=== PATIENT | female | born 1960 | race Caucasian/White ===

== ENCOUNTER 2018-07-05 05:37 | Inpatient (IN) | payer MEDICARE, MEDICAID, SELFPAY ==
[2018-07-05] VITALS (27 sets, daily range): BP systolic 180–248; BP diastolic 84–137; PULSE 89–102; RESP 11–20; TEMP 36.5–37.2; O2SAT 95–100; BMI 32.2; BMI 32.1
--- NOTE | 2018-07-05 05:54 | CT_ITS ---
STUDY: CT BRAIN WITHOUT CONTRAST REASON FOR EXAM: Female, 58 years old. Nausea vomiting diarrhea, weakness, lightheadedness, unsteady gait. RADIATION DOSAGE (If Supplied By Facility): CTDIvol = ( 44.99 ) mGy, DLP = ( 779.24 ) mGycm TECHNIQUE: Transaxial CT imaging of the brain was performed without administration of intravenous contrast material. Individualized dose optimization techniques were used for this CT. COMPARISON: 11/09/2013 FINDINGS: Normal soft tissue structures. Normal calvarium. There is mild/moderate cerebral atrophy with widening of the extra-axial spaces and ventricular dilatation. Moderate size focal zone of decreased attenuation noted centrally in the left posterior frontal subcortical white matter, reflective of subacute/chronic ischemic injury. There are significant areas of decreased attenuation within the white matter tracts of the supratentorial brain, demonstrated, consistent with nonspecific white matter demyelination. No definite acute abnormality of the basal ganglia, thalami and brainstem noted. Normal cerebellum. There is no intracranial hemorrhage. There are no findings of an acute ischemic infarction. Normal visualized paranasal sinuses. CT/Brain/Head without Contrast IMPRESSION: Chronic involutional and nonspecific periventricular white matter changes of the brain demonstrated, most likely chronic. Correlation with MRI exam is recommended. Electronically Signed: Mushtaq Chicas MD at 7:13 EDT Tel , Service support ,
--- NOTE | 2018-07-05 05:56 | ED.VISSUMM ---
- ER Visit Summary Date of Service: 07/05/18 Chief Complaint: [] Nausea vomiting and diarrhea History of Present Illness: The patient is a 58 F [] patient states she has had nausea vomiting diarrhea since yesterday morning. Gradual onset intermittent. She is vomited at least 20 times with 10 episodes of loose watery diarrhea. She stated that she fell off balance earlier this morning when walking and felt vertigo and dizzy. She states she has not been able to hold anything down including her medications yesterday. She does have a history of multiple sclerosis in the past. She is seen neurology in the past. She is off her medications currently. She does have diabetes. She has never had a stroke. She denies any focal weakness slurred speech or other stroke symptoms. Physical Examination: [] Vital signs reviewed General: Well-nourished well-developed Head: Normocephalic atraumatic Eyes: Pupils equal round and reactive to light extraocular movements intact ENT: TMs clear no hemotympanum no trauma Neck: Nontender full range of motion Cardiovascular: Regular rate rhythm no murmurs normal S1-S2 Respiratory: No distress clear to auscultation bilaterally chest nontender Abdomen: Soft nontender nondistended normal bowel sounds no masses Back: Nontender no CVA tenderness Extremities: Nontender active range of motion ?4 extremities no trauma Skin: Normal color no trauma Neuro alert oriented cranial nerves II through XII intact normal strength sensation reflexes Test Results: [] Emergency Department Course and Treatment: [] She given IV fluids and Zofran. Lab work and CT brain obtained. Lab work shows a white count of 13.8. Chemistries normal except chloride 97 anion gap 20 glucose 419 creatinine 1.08. Liver function tests normal except total bili 1.1. Troponin negative less than 0.01. Patient given a dose of labetalol IV as she has not been able to take her metoprolol and her blood sugar is over 200 systolic. She was given insulin subcutaneous for her blood sugar that was 419. Normally her blood sugars at home are in the upper 100s. CT looked at by myself shows nothing acute. No active bleeding. Still waiting on radiology evaluation will be signed out to the oncoming physician. She given dose of hydralazine as her blood pressure remains above 200 systolic. Patient's she is significantly better after treatment. She will be admitted and discussed with the hospitalist Treatment Plan: [] Disposition: [] Impression: [] Nausea vomiting diarrhea Acute dehydration Diabetes with hyperglycemia Hypertension established out of control symptomatic Weakness and dizziness This note was generated with [employer] dictation software. It may contain incorrect words, spelling, and punctuation that were not noted in review of the chart prior to signing ED Disposition - Plan for ED Patient: Chief Complaint: Nausea/Vomiting/Diarrhea Referrals: Jaskaran Garcia MD [Primary Care Provider] -
[2018-07-05 06:05] LABS: Absolute Lymphocyte Count 2.59 X10^3/ul (0.83-4.51); Absolute Neutrophil Count 10.7 X10^3/uL (2.0-7.7); Basophil# 0.03 X10^3/uL; Basophil% 0.2 % (0-1); Hematocrit 42.4 % (37-47); Hemoglobin 14.7 g/dl (12.0-15.0); Lymphocyte # 2.59 X10^3/ul (4.0); Lymphocyte % 18.8 % (19-41); Mean Corp Hgb Conc 34.7 g/gl (32-36); Mean Corpuscular Hgb 28.8 pg (27.0-32.0); Mean Platelet Vol. 11.8 fl (6.2-12.0); Monocyte# 0.46 X10^3/uL; Monocyte% 3.3 % (0-10); Neutrophil % 77.6 % (47-70); Platelet Count 308 K/mm3 (150-450); RBC Distribution Width CV 12.3 % (11.6-14.6); RBC Distribution Width SD 37.3 fl (35.1-43.9); Red Blood Count 5.11 M/mm3 (4.2-5.4); White Blood Count 13.8 K/mm3 (4.4-11.0)
[2018-07-05 06:06] LABS: POSITIVE COUNT NO; POSITIVE DIFFERENTIAL NO; POSITIVE MORPHOLOGY NO
[2018-07-05] MEDS: 0.9% Normal Saline 1,000 ML 1000 ML IV ×2 (06:10→07:07)
[2018-07-05] MEDS: Ondansetron 4 MG/2 ML Vial IV ×2 (06:10→08:10)
--- NOTE | 2018-07-05 06:18 | ED.RN ---
CALLED PHARMACY FOR TRANDATE.
[2018-07-05 06:20] LABS: AST(SGOT) 15 U/L (15-37); Alanine Aminotransfer ALT/SGPT 32 U/L (13-56); Alkaline Phosphatase 92 U/L (45-117); Anion Gap 20 (5-15); BUN 14 mg/dL (7-18); Calcium,Total 8.8 mg/dL (8.5-10.1); Chloride 97 mmol/L (98-107); Creatinine, Serum 1.08 mg/dL (0.55-1.02); EST Glomerular Filtration Rate 55 mL/min (>60); Est Glom Filt Rate - Afr Amer 67 mL/min (>60); Estimated Creatinine Clearance 55.22 ml/min; Glucose 419 mg/dL (74-106); Potassium 3.5 mmol/L (3.5-5.1); Sodium Level 138 mmol/L (136-145)
[2018-07-05] MEDS: Insulin Lispro 100 UNIT/ML INSULN.PEN 15 UNIT SC (06:30)
[2018-07-05 07:05] LABS: Bedside Glucose 419 mg/dL (70-110)
--- NOTE | 2018-07-05 07:14 | NURSING ---
MED SURG ESTELLE SYMPTOMATIC HTN, V, D, DEHYDRATION, HYPERGLYCEMIA
--- NOTE | 2018-07-05 07:32 | PCM.HP.STD ---
Problem List (1) Hypertensive emergency Status: Acute (2) Gastroenteritis Status: Acute History of Present Illness Date of Admission: 07/05/18 Chief Complaint: N/V/D The patient is a 58 year old F presents with nausea, vomiting and diarrhea since the . Since that time, patient has been more unsteady than she is at baseline. Has consists continue to feel worse and family brought patient into the emergency room. Patient had some lab work that was unremarkable. Head CT that grossly did not show any emergent final report still pending. Patient was noted to be hypertensive with blood pressure of 239/137. Patient received 20 mg of IV hydralazine, 20 mg of IV labetalol and blood pressure is now 198 systolic. Patient states that she has had symptoms similar to this but less severe in the past but nothing recently. Patient being admitted for further hypertensive management, therapy evaluations and IV hydration. [] Past Medical History Past Medical History (Chronic Problems): Chronic Problems Depression (Chronic) Chronic renal failure, stage 2 (mild) (Chronic) HTN (hypertension) (Chronic) DM (diabetes mellitus), type 2, uncontrolled (Chronic) Dyslipidemia (Chronic) Allergies No Known Allergies Allergy (Verified 07/05/18 05:50) Home Medications: Ambulatory Orders Medication Instructions Recorded Aspirin [Aspirin, Baby] 81 mg PO DAILY@0800 11/09/13 Citalopram [Celexa] 40 mg PO DAILY 11/09/13 Metoprolol Tartrate [Lopressor 100 mg PO BID 11/09/13 (beta rony)] buPROPion tablets [Wellbutrin 300 mg PO DAILY 11/09/13 tablets] Blood Sugar Diagnostic [Test 1 each MC 4X/DAY #120 strip 03/17/16 Strips] Insulin Aspart [Novolog Flexpen] 9 units SC TIDAC 30 Days flexpen 03/17/16 Insulin Detemir [Levemir FlexPen] 20 units SC QHS 30 Days insuln.pen 03/17/16 Magnesium Oxide [Mag-Ox 400] 400 mg PO BID #10 tablet 03/17/16 Losartan Potassium [Cozaar] 50 mg PO DAILY 07/05/18 Metformin HCl [Glucophage] 1,000 mg PO BIDCM 07/05/18 Smoking Status: Never smoker Tobacco Use: Non-smoker Alcohol: None Drugs: None - *Family History Maternal History Items: - - No MS Review of Systems Constitutional: Reports: Weakness. Denies: Chills, Fever, Weight Change Eyes: Denies: Blurred vision, Double vision HEENT: Reports: - - chronic vision loss in left eye due to optic neuritis.. Denies: Head Aches, Sinus Congestion, Sinus Drainage Cardiovascular: Denies: Chest Pain, Chest Pressure Respiratory: Denies: Cough, Shortness of breath at rest, Sputum production Gastrointestinal: Reports: Diarrhea, Nausea, Vomiting. Denies: Abdominal Pain Genitourinary: Denies: Dysuria Musculoskeletal: Denies: Joint Pain, Joint Tenderness Skin: Denies: Rash, Wounds Neurological: Denies: Numbness, Tingling, Focal weakness Psychiatric: Denies: Anxiety, Depression Hematologic/ Lymphatic: Denies: Easy Bruising, Easy Bleeding Comment: All review of systems are negative except as mentioned in the history of present illness and the other review of systems. VTE Information - Inpt Only VTE Present on Admission: No VTE Pharm Prophylaxis ordered?: Yes Patient Problems: Active and Suspected Problems Hypertensive emergency (Acute) Gastroenteritis (Acute) - Physical Exam General: Alert, No apparent distress HEENT: Atraumatic, PERRLA, EOMI, Normocephalic, - - vertical and horizontal nystagmus Oral: Moist Mucosa, No Gingival or Mucosal Lesions/ Ulcerations Neck: No Nodes, Thyroid Normal Size and Texture Lungs: Clear to auscultation, Normal air movement, No rhonchi, No wheeze Cardiovascular: Regular rate, Regular Rhythm, Normal S1, Normal S2, No murmurs Abdomen: Bowel Sounds Present, Soft, Non Tender, Non-Distended, No Hepato-splenomegaly, Passing Flatus Extremities: No edema, No Calf Tenderness Skin: No rashes, No breakdown Neurological: Cranial nerves II-XII grossly intact, Motor Exam 5/5 strength throughout, - - no clonus Psych/Mental Status: Normal Affect, Appropriate Vital Signs Temp Pulse Resp BP Pulse Ox 36.5 C L 94 19 H 216/102 H 100 07/05/18 05:38 07/05/18 06:31 07/05/18 06:26 07/05/18 06:31 07/05/18 06:26 Oxygen Delivery Method Room Air Weight: 94.7 kg Body Mass Index (BMI) 32.2 Finger Stick Blood Glucose 419 Laboratory Tests Past 24 Hrs 07/05/18 07/05/18 05:45 05:45 WBC 13.8 H RBC 5.11 Hgb 14.7 Hct 42.4 MCV 83.0 MCH 28.8 MCHC 34.7 RDW 12.3 RDW Differential 37.3 Plt Count 308 MPV 11.8 Immature Gran % (Auto) 0.100 Neut % (Auto) 77.6 H Lymph % (Auto) 18.8 L Gilchrist % (Auto) 3.3 Eos % (Auto) 0.0 Baso % (Auto) 0.2 Absolute Neuts (auto) 10.7 H Absolute Lymphs (auto) 2.59 Total Counted Not Reportable Sodium 138 Potassium 3.5 Chloride 97 L Carbon Dioxide 21.0 Anion Gap 20 H BUN 14 Creatinine 1.08 H Estim Creat Clear Calc 55.22 Est GFR (MDRD) Af Amer 67 Est GFR (MDRD) Non-Af 55 L BUN/Creatinine Ratio 13.0 Glucose 419 H Calcium 8.8 Total Bilirubin 1.10 H AST 15 ALT 32 Alkaline Phosphatase 92 Troponin I < 0.015 Total Protein 8.0 Albumin 4.0 Globulin 4.0 Albumin/Globulin Ratio 1.0 POC Glucose 07/05/18 07:01 POC Glucose 419 H Clinical Impression(s) from Imaging Studies Brain CT 07/05/18 05:54 IMPRESSION: Chronic involutional and nonspecific periventricular white matter changes of the brain demonstrated, most likely chronic. Correlation with MRI exam is recommended. Electronically Signed: Mushtaq Chicas MD at 7:13 EDT Tel , Service support , Assessment/Plan All Active Problems Hypertensive emergency (Acute) Gastroenteritis (Acute) Metabolic alkalosis (Acute) Hypokalemia (Acute) Abscess of right buttock (Acute) Dehydration (Acute) Hypomagnesemia (Acute) 1. Hypertensive emergency likely symptomatic with some of his symptoms but is unclear the symptoms began before after Supportive management Continue with his home medications As needed hydralazine Improved at this time, does not require ICU level care at this time. 2. Suspected gastroenteritis May be viral IV Zofran IV fluids 3. Debility Patient has weakness at baseline Physical and occupational therapy evaluate and treat Discussed the possibility of group home facility or home health care upon discharge with patient and her daughters 4. Multiple sclerosis Not currently on any medications but from the description of the family this may have been due to some insurance changes Family is inquired about getting insurance coverage of the patient to follow-up with Dr. Melchor in the future to get back on medications. 5. DVT prophylaxis with Lovenox Code Visit Inpatient E&M: 07401 Init Hosp L3
--- NOTE | 2018-07-05 07:37 | HP.PCM_ITS ---
Problem List (1) Hypertensive emergency Status: Acute (2) Gastroenteritis Status: Acute History of Present Illness Date of Admission: 07/05/18 Chief Complaint: N/V/D The patient is a 58 year old F presents with nausea, vomiting and diarrhea since the . Since that time, patient has been more unsteady than she is at baseline. Has consists continue to feel worse and family brought patient into the emergency room. Patient had some lab work that was unremarkable. Head CT that grossly did not show any emergent final report still pending. Patient was noted to be hypertensive with blood pressure of 239/137. Patient received 20 mg of IV hydralazine, 20 mg of IV labetalol and blood pressure is now 198 systolic. Patient states that she has had symptoms similar to this but less severe in the past but nothing recently. Patient being admitted for further hypertensive management, therapy evaluations and IV hydration. [] Past Medical History Past Medical History (Chronic Problems): Chronic Problems Depression (Chronic) Chronic renal failure, stage 2 (mild) (Chronic) HTN (hypertension) (Chronic) DM (diabetes mellitus), type 2, uncontrolled (Chronic) Dyslipidemia (Chronic) Allergies No Known Allergies Allergy (Verified 07/05/18 05:50) Home Medications: Ambulatory Orders Medication Instructions Recorded Aspirin [Aspirin, Baby] 81 mg PO DAILY@0800 11/09/13 Citalopram [Celexa] 40 mg PO DAILY 11/09/13 Metoprolol Tartrate [Lopressor 100 mg PO BID 11/09/13 (beta rony)] buPROPion tablets [Wellbutrin 300 mg PO DAILY 11/09/13 tablets] Blood Sugar Diagnostic [Test 1 each MC 4X/DAY #120 strip 03/17/16 Strips] Insulin Aspart [Novolog Flexpen] 9 units SC TIDAC 30 Days flexpen 03/17/16 Insulin Detemir [Levemir FlexPen] 20 units SC QHS 30 Days insuln.pen 03/17/16 Magnesium Oxide [Mag-Ox 400] 400 mg PO BID #10 tablet 03/17/16 Losartan Potassium [Cozaar] 50 mg PO DAILY 07/05/18 Metformin HCl [Glucophage] 1,000 mg PO BIDCM 07/05/18 Smoking Status: Never smoker Tobacco Use: Non-smoker Alcohol: None Drugs: None - *Family History Maternal History Items: - - No MS Review of Systems Constitutional: Reports: Weakness. Denies: Chills, Fever, Weight Change Eyes: Denies: Blurred vision, Double vision HEENT: Reports: - - chronic vision loss in left eye due to optic neuritis.. Denies: Head Aches, Sinus Congestion, Sinus Drainage Cardiovascular: Denies: Chest Pain, Chest Pressure Respiratory: Denies: Cough, Shortness of breath at rest, Sputum production Gastrointestinal: Reports: Diarrhea, Nausea, Vomiting. Denies: Abdominal Pain Genitourinary: Denies: Dysuria Musculoskeletal: Denies: Joint Pain, Joint Tenderness Skin: Denies: Rash, Wounds Neurological: Denies: Numbness, Tingling, Focal weakness Psychiatric: Denies: Anxiety, Depression Hematologic/ Lymphatic: Denies: Easy Bruising, Easy Bleeding Comment: All review of systems are negative except as mentioned in the history of present illness and the other review of systems. VTE Information - Inpt Only VTE Present on Admission: No VTE Pharm Prophylaxis ordered?: Yes Patient Problems: Active and Suspected Problems Hypertensive emergency (Acute) Gastroenteritis (Acute) - Physical Exam General: Alert, No apparent distress HEENT: Atraumatic, PERRLA, EOMI, Normocephalic, - - vertical and horizontal nystagmus Oral: Moist Mucosa, No Gingival or Mucosal Lesions/ Ulcerations Neck: No Nodes, Thyroid Normal Size and Texture Lungs: Clear to auscultation, Normal air movement, No rhonchi, No wheeze Cardiovascular: Regular rate, Regular Rhythm, Normal S1, Normal S2, No murmurs Abdomen: Bowel Sounds Present, Soft, Non Tender, Non-Distended, No Hepato- splenomegaly, Passing Flatus Extremities: No edema, No Calf Tenderness Skin: No rashes, No breakdown Neurological: Cranial nerves II-XII grossly intact, Motor Exam 5/5 strength throughout, - - no clonus Psych/Mental Status: Normal Affect, Appropriate Vital Signs Temp Pulse Resp BP Pulse Ox 36.5 C L 94 19 H 216/102 H 100 07/05/18 05:38 07/05/18 06:31 07/05/18 06:26 07/05/18 06:31 07/05/18 06:26 Oxygen Delivery Method Room Air Weight: 94.7 kg Body Mass Index (BMI) 32.2 Finger Stick Blood Glucose 419 Laboratory Tests Past 24 Hrs 07/05/18 07/05/18 05:45 05:45 WBC 13.8 H RBC 5.11 Hgb 14.7 Hct 42.4 MCV 83.0 MCH 28.8 MCHC 34.7 RDW 12.3 RDW Differential 37.3 Plt Count 308 MPV 11.8 Immature Gran % (Auto) 0.100 Neut % (Auto) 77.6 H Lymph % (Auto) 18.8 L Pitkin % (Auto) 3.3 Eos % (Auto) 0.0 Baso % (Auto) 0.2 Absolute Neuts (auto) 10.7 H Absolute Lymphs (auto) 2.59 Total Counted Not Reportable Sodium 138 Potassium 3.5 Chloride 97 L Carbon Dioxide 21.0 Anion Gap 20 H BUN 14 Creatinine 1.08 H Estim Creat Clear Calc 55.22 Est GFR (MDRD) Af Amer 67 Est GFR (MDRD) Non-Af 55 L BUN/Creatinine Ratio 13.0 Glucose 419 H Calcium 8.8 Total Bilirubin 1.10 H AST 15 ALT 32 Alkaline Phosphatase 92 Troponin I < 0.015 Total Protein 8.0 Albumin 4.0 Globulin 4.0 Albumin/Globulin Ratio 1.0 POC Glucose 07/05/18 07:01 POC Glucose 419 H Clinical Impression(s) from Imaging Studies Brain CT 07/05/18 05:54 IMPRESSION: Chronic involutional and nonspecific periventricular white matter changes of the brain demonstrated, most likely chronic. Correlation with MRI exam is recommended. Electronically Signed: Mushtaq Chicas MD at 7:13 EDT Tel , Service support , Assessment/Plan All Active Problems Hypertensive emergency (Acute) Gastroenteritis (Acute) Metabolic alkalosis (Acute) Hypokalemia (Acute) Abscess of right buttock (Acute) Dehydration (Acute) Hypomagnesemia (Acute) 1. Hypertensive emergency * likely symptomatic with some of his symptoms but is unclear the symptoms began before after * Supportive management * Continue with his home medications * As needed hydralazine * Improved at this time, does not require ICU level care at this time. 2. Suspected gastroenteritis * May be viral * IV Zofran * IV fluids 3. Debility * Patient has weakness at baseline * Physical and occupational therapy evaluate and treat * Discussed the possibility of group home facility or home health care upon discharge with patient and her daughters 4. Multiple sclerosis * Not currently on any medications but from the description of the family this may have been due to some insurance changes * Family is inquired about getting insurance coverage of the patient to follow- up with Dr. Melchor in the future to get back on medications. 5. DVT prophylaxis with Lovenox Code Visit Inpatient E&M: 23598 Init Hosp L3
--- NOTE | 2018-07-05 07:56 | NURSING ---
TEXT SENT TO ED CHARGE NURSE, JOEL TO BRING PATIENT TO PCU 108.
--- NOTE | 2018-07-05 09:45 | CASEMGMT ---
LUCIANO CEE Face to Face with patient for initial transition planning/care coordination assessment. RN CM introduced self and role at [facility]. Patient lying in bed, alert and oriented. Patient willing to participate in assessment and is able to answer all questions appropriately. Care providers, pharmacy, and demographics verified. See link attached. Patient wishes to discharge home, denies need for home health at this time. Patient states she has no further needs or concerns at this time. CM to follow for discharge planning needs that may arise. Disposition Plan: Patient to discharge home with family support and follow-up plans in place. Pat PUENTE, RN, CM
[2018-07-05] MEDS: Insulin Lispro 100 UNIT/ML INSULN.PEN 9 UNIT SC (11:19)
[2018-07-05 11:56] LABS: Bedside Glucose 340 mg/dL (70-110)
[2018-07-05] MEDS: cloNIDine HCl 0.2 MG Tablet PO (12:10)
[2018-07-05] MEDS: 0.9% NaCl Peripheral Flush Adult/Peds IV ×2 (12:11→15:44)
[2018-07-05] MEDS: Enoxaparin 40 MG/0.4 ML Syringe SC (15:43)
[2018-07-05] MEDS: Insulin Lispro 100 UNIT/ML INSULN.PEN SQ (16:40)
--- NOTE | 2018-07-05 17:26 | NURSING ---
Report Given to Shital in ICU
[2018-07-05 18:00] LABS: Bedside Glucose 342 mg/dL (70-110)
--- NOTE | 2018-07-05 18:24 | NURSING ---
At 1735 patient transferred ICU03.
[2018-07-05] MEDS: Metoprolol Tartrate 100 MG Tablet PO (22:22)
[2018-07-05 22:26] LABS: Bedside Glucose 341 mg/dL (70-110)
--- NOTE | 2018-07-05 22:31 | NURSING ---
After obtaining order for Haldol, pt relaxed and became compliant. Resting with eyes closed, and following commands. Will continue to monitor.
[2018-07-06] VITALS (31 sets, daily range): BP systolic 151–196; BP diastolic 62–97; PULSE 65–96; RESP 10–18; TEMP 36.6–37.4; O2SAT 93–100
[2018-07-06] MEDS: 0.9% NaCl Peripheral Flush Adult/Peds IV (00:34)
[2018-07-06] MEDS: Ondansetron 4 MG/2 ML Vial IV (00:34)
[2018-07-06 04:47] LABS: Anion Gap 14 (5-15); BUN 18 mg/dL (7-18); BUN/Creat Ratio 20.5 RATIO (10-20); Calcium,Total 8.1 mg/dL (8.5-10.1); Chloride 104 mmol/L (98-107); Creatinine, Serum 0.88 mg/dL (0.55-1.02); EST Glomerular Filtration Rate 70 mL/min (>60); Est Glom Filt Rate - Afr Amer 85 mL/min (>60); Estimated Creatinine Clearance 67.76 ml/min; Glucose 319 mg/dL (74-106); Potassium 3.1 mmol/L (3.5-5.1); Sodium Level 142 mmol/L (136-145)
[2018-07-06] MEDS: CHLORHEXIDINE GLUC 2% CLOTH 1 EACH TOWELETTE TOPICAL (05:36)
[2018-07-06 07:10] LABS: Bedside Glucose 328 mg/dL (70-110)
--- NOTE | 2018-07-06 07:27 | PCM.CON.CC ---
Problem List (1) Hypertensive emergency Status: Acute (2) Gastroenteritis Status: Acute (3) Chronic renal failure, stage 2 (mild) Status: Chronic (4) Hypokalemia Status: Acute (5) HTN (hypertension) Status: Chronic Qualifiers: Hypertension type: essential hypertension Qualified Code(s): I10 - Essential (primary) hypertension (6) DM (diabetes mellitus), type 2, uncontrolled Status: Chronic (7) Dyslipidemia Status: Chronic (8) Sleep apnea Status: Suspected Reason for Consult Date of Consultation: 07/06/18 Reason for Consultation: Hypertensive emergency History of Present Illness: The patient is a 58 year old F, with past medical history listed below, who presented to [facility] on 07/05/2018 secondary to nausea, vomiting and diarrhea. Patient had reportedly started to have nausea vomiting and diarrhea on and reported a gradual onset. Patient states that she had at least 20 episodes of emesis and 10 episodes of loose diarrhea over the previous day and a half. Patient had had issues with vertigo and dizziness and was unable to hold any medications down including her antihypertensives. Patient does have a history of multiple sclerosis in the past and has been seen by neurology. In the emergency room, patient was given IV fluids and Zofran. CT scan was unremarkable. Patient was noted to have a leukocytosis and elevated glucose of 419. Patient was given labetalol IV and insulin. She was admitted to the floor and seen by the hospitalist. At that time, patient was noted to be 239/137. Patient did receive hydralazine and labetalol with slight improvement in blood pressure. Patient was then transferred to the intensive care unit to be started on a nicardipine drip. Overnight, patient reports subjective improvement in overall condition. Patient still has significant nausea, but has not had any emesis. Patient does not report any bowel movements since admission. Patient denies any current pain, fever or chills. Patient has not had any reported melena, hematochezia or hematemesis. Patient denies any recent change in diet. Patient does can her own peaches and states that she had some on . Patient denies any change in flavor or alteration of the peaches. Patient denies any paralysis. Patient has reportedly been lost to follow-up with Dr. Melchor for her multiple sclerosis. Patient has not been able to take any medications for MS secondary to insurance issues. Patient denies any recent onset of rash. Patient is unaware of any sick contacts. Review of systems otherwise negative ?10 systems. Past Medical History Past Medical History (Chronic Problems): Chronic Problems Depression (Chronic) Chronic renal failure, stage 2 (mild) (Chronic) HTN (hypertension) (Chronic) DM (diabetes mellitus), type 2, uncontrolled (Chronic) Dyslipidemia (Chronic) Allergies No Known Allergies Allergy (Verified 07/05/18 05:50) Home Medications: Ambulatory Orders Medication Instructions Recorded Aspirin [Aspirin, Baby] 81 mg PO DAILY@0800 11/09/13 Citalopram [Celexa] 40 mg PO DAILY 11/09/13 Metoprolol Tartrate [Lopressor 100 mg PO BID 11/09/13 (beta rony)] buPROPion tablets [Wellbutrin 300 mg PO DAILY 11/09/13 tablets] Blood Sugar Diagnostic [Test 1 each MC 4X/DAY #120 strip 03/17/16 Strips] Losartan Potassium [Cozaar] 50 mg PO DAILY 07/05/18 Metformin HCl [Glucophage] 1,000 mg PO BIDCM 07/05/18 Smoking Status: Never smoker Tobacco Use: Non-smoker Alcohol: None Drugs: None - *Family History Maternal History Items: - - No MS Review of Systems Comment: See HPI, otherwise negative ?10 systems. Patient Problems: Active and Suspected Problems Hypertensive emergency (Acute) Gastroenteritis (Acute) Objective: CT scan of the head was reviewed. This did show some periventricular changes. - Physical Exam General: Alert, Oriented x3, Cooperative, - - Mild distress secondary to nausea. Obese. Speaking in full sentences. HEENT: Atraumatic, PERRLA, EOMI, Normocephalic, - - No scleral icterus or injection noted. Glasses in place. Oral: No Gingival or Mucosal Lesions/ Ulcerations, Dry Mucosa Neck: Supple, No JVD, No Nodes, Trachea Midline Lungs: Clear to auscultation, Normal air movement, No rhonchi, No wheeze, No rales Cardiovascular: Regular rate, Regular Rhythm, Normal S1, Normal S2, No murmurs, No rub noted, No Gallop Abdomen: Soft, Non Tender, Non-Distended, Hyperactive Bowel Sounds, Obese Extremities: No clubbing, No cyanosis, No edema, Capillary Refill Less than 3 Seconds Skin: No rashes, No breakdown Musculoskeletal: No Tenderness to Palpation of Joints or Extremities Lymphatic: No Cervical, Supraclavicular, or Inguinal Adenopathy Neurological: Cranial nerves II-XII grossly intact, Neuro grossly intact, Motor Exam 5/5 strength throughout Psych/Mental Status: Alert and oriented to time, place, person, mood and affect Vital Signs Temp Pulse Resp BP Pulse Ox 37.1 C 86 14 170/74 H 95 07/06/18 04:00 07/06/18 07:00 07/06/18 07:00 07/06/18 07:00 07/06/18 07:00 Oxygen Delivery Method Room Air Weight: 94.4 kg Body Mass Index (BMI) 32.1 Intake and Output for Last 24 Hours 07/04/18 07/05/18 07/06/18 23:59 23:59 23:59 Intake Total 2494 / 2494 813 / 813 Output Total 1450 / 1450 700 / 700 Balance 1044 / 1044 113 / 113 Laboratory Tests Past 24 Hrs 07/06/18 04:25 Sodium 142 Potassium 3.1 L Chloride 104 Carbon Dioxide 24.0 Anion Gap 14 BUN 18 Creatinine 0.88 Estim Creat Clear Calc 67.76 Est GFR (MDRD) Af Amer 85 Est GFR (MDRD) Non-Af 70 BUN/Creatinine Ratio 20.5 H Glucose 319 H Calcium 8.1 L POC Glucose 07/06/18 07/05/18 07/05/18 07:05 22:17 16:36 POC Glucose 328 H 341 H 342 H 07/05/18 11:18 POC Glucose 340 H Assessment/Plan Active and Suspected Problems Hypertensive emergency (Acute) Gastroenteritis (Acute) RECOMMENDATIONS: 1. Treat nausea symptomatically with Zofran 2. Reinitiate baseline medications for hypertension 3. Potentially add a third medication for hypertension if persists this evening 4. Continue with supplemental insulin 5. Potassium repletion IMPRESSIONS: 1. Hypertensive emergency Patient may be having an element of rebound hypertension secondary to inability to tolerate oral beta-rony. Patient is currently getting Zofran therapy and still having nausea, but emesis is much improved. Will attempt to give p.o. medications and monitor. If patient continues to be hypertensive, a third line medication can be added. Patient may benefit from an MRI to be sure she has no white matter changes in the vestibular area that may be leading to the nausea and increased gastric motility. 2. Possible viral gastroenteritis Patient does not report any sick contacts, but is having nausea, vomiting and diarrhea. We will continue to monitor fluid status. Keep patient n.p.o. for now. Hypokalemia likely secondary to GI losses. 3. Hypokalemia Replace IV given patient's GI symptoms 4. Debility/multiple sclerosis Complicates care, management, recovery and prognosis. Therapies have been consulted. Patient may require high-dose steroids if new acute lesions noted on MRI. Code Visit Inpatient E&M: 09007 Init Hosp L3
[2018-07-06] MEDS: Insulin Lispro 100 UNIT/ML INSULN.PEN 9 UNIT SC ×3 (07:47→17:06)
[2018-07-06] MEDS: Metoprolol Tartrate 100 MG Tablet PO ×2 (07:48→21:01)
[2018-07-06] MEDS: Insulin Lispro 100 UNIT/ML INSULN.PEN SQ ×3 (07:48→17:06)
[2018-07-06] MEDS: Losartan Potassium 50 MG Tablet PO (07:49)
--- NOTE | 2018-07-06 09:16 | PCM.PN.HOSP ---
Patient Problems: Active and Suspected Problems Hypertensive emergency (Acute) Gastroenteritis (Acute) Subjective: The patient is still having nausea sensation. On Zofran. She is still having dizzy and vertigo. Patient states her blood pressure has been on higher side at home and in the doctor's office but unsure about the exact number. Patient also said she lost her vision in left eye about 3-4 days ago has not come back. 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 Vitals/I&O's: Vital Signs Temp Pulse Resp BP Pulse Ox 97.8 F 78 12 180/76 H 97 07/06/18 08:00 07/06/18 08:00 07/06/18 08:00 07/06/18 08:00 07/06/18 08:00 Oxygen Delivery Method Room Air Weight: 208 lb 1.862 oz Body Mass Index (BMI) 32.1 Intake and Output for Last 24 Hours 07/04/18 07/05/18 07/06/18 23:59 23:59 23:59 Intake Total 2494 / 2494 813 / 813 Output Total 1450 / 1450 700 / 700 Balance 1044 / 1044 113 / 113 General: Alert, Oriented x3, Cooperative HEENT: Atraumatic, EOMI, Normocephalic Neck: Supple, No JVD, Negative Carotid Bruits Lungs: Clear to auscultation, Normal air movement, No rhonchi, No wheeze, No rales Cardiovascular: Regular rate, Normal S1, Normal S2, No murmurs Abdomen: Bowel Sounds Present, Soft, Non Tender, Non-Distended Extremities: No edema, Capillary Refill Less than 3 Seconds Skin: No rashes, No breakdown Musculoskeletal: No Tenderness to Palpation of Joints or Extremities Neurological: Cranial nerves II-XII grossly intact Psych/Mental Status: Normal Affect, Appropriate Laboratory Results 07/05/18 11:18: POC Glucose 340 H 07/05/18 16:36: POC Glucose 342 H 07/05/18 22:17: POC Glucose 341 H 07/06/18 04:25: Sodium 142, Potassium 3.1 L, Chloride 104, Carbon Dioxide 24.0, Anion Gap 14, BUN 18, Creatinine 0.88, Estim Creat Clear Calc 67.76, Est GFR (MDRD) Af Amer 85, Est GFR (MDRD) Non-Af 70, BUN/Creatinine Ratio 20.5 H, Glucose 319 H, Calcium 8.1 L 07/06/18 07:05: POC Glucose 328 H Current Medications Aspirin (Aspirin, Baby) 81 mg PO DAILY@0800 [facility] Last Admin: 07/05/18 16:32 Dose: Not Given Bupropion HCl (Wellbutrin Xl) 300 mg PO DAILY [facility] Last Admin: 07/05/18 16:32 Dose: Not Given Chlorhexidine Gluconate () 1 each TOPICAL DAILY [facility] Last Admin: 07/06/18 05:36 Dose: 1 each Citalopram Hydrobromide (Celexa) 40 mg PO DAILY [facility] Last Admin: 07/05/18 16:32 Dose: Not Given Dextrose (D50w Syringe) 0 gm IV X1 PRN; Protocol PRN Reason: Hypoglycemia Enoxaparin Sodium (Lovenox) 40 mg SC DAILY@1000 [facility] Last Admin: 07/05/18 15:43 Dose: 40 mg Glucagon () 1 mg IM .X1 PRN PRN Reason: Hypoglycemia Nicardipine HCl 25 mg/ Sodium (Chloride) 250 mls @ 50 mls/hr IV .Q5H [facility] PRN Reason: 5 MG/HR Last Admin: 07/06/18 04:38 Dose: 50 mls/hr Potassium Chloride (Kcl 10meq/100ml) 10 meq in 100 mls @ 100 mls/hr IV BOLUS Q1H [facility] Stop: 07/06/18 11:59 Last Admin: 07/06/18 09:00 Dose: 100 mls/hr Insulin Glargine (Lantus (Bkc)) 20 units SC QHS [facility] Last Admin: 07/05/18 22:21 Dose: 20 units Insulin Human Lispro (Humalog Kwikpen (Bkc)) 9 unit SC TIDAC [facility] Last Admin: 07/06/18 07:47 Dose: 9 u Insulin Human Lispro (Humalog Kwikpen (Bkc)) 0 unit SQ TIDAC [facility] PRN Reason: Protocol Last Admin: 07/06/18 07:48 Dose: 5 units Labetalol HCl (Trandate) 10 mg IV Q4H PRN PRN PRN Reason: hypertention Last Admin: 07/05/18 15:44 Dose: 10 mg Losartan Potassium (Cozaar) 50 mg PO DAILY [facility] Last Admin: 07/06/18 07:49 Dose: 50 mg Magnesium Hydroxide (Milk Of Magnesia) 30 ml PO DAILY PRN PRN Reason: Constipation Metoprolol Tartrate (Lopressor (Beta Zenon)) 100 mg PO BID [facility] Last Admin: 07/06/18 07:48 Dose: 100 mg Ondansetron HCl (Zofran) 4 mg IV Q6H PRN PRN PRN Reason: NAUSEA/VOMITING Last Admin: 07/06/18 00:34 Dose: 4 mg Sodium Chloride () 5 - 30 ml IV UD PRN PRN Reason: SALINE FLUSH Last Admin: 07/06/18 00:34 Dose: 20 ml Medical Necessity - Tobacco Use Smoking Status: Never smoker Tobacco Use: Non-smoker Assessment/Plan All Active Problems Hypertensive emergency (Acute) Gastroenteritis (Acute) Metabolic alkalosis (Acute) Hypokalemia (Acute) Abscess of right buttock (Acute) Dehydration (Acute) Hypomagnesemia (Acute) This is a 58-year-old female with history of multiple sclerosis, hypertension and diabetes mellitus type 2, uncontrolled, CKD stage II was admitted with nausea, vomiting and diarrhea since 07 July. Patient also complaining of dizziness, vertigo and unsteady gait. She states he sink down because of dizziness. She was admitted with hypertensive emergency probably could not take medications because of vomiting. 1. Hypertensive emergency: Currently blood pressure runs in 170-180. Pulse ox normal. On nicardipine drip. Labetalol IV as needed. On Cozaar, metoprolol. In view of history of MS and left eye visual symptoms, unsteady gait, MRI brain is required. Continue symptomatic management. 2. Possible viral gastroenteritis: Patient still having nausea, dizziness and vertigo. On IV Zofran. 3. Hypokalemia: Monitor and correct accordingly. 4. Multiple sclerosis: Patient might have exacerbation of multiple sclerosis because of dizziness, vertigo, unsteady gait and loss of vision. When patient is more stable, will need MRI. Neurologist consult appreciated. 5. DVT prophylaxis with Lovenox Active Medications Aspirin (Aspirin, Baby) 81 mg PO DAILY@0800 [facility] Last Admin: 07/05/18 16:32 Dose: Not Given Bupropion HCl (Wellbutrin Xl) 300 mg PO DAILY [facility] Last Admin: 07/05/18 16:32 Dose: Not Given Chlorhexidine Gluconate () 1 each TOPICAL DAILY [facility] Last Admin: 07/06/18 05:36 Dose: 1 each Citalopram Hydrobromide (Celexa) 40 mg PO DAILY [facility] Last Admin: 07/05/18 16:32 Dose: Not Given Dextrose (D50w Syringe) 0 gm IV X1 PRN; Protocol PRN Reason: Hypoglycemia Enoxaparin Sodium (Lovenox) 40 mg SC DAILY@1000 [facility] Last Admin: 07/05/18 15:43 Dose: 40 mg Glucagon () 1 mg IM .X1 PRN PRN Reason: Hypoglycemia Nicardipine HCl 25 mg/ Sodium (Chloride) 250 mls @ 50 mls/hr IV .Q5H [facility] PRN Reason: 5 MG/HR Last Admin: 07/06/18 04:38 Dose: 50 mls/hr Potassium Chloride (Kcl 10meq/100ml) 10 meq in 100 mls @ 100 mls/hr IV BOLUS Q1H [facility] Stop: 07/06/18 11:59 Last Admin: 07/06/18 09:00 Dose: 100 mls/hr Insulin Glargine (Lantus (Bkc)) 20 units SC QHS [facility] Last Admin: 07/05/18 22:21 Dose: 20 units Insulin Human Lispro (Humalog Kwikpen (Bkc)) 9 unit SC TIDAC [facility] Last Admin: 07/06/18 07:47 Dose: 9 u Insulin Human Lispro (Humalog Kwikpen (Bkc)) 0 unit SQ TIDAC [facility] PRN Reason: Protocol Last Admin: 07/06/18 07:48 Dose: 5 units Labetalol HCl (Trandate) 10 mg IV Q4H PRN PRN PRN Reason: hypertention Last Admin: 07/05/18 15:44 Dose: 10 mg Losartan Potassium (Cozaar) 50 mg PO DAILY [facility] Last Admin: 07/06/18 07:49 Dose: 50 mg Magnesium Hydroxide (Milk Of Magnesia) 30 ml PO DAILY PRN PRN Reason: Constipation Metoprolol Tartrate (Lopressor (Beta Zenon)) 100 mg PO BID [facility] Last Admin: 07/06/18 07:48 Dose: 100 mg Ondansetron HCl (Zofran) 4 mg IV Q6H PRN PRN PRN Reason: NAUSEA/VOMITING Last Admin: 09/23/18 00:34 Dose: 4 mg Sodium Chloride () 5 - 30 ml IV UD PRN PRN Reason: SALINE FLUSH Last Admin: 07/06/18 00:34 Dose: 20 ml Laboratory Results 07/05/18 11:18: POC Glucose 340 H 07/05/18 16:36: POC Glucose 342 H 07/05/18 22:17: POC Glucose 341 H 07/06/18 04:25: Sodium 142, Potassium 3.1 L, Chloride 104, Carbon Dioxide 24.0, Anion Gap 14, BUN 18, Creatinine 0.88, Estim Creat Clear Calc 67.76, Est GFR (MDRD) Af Amer 85, Est GFR (MDRD) Non-Af 70, BUN/Creatinine Ratio 20.5 H, Glucose 319 H, Calcium 8.1 L 07/06/18 07:05: POC Glucose 328 H Clinical Impression(s) from Imaging Studies Brain CT 07/05/18 05:54 IMPRESSION: Chronic involutional and nonspecific periventricular white matter changes of the brain demonstrated, most likely chronic. Correlation with MRI exam is recommended. Code Visit Inpatient E&M: 38008 Subs Hosp L3
--- NOTE | 2018-07-06 09:26 | PN_ITS ---
Patient Problems: Active and Suspected Problems Hypertensive emergency (Acute) Gastroenteritis (Acute) Subjective: The patient is still having nausea sensation. On Zofran. She is still having dizzy and vertigo. Patient states her blood pressure has been on higher side at home and in the doctor's office but unsure about the exact number. Patient also said she lost her vision in left eye about 3-4 days ago has not come back. 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 Vitals/I&O's: Vital Signs Temp Pulse Resp BP Pulse Ox 97.8 F 78 12 180/76 H 97 07/06/18 08:00 07/06/18 08:00 07/06/18 08:00 07/06/18 08:00 07/06/18 08:00 Oxygen Delivery Method Room Air Weight: 208 lb 1.862 oz Body Mass Index (BMI) 32.1 Intake and Output for Last 24 Hours 07/04/18 07/05/18 07/06/18 23:59 23:59 23:59 Intake Total 2494 / 2494 813 / 813 Output Total 1450 / 1450 700 / 700 Balance 1044 / 1044 113 / 113 General: Alert, Oriented x3, Cooperative HEENT: Atraumatic, EOMI, Normocephalic Neck: Supple, No JVD, Negative Carotid Bruits Lungs: Clear to auscultation, Normal air movement, No rhonchi, No wheeze, No rales Cardiovascular: Regular rate, Normal S1, Normal S2, No murmurs Abdomen: Bowel Sounds Present, Soft, Non Tender, Non-Distended Extremities: No edema, Capillary Refill Less than 3 Seconds Skin: No rashes, No breakdown Musculoskeletal: No Tenderness to Palpation of Joints or Extremities Neurological: Cranial nerves II-XII grossly intact Psych/Mental Status: Normal Affect, Appropriate Laboratory Results 07/05/18 11:18: POC Glucose 340 H 07/05/18 16:36: POC Glucose 342 H 07/05/18 22:17: POC Glucose 341 H 07/06/18 04:25: Sodium 142, Potassium 3.1 L, Chloride 104, Carbon Dioxide 24.0, Anion Gap 14, BUN 18, Creatinine 0.88, Estim Creat Clear Calc 67.76, Est GFR ( MDRD) Af Amer 85, Est GFR (MDRD) Non-Af 70, BUN/Creatinine Ratio 20.5 H, Glucose 319 H, Calcium 8.1 L 07/06/18 07:05: POC Glucose 328 H Current Medications Aspirin (Aspirin, Baby) 81 mg PO DAILY@0800 [facility] Last Admin: 07/05/18 16:32 Dose: Not Given Bupropion HCl (Wellbutrin Xl) 300 mg PO DAILY [facility] Last Admin: 07/05/18 16:32 Dose: Not Given Chlorhexidine Gluconate () 1 each TOPICAL DAILY [facility] Last Admin: 07/06/18 05:36 Dose: 1 each Citalopram Hydrobromide (Celexa) 40 mg PO DAILY [facility] Last Admin: 07/05/18 16:32 Dose: Not Given Dextrose (D50w Syringe) 0 gm IV X1 PRN; Protocol PRN Reason: Hypoglycemia Enoxaparin Sodium (Lovenox) 40 mg SC DAILY@1000 [facility] Last Admin: 07/05/18 15:43 Dose: 40 mg Glucagon () 1 mg IM .X1 PRN PRN Reason: Hypoglycemia Nicardipine HCl 25 mg/ Sodium (Chloride) 250 mls @ 50 mls/hr IV .Q5H [facility] PRN Reason: 5 MG/HR Last Admin: 07/06/18 04:38 Dose: 50 mls/hr Potassium Chloride (Kcl 10meq/100ml) 10 meq in 100 mls @ 100 mls/hr IV BOLUS Q1H [facility] Stop: 07/06/18 11:59 Last Admin: 07/06/18 09:00 Dose: 100 mls/hr Insulin Glargine (Lantus (Bkc)) 20 units SC QHS [facility] Last Admin: 07/05/18 22:21 Dose: 20 units Insulin Human Lispro (Humalog Kwikpen (Bkc)) 9 unit SC TIDAC [facility] Last Admin: 07/06/18 07:47 Dose: 9 u Insulin Human Lispro (Humalog Kwikpen (Bkc)) 0 unit SQ TIDAC [facility] PRN Reason: Protocol Last Admin: 07/06/18 07:48 Dose: 5 units Labetalol HCl (Trandate) 10 mg IV Q4H PRN PRN PRN Reason: hypertention Last Admin: 07/05/18 15:44 Dose: 10 mg Losartan Potassium (Cozaar) 50 mg PO DAILY [facility] Last Admin: 07/06/18 07:49 Dose: 50 mg Magnesium Hydroxide (Milk Of Magnesia) 30 ml PO DAILY PRN PRN Reason: Constipation Metoprolol Tartrate (Lopressor (Beta Zenon)) 100 mg PO BID [facility] Last Admin: 07/06/18 07:48 Dose: 100 mg Ondansetron HCl (Zofran) 4 mg IV Q6H PRN PRN PRN Reason: NAUSEA/VOMITING Last Admin: 07/06/18 00:34 Dose: 4 mg Sodium Chloride () 5 - 30 ml IV UD PRN PRN Reason: SALINE FLUSH Last Admin: 07/06/18 00:34 Dose: 20 ml Medical Necessity - Tobacco Use Smoking Status: Never smoker Tobacco Use: Non-smoker Assessment/Plan All Active Problems Hypertensive emergency (Acute) Gastroenteritis (Acute) Metabolic alkalosis (Acute) Hypokalemia (Acute) Abscess of right buttock (Acute) Dehydration (Acute) Hypomagnesemia (Acute) This is a 58-year-old female with history of multiple sclerosis, hypertension and diabetes mellitus type 2, uncontrolled, CKD stage II was admitted with nausea, vomiting and diarrhea since 07 July. Patient also complaining of dizziness, vertigo and unsteady gait. She states he sink down because of dizziness. She was admitted with hypertensive emergency probably could not take medications because of vomiting. 1. Hypertensive emergency: Currently blood pressure runs in 170-180. Pulse ox normal. On nicardipine drip. Labetalol IV as needed. On Cozaar, metoprolol. In view of history of MS and left eye visual symptoms, unsteady gait, MRI brain is required. Continue symptomatic management. 2. Possible viral gastroenteritis: Patient still having nausea, dizziness and vertigo. On IV Zofran. 3. Hypokalemia: Monitor and correct accordingly. 4. Multiple sclerosis: Patient might have exacerbation of multiple sclerosis because of dizziness, vertigo, unsteady gait and loss of vision. When patient is more stable, will need MRI. Neurologist consult appreciated. 5. DVT prophylaxis with Lovenox Active Medications Aspirin (Aspirin, Baby) 81 mg PO DAILY@0800 [facility] Last Admin: 07/05/18 16:32 Dose: Not Given Bupropion HCl (Wellbutrin Xl) 300 mg PO DAILY [facility] Last Admin: 07/05/18 16:32 Dose: Not Given Chlorhexidine Gluconate () 1 each TOPICAL DAILY [facility] Last Admin: 07/06/18 05:36 Dose: 1 each Citalopram Hydrobromide (Celexa) 40 mg PO DAILY [facility] Last Admin: 07/05/18 16:32 Dose: Not Given Dextrose (D50w Syringe) 0 gm IV X1 PRN; Protocol PRN Reason: Hypoglycemia Enoxaparin Sodium (Lovenox) 40 mg SC DAILY@1000 [facility] Last Admin: 07/05/18 15:43 Dose: 40 mg Glucagon () 1 mg IM .X1 PRN PRN Reason: Hypoglycemia Nicardipine HCl 25 mg/ Sodium (Chloride) 250 mls @ 50 mls/hr IV .Q5H [facility] PRN Reason: 5 MG/HR Last Admin: 07/06/18 04:38 Dose: 50 mls/hr Potassium Chloride (Kcl 10meq/100ml) 10 meq in 100 mls @ 100 mls/hr IV BOLUS Q1H [facility] Stop: 07/06/18 11:59 Last Admin: 07/06/18 09:00 Dose: 100 mls/hr Insulin Glargine (Lantus (Bkc)) 20 units SC QHS [facility] Last Admin: 07/05/18 22:21 Dose: 20 units Insulin Human Lispro (Humalog Kwikpen (Bkc)) 9 unit SC TIDAC [facility] Last Admin: 07/06/18 07:47 Dose: 9 u Insulin Human Lispro (Humalog Kwikpen (Bkc)) 0 unit SQ TIDAC [facility] PRN Reason: Protocol Last Admin: 07/06/18 07:48 Dose: 5 units Labetalol HCl (Trandate) 10 mg IV Q4H PRN PRN PRN Reason: hypertention Last Admin: 07/05/18 15:44 Dose: 10 mg Losartan Potassium (Cozaar) 50 mg PO DAILY [facility] Last Admin: 07/06/18 07:49 Dose: 50 mg Magnesium Hydroxide (Milk Of Magnesia) 30 ml PO DAILY PRN PRN Reason: Constipation Metoprolol Tartrate (Lopressor (Beta Zenon)) 100 mg PO BID [facility] Last Admin: 07/06/18 07:48 Dose: 100 mg Ondansetron HCl (Zofran) 4 mg IV Q6H PRN PRN PRN Reason: NAUSEA/VOMITING Last Admin: 09/23/18 00:34 Dose: 4 mg Sodium Chloride () 5 - 30 ml IV UD PRN PRN Reason: SALINE FLUSH Last Admin: 07/06/18 00:34 Dose: 20 ml Laboratory Results 07/05/18 11:18: POC Glucose 340 H 07/05/18 16:36: POC Glucose 342 H 07/05/18 22:17: POC Glucose 341 H 07/06/18 04:25: Sodium 142, Potassium 3.1 L, Chloride 104, Carbon Dioxide 24.0, Anion Gap 14, BUN 18, Creatinine 0.88, Estim Creat Clear Calc 67.76, Est GFR ( MDRD) Af Amer 85, Est GFR (MDRD) Non-Af 70, BUN/Creatinine Ratio 20.5 H, Glucose 319 H, Calcium 8.1 L 07/06/18 07:05: POC Glucose 328 H Clinical Impression(s) from Imaging Studies Brain CT 07/05/18 05:54 IMPRESSION: Chronic involutional and nonspecific periventricular white matter changes of the brain demonstrated, most likely chronic. Correlation with MRI exam is recommended. Code Visit Inpatient E&M: 64090 Subs Hosp L3
[2018-07-06] MEDS: Enoxaparin 40 MG/0.4 ML Syringe SC (10:49)
[2018-07-06 11:26] LABS: Bedside Glucose 218 mg/dL (70-110)
--- NOTE | 2018-07-06 14:04 | PCM.CONS.GEN ---
Reason for Consult Date of Consultation: 07/06/18 Reason for Consultation: nausea and vision changes History of Present Illness: The patient is a 58 year old right handed female presented to the hospital yesterday with nausea, imbalance, vision changes and hypertension. denies any medication errors. medications apparently pre-packaged in blister packs. reports felt hot several days ago, then started to notice paresthesias around her lips, nausea, increased falling, and blurry vision out of left eye. 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 in ICU due to IV cardene for bp control. also has diagnosis of ms, seen by myself as an outpatient. stopped copaxone several months ago due to insurance issues. last ms exacerbation years ago. reports ongoing ms symptoms include short term memory loss, dizziness, and falls. no other ms meds in the past. Past Medical History Past Medical History (Chronic Problems): Chronic Problems Depression (Chronic) Chronic renal failure, stage 2 (mild) (Chronic) HTN (hypertension) (Chronic) DM (diabetes mellitus), type 2, uncontrolled (Chronic) Dyslipidemia (Chronic) Allergies No Known Allergies Allergy (Verified 07/05/18 05:50) Home Medications: Ambulatory Orders Medication Instructions Recorded Aspirin [Aspirin, Baby] 81 mg PO DAILY@0800 11/09/13 Citalopram [Celexa] 40 mg PO DAILY 11/09/13 Metoprolol Tartrate [Lopressor 100 mg PO BID 11/09/13 (beta zenon)] buPROPion tablets [Wellbutrin 300 mg PO DAILY 11/09/13 tablets] Blood Sugar Diagnostic [Test 1 each MC 4X/DAY #120 strip 03/17/16 Strips] Losartan Potassium [Cozaar] 50 mg PO DAILY 07/05/18 Metformin HCl [Glucophage] 1,000 mg PO BIDCM 07/05/18 Smoking Status: Never smoker Tobacco Use: Non-smoker Alcohol: None Drugs: None - *Family History Maternal History Items: - - No MS Review of Systems Constitutional: Denies: Chills, Fever, Weight Change Eyes: Reports: Blurred vision HEENT: Reports: Head Aches. Denies: Sinus Congestion, Sinus Drainage Cardiovascular: Denies: Chest Pain, Palpitations Respiratory: Denies: Cough, Shortness of breath at rest, Sputum production Gastrointestinal: Denies: Abdominal Pain, Nausea, Vomiting Genitourinary: Denies: Dysuria Musculoskeletal: Denies: Joint Pain, Joint Tenderness Skin: Denies: Rash, Wounds Neurological: Reports: Blurred vision, Tingling. Denies: Focal weakness, Numbness Psychiatric: Denies: Anxiety, Depression, Homicidal Ideations, Suicidal Ideations Hematologic/ Lymphatic: Denies: Easy Bruising, Easy Bleeding Patient Problems: Active and Suspected Problems Hypertensive emergency (Acute) Gastroenteritis (Acute) - Physical Exam General: Alert, Oriented x3, Cooperative HEENT: Atraumatic, PERRLA, EOMI, Normocephalic Neck: Supple, No JVD, Negative Carotid Bruits Lungs: Clear to auscultation, Normal air movement Cardiovascular: Regular rate, No murmurs Abdomen: Bowel Sounds Present, Soft, Non Tender Extremities: No edema, Capillary Refill Less than 3 Seconds Skin: No rashes, No breakdown Musculoskeletal: No Tenderness to Palpation of Joints or Extremities Neurological: Cranial nerves II-XII grossly intact, Deep Tendon Reflexes 2+/4 and Symmetrical, Neuro grossly intact, Motor Exam 5/5 strength throughout Psych/Mental Status: Normal Affect, Appropriate Vital Signs Temp Pulse Resp BP Pulse Ox 36.9 C 70 10 L 155/79 H 96 07/06/18 12:00 07/06/18 13:00 07/06/18 13:00 07/06/18 13:00 07/06/18 13:00 Oxygen Delivery Method Room Air Weight: 94.4 kg Body Mass Index (BMI) 32.1 Intake and Output for Last 24 Hours 07/04/18 07/05/18 07/06/18 23:59 23:59 23:59 Intake Total 2494 / 2494 1523 / 1523 Output Total 1450 / 1450 1100 / 1100 Balance 1044 / 1044 423 / 423 Laboratory Tests Past 24 Hrs 07/06/18 04:25 Sodium 142 Potassium 3.1 L Chloride 104 Carbon Dioxide 24.0 Anion Gap 14 BUN 18 Creatinine 0.88 Estim Creat Clear Calc 67.76 Est GFR (MDRD) Af Amer 85 Est GFR (MDRD) Non-Af 70 BUN/Creatinine Ratio 20.5 H Glucose 319 H Calcium 8.1 L POC Glucose 07/06/18 07/06/18 07/05/18 11:20 07:05 22:17 POC Glucose 218 H 328 H 341 H 07/05/18 16:36 POC Glucose 342 H Current Home Med List Medication Instructions Recorded Confirmed Type Aspirin [Aspirin, Baby] 81 mg PO DAILY@0800 11/09/13 07/05/18 History Citalopram [Celexa] 40 mg PO DAILY 11/09/13 07/05/18 History Metoprolol Tartrate [Lopressor 100 mg PO BID 11/09/13 07/05/18 History (beta zenon)] buPROPion tablets [Wellbutrin 300 mg PO DAILY 11/09/13 07/05/18 History tablets] Blood Sugar Diagnostic [Test 1 each 4X/DAY #120 strip 03/17/16 07/05/18 Rx Strips] Losartan Potassium [Cozaar] 50 mg PO DAILY 07/05/18 07/05/18 History Metformin HCl [Glucophage] 1,000 mg PO BIDCM 07/05/18 07/05/18 History Current Medications Generic Name Dose Route Start Last Admin Trade Name Freq PRN Reason Stop Dose Admin Aspirin 81 mg 07/05/18 11:00 07/05/18 16:32 Aspirin, Baby PO Not Given DAILY@0800 [facility] Bupropion HCl 300 mg 07/05/18 11:00 07/06/18 09:59 Wellbutrin Xl PO Not Given DAILY [facility] Chlorhexidine Gluconate 1 each 07/06/18 10:00 07/06/18 05:36 TOPICAL 1 each DAILY [facility] Administration Citalopram Hydrobromide 40 mg 07/05/18 11:00 07/06/18 09:59 Celexa PO Not Given DAILY [facility] Dextrose 0 gm 07/05/18 08:59 D50w Syringe IV X1 PRN Hypoglycemia Protocol Enoxaparin Sodium 40 mg 07/05/18 11:00 07/06/18 10:49 Lovenox SC 40 mg DAILY@1000 [facility] Administration Glucagon 1 mg 07/05/18 08:59 IM .X1 PRN Hypoglycemia Nicardipine HCl 25 mg/ Sodium 250 mls @ 50 mls/hr 07/05/18 17:52 07/06/18 10:48 Chloride IV 50 mls/hr .Q5H CAT Administration 5 MG/HR Insulin Glargine 20 units 07/05/18 22:00 07/05/18 22:21 Lantus (Bkc) SC 20 units QHS [facility] Administration Insulin Human Lispro 9 unit 07/05/18 11:00 07/06/18 12:34 Humalog Kwikpen (Bkc) SC 9 u TIDAC CAT Administration Insulin Human Lispro 0 unit 07/05/18 11:00 07/06/18 12:34 Humalog Kwikpen (Bkc) SQ 2 units TIDAC CAT Administration Protocol Labetalol HCl 10 mg 07/05/18 10:52 07/05/18 15:44 Trandate IV 10 mg Q4H PRN PRN Administration hypertention Losartan Potassium 50 mg 07/05/18 11:00 07/06/18 07:49 Cozaar PO 50 mg DAILY [facility] Administration Magnesium Hydroxide 30 ml 07/05/18 08:59 Milk Of Magnesia PO DAILY PRN Constipation Metoprolol Tartrate 100 mg 07/05/18 11:00 07/06/18 07:48 Lopressor (Beta Zenon) PO 100 mg BID [facility] Administration Ondansetron HCl 4 mg 07/05/18 08:59 07/06/18 00:34 Zofran IV 4 mg Q6H PRN PRN Administration NAUSEA/VOMITING Sodium Chloride 5 - 30 ml 07/05/18 11:41 07/06/18 00:34 IV 20 ml UD PRN Administration SALINE FLUSH ct reviewed: atrophy and subcort wm diz, ms vs old strokes mri: last mri '08 due to claustrophobia. 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
--- NOTE | 2018-07-06 14:11 | CON.PCM_ITS ---
Reason for Consult Date of Consultation: 07/06/18 Reason for Consultation: nausea and vision changes History of Present Illness: The patient is a 58 year old right handed female presented to the hospital yesterday with nausea, imbalance, vision changes and hypertension. denies any medication errors. medications apparently pre-packaged in blister packs. reports felt hot several days ago, then started to notice paresthesias around her lips, nausea, increased falling, and blurry vision out of left eye. 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 in ICU due to IV cardene for bp control. also has diagnosis of ms, seen by myself as an outpatient. stopped copaxone several months ago due to insurance issues. last ms exacerbation years ago. reports ongoing ms symptoms include short term memory loss, dizziness, and falls. no other ms meds in the past. Past Medical History Past Medical History (Chronic Problems): Chronic Problems Depression (Chronic) Chronic renal failure, stage 2 (mild) (Chronic) HTN (hypertension) (Chronic) DM (diabetes mellitus), type 2, uncontrolled (Chronic) Dyslipidemia (Chronic) Allergies No Known Allergies Allergy (Verified 07/05/18 05:50) Home Medications: Ambulatory Orders Medication Instructions Recorded Aspirin [Aspirin, Baby] 81 mg PO DAILY@0800 11/09/13 Citalopram [Celexa] 40 mg PO DAILY 11/09/13 Metoprolol Tartrate [Lopressor 100 mg PO BID 11/09/13 (beta zenon)] buPROPion tablets [Wellbutrin 300 mg PO DAILY 11/09/13 tablets] Blood Sugar Diagnostic [Test 1 each MC 4X/DAY #120 strip 03/17/16 Strips] Losartan Potassium [Cozaar] 50 mg PO DAILY 07/05/18 Metformin HCl [Glucophage] 1,000 mg PO BIDCM 07/05/18 Smoking Status: Never smoker Tobacco Use: Non-smoker Alcohol: None Drugs: None - *Family History Maternal History Items: - - No MS Review of Systems Constitutional: Denies: Chills, Fever, Weight Change Eyes: Reports: Blurred vision HEENT: Reports: Head Aches. Denies: Sinus Congestion, Sinus Drainage Cardiovascular: Denies: Chest Pain, Palpitations Respiratory: Denies: Cough, Shortness of breath at rest, Sputum production Gastrointestinal: Denies: Abdominal Pain, Nausea, Vomiting Genitourinary: Denies: Dysuria Musculoskeletal: Denies: Joint Pain, Joint Tenderness Skin: Denies: Rash, Wounds Neurological: Reports: Blurred vision, Tingling. Denies: Focal weakness, Numbness Psychiatric: Denies: Anxiety, Depression, Homicidal Ideations, Suicidal Ideations Hematologic/ Lymphatic: Denies: Easy Bruising, Easy Bleeding Patient Problems: Active and Suspected Problems Hypertensive emergency (Acute) Gastroenteritis (Acute) - Physical Exam General: Alert, Oriented x3, Cooperative HEENT: Atraumatic, PERRLA, EOMI, Normocephalic Neck: Supple, No JVD, Negative Carotid Bruits Lungs: Clear to auscultation, Normal air movement Cardiovascular: Regular rate, No murmurs Abdomen: Bowel Sounds Present, Soft, Non Tender Extremities: No edema, Capillary Refill Less than 3 Seconds Skin: No rashes, No breakdown Musculoskeletal: No Tenderness to Palpation of Joints or Extremities Neurological: Cranial nerves II-XII grossly intact, Deep Tendon Reflexes 2+/4 and Symmetrical, Neuro grossly intact, Motor Exam 5/5 strength throughout Psych/Mental Status: Normal Affect, Appropriate Vital Signs Temp Pulse Resp BP Pulse Ox 36.9 C 70 10 L 155/79 H 96 07/06/18 12:00 07/06/18 13:00 07/06/18 13:00 07/06/18 13:00 07/06/18 13:00 Oxygen Delivery Method Room Air Weight: 94.4 kg Body Mass Index (BMI) 32.1 Intake and Output for Last 24 Hours 07/04/18 07/05/18 07/06/18 23:59 23:59 23:59 Intake Total 2494 / 2494 1523 / 1523 Output Total 1450 / 1450 1100 / 1100 Balance 1044 / 1044 423 / 423 Laboratory Tests Past 24 Hrs 07/06/18 04:25 Sodium 142 Potassium 3.1 L Chloride 104 Carbon Dioxide 24.0 Anion Gap 14 BUN 18 Creatinine 0.88 Estim Creat Clear Calc 67.76 Est GFR (MDRD) Af Amer 85 Est GFR (MDRD) Non-Af 70 BUN/Creatinine Ratio 20.5 H Glucose 319 H Calcium 8.1 L POC Glucose 07/06/18 07/06/18 07/05/18 11:20 07:05 22:17 POC Glucose 218 H 328 H 341 H 07/05/18 16:36 POC Glucose 342 H Current Home Med List Medication Instructions Recorded Confirmed Type Aspirin [Aspirin, Baby] 81 mg PO DAILY@0800 11/09/13 07/05/18 History Citalopram [Celexa] 40 mg PO DAILY 11/09/13 07/05/18 History Metoprolol Tartrate [Lopressor 100 mg PO BID 11/09/13 07/05/18 History (beta zenon)] buPROPion tablets [Wellbutrin 300 mg PO DAILY 11/09/13 07/05/18 History tablets] Blood Sugar Diagnostic [Test 1 each 4X/DAY #120 strip 03/17/16 07/05/18 Rx Strips] Losartan Potassium [Cozaar] 50 mg PO DAILY 07/05/18 07/05/18 History Metformin HCl [Glucophage] 1,000 mg PO BIDCM 07/05/18 07/05/18 History Current Medications Generic Name Dose Route Start Last Admin Trade Name Freq PRN Reason Stop Dose Admin Aspirin 81 mg 07/05/18 11:00 07/05/18 16:32 Aspirin, Baby PO Not Given DAILY@0800 [facility] Bupropion HCl 300 mg 07/05/18 11:00 07/06/18 09:59 Wellbutrin Xl PO Not Given DAILY [facility] Chlorhexidine Gluconate 1 each 07/06/18 10:00 07/06/18 05:36 TOPICAL 1 each DAILY [facility] Administration Citalopram Hydrobromide 40 mg 07/05/18 11:00 07/06/18 09:59 Celexa PO Not Given DAILY [facility] Dextrose 0 gm 07/05/18 08:59 D50w Syringe IV X1 PRN Hypoglycemia Protocol Enoxaparin Sodium 40 mg 07/05/18 11:00 07/06/18 10:49 Lovenox SC 40 mg DAILY@1000 [facility] Administration Glucagon 1 mg 07/05/18 08:59 IM .X1 PRN Hypoglycemia Nicardipine HCl 25 mg/ Sodium 250 mls @ 50 mls/hr 07/05/18 17:52 07/06/18 10: 48 Chloride IV 50 mls/hr .Q5H [facility] Administration 5 MG/HR Insulin Glargine 20 units 07/05/18 22:00 07/05/18 22:21 Lantus (Bkc) SC 20 units QHS [facility] Administration Insulin Human Lispro 9 unit 07/05/18 11:00 07/06/18 12:34 Humalog Kwikpen (Bkc) SC 9 u TIDAC [facility] Administration Insulin Human Lispro 0 unit 07/05/18 11:00 07/06/18 12:34 Humalog Kwikpen (Bkc) SQ 2 units TIDAC [facility] Administration Protocol Labetalol HCl 10 mg 07/05/18 10:52 07/05/18 15:44 Trandate IV 10 mg Q4H PRN PRN Administration hypertention Losartan Potassium 50 mg 07/05/18 11:00 07/06/18 07:49 Cozaar PO 50 mg DAILY [facility] Administration Magnesium Hydroxide 30 ml 07/05/18 08:59 Milk Of Magnesia PO DAILY PRN Constipation Metoprolol Tartrate 100 mg 07/05/18 11:00 07/06/18 07:48 Lopressor (Beta Zenon) PO 100 mg BID [facility] Administration Ondansetron HCl 4 mg 07/05/18 08:59 07/06/18 00:34 Zofran IV 4 mg Q6H PRN PRN Administration NAUSEA/VOMITING Sodium Chloride 5 - 30 ml 07/05/18 11:41 07/06/18 00:34 IV 20 ml UD PRN Administration SALINE FLUSH ct reviewed: atrophy and subcort wm diz, ms vs old strokes mri: last mri '08 due to claustrophobia. 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
[2018-07-06 16:16] LABS: Bedside Glucose 175 mg/dL (70-110)
[2018-07-06 21:10] LABS: Bedside Glucose 168 mg/dL (70-110)
[2018-07-07] VITALS (45 sets, daily range): BP systolic 138–232; BP diastolic 67–111; PULSE 63–88; RESP 9–17; TEMP 36.6–37.2; O2SAT 94–100
[2018-07-07] MEDS: Acetaminophen 325 MG Tablet 650 MG PO (00:21)
[2018-07-07] MEDS: 0.9% NaCl Peripheral Flush Adult/Peds IV ×2 (03:17→08:59)
[2018-07-07 05:59] LABS: Anion Gap 10 (5-15); BUN 23 mg/dL (7-18); BUN/Creat Ratio 28.6 RATIO (10-20); Chloride 105 mmol/L (98-107); EST Glomerular Filtration Rate 78 mL/min (>60); Est Glom Filt Rate - Afr Amer 94 mL/min (>60); Estimated Creatinine Clearance 74.54 ml/min; Glucose 249 mg/dL (74-106); Sodium Level 141 mmol/L (136-145)
[2018-07-07 06:11] LABS: Absolute Lymphocyte Count 4.44 X10^3/ul (0.83-4.51); Absolute Neutrophil Count 8.7 X10^3/uL (2.0-7.7); Basophil# 0.03 X10^3/uL; Basophil% 0.2 % (0-1); Hematocrit 37.7 % (37-47); Hemoglobin 12.9 g/dl (12.0-15.0); Lymphocyte # 4.44 X10^3/ul (4.0); Lymphocyte % 31.1 % (19-41); Mean Corp Hgb Conc 34.2 g/gl (32-36); Mean Corpuscular Volume 84.7 fL (81-99); Mean Platelet Vol. 12.1 fl (6.2-12.0); Monocyte# 1.05 X10^3/uL; Monocyte% 7.4 % (0-10); Neutrophil # 8.71 X10^3/uL (2.7-7.7); Neutrophil % 61.1 % (47-70); Platelet Count 308 K/mm3 (150-450); RBC Distribution Width SD 39.7 fl (35.1-43.9); Red Blood Count 4.45 M/mm3 (4.2-5.4); White Blood Count 14.3 K/mm3 (4.4-11.0)
[2018-07-07 06:12] LABS: POSITIVE COUNT NO; POSITIVE DIFFERENTIAL NO; POSITIVE MORPHOLOGY NO
--- NOTE | 2018-07-07 06:53 | PN_ITS ---
Subjective: Patient did okay overnight. Patient was able to come off the Cardene at approximately 1:30 AM. Patient did receive 1 dose of labetalol overnight. Patient reports subjective improvement in nausea, but still has significant symptoms with movements. No emesis has been noted since yesterday at 8 AM. Patient tolerating room air without difficulty. General: Alert, Oriented x3, Cooperative, No apparent distress, Well developed, Well nourished, - - Obese. Speaking in full sentences. HEENT: Atraumatic, PERRLA, EOMI, Normocephalic, - - Esotropia noted. Oral: Moist Mucosa, No Gingival or Mucosal Lesions/ Ulcerations Neck: Supple, No JVD, No Nodes, Trachea Midline Lungs: Clear to auscultation, Normal air movement, No rhonchi, No wheeze, No rales Cardiovascular: Regular rate, Regular Rhythm, Normal S1, Normal S2, No murmurs, No rub noted, No Gallop Abdomen: Bowel Sounds Present, Soft, Non Tender, Non-Distended, Obese Extremities: No clubbing, No cyanosis, No edema, Capillary Refill Less than 3 Seconds Skin: No rashes, No breakdown Musculoskeletal: No Tenderness to Palpation of Joints or Extremities, No Muscle Wasting Lymphatic: No Cervical, Supraclavicular, or Inguinal Adenopathy Neurological: Cranial nerves II-XII grossly intact, Neuro grossly intact, Motor Exam 5/5 strength throughout Psych/Mental Status: Alert and oriented to time, place, person, mood and affect Vital Signs Temp Pulse Resp BP Pulse Ox 37.2 C 70 12 172/83 H 97 07/07/18 04:00 07/07/18 06:00 07/07/18 06:00 07/07/18 06:00 07/07/18 06:00 Oxygen Delivery Method Room Air Weight: 94.4 kg Body Mass Index (BMI) 32.1 Intake and Output for Last 24 Hours 07/05/18 07/06/18 07/07/18 23:59 23:59 23:59 Intake Total 2494 / 2494 1763 / 1763 602 / 602 Output Total 1450 / 1450 1500 / 1500 450 / 450 Balance 1044 / 1044 263 / 263 152 / 152 Labs (Last 48 Hours) 07/05/18 07/05/18 07/05/18 11:18 16:36 22:17 WBC RBC Hgb Hct MCV MCH MCHC RDW RDW Differential Plt Count MPV Immature Gran % (Auto) Neut % (Auto) Lymph % (Auto) [place] % (Auto) Eos % (Auto) Baso % (Auto) Absolute Neuts (auto) Absolute Lymphs (auto) Total Counted Sodium Potassium Chloride Carbon Dioxide Anion Gap BUN Creatinine Estim Creat Clear Calc Est GFR (MDRD) Af Amer Est GFR (MDRD) Non-Af BUN/Creatinine Ratio Glucose Calcium POC Glucose 340 H 342 H 341 H 07/06/18 07/06/18 07/06/18 04:25 07:05 11:20 WBC RBC Hgb Hct MCV MCH MCHC RDW RDW Differential Plt Count MPV Immature Gran % (Auto) Neut % (Auto) Lymph % (Auto) [place] % (Auto) Eos % (Auto) Baso % (Auto) Absolute Neuts (auto) Absolute Lymphs (auto) Total Counted Sodium 142 Potassium 3.1 L Chloride 104 Carbon Dioxide 24.0 Anion Gap 14 BUN 18 Creatinine 0.88 Estim Creat Clear Calc 67.76 Est GFR (MDRD) Af Amer 85 Est GFR (MDRD) Non-Af 70 BUN/Creatinine Ratio 20.5 H Glucose 319 H Calcium 8.1 L POC Glucose 328 H 218 H 07/06/18 07/06/18 07/07/18 16:12 20:57 05:00 WBC 14.3 H RBC 4.45 Hgb 12.9 Hct 37.7 MCV 84.7 MCH 29.0 MCHC 34.2 RDW 13.0 RDW Differential 39.7 Plt Count 308 MPV 12.1 H Immature Gran % (Auto) 0.200 Neut % (Auto) 61.1 Lymph % (Auto) 31.1 [place] % (Auto) 7.4 Eos % (Auto) 0.0 Baso % (Auto) 0.2 Absolute Neuts (auto) 8.7 H Absolute Lymphs (auto) 4.44 Total Counted Not Reportable Sodium Potassium Chloride Carbon Dioxide Anion Gap BUN Creatinine Estim Creat Clear Calc Est GFR (MDRD) Af Amer Est GFR (MDRD) Non-Af BUN/Creatinine Ratio Glucose Calcium POC Glucose 175 H 168 H 07/07/18 05:00 WBC RBC Hgb Hct MCV MCH MCHC RDW RDW Differential Plt Count MPV Immature Gran % (Auto) Neut % (Auto) Lymph % (Auto) [place] % (Auto) Eos % (Auto) Baso % (Auto) Absolute Neuts (auto) Absolute Lymphs (auto) Total Counted Sodium 141 Potassium 3.0 L Chloride 105 Carbon Dioxide 26.0 Anion Gap 10 BUN 23 H Creatinine 0.80 Estim Creat Clear Calc 74.54 Est GFR (MDRD) Af Amer 94 Est GFR (MDRD) Non-Af 78 BUN/Creatinine Ratio 28.6 H Glucose 249 H Calcium 8.0 L POC Glucose Medical Necessity - Tobacco Use Smoking Status: Never smoker Tobacco Use: Non-smoker Assessment/Plan All Active Problems Hypertensive emergency (Acute) Gastroenteritis (Acute) Metabolic alkalosis (Acute) Hypokalemia (Acute) Abscess of right buttock (Acute) Dehydration (Acute) Hypomagnesemia (Acute) RECOMMENDATIONS: 1. Treat nausea symptomatically with Zofran 2. Will increase patient's Cozaar 3. Potentially add a third medication for hypertension if increased Cozaar does not control blood pressure 4. Continue with supplemental insulin 5. Potassium repletion by p.o. and IV 6. May be able to transfer to the PCU later today if blood pressure remains controlled IMPRESSIONS: 1. Hypertensive emergency Patient has had some improvement with reinitiation of baseline medications. However, blood pressure is still elevated. Will increase Cozaar given patient's concerns for medication costs. Patient may require a third line drug if this is not successful in lowering blood pressure. May use hydrochlorothiazide as this is relatively cheap and may be synergistic with patient's beta-rony. Symptoms are mostly controlled at this time. 2. Possible viral gastroenteritis Patient does not report any sick contacts, but is having nausea, vomiting and diarrhea. We will continue to monitor fluid status. Will attempt initiation of p.o meals. Hypokalemia likely secondary to GI losses. 3. Hypokalemia Replace IV and p.o. 4. Debility/multiple sclerosis Complicates care, management, recovery and prognosis. Therapies have been consulted. Neurology is following. Patient to have an MRI for evaluation. Code Visit Inpatient E&M: 77572 Subs Hosp L3
[2018-07-07] MEDS: Insulin Lispro 100 UNIT/ML INSULN.PEN SQ ×3 (07:45→16:25)
[2018-07-07] MEDS: Insulin Lispro 100 UNIT/ML INSULN.PEN 9 UNIT SC ×3 (07:45→16:25)
[2018-07-07] MEDS: Losartan Potassium 100 MG Tablet PO (07:48)
--- NOTE | 2018-07-07 07:48 | MRI_ITS ---
STUDY: MRI BRAIN WITH AND WITHOUT CONTRAST REASON FOR EXAM: Female, 58 years old. Confusion. History of MS. TECHNIQUE: Standardized multiplanar fat and water weighted pulse sequences were obtained. 10 ml of Gadavist contrast material was administered intravenously for the contrast portion of the examination. COMPARISON: 03/02/2008. 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 Increased size and number of MS plaques in the white matter of both cerebral hemispheres. Normal bilateral basal ganglia. Normal thalami. There is no extra-axial fluid accumulation. Normal flow voids within the major intracranial circulation suggesting patency by spin echo criteria. Normal venous enhancement. There is no enhancing intra-axial or extra-axial abnormality. Normal sella turcica, pituitary gland, infundibular stalk, optic chiasm and hypothalamus. Normal tectal plate and pineal gland. Normal midbrain, juan and medulla. Normal cerebellum. Normal basal cisterns. Normal bilateral temporal bones. Normal bilateral internal auditory canals. No demonstrated orbital abnormality, within the constraints of a routine brain study. Normal visualized paranasal sinuses. Normal calvarium and skull base. Normal visualized soft tissue structures. Normal visualized upper cervical spine. MRI/Brain W/WO Contrast IMPRESSION: 1. No MRI evidence of acute or subacute ischemic infarct. 2. 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 3. Increased size and number of MS plaques in the white matter of both cerebral hemispheres when compared to 03/02/2008. 4. No MRI evidence of any active enhancing MS plaques. Electronically Signed: Luis Mike MD at 13:31 EDT , Service support ,
[2018-07-07 08:31] LABS: Bedside Glucose 298 mg/dL (70-110)
--- NOTE | 2018-07-07 08:31 | PCM.PN.HOSP ---
Patient Problems: Active and Suspected Problems Hypertensive emergency (Acute) Gastroenteritis (Acute) Subjective: Patient is off nicardipine drip. Patient still has left eye diminished vision. At rest, she denies nausea but gets symptomatic on movement. Vitals/I&O's: Vital Signs Temp Pulse Resp BP Pulse Ox 98.4 F 78 14 184/80 H 97 07/07/18 08:00 07/07/18 08:00 07/07/18 08:00 07/07/18 08:00 07/07/18 08:00 Oxygen Delivery Method Room Air Weight: 209 lb 10.554 oz Body Mass Index (BMI) 32.1 Intake and Output for Last 24 Hours 07/05/18 07/06/18 07/07/18 23:59 23:59 23:59 Intake Total 2494 / 2494 1763 / 1763 602 / 602 Output Total 1450 / 1450 1500 / 1500 450 / 450 Balance 1044 / 1044 263 / 263 152 / 152 General: Alert, Oriented x3, Cooperative HEENT: Atraumatic, PERRLA, EOMI, Normocephalic, - - Diminished left eye vision, restricted to finger counting head movement Neck: Supple, No JVD, Negative Carotid Bruits Lungs: Clear to auscultation, Normal air movement Cardiovascular: Regular rate, No murmurs Abdomen: Bowel Sounds Present, Soft, Non Tender Extremities: No edema, Capillary Refill Less than 3 Seconds Skin: No rashes, No breakdown Musculoskeletal: No Tenderness to Palpation of Joints or Extremities Neurological: Cranial nerves II-XII grossly intact Psych/Mental Status: Normal Affect, Appropriate Laboratory Results 07/06/18 11:20: POC Glucose 218 H 07/06/18 16:12: POC Glucose 175 H 07/06/18 20:57: POC Glucose 168 H 07/07/18 05:00: WBC 14.3 H, RBC 4.45, Hgb 12.9, Hct 37.7, MCV 84.7, MCH 29.0, MCHC 34.2, RDW 13.0, RDW Differential 39.7, Plt Count 308, MPV 12.1 H, Immature Gran % (Auto) 0.200, Neut % (Auto) 61.1, Lymph % (Auto) 31.1, [place] % (Auto) 7.4, Eos % (Auto) 0.0, Baso % (Auto) 0.2, Absolute Neuts (auto) 8.7 H, Absolute Lymphs (auto) 4.44, Total Counted Not Reportable 07/07/18 05:00: Sodium 141, Potassium 3.0 L, Chloride 105, Carbon Dioxide 26.0, Anion Gap 10, BUN 23 H, Creatinine 0.80, Estim Creat Clear Calc 74.54, Est GFR (MDRD) Af Amer 94, Est GFR (MDRD) Non-Af 78, BUN/Creatinine Ratio 28.6 H, Glucose 249 H, Calcium 8.0 L 07/07/18 07:40: POC Glucose Pending Current Medications Acetaminophen (Tylenol) 650 mg PO Q6H PRN PRN PRN Reason: PAIN Last Admin: 07/07/18 00:21 Dose: 650 mg Aspirin (Aspirin, Baby) 81 mg PO DAILY@0800 [facility] Last Admin: 07/05/18 16:32 Dose: Not Given Bupropion HCl (Wellbutrin Xl) 300 mg PO DAILY [facility] Last Admin: 07/06/18 09:59 Dose: Not Given Chlorhexidine Gluconate () 1 each TOPICAL DAILY [facility] Last Admin: 07/06/18 05:36 Dose: 1 each Citalopram Hydrobromide (Celexa) 40 mg PO DAILY [facility] Last Admin: 07/06/18 09:59 Dose: Not Given Dextrose (D50w Syringe) 0 gm IV X1 PRN; Protocol PRN Reason: Hypoglycemia Diphenhydramine HCl (Benadryl) 50 mg IV X1 ONE Stop: 07/07/18 14:46 Enoxaparin Sodium (Lovenox) 40 mg SC DAILY@1000 [facility] Last Admin: 07/06/18 10:49 Dose: 40 mg Glucagon () 1 mg IM .X1 PRN PRN Reason: Hypoglycemia Nicardipine HCl 25 mg/ Sodium (Chloride) 250 mls @ 50 mls/hr IV .Q5H [facility] PRN Reason: 5 MG/HR Last Admin: 07/07/18 06:12 Dose: Not Given Potassium Chloride (Kcl 10meq/100ml) 10 meq in 100 mls @ 100 mls/hr IV BOLUS Q1H [facility] Stop: 07/07/18 10:29 Last Admin: 07/07/18 07:47 Dose: 100 mls/hr Insulin Glargine (Lantus ([facility])) 20 units SC QHS [facility] Last Admin: 07/06/18 21:02 Dose: 20 units Insulin Human Lispro (Humalog Kwikpen (Bkc)) 9 unit SC TIDAC [facility] Last Admin: 07/07/18 07:45 Dose: 9 u Insulin Human Lispro (Humalog Kwikpen (Bkc)) 0 unit SQ TIDAC CAT PRN Reason: Protocol Last Admin: 07/07/18 07:45 Dose: 4 units Labetalol HCl (Trandate) 10 mg IV Q4H PRN PRN PRN Reason: hypertention Last Admin: 07/07/18 07:44 Dose: 10 mg Lorazepam (Ativan) 0.5 mg IV X1 ONE Stop: 07/07/18 14:46 Losartan Potassium (Cozaar) 100 mg PO DAILY [facility] Last Admin: 07/07/18 07:48 Dose: 100 mg Magnesium Hydroxide (Milk Of Magnesia) 30 ml PO DAILY PRN PRN Reason: Constipation Metoprolol Tartrate (Lopressor (Beta Zenon)) 100 mg PO BID [facility] Last Admin: 07/06/18 21:01 Dose: 100 mg Nystatin/Triamcinolone Acetonide (Mycolog) 1 applic TOPICAL BID [facility] PRN Reason: Protocol Ondansetron HCl (Zofran) 4 mg IV Q6H PRN PRN PRN Reason: NAUSEA/VOMITING Last Admin: 07/06/18 00:34 Dose: 4 mg Sodium Chloride () 5 - 30 ml IV UD PRN PRN Reason: SALINE FLUSH Last Admin: 07/07/18 03:17 Dose: 10 ml Medical Necessity - Tobacco Use Smoking Status: Never smoker Tobacco Use: Non-smoker Assessment/Plan All Active Problems Hypertensive emergency (Acute) Gastroenteritis (Acute) Metabolic alkalosis (Acute) Hypokalemia (Acute) Abscess of right buttock (Acute) Dehydration (Acute) Hypomagnesemia (Acute) This is a 58-year-old female with history of multiple sclerosis, hypertension and diabetes mellitus type 2, uncontrolled, CKD stage II was admitted with nausea, vomiting and diarrhea since 07 July. Patient also complaining of dizziness, vertigo and unsteady gait. She states he sink down because of dizziness. She was admitted with hypertensive emergency probably could not take medications because of vomiting. 1. Hypertensive emergency: Currently blood pressure runs in 170-180. Pulse ox normal. nicardipine drip discontinued. Labetalol IV as needed. On Cozaar, metoprolol. In view of history of MS and left eye visual symptoms, unsteady gait, MRI brain is required. Continue symptomatic management. 2. Possible viral gastroenteritis: Sometimes are better. On IV Zofran. 3. Hypokalemia: Monitor and correct accordingly. 4. Multiple sclerosis: Seen by neurologist Dr. Melchor. He thinks there is no exacerbation of multiple sclerosis. Probably PRES secondary to hypertensive emergency. When patient is more stable, will need MRI on mild sedation. Neurologist consult appreciated. 5. DVT prophylaxis with Lovenox Active Medications Acetaminophen (Tylenol) 650 mg PO Q6H PRN PRN PRN Reason: PAIN Last Admin: 07/07/18 00:21 Dose: 650 mg Aspirin (Aspirin, Baby) 81 mg PO DAILY@0800 [facility] Last Admin: 07/05/18 16:32 Dose: Not Given Bupropion HCl (Wellbutrin Xl) 300 mg PO DAILY [facility] Last Admin: 07/06/18 09:59 Dose: Not Given Chlorhexidine Gluconate () 1 each TOPICAL DAILY [facility] Last Admin: 07/06/18 05:36 Dose: 1 each Citalopram Hydrobromide (Celexa) 40 mg PO DAILY [facility] Last Admin: 07/06/18 09:59 Dose: Not Given Dextrose (D50w Syringe) 0 gm IV X1 PRN; Protocol PRN Reason: Hypoglycemia Diphenhydramine HCl (Benadryl) 50 mg IV X1 ONE Stop: 07/07/18 14:46 Enoxaparin Sodium (Lovenox) 40 mg SC DAILY@1000 [facility] Last Admin: 07/06/18 10:49 Dose: 40 mg Glucagon () 1 mg IM .X1 PRN PRN Reason: Hypoglycemia Nicardipine HCl 25 mg/ Sodium (Chloride) 250 mls @ 50 mls/hr IV .Q5H [facility] PRN Reason: 5 MG/HR Last Admin: 07/07/18 06:12 Dose: Not Given Potassium Chloride (Kcl 10meq/100ml) 10 meq in 100 mls @ 100 mls/hr IV BOLUS Q1H [facility] Stop: 07/07/18 10:29 Last Admin: 07/07/18 07:47 Dose: 100 mls/hr Insulin Glargine (Lantus (Bkc)) 20 units SC QHS [facility] Last Admin: 07/06/18 21:02 Dose: 20 units Insulin Human Lispro (Humalog Kwikpen (Bkc)) 9 unit SC TIDAC [facility] Last Admin: 07/07/18 07:45 Dose: 9 u Insulin Human Lispro (Humalog Kwikpen (Bkc)) 0 unit SQ TIDAC CAT PRN Reason: Protocol Last Admin: 07/07/18 07:45 Dose: 4 units Labetalol HCl (Trandate) 10 mg IV Q4H PRN PRN PRN Reason: hypertention Last Admin: 07/07/18 07:44 Dose: 10 mg Lorazepam (Ativan) 0.5 mg IV X1 ONE Stop: 07/07/18 14:46 Losartan Potassium (Cozaar) 100 mg PO DAILY [facility] Last Admin: 07/07/18 07:48 Dose: 100 mg Magnesium Hydroxide (Milk Of Magnesia) 30 ml PO DAILY PRN PRN Reason: Constipation Metoprolol Tartrate (Lopressor (Beta Zenon)) 100 mg PO BID [facility] Last Admin: 07/06/18 21:01 Dose: 100 mg Nystatin/Triamcinolone Acetonide (Mycolog) 1 applic TOPICAL BID [facility] PRN Reason: Protocol Ondansetron HCl (Zofran) 4 mg IV Q6H PRN PRN PRN Reason: NAUSEA/VOMITING Last Admin: 07/06/18 00:34 Dose: 4 mg Sodium Chloride () 5 - 30 ml IV UD PRN PRN Reason: SALINE FLUSH Last Admin: 07/07/18 03:17 Dose: 10 ml Laboratory Results 07/06/18 11:20: POC Glucose 218 H 07/06/18 16:12: POC Glucose 175 H 07/06/18 20:57: POC Glucose 168 H 07/07/18 05:00: WBC 14.3 H, RBC 4.45, Hgb 12.9, Hct 37.7, MCV 84.7, MCH 29.0, MCHC 34.2, RDW 13.0, RDW Differential 39.7, Plt Count 308, MPV 12.1 H, Immature Gran % (Auto) 0.200, Neut % (Auto) 61.1, Lymph % (Auto) 31.1, [place] % (Auto) 7.4, Eos % (Auto) 0.0, Baso % (Auto) 0.2, Absolute Neuts (auto) 8.7 H, Absolute Lymphs (auto) 4.44, Total Counted Not Reportable 07/07/18 05:00: Sodium 141, Potassium 3.0 L, Chloride 105, Carbon Dioxide 26.0, Anion Gap 10, BUN 23 H, Creatinine 0.80, Estim Creat Clear Calc 74.54, Est GFR (MDRD) Af Amer 94, Est GFR (MDRD) Non-Af 78, BUN/Creatinine Ratio 28.6 H, Glucose 249 H, Calcium 8.0 L 07/07/18 07:40: POC Glucose 298 H Clinical Impression(s) from Imaging Studies Brain CT 07/05/18 05:54 IMPRESSION: Chronic involutional and nonspecific periventricular white matter changes of the brain demonstrated, most likely chronic. Correlation with MRI exam is recommended. Code Visit Inpatient E&M: 61776 Subs Hosp L3
--- NOTE | 2018-07-07 08:36 | PN_ITS ---
Patient Problems: Active and Suspected Problems Hypertensive emergency (Acute) Gastroenteritis (Acute) Subjective: Patient is off nicardipine drip. Patient still has left eye diminished vision. At rest, she denies nausea but gets symptomatic on movement. Vitals/I&O's: Vital Signs Temp Pulse Resp BP Pulse Ox 98.4 F 78 14 184/80 H 97 07/07/18 08:00 07/07/18 08:00 07/07/18 08:00 07/07/18 08:00 07/07/18 08:00 Oxygen Delivery Method Room Air Weight: 209 lb 10.554 oz Body Mass Index (BMI) 32.1 Intake and Output for Last 24 Hours 07/05/18 07/06/18 07/07/18 23:59 23:59 23:59 Intake Total 2494 / 2494 1763 / 1763 602 / 602 Output Total 1450 / 1450 1500 / 1500 450 / 450 Balance 1044 / 1044 263 / 263 152 / 152 General: Alert, Oriented x3, Cooperative HEENT: Atraumatic, PERRLA, EOMI, Normocephalic, - - Diminished left eye vision, restricted to finger counting head movement Neck: Supple, No JVD, Negative Carotid Bruits Lungs: Clear to auscultation, Normal air movement Cardiovascular: Regular rate, No murmurs Abdomen: Bowel Sounds Present, Soft, Non Tender Extremities: No edema, Capillary Refill Less than 3 Seconds Skin: No rashes, No breakdown Musculoskeletal: No Tenderness to Palpation of Joints or Extremities Neurological: Cranial nerves II-XII grossly intact Psych/Mental Status: Normal Affect, Appropriate Laboratory Results 07/06/18 11:20: POC Glucose 218 H 07/06/18 16:12: POC Glucose 175 H 07/06/18 20:57: POC Glucose 168 H 07/07/18 05:00: WBC 14.3 H, RBC 4.45, Hgb 12.9, Hct 37.7, MCV 84.7, MCH 29.0, MCHC 34.2, RDW 13.0, RDW Differential 39.7, Plt Count 308, MPV 12.1 H, Immature Gran % (Auto) 0.200, Neut % (Auto) 61.1, Lymph % (Auto) 31.1, [place] % (Auto) 7.4 , Eos % (Auto) 0.0, Baso % (Auto) 0.2, Absolute Neuts (auto) 8.7 H, Absolute Lymphs (auto) 4.44, Total Counted Not Reportable 07/07/18 05:00: Sodium 141, Potassium 3.0 L, Chloride 105, Carbon Dioxide 26.0, Anion Gap 10, BUN 23 H, Creatinine 0.80, Estim Creat Clear Calc 74.54, Est GFR ( MDRD) Af Amer 94, Est GFR (MDRD) Non-Af 78, BUN/Creatinine Ratio 28.6 H, Glucose 249 H, Calcium 8.0 L 07/07/18 07:40: POC Glucose Pending Current Medications Acetaminophen (Tylenol) 650 mg PO Q6H PRN PRN PRN Reason: PAIN Last Admin: 07/07/18 00:21 Dose: 650 mg Aspirin (Aspirin, Baby) 81 mg PO DAILY@0800 [facility] Last Admin: 07/05/18 16:32 Dose: Not Given Bupropion HCl (Wellbutrin Xl) 300 mg PO DAILY [facility] Last Admin: 07/06/18 09:59 Dose: Not Given Chlorhexidine Gluconate () 1 each TOPICAL DAILY [facility] Last Admin: 07/06/18 05:36 Dose: 1 each Citalopram Hydrobromide (Celexa) 40 mg PO DAILY [facility] Last Admin: 07/06/18 09:59 Dose: Not Given Dextrose (D50w Syringe) 0 gm IV X1 PRN; Protocol PRN Reason: Hypoglycemia Diphenhydramine HCl (Benadryl) 50 mg IV X1 ONE Stop: 07/07/18 14:46 Enoxaparin Sodium (Lovenox) 40 mg SC DAILY@1000 [facility] Last Admin: 07/06/18 10:49 Dose: 40 mg Glucagon () 1 mg IM .X1 PRN PRN Reason: Hypoglycemia Nicardipine HCl 25 mg/ Sodium (Chloride) 250 mls @ 50 mls/hr IV .Q5H [facility] PRN Reason: 5 MG/HR Last Admin: 07/07/18 06:12 Dose: Not Given Potassium Chloride (Kcl 10meq/100ml) 10 meq in 100 mls @ 100 mls/hr IV BOLUS Q1H [facility] Stop: 07/07/18 10:29 Last Admin: 07/07/18 07:47 Dose: 100 mls/hr Insulin Glargine (Lantus ([facility])) 20 units SC QHS [facility] Last Admin: 07/06/18 21:02 Dose: 20 units Insulin Human Lispro (Humalog Kwikpen (Bkc)) 9 unit SC TIDAC [facility] Last Admin: 07/07/18 07:45 Dose: 9 u Insulin Human Lispro (Humalog Kwikpen (Bkc)) 0 unit SQ TIDAC CAT PRN Reason: Protocol Last Admin: 07/07/18 07:45 Dose: 4 units Labetalol HCl (Trandate) 10 mg IV Q4H PRN PRN PRN Reason: hypertention Last Admin: 07/07/18 07:44 Dose: 10 mg Lorazepam (Ativan) 0.5 mg IV X1 ONE Stop: 07/07/18 14:46 Losartan Potassium (Cozaar) 100 mg PO DAILY [facility] Last Admin: 07/07/18 07:48 Dose: 100 mg Magnesium Hydroxide (Milk Of Magnesia) 30 ml PO DAILY PRN PRN Reason: Constipation Metoprolol Tartrate (Lopressor (Beta Zenon)) 100 mg PO BID [facility] Last Admin: 07/06/18 21:01 Dose: 100 mg Nystatin/Triamcinolone Acetonide (Mycolog) 1 applic TOPICAL BID [facility] PRN Reason: Protocol Ondansetron HCl (Zofran) 4 mg IV Q6H PRN PRN PRN Reason: NAUSEA/VOMITING Last Admin: 07/06/18 00:34 Dose: 4 mg Sodium Chloride () 5 - 30 ml IV UD PRN PRN Reason: SALINE FLUSH Last Admin: 07/07/18 03:17 Dose: 10 ml Medical Necessity - Tobacco Use Smoking Status: Never smoker Tobacco Use: Non-smoker Assessment/Plan All Active Problems Hypertensive emergency (Acute) Gastroenteritis (Acute) Metabolic alkalosis (Acute) Hypokalemia (Acute) Abscess of right buttock (Acute) Dehydration (Acute) Hypomagnesemia (Acute) This is a 58-year-old female with history of multiple sclerosis, hypertension and diabetes mellitus type 2, uncontrolled, CKD stage II was admitted with nausea, vomiting and diarrhea since 07 July. Patient also complaining of dizziness, vertigo and unsteady gait. She states he sink down because of dizziness. She was admitted with hypertensive emergency probably could not take medications because of vomiting. 1. Hypertensive emergency: Currently blood pressure runs in 170-180. Pulse ox normal. nicardipine drip discontinued. Labetalol IV as needed. On Cozaar, metoprolol. In view of history of MS and left eye visual symptoms, unsteady gait, MRI brain is required. Continue symptomatic management. 2. Possible viral gastroenteritis: Sometimes are better. On IV Zofran. 3. Hypokalemia: Monitor and correct accordingly. 4. Multiple sclerosis: Seen by neurologist Dr. Melchor. He thinks there is no exacerbation of multiple sclerosis. Probably PRES secondary to hypertensive emergency. When patient is more stable, will need MRI on mild sedation. Neurologist consult appreciated. 5. DVT prophylaxis with Lovenox Active Medications Acetaminophen (Tylenol) 650 mg PO Q6H PRN PRN PRN Reason: PAIN Last Admin: 07/07/18 00:21 Dose: 650 mg Aspirin (Aspirin, Baby) 81 mg PO DAILY@0800 [facility] Last Admin: 07/05/18 16:32 Dose: Not Given Bupropion HCl (Wellbutrin Xl) 300 mg PO DAILY [facility] Last Admin: 07/06/18 09:59 Dose: Not Given Chlorhexidine Gluconate () 1 each TOPICAL DAILY [facility] Last Admin: 07/06/18 05:36 Dose: 1 each Citalopram Hydrobromide (Celexa) 40 mg PO DAILY [facility] Last Admin: 07/06/18 09:59 Dose: Not Given Dextrose (D50w Syringe) 0 gm IV X1 PRN; Protocol PRN Reason: Hypoglycemia Diphenhydramine HCl (Benadryl) 50 mg IV X1 ONE Stop: 07/07/18 14:46 Enoxaparin Sodium (Lovenox) 40 mg SC DAILY@1000 [facility] Last Admin: 07/06/18 10:49 Dose: 40 mg Glucagon () 1 mg IM .X1 PRN PRN Reason: Hypoglycemia Nicardipine HCl 25 mg/ Sodium (Chloride) 250 mls @ 50 mls/hr IV .Q5H [facility] PRN Reason: 5 MG/HR Last Admin: 07/07/18 06:12 Dose: Not Given Potassium Chloride (Kcl 10meq/100ml) 10 meq in 100 mls @ 100 mls/hr IV BOLUS Q1H [facility] Stop: 07/07/18 10:29 Last Admin: 07/07/18 07:47 Dose: 100 mls/hr Insulin Glargine (Lantus (Bkc)) 20 units SC QHS [facility] Last Admin: 07/06/18 21:02 Dose: 20 units Insulin Human Lispro (Humalog Kwikpen (Bkc)) 9 unit SC TIDAC [facility] Last Admin: 07/07/18 07:45 Dose: 9 u Insulin Human Lispro (Humalog Kwikpen (Bkc)) 0 unit SQ TIDAC CAT PRN Reason: Protocol Last Admin: 07/07/18 07:45 Dose: 4 units Labetalol HCl (Trandate) 10 mg IV Q4H PRN PRN PRN Reason: hypertention Last Admin: 07/07/18 07:44 Dose: 10 mg Lorazepam (Ativan) 0.5 mg IV X1 ONE Stop: 07/07/18 14:46 Losartan Potassium (Cozaar) 100 mg PO DAILY [facility] Last Admin: 07/07/18 07:48 Dose: 100 mg Magnesium Hydroxide (Milk Of Magnesia) 30 ml PO DAILY PRN PRN Reason: Constipation Metoprolol Tartrate (Lopressor (Beta Zenon)) 100 mg PO BID [facility] Last Admin: 07/06/18 21:01 Dose: 100 mg Nystatin/Triamcinolone Acetonide (Mycolog) 1 applic TOPICAL BID [facility] PRN Reason: Protocol Ondansetron HCl (Zofran) 4 mg IV Q6H PRN PRN PRN Reason: NAUSEA/VOMITING Last Admin: 07/06/18 00:34 Dose: 4 mg Sodium Chloride () 5 - 30 ml IV UD PRN PRN Reason: SALINE FLUSH Last Admin: 07/07/18 03:17 Dose: 10 ml Laboratory Results 07/06/18 11:20: POC Glucose 218 H 07/06/18 16:12: POC Glucose 175 H 07/06/18 20:57: POC Glucose 168 H 07/07/18 05:00: WBC 14.3 H, RBC 4.45, Hgb 12.9, Hct 37.7, MCV 84.7, MCH 29.0, MCHC 34.2, RDW 13.0, RDW Differential 39.7, Plt Count 308, MPV 12.1 H, Immature Gran % (Auto) 0.200, Neut % (Auto) 61.1, Lymph % (Auto) 31.1, [place] % (Auto) 7.4 , Eos % (Auto) 0.0, Baso % (Auto) 0.2, Absolute Neuts (auto) 8.7 H, Absolute Lymphs (auto) 4.44, Total Counted Not Reportable 07/07/18 05:00: Sodium 141, Potassium 3.0 L, Chloride 105, Carbon Dioxide 26.0, Anion Gap 10, BUN 23 H, Creatinine 0.80, Estim Creat Clear Calc 74.54, Est GFR ( MDRD) Af Amer 94, Est GFR (MDRD) Non-Af 78, BUN/Creatinine Ratio 28.6 H, Glucose 249 H, Calcium 8.0 L 07/07/18 07:40: POC Glucose 298 H Clinical Impression(s) from Imaging Studies Brain CT 07/05/18 05:54 IMPRESSION: Chronic involutional and nonspecific periventricular white matter changes of the brain demonstrated, most likely chronic. Correlation with MRI exam is recommended. Code Visit Inpatient E&M: 39825 Subs Hosp L3
[2018-07-07] MEDS: Metoprolol Tartrate 100 MG Tablet PO ×2 (09:00→21:19)
[2018-07-07] MEDS: DiphenhydrAMINE 50 MG/ML Syringe IV (09:00)
[2018-07-07] MEDS: LORazepam 2 MG/ML Syringe 0.5 MG IV (09:01)
--- NOTE | 2018-07-07 09:15 | NURSING ---
pt off floor for MRI at this time with Divya hardware designer
--- NOTE | 2018-07-07 10:31 | NURSING ---
pt returns from MRI
[2018-07-07] MEDS: Nystatin/Triamcin Cream Tube 1 APPLIC TOPICAL ×2 (10:47→21:18)
[2018-07-07] MEDS: Aspirin 81 MG TAB.CHEW PO (10:48)
[2018-07-07] MEDS: CHLORHEXIDINE GLUC 2% CLOTH 1 EACH TOWELETTE TOPICAL (10:48)
[2018-07-07] MEDS: buPROPion (XL) 300 MG TABLET.XL PO (10:49)
[2018-07-07] MEDS: Enoxaparin 40 MG/0.4 ML Syringe SC (10:49)
[2018-07-07] MEDS: Citalopram 40 MG TABLET PO (10:50)
[2018-07-07 11:40] LABS: Bedside Glucose 254 mg/dL (70-110)
[2018-07-07] MEDS: HYDROCHLOROTHIAZIDE 12.5 MG CAPSULE PO (15:31)
[2018-07-07 16:40] LABS: Bedside Glucose 245 mg/dL (70-110)
[2018-07-07 21:21] LABS: Bedside Glucose 265 mg/dL (70-110)
[2018-07-08] VITALS (35 sets, daily range): BP systolic 139–207; BP diastolic 69–98; PULSE 62–113; RESP 8–16; TEMP 36.4–36.6; O2SAT 94–99
[2018-07-08] MEDS: 0.9% NaCl Peripheral Flush Adult/Peds IV ×3 (00:25→22:47)
[2018-07-08 05:01] LABS: Anion Gap 10 (5-15); BUN 18 mg/dL (7-18); BUN/Creat Ratio 22.2 RATIO (10-20); Chloride 102 mmol/L (98-107); Creatinine, Serum 0.81 mg/dL (0.55-1.02); EST Glomerular Filtration Rate 77 mL/min (>60); Est Glom Filt Rate - Afr Amer 93 mL/min (>60); Estimated Creatinine Clearance 73.62 ml/min; Glucose 196 mg/dL (74-106); Potassium 3.1 mmol/L (3.5-5.1); Sodium Level 140 mmol/L (136-145)
[2018-07-08 05:08] LABS: Absolute Lymphocyte Count 4.83 X10^3/ul (0.83-4.51); Absolute Neutrophil Count 5.4 X10^3/uL (2.0-7.7); Basophil# 0.04 X10^3/uL; Basophil% 0.4 % (0-1); Eosinophil# 0.08 X10^3/uL; Eosinophils% 0.7 % (0-5); Hematocrit 39.4 % (37-47); Hemoglobin 13.4 g/dl (12.0-15.0); Lymphocyte # 4.83 X10^3/ul (4.0); Lymphocyte % 42.8 % (19-41); Mean Corpuscular Hgb 28.4 pg (27.0-32.0); Mean Corpuscular Volume 83.5 fL (81-99); Mean Platelet Vol. 11.6 fl (6.2-12.0); Monocyte# 0.95 X10^3/uL; Monocyte% 8.4 % (0-10); Neutrophil # 5.36 X10^3/uL (2.7-7.7); Neutrophil % 47.4 % (47-70); Platelet Count 297 K/mm3 (150-450); RBC Distribution Width CV 12.5 % (11.6-14.6); RBC Distribution Width SD 37.7 fl (35.1-43.9); Red Blood Count 4.72 M/mm3 (4.2-5.4); White Blood Count 11.3 K/mm3 (4.4-11.0)
[2018-07-08 05:10] LABS: POSITIVE COUNT NO; POSITIVE DIFFERENTIAL NO; POSITIVE MORPHOLOGY NO
--- NOTE | 2018-07-08 06:08 | PN_ITS ---
Subjective: Patient did okay overnight. Patient did have an elevated blood pressure over 200s, so Cardene was reinitiated for a brief amount of time. Patient denies any headache or nausea. Patient has remained stable on room air. No focal neurologic changes noted. Objective: MRI was completed showing no acute CVA. Patient does have an increase in MS plaques. None of these were active. General: Alert, Oriented x3, Cooperative, No apparent distress, Well developed, Well nourished, - - Obese. Speaking in full sentences. HEENT: Atraumatic, PERRLA, EOMI, Normocephalic, - - No scleral icterus or injection noted. Oral: Moist Mucosa, No Gingival or Mucosal Lesions/ Ulcerations Neck: Supple, No JVD, No Nodes, Trachea Midline Lungs: Clear to auscultation, Normal air movement, No rhonchi, No wheeze, No rales, - - Symmetric expansion. No dullness to percussion. Cardiovascular: Regular rate, Regular Rhythm, Normal S1, Normal S2, No murmurs, No rub noted, No Gallop Abdomen: Bowel Sounds Present, Soft, Non Tender, Non-Distended Extremities: No clubbing, No cyanosis, No edema, Capillary Refill Less than 3 Seconds Skin: No rashes, No breakdown Musculoskeletal: No Tenderness to Palpation of Joints or Extremities, No Muscle Wasting Lymphatic: No Cervical, Supraclavicular, or Inguinal Adenopathy Neurological: Cranial nerves II-XII grossly intact, Neuro grossly intact, Motor Exam 5/5 strength throughout Psych/Mental Status: Alert and oriented to time, place, person, mood and affect Vital Signs Temp Pulse Resp BP Pulse Ox 36.5 C L 66 11 L 178/79 H 96 07/08/18 00:00 07/08/18 01:58 07/08/18 01:58 07/08/18 01:58 07/08/18 01:58 Oxygen Delivery Method Room Air Weight: 95 kg Body Mass Index (BMI) 32.1 Finger Stick Blood Glucose 419 Intake and Output for Last 24 Hours 07/06/18 07/07/18 07/08/18 23:59 23:59 23:59 Intake Total 1763 / 1763 2205.6 / 2205.6 Output Total 1500 / 1500 1850 / 1850 Balance 263 / 263 355.6 / 355.6 Labs (Last 48 Hours) 07/06/18 07/06/18 07/06/18 07:05 11:20 16:12 WBC RBC Hgb Hct MCV MCH MCHC RDW RDW Differential Plt Count MPV Immature Gran % (Auto) Neut % (Auto) Lymph % (Auto) [place] % (Auto) Eos % (Auto) Baso % (Auto) Absolute Neuts (auto) Absolute Lymphs (auto) Total Counted Sodium Potassium Chloride Carbon Dioxide Anion Gap BUN Creatinine Estim Creat Clear Calc Est GFR (MDRD) Af Amer Est GFR (MDRD) Non-Af BUN/Creatinine Ratio Glucose Calcium POC Glucose 328 H 218 H 175 H 07/06/18 07/07/18 07/07/18 20:57 05:00 05:00 WBC 14.3 H RBC 4.45 Hgb 12.9 Hct 37.7 MCV 84.7 MCH 29.0 MCHC 34.2 RDW 13.0 RDW Differential 39.7 Plt Count 308 MPV 12.1 H Immature Gran % (Auto) 0.200 Neut % (Auto) 61.1 Lymph % (Auto) 31.1 [place] % (Auto) 7.4 Eos % (Auto) 0.0 Baso % (Auto) 0.2 Absolute Neuts (auto) 8.7 H Absolute Lymphs (auto) 4.44 Total Counted Not Reportable Sodium 141 Potassium 3.0 L Chloride 105 Carbon Dioxide 26.0 Anion Gap 10 BUN 23 H Creatinine 0.80 Estim Creat Clear Calc 74.54 Est GFR (MDRD) Af Amer 94 Est GFR (MDRD) Non-Af 78 BUN/Creatinine Ratio 28.6 H Glucose 249 H Calcium 8.0 L POC Glucose 168 H 07/07/18 07/07/18 07/07/18 07:40 11:30 16:24 WBC RBC Hgb Hct MCV MCH MCHC RDW RDW Differential Plt Count MPV Immature Gran % (Auto) Neut % (Auto) Lymph % (Auto) [place] % (Auto) Eos % (Auto) Baso % (Auto) Absolute Neuts (auto) Absolute Lymphs (auto) Total Counted Sodium Potassium Chloride Carbon Dioxide Anion Gap BUN Creatinine Estim Creat Clear Calc Est GFR (MDRD) Af Amer Est GFR (MDRD) Non-Af BUN/Creatinine Ratio Glucose Calcium POC Glucose 298 H 254 H 245 H 07/07/18 07/08/1807/08/18 21:14 04:44 04:44 WBC 11.3 H RBC 4.72 Hgb 13.4 Hct 39.4 MCV 83.5 MCH 28.4 MCHC 34.0 RDW 12.5 RDW Differential 37.7 Plt Count 297 MPV 11.6 Immature Gran % (Auto) 0.300 Neut % (Auto) 47.4 Lymph % (Auto) 42.8 H [place] % (Auto) 8.4 Eos % (Auto) 0.7 Baso % (Auto) 0.4 Absolute Neuts (auto) 5.4 Absolute Lymphs (auto) 4.83 H Total Counted Not Reportable Sodium 140 Potassium 3.1 L Chloride 102 Carbon Dioxide 28.0 Anion Gap 10 BUN 18 Creatinine 0.81 Estim Creat Clear Calc 73.62 Est GFR (MDRD) Af Amer 93 Est GFR (MDRD) Non-Af 77 BUN/Creatinine Ratio 22.2 H Glucose 196 H Calcium 8.0 L POC Glucose 265 H Clinical Impression(s) from Imaging Studies Brain MRI 07/07/18 07:48 IMPRESSION: 1. No MRI evidence of acute or subacute ischemic infarct. 2. 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 3. Increased size and number of MS plaques in the white matter of both cerebral hemispheres when compared to 03/02/2008. 4. No MRI evidence of any active enhancing MS plaques. Electronically Signed: Luis Mike MD at 13:31 EDT , Service support , Medical Necessity - Tobacco Use Smoking Status: Never smoker Tobacco Use: Non-smoker Assessment/Plan All Active Problems Hypertensive emergency (Acute) Gastroenteritis (Acute) Metabolic alkalosis (Acute) Hypokalemia (Acute) Abscess of right buttock (Acute) Dehydration (Acute) Hypomagnesemia (Acute) RECOMMENDATIONS: 1. Treat nausea symptomatically with Zofran 2. Maximize hydrochlorothiazide, add Norvasc 3. Defer to neurology on MRI findings 4. Continue with supplemental insulin 5. Potassium repletion by p.o. and IV 6. May be able to transfer to the PCU later today if blood pressure remains controlled IMPRESSIONS: 1. Hypertensive emergency Patient was spiking blood pressure overnight requiring reinitiation of Cardene drip. Patient is currently maximized on Cozaar and is on a substantial dose of Lopressor. Patient did have hydrochlorothiazide yesterday, we will maximize the dose. Also initiate Norvasc therapy. Cardene drip is currently off. Patient does have labetalol as needed ordered. Nausea is well controlled. Patient does have some plaques noted on MRI, but these do not appear to be active at this time. 2. Possible viral gastroenteritis Patient does not report any sick contacts, but is having nausea, vomiting and diarrhea. We will continue to monitor fluid status. Will attempt initiatio n of p.o meals. Hypokalemia likely secondary to GI losses. 3. Hypokalemia Replace IV and p.o. 4. Debility/multiple sclerosis Complicates care, management, recovery and prognosis. Therapies have been consulted. Neurology is following. Patient to have an MRI for evaluation. Code Visit Inpatient E&M: 36877 Subs Hosp L3
[2018-07-08] MEDS: Insulin Lispro 100 UNIT/ML INSULN.PEN SQ ×3 (07:56→17:17)
[2018-07-08] MEDS: Insulin Lispro 100 UNIT/ML INSULN.PEN 9 UNIT SC (07:56)
[2018-07-08] MEDS: amLODIPine 5 MG Tablet PO (07:57)
[2018-07-08] MEDS: Aspirin 81 MG TAB.CHEW PO (07:58)
[2018-07-08 08:10] LABS: Bedside Glucose 244 mg/dL (70-110)
--- NOTE | 2018-07-08 09:15 | PCM.PN.HOSP ---
Patient Problems: Active and Suspected Problems Hypertensive emergency (Acute) Gastroenteritis (Acute) Subjective: The patient is awake and alert. On left eye, she has finger counting at about 1 foot and confrontation test peripheral vision seems grossly normal. She feels her dizziness is much better. She required intermittent nicardipine drip yesterday night; currently off. Vitals/I&O's: Vital Signs Temp Pulse Resp BP Pulse Ox 97.6 F L 64 9 L 193/93 H 98 07/08/18 08:00 07/08/18 08:00 07/08/18 08:00 07/08/18 08:00 07/08/18 08:00 Oxygen Delivery Method Room Air Weight: 209 lb 7.026 oz Body Mass Index (BMI) 32.1 Finger Stick Blood Glucose 419 Intake and Output for Last 24 Hours 07/06/18 07/07/18 07/08/18 23:59 23:59 23:59 Intake Total 1763 / 1763 2205.6 / 2205.6 76.6 / 76.6 Output Total 1500 / 1500 1850 / 1850 800 / 800 Balance 263 / 263 355.6 / 355.6 -723.4 / -723.4 General: Alert, Oriented x3, Cooperative HEENT: Atraumatic, PERRLA, EOMI, Normocephalic, - - Diminished vision in left eye Neck: Supple, No JVD, Negative Carotid Bruits Lungs: Clear to auscultation, No rhonchi, No wheeze, No rales, Diminished Cardiovascular: Regular rate, Normal S1, Normal S2, No murmurs Abdomen: Bowel Sounds Present, Soft, Non Tender, Non-Distended Extremities: Capillary Refill Less than 3 Seconds, Edema Skin: No rashes, No breakdown Musculoskeletal: No Tenderness to Palpation of Joints or Extremities Neurological: Cranial nerves II-XII grossly intact Psych/Mental Status: Normal Affect, Appropriate Laboratory Results 07/07/18 11:30: POC Glucose 254 H 07/07/18 16:24: POC Glucose 245 H 07/07/18 21:14: POC Glucose 265 H 07/08/18 04:44: WBC 11.3 H, RBC 4.72, Hgb 13.4, Hct 39.4, MCV 83.5, MCH 28.4, MCHC 34.0, RDW 12.5, RDW Differential 37.7, Plt Count 297, MPV 11.6, Immature Gran % (Auto) 0.300, Neut % (Auto) 47.4, Lymph % (Auto) 42.8 H, [place] % (Auto) 8.4, Eos % (Auto) 0.7, Baso % (Auto) 0.4, Absolute Neuts (auto) 5.4, Absolute Lymphs (auto) 4.83 H, Total Counted Not Reportable 07/08/18 04:44: Sodium 140, Potassium 3.1 L, Chloride 102, Carbon Dioxide 28.0, Anion Gap 10, BUN 18, Creatinine 0.81, Estim Creat Clear Calc 73.62, Est GFR (MDRD) Af Amer 93, Est GFR (MDRD) Non-Af 77, BUN/Creatinine Ratio 22.2 H, Glucose 196 H, Calcium 8.0 L 07/08/18 07:55: POC Glucose 244 H Current Medications Acetaminophen (Tylenol) 650 mg PO Q6H PRN PRN PRN Reason: PAIN Last Admin: 07/07/18 00:21 Dose: 650 mg Amlodipine Besylate (Norvasc) 5 mg PO DAILY [facility] Last Admin: 07/08/18 07:57 Dose: 5 mg Aspirin (Aspirin, Baby) 81 mg PO DAILY@0800 [facility] Last Admin: 07/08/18 07:58 Dose: 81 mg Bupropion HCl (Wellbutrin Xl) 300 mg PO DAILY [facility] Last Admin: 07/07/18 10:49 Dose: 300 mg Chlorhexidine Gluconate () 1 each TOPICAL DAILY [facility] Last Admin: 07/07/18 10:48 Dose: 1 each Citalopram Hydrobromide (Celexa) 40 mg PO DAILY [facility] Last Admin: 07/07/18 10:50 Dose: 40 mg Dextrose (D50w Syringe) 0 gm IV X1 PRN; Protocol PRN Reason: Hypoglycemia Enoxaparin Sodium (Lovenox) 40 mg SC DAILY@1000 [facility] Last Admin: 07/07/18 10:49 Dose: 40 mg Glucagon () 1 mg IM .X1 PRN PRN Reason: Hypoglycemia Hydrochlorothiazide (Hctz) 25 mg PO DAILY [facility] Nicardipine HCl 25 mg/ Sodium (Chloride) 250 mls @ 50 mls/hr IV .Q5H [facility] Last Admin: 07/08/18 05:01 Dose: 50 mls/hr Potassium Chloride (Kcl 10meq/100ml) 10 meq in 100 mls @ 100 mls/hr IV BOLUS Q1H [facility] Stop: 07/08/18 10:14 Last Admin: 07/08/18 07:57 Dose: 100 mls/hr Insulin Glargine (Lantus (Bkc)) 20 units SC QHS [facility] Last Admin: 07/07/18 21:18 Dose: 20 units Insulin Human Lispro (Humalog Kwikpen (Bkc)) 9 unit SC TIDAC [facility] Last Admin: 07/08/18 07:56 Dose: 9 u Insulin Human Lispro (Humalog Kwikpen (Bkc)) 0 unit SQ TIDAC [facility]; Protocol Last Admin: 07/08/18 07:56 Dose: 3 units Labetalol HCl (Trandate) 10 mg IV Q4H PRN PRN PRN Reason: hypertention Last Admin: 07/08/18 07:57 Dose: 10 mg Losartan Potassium (Cozaar) 100 mg PO DAILY [facility] Last Admin: 07/07/18 07:48 Dose: 100 mg Magnesium Hydroxide (Milk Of Magnesia) 30 ml PO DAILY PRN PRN Reason: Constipation Metoprolol Tartrate (Lopressor (Beta Zenon)) 100 mg PO BID [facility] Last Admin: 07/07/18 21:19 Dose: 100 mg Nystatin/Triamcinolone Acetonide (Mycolog) 1 applic TOPICAL BID [facility]; Protocol Last Admin: 07/07/18 21:18 Dose: 1 applicatio Ondansetron HCl (Zofran) 4 mg IV Q6H PRN PRN PRN Reason: NAUSEA/VOMITING Last Admin: 07/06/18 00:34 Dose: 4 mg Potassium [facility] Stop: 07/08/18 17:01 Last Admin: 07/08/18 07:58 Dose: 20 meq Sodium Chloride () 5 - 30 ml IV UD PRN PRN Reason: SALINE FLUSH Last Admin: 07/08/18 07:56 Dose: 10 ml Medical Necessity - Tobacco Use Smoking Status: Never smoker Tobacco Use: Non-smoker Assessment/Plan All Active Problems Hypertensive emergency (Acute) Gastroenteritis (Acute) Metabolic alkalosis (Acute) Hypokalemia (Acute) Abscess of right buttock (Acute) Dehydration (Acute) Hypomagnesemia (Acute) This is a 58-year-old female with history of multiple sclerosis, hypertension and diabetes mellitus type 2, uncontrolled, CKD stage II was admitted with nausea, vomiting and diarrhea since 07 July. Patient also complaining of dizziness, vertigo and unsteady gait. She states he sink down because of dizziness. She was admitted with hypertensive emergency probably could not take medications because of vomiting. 1. Hypertensive emergency: Currently blood pressure runs in 170-180. Pulse ox normal. nicardipine drip discontinued. Labetalol IV as needed. On Cozaar, metoprolol. Continue symptomatic management. 2. Possible viral gastroenteritis: Sometimes are better. On IV Zofran. 3. Hypokalemia: Monitor and correct accordingly. 4. Multiple sclerosis: Seen by neurologist Dr. Melchor. He thinks there is no exacerbation of multiple sclerosis. Probably PRES secondary to hypertensive emergency. Neurologist consult appreciated. MRI brain was done and shows no active MS plaque but total size and number plaques has increased since 2007. No acute or subacute ischemic infarct 5. DVT prophylaxis with Lovenox Active Medications Acetaminophen (Tylenol) 650 mg PO Q6H PRN PRN PRN Reason: PAIN Last Admin: 07/07/18 00:21 Dose: 650 mg Aspirin (Aspirin, Baby) 81 mg PO DAILY@0800 [facility] Last Admin: 07/05/18 16:32 Dose: Not Given Bupropion HCl (Wellbutrin Xl) 300 mg PO DAILY [facility] Last Admin: 07/06/18 09:59 Dose: Not Given Chlorhexidine Gluconate () 1 each TOPICAL DAILY [facility] Last Admin: 07/06/18 05:36 Dose: 1 each Citalopram Hydrobromide (Celexa) 40 mg PO DAILY [facility] Last Admin: 07/06/18 09:59 Dose: Not Given Dextrose (D50w Syringe) 0 gm IV X1 PRN; Protocol PRN Reason: Hypoglycemia Diphenhydramine HCl (Benadryl) 50 mg IV X1 ONE Stop: 07/07/18 14:46 Enoxaparin Sodium (Lovenox) 40 mg SC DAILY@1000 [facility] Last Admin: 07/06/18 10:49 Dose: 40 mg Glucagon () 1 mg IM .X1 PRN PRN Reason: Hypoglycemia Nicardipine HCl 25 mg/ Sodium (Chloride) 250 mls @ 50 mls/hr IV .Q5H [facility] PRN Reason: 5 MG/HR Last Admin: 07/07/18 06:12 Dose: Not Given Potassium Chloride (Kcl 10meq/100ml) 10 meq in 100 mls @ 100 mls/hr IV BOLUS Q1H [facility] Stop: 07/07/18 10:29 Last Admin: 07/07/18 07:47 Dose: 100 mls/hr Insulin Glargine (Lantus (Bkc)) 20 units SC QHS [facility] Last Admin: 07/06/18 21:02 Dose: 20 units Insulin Human Lispro (Humalog Kwikpen (Bkc)) 9 unit SC TIDAC [facility] Last Admin: 07/07/18 07:45 Dose: 9 u Insulin Human Lispro (Humalog Kwikpen (Bkc)) 0 unit SQ TIDAC [facility] PRN Reason: Protocol Last Admin: 07/07/18 07:45 Dose: 4 units Labetalol HCl (Trandate) 10 mg IV Q4H PRN PRN PRN Reason: hypertention Last Admin: 07/07/18 07:44 Dose: 10 mg Lorazepam (Ativan) 0.5 mg IV X1 ONE Stop: 07/07/18 14:46 Losartan Potassium (Cozaar) 100 mg PO DAILY [facility] Last Admin: 07/07/18 07:48 Dose: 100 mg Magnesium Hydroxide (Milk Of Magnesia) 30 ml PO DAILY PRN PRN Reason: Constipation Metoprolol Tartrate (Lopressor (Beta Zenon)) 100 mg PO BID [facility] Last Admin: 07/06/18 21:01 Dose: 100 mg Nystatin/Triamcinolone Acetonide (Mycolog) 1 applic TOPICAL BID [facility] PRN Reason: Protocol Ondansetron HCl (Zofran) 4 mg IV Q6H PRN PRN PRN Reason: NAUSEA/VOMITING Last Admin: 07/06/18 00:34 Dose: 4 mg Sodium Chloride () 5 - 30 ml IV UD PRN PRN Reason: SALINE FLUSH Last Admin: 07/07/18 03:17 Dose: 10 ml Laboratory Results 07/06/18 11:20: POC Glucose 218 H 07/06/18 16:12: POC Glucose 175 H 07/06/18 20:57: POC Glucose 168 H 07/07/18 05:00: WBC 14.3 H, RBC 4.45, Hgb 12.9, Hct 37.7, MCV 84.7, MCH 29.0, MCHC 34.2, RDW 13.0, RDW Differential 39.7, Plt Count 308, MPV 12.1 H, Immature Gran % (Auto) 0.200, Neut % (Auto) 61.1, Lymph % (Auto) 31.1, [place] % (Auto) 7.4, Eos % (Auto) 0.0, Baso % (Auto) 0.2, Absolute Neuts (auto) 8.7 H, Absolute Lymphs (auto) 4.44, Total Counted Not Reportable 07/07/18 05:00: Sodium 141, Potassium 3.0 L, Chloride 105, Carbon Dioxide 26.0, Anion Gap 10, BUN 23 H, Creatinine 0.80, Estim Creat Clear Calc 74.54, Est GFR (MDRD) Af Amer 94, Est GFR (MDRD) Non-Af 78, BUN/Creatinine Ratio 28.6 H, Glucose 249 H, Calcium 8.0 L 07/07/18 07:40: POC Glucose 298 H Clinical Impression(s) from Imaging Studies Brain CT 07/05/18 05:54 IMPRESSION: Chronic involutional and nonspecific periventricular white matter changes of the brain demonstrated, most likely chronic. Correlation with MRI exam is recommended. Brain MRI 07/07/18 07:48 IMPRESSION: 1. No MRI evidence of acute or subacute ischemic infarct. 2. 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 3. Increased size and number of MS plaques in the white matter of both cerebral hemispheres when compared to 03/02/2008. 4. No MRI evidence of any active enhancing MS plaques. Code Visit Inpatient E&M: 65025 Subs Hosp L3
--- NOTE | 2018-07-08 09:20 | PN_ITS ---
Patient Problems: Active and Suspected Problems Hypertensive emergency (Acute) Gastroenteritis (Acute) Subjective: The patient is awake and alert. On left eye, she has finger counting at about 1 foot and confrontation test peripheral vision seems grossly normal. She feels her dizziness is much better. She required intermittent nicardipine drip yesterday night; currently off. Vitals/I&O's: Vital Signs Temp Pulse Resp BP Pulse Ox 97.6 F L 64 9 L 193/93 H 98 07/08/18 08:00 07/08/18 08:00 07/08/18 08:00 07/08/18 08:00 07/08/18 08:00 Oxygen Delivery Method Room Air Weight: 209 lb 7.026 oz Body Mass Index (BMI) 32.1 Finger Stick Blood Glucose 419 Intake and Output for Last 24 Hours 07/06/18 07/07/18 07/08/18 23:59 23:59 23:59 Intake Total 1763 / 1763 2205.6 / 2205.6 76.6 / 76.6 Output Total 1500 / 1500 1850 / 1850 800 / 800 Balance 263 / 263 355.6 / 355.6 -723.4 / -723.4 General: Alert, Oriented x3, Cooperative HEENT: Atraumatic, PERRLA, EOMI, Normocephalic, - - Diminished vision in left e ye Neck: Supple, No JVD, Negative Carotid Bruits Lungs: Clear to auscultation, No rhonchi, No wheeze, No rales, Diminished Cardiovascular: Regular rate, Normal S1, Normal S2, No murmurs Abdomen: Bowel Sounds Present, Soft, Non Tender, Non-Distended Extremities: Capillary Refill Less than 3 Seconds, Edema Skin: No rashes, No breakdown Musculoskeletal: No Tenderness to Palpation of Joints or Extremities Neurological: Cranial nerves II-XII grossly intact Psych/Mental Status: Normal Affect, Appropriate Laboratory Results 07/07/18 11:30: POC Glucose 254 H 07/07/18 16:24: POC Glucose 245 H 07/07/18 21:14: POC Glucose 265 H 07/08/18 04:44: WBC 11.3 H, RBC 4.72, Hgb 13.4, Hct 39.4, MCV 83.5, MCH 28.4, MCHC 34.0, RDW 12.5, RDW Differential 37.7, Plt Count 297, MPV 11.6, Immature Gran % (Auto) 0.300, Neut % (Auto) 47.4, Lymph % (Auto) 42.8 H, Chambers % (Auto) 8.4, Eos % (Auto) 0.7, Baso % (Auto) 0.4, Absolute Neuts (auto) 5.4, Absolute Lymphs (auto) 4.83 H, Total Counted Not Reportable 07/08/18 04:44: Sodium 140, Potassium 3.1 L, Chloride 102, Carbon Dioxide 28.0, Anion Gap 10, BUN 18, Creatinine 0.81, Estim Creat Clear Calc 73.62, Est GFR (MDRD) Af Amer 93, Est GFR (MDRD) Non-Af 77, BUN/Creatinine Ratio 22.2 H, Glucose 196 H, Calcium 8.0 L 07/08/18 07:55: POC Glucose 244 H Current Medications Acetaminophen (Tylenol) 650 mg PO Q6H PRN PRN PRN Reason: PAIN Last Admin: 07/07/18 00:21 Dose: 650 mg Amlodipine Besylate (Norvasc) 5 mg PO DAILY [facility] Last Admin: 07/08/18 07:57 Dose: 5 mg Aspirin (Aspirin, Baby) 81 mg PO DAILY@0800 [facility] Last Admin: 07/08/18 07:58 Dose: 81 mg Bupropion HCl (Wellbutrin Xl) 300 mg PO DAILY [facility] Last Admin: 07/07/18 10:49 Dose: 300 mg Chlorhexidine Gluconate () 1 each TOPICAL DAILY [facility] Last Admin: 07/07/18 10:48 Dose: 1 each Citalopram Hydrobromide (Celexa) 40 mg PO DAILY [facility] Last Admin: 07/07/18 10:50 Dose: 40 mg Dextrose (D50w Syringe) 0 gm IV X1 PRN; Protocol PRN Reason: Hypoglycemia Enoxaparin Sodium (Lovenox) 40 mg SC DAILY@1000 [facility] Last Admin: 07/07/18 10:49 Dose: 40 mg Glucagon () 1 mg IM .X1 PRN PRN Reason: Hypoglycemia Hydrochlorothiazide (Hctz) 25 mg PO DAILY [facility] Nicardipine HCl 25 mg/ Sodium (Chloride) 250 mls @ 50 mls/hr IV .Q5H [facility] Last Admin: 07/08/18 05:01 Dose: 50 mls/hr Potassium Chloride (Kcl 10meq/100ml) 10 meq in 100 mls @ 100 mls/hr IV BOLUS Q1H [facility] Stop: 07/08/18 10:14 Last Admin: 07/08/18 07:57 Dose: 100 mls/hr Insulin Glargine (Lantus (Bkc)) 20 units SC QHS [facility] Last Admin: 07/07/18 21:18 Dose: 20 units Insulin Human Lispro (Humalog Kwikpen (Bkc)) 9 unit SC TIDAC [facility] Last Admin: 07/08/18 07:56 Dose: 9 u Insulin Human Lispro (Humalog Kwikpen (Bkc)) 0 unit SQ TIDAC [facility]; Protocol Last Admin: 07/08/18 07:56 Dose: 3 units Labetalol HCl (Trandate) 10 mg IV Q4H PRN PRN PRN Reason: hypertention Last Admin: 07/08/18 07:57 Dose: 10 mg Losartan Potassium (Cozaar) 100 mg PO DAILY [facility] Last Admin: 07/07/18 07:48 Dose: 100 mg Magnesium Hydroxide (Milk Of Magnesia) 30 ml PO DAILY PRN PRN Reason: Constipation Metoprolol Tartrate (Lopressor (Beta Zenon)) 100 mg PO BID [facility] Last Admin: 07/07/18 21:19 Dose: 100 mg Nystatin/Triamcinolone Acetonide (Mycolog) 1 applic TOPICAL BID [facility]; Protocol Last Admin: 07/07/18 21:18 Dose: 1 applicatio Ondansetron HCl (Zofran) 4 mg IV Q6H PRN PRN PRN Reason: NAUSEA/VOMITING Last Admin: 07/06/18 00:34 Dose: 4 mg [facility] Stop: 07/08/18 17:01 Last Admin: 07/08/18 07:58 Dose: 20 meq Sodium Chloride () 5 - 30 ml IV UD PRN PRN Reason: SALINE FLUSH Last Admin: 07/08/18 07:56 Dose: 10 ml Medical Necessity - Tobacco Use Smoking Status: Never smoker Tobacco Use: Non-smoker Assessment/Plan All Active Problems Hypertensive emergency (Acute) Gastroenteritis (Acute) Metabolic alkalosis (Acute) Hypokalemia (Acute) Abscess of right buttock (Acute) Dehydration (Acute) Hypomagnesemia (Acute) This is a 58-year-old female with history of multiple sclerosis, hypertension and diabetes mellitus type 2, uncontrolled, CKD stage II was admitted with nausea, vomiting and diarrhea since 07 July. Patient also complaining of dizziness, vertigo and unsteady gait. She states he sink down because of dizziness. She was admitted with hypertensive emergency probably could not take medications because of vomiting. 1. Hypertensive emergency: Currently blood pressure runs in 170-180. Pulse ox normal. nicardipine drip discontinued. Labetalol IV as needed. On Cozaar, metoprolol. Continue symptomatic management. 2. Possible viral gastroenteritis: Sometimes are better. On IV Zofran. 3. Hypokalemia: Monitor and correct accordingly. 4. Multiple sclerosis: Seen by neurologist Dr. Melchor. He thinks there is no exacerbation of multiple sclerosis. Probably PRES secondary to hypertensive emergency. Neurologist consult appreciated. MRI brain was done and shows no active MS plaque but total size and number plaques has increased since 2007. No acute or subacute ischemic infarct 5. DVT prophylaxis with Lovenox Active Medications Acetaminophen (Tylenol) 650 mg PO Q6H PRN PRN PRN Reason: PAIN Last Admin: 07/07/18 00:21 Dose: 650 mg Aspirin (Aspirin, Baby) 81 mg PO DAILY@0800 [facility] Last Admin: 07/05/18 16:32 Dose: Not Given Bupropion HCl (Wellbutrin Xl) 300 mg PO DAILY [facility] Last Admin: 07/06/18 09:59 Dose: Not Given Chlorhexidine Gluconate () 1 each TOPICAL DAILY [facility] Last Admin: 07/06/18 05:36 Dose: 1 each Citalopram Hydrobromide (Celexa) 40 mg PO DAILY [facility] Last Admin: 07/06/18 09:59 Dose: Not Given Dextrose (D50w Syringe) 0 gm IV X1 PRN; Protocol PRN Reason: Hypoglycemia Diphenhydramine HCl (Benadryl) 50 mg IV X1 ONE Stop: 07/07/18 14:46 Enoxaparin Sodium (Lovenox) 40 mg SC DAILY@1000 [facility] Last Admin: 07/06/18 10:49 Dose: 40 mg Glucagon () 1 mg IM .X1 PRN PRN Reason: Hypoglycemia Nicardipine HCl 25 mg/ Sodium (Chloride) 250 mls @ 50 mls/hr IV .Q5H [facility] PRN Reason: 5 MG/HR Last Admin: 07/07/18 06:12 Dose: Not Given Potassium Chloride (Kcl 10meq/100ml) 10 meq in 100 mls @ 100 mls/hr IV BOLUS Q1H [facility] Stop: 07/07/18 10:29 Last Admin: 07/07/18 07:47 Dose: 100 mls/hr Insulin Glargine (Lantus (Bkc)) 20 units SC QHS [facility] Last Admin: 07/06/18 21:02 Dose: 20 units Insulin Human Lispro (Humalog Kwikpen (Bkc)) 9 unit SC TIDAC [facility] Last Admin: 07/07/18 07:45 Dose: 9 u Insulin Human Lispro (Humalog Kwikpen (Bkc)) 0 unit SQ TIDAC [facility] PRN Reason: Protocol Last Admin: 07/07/18 07:45 Dose: 4 units Labetalol HCl (Trandate) 10 mg IV Q4H PRN PRN PRN Reason: hypertention Last Admin: 07/07/18 07:44 Dose: 10 mg Lorazepam (Ativan) 0.5 mg IV X1 ONE Stop: 07/07/18 14:46 Losartan Potassium (Cozaar) 100 mg PO DAILY [facility] Last Admin: 07/07/18 07:48 Dose: 100 mg Magnesium Hydroxide (Milk Of Magnesia) 30 ml PO DAILY PRN PRN Reason: Constipation Metoprolol Tartrate (Lopressor (Beta Zenon)) 100 mg PO BID [facility] Last Admin: 07/06/18 21:01 Dose: 100 mg Nystatin/Triamcinolone Acetonide (Mycolog) 1 applic TOPICAL BID [facility] PRN Reason: Protocol Ondansetron HCl (Zofran) 4 mg IV Q6H PRN PRN PRN Reason: NAUSEA/VOMITING Last Admin: 07/06/18 00:34 Dose: 4 mg Sodium Chloride () 5 - 30 ml IV UD PRN PRN Reason: SALINE FLUSH Last Admin: 07/07/18 03:17 Dose: 10 ml Laboratory Results 07/06/18 11:20: POC Glucose 218 H 07/06/18 16:12: POC Glucose 175 H 07/06/18 20:57: POC Glucose 168 H 07/07/18 05:00: WBC 14.3 H, RBC 4.45, Hgb 12.9, Hct 37.7, MCV 84.7, MCH 29.0, MCHC 34.2, RDW 13.0, RDW Differential 39.7, Plt Count 308, MPV 12.1 H, Immature Gran % (Auto) 0.200, Neut % (Auto) 61.1, Lymph % (Auto) 31.1, Chambers % (Auto) 7.4, Eos % (Auto) 0.0, Baso % (Auto) 0.2, Absolute Neuts (auto) 8.7 H, Absolute Lymphs (auto) 4.44, Total Counted Not Reportable 07/07/18 05:00: Sodium 141, Potassium 3.0 L, Chloride 105, Carbon Dioxide 26.0, Anion Gap 10, BUN 23 H, Creatinine 0.80, Estim Creat Clear Calc 74.54, Est GFR (MDRD) Af Amer 94, Est GFR (MDRD) Non-Af 78, BUN/Creatinine Ratio 28.6 H, Glucose 249 H, Calcium 8.0 L 07/07/18 07:40: POC Glucose 298 H Clinical Impression(s) from Imaging Studies Brain CT 07/05/18 05:54 IMPRESSION: Chronic involutional and nonspecific periventricular white matter changes of the brain demonstrated, most likely chronic. Correlation with MRI exam is recommended. Brain MRI 07/07/18 07:48 IMPRESSION: 1. No MRI evidence of acute or subacute ischemic infarct. 2. 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 3. Increased size and number of MS plaques in the white matter of both cerebral hemispheres when compared to 03/02/2008. 4. No MRI evidence of any active enhancing MS plaques. Code Visit Inpatient E&M: 30124 Subs Hosp L3
[2018-07-08] MEDS: hydroCHLOROthiazide 25 MG Tablet PO (09:55)
[2018-07-08] MEDS: Metoprolol Tartrate 100 MG Tablet PO ×2 (09:56→22:00)
[2018-07-08] MEDS: Citalopram 40 MG TABLET PO (09:56)
[2018-07-08] MEDS: Losartan Potassium 100 MG Tablet PO (09:56)
[2018-07-08] MEDS: buPROPion (XL) 300 MG TABLET.XL PO (09:56)
[2018-07-08] MEDS: Enoxaparin 40 MG/0.4 ML Syringe SC (09:57)
[2018-07-08] MEDS: Nystatin/Triamcin Cream Tube 1 APPLIC TOPICAL ×2 (09:57→21:59)
--- NOTE | 2018-07-08 11:07 | CASEMGMT ---
LUCIANO CEE Note. Intro role of CM to patient and her daughter. Pt with hx of MS, has not been on her prescription for Copaxone as her prescription coverage has stopped paying. Pt does not know reason, but as she states she has [employer] part D coverage, likely pt is in gap. Prescription card is not available, daughter will bring in. [facility] They offer assistance with coverage for MCR pts in coverage gap. Pt states her daughter will assist her. -Discussed PT/OT notes re: unsteady gait and weakness. Discussed SNF on dc for short term rehab if pt unable to return home safely. Also discussed pt's activity with [facility]. Inpt Rehab may be option with pt's MS diagnosis. LUCIANO CEE spoke with pt, she is agreeable to [facility] Inpt Rehab on dc if indicated. Call to Brandon Gomez [facility] Inpt Rehab [facility] to update, referral made. -RUDY Thakur updated on above. Billie MULLERN RN ACM
[2018-07-08] MEDS: Insulin Lispro 100 UNIT/ML INSULN.PEN 12 UNIT SC ×2 (11:24→17:16)
[2018-07-08 11:25] LABS: Bedside Glucose 186 mg/dL (70-110)
[2018-07-08 14:38] LABS: Magnesium 1.8 mg/dL (1.6-2.6)
[2018-07-08 17:26] LABS: Bedside Glucose 236 mg/dL (70-110)
[2018-07-08 22:11] LABS: Bedside Glucose 183 mg/dL (70-110)
[2018-07-09] VITALS (32 sets, daily range): BP systolic 122–190; BP diastolic 60–105; PULSE 62–73; RESP 6–16; TEMP 35.6–37.1; O2SAT 94–99
[2018-07-09] MEDS: Clonidine HCl 0.1 MG, Clonidine HCl 0.2 MG 0.3 MG PO (02:45)
[2018-07-09] MEDS: 0.9% NaCl Peripheral Flush Adult/Peds IV (04:45)
[2018-07-09 05:01] LABS: Absolute Lymphocyte Count 4.69 X10^3/ul (0.83-4.51); Absolute Neutrophil Count 4.2 X10^3/uL (2.0-7.7); Basophil# 0.03 X10^3/uL; Basophil% 0.3 % (0-1); Eosinophil# 0.11 X10^3/uL; Eosinophils% 1.1 % (0-5); Hematocrit 38.6 % (37-47); Hemoglobin 13.1 g/dl (12.0-15.0); Lymphocyte # 4.69 X10^3/ul (4.0); Lymphocyte % 48.4 % (19-41); Mean Corp Hgb Conc 33.9 g/gl (32-36); Mean Corpuscular Hgb 28.7 pg (27.0-32.0); Mean Corpuscular Volume 84.5 fL (81-99); Mean Platelet Vol. 11.4 fl (6.2-12.0); Monocyte# 0.67 X10^3/uL; Monocyte% 6.9 % (0-10); Neutrophil # 4.19 X10^3/uL (2.7-7.7); Neutrophil % 43.2 % (47-70); Platelet Count 257 K/mm3 (150-450); RBC Distribution Width CV 12.5 % (11.6-14.6); RBC Distribution Width SD 38.3 fl (35.1-43.9); Red Blood Count 4.57 M/mm3 (4.2-5.4); White Blood Count 9.7 K/mm3 (4.4-11.0)
[2018-07-09 05:06] LABS: POSITIVE COUNT NO; POSITIVE DIFFERENTIAL NO; POSITIVE MORPHOLOGY NO
[2018-07-09 05:08] LABS: Anion Gap 8 (5-15); BUN 16 mg/dL (7-18); BUN/Creat Ratio 18.5 RATIO (10-20); Calcium,Total 8.2 mg/dL (8.5-10.1); Chloride 102 mmol/L (98-107); Creatinine, Serum 0.87 mg/dL (0.55-1.02); EST Glomerular Filtration Rate 71 mL/min (>60); Est Glom Filt Rate - Afr Amer 86 mL/min (>60); Estimated Creatinine Clearance 68.54 ml/min; Glucose 204 mg/dL (74-106); Potassium 3.7 mmol/L (3.5-5.1); Sodium Level 139 mmol/L (136-145)
[2018-07-09 06:40] LABS: Bedside Glucose 224 mg/dL (70-110)
--- NOTE | 2018-07-09 06:48 | PCM.PN.INT ---
Subjective: Patient did okay overnight. Patient is still reporting some nausea with change in body position. Patient did have significant elevation of blood pressure overnight over 200. Patient was given clonidine 0.3 mg p.o. ?1 and current blood pressures in the 140s. Patient denies any focal neurologic deficits. Patient denies any chest pain, shortness of breath or emesis. Diet has been improving. General: Alert, Oriented x3, Cooperative, No apparent distress, - - Speaking in full sentences. Obese. HEENT: Atraumatic, PERRLA, EOMI, Normocephalic, - - No scleral icterus or injection noted. Esotropia noted. Oral: Moist Mucosa, No Gingival or Mucosal Lesions/ Ulcerations Neck: Supple, No JVD, No Nodes, Trachea Midline Lungs: Clear to auscultation, Normal air movement, No rhonchi, No wheeze, No rales Cardiovascular: Regular rate, Regular Rhythm, Normal S1, Normal S2, No murmurs, No rub noted, No Gallop Abdomen: Bowel Sounds Present, Soft, Non Tender, Non-Distended, Obese Extremities: No clubbing, No cyanosis, Capillary Refill Less than 3 Seconds, Edema - Trace lower extremity Skin: No rashes, No breakdown Musculoskeletal: No Tenderness to Palpation of Joints or Extremities, No Muscle Wasting Lymphatic: No Cervical, Supraclavicular, or Inguinal Adenopathy Neurological: Cranial nerves II-XII grossly intact, Neuro grossly intact, Motor Exam 5/5 strength throughout Psych/Mental Status: Alert and oriented to time, place, person, mood and affect Vital Signs Temp Pulse Resp BP Pulse Ox 36.4 C L 65 9 L 148/73 H 94 07/09/18 00:00 07/09/18 06:00 07/09/18 06:00 07/09/18 06:00 07/09/18 06:00 Oxygen Delivery Method Room Air Weight: 96.2 kg Body Mass Index (BMI) 32.1 Finger Stick Blood Glucose 419 Intake and Output for Last 24 Hours 07/07/18 07/08/18 07/09/18 23:59 23:59 23:59 Intake Total 2205.6 / 2205.6 1031.6 / 1031.6 450 / 450 Output Total 1850 / 1850 1500 / 1500 550 / 550 Balance 355.6 / 355.6 -468.4 / -468.4 -100 / -100 Labs (Last 48 Hours) 07/07/18 07/07/18 07/07/18 07:40 11:30 16:24 WBC RBC Hgb Hct MCV MCH MCHC RDW RDW Differential Plt Count MPV Immature Gran % (Auto) Neut % (Auto) Lymph % (Auto) [place] % (Auto) Eos % (Auto) Baso % (Auto) Absolute Neuts (auto) Absolute Lymphs (auto) Total Counted Sodium Potassium Chloride Carbon Dioxide Anion Gap BUN Creatinine Estim Creat Clear Calc Est GFR (MDRD) Af Amer Est GFR (MDRD) Non-Af BUN/Creatinine Ratio Glucose Calcium Phosphorus Magnesium POC Glucose 298 H 254 H 245 H 07/07/18 07/08/18 07/08/18 21:14 04:44 04:44 WBC 11.3 H RBC 4.72 Hgb 13.4 Hct 39.4 MCV 83.5 MCH 28.4 MCHC 34.0 RDW 12.5 RDW Differential 37.7 Plt Count 297 MPV 11.6 Immature Gran % (Auto) 0.300 Neut % (Auto) 47.4 Lymph % (Auto) 42.8 H [place] % (Auto) 8.4 Eos % (Auto) 0.7 Baso % (Auto) 0.4 Absolute Neuts (auto) 5.4 Absolute Lymphs (auto) 4.83 H Total Counted Not Reportable Sodium 140 Potassium 3.1 L Chloride 102 Carbon Dioxide 28.0 Anion Gap 10 BUN 18 Creatinine 0.81 Estim Creat Clear Calc 73.62 Est GFR (MDRD) Af Amer 93 Est GFR (MDRD) Non-Af 77 BUN/Creatinine Ratio 22.2 H Glucose 196 H Calcium 8.0 L Phosphorus Magnesium POC Glucose 265 H 07/08/18 07/08/18 07/08/18 04:44 07:55 11:11 WBC RBC Hgb Hct MCV MCH MCHC RDW RDW Differential Plt Count MPV Immature Gran % (Auto) Neut % (Auto) Lymph % (Auto) [place] % (Auto) Eos % (Auto) Baso % (Auto) Absolute Neuts (auto) Absolute Lymphs (auto) Total Counted Sodium Potassium Chloride Carbon Dioxide Anion Gap BUN Creatinine Estim Creat Clear Calc Est GFR (MDRD) Af Amer Est GFR (MDRD) Non-Af BUN/Creatinine Ratio Glucose Calcium Phosphorus 3.0 Magnesium 1.8 POC Glucose 244 H 186 H 07/08/18 07/08/18 07/09/18 17:14 21:52 04:45 WBC 9.7 RBC 4.57 Hgb 13.1 Hct 38.6 MCV 84.5 MCH 28.7 MCHC 33.9 RDW 12.5 RDW Differential 38.3 Plt Count 257 MPV 11.4 Immature Gran % (Auto) 0.100 Neut % (Auto) 43.2 L Lymph % (Auto) 48.4 H [place] % (Auto) 6.9 Eos % (Auto) 1.1 Baso % (Auto) 0.3 Absolute Neuts (auto) 4.2 Absolute Lymphs (auto) 4.69 H Total Counted Not Reportable Sodium Potassium Chloride Carbon Dioxide Anion Gap BUN Creatinine Estim Creat Clear Calc Est GFR (MDRD) Af Amer Est GFR (MDRD) Non-Af BUN/Creatinine Ratio Glucose Calcium Phosphorus Magnesium POC Glucose 236 H 183 H 07/09/18 07/09/18 04:45 06:34 WBC RBC Hgb Hct MCV MCH MCHC RDW RDW Differential Plt Count MPV Immature Gran % (Auto) Neut % (Auto) Lymph % (Auto) [place] % (Auto) Eos % (Auto) Baso % (Auto) Absolute Neuts (auto) Absolute Lymphs (auto) Total Counted Sodium 139 Potassium 3.7 Chloride 102 Carbon Dioxide 29.0 Anion Gap 8 BUN 16 Creatinine 0.87 Estim Creat Clear Calc 68.54 Est GFR (MDRD) Af Amer 86 Est GFR (MDRD) Non-Af 71 BUN/Creatinine Ratio 18.5 Glucose 204 H Calcium 8.2 L Phosphorus Magnesium POC Glucose 224 H Medical Necessity - Tobacco Use Smoking Status: Never smoker Tobacco Use: Non-smoker Assessment/Plan All Active Problems Hypertensive emergency (Acute) Gastroenteritis (Acute) Metabolic alkalosis (Acute) Hypokalemia (Acute) Abscess of right buttock (Acute) Dehydration (Acute) Hypomagnesemia (Acute) RECOMMENDATIONS: 1. Treat nausea symptomatically with Zofran 2. Maximize Norvasc, add clonidine 0.1 daily 3. Defer to neurology on MRI findings 4. Continue with supplemental insulin 5. No potassium repletion today 6. May be able to transfer to the PCU later today if blood pressure remains controlled IMPRESSIONS: 1. Hypertensive emergency Patient currently is on losartan, metoprolol and hydrochlorothiazide at high doses. Patient will be increased on Norvasc to 10 mg and will add clonidine 0.1 mg. Stressed to the patient the importance of compliance to avoid rebound hypertension. Patient voiced understanding. 2. Possible viral gastroenteritis Nausea, vomiting and diarrhea have improved with improved blood pressure. Clinical suspicion for central etiology for GI symptoms. 3. Hypokalemia No significant potassium losses over the last 24 hours. Patient has not had any diarrhea or emesis. Continue to monitor and replete as necessary. 4. Debility/multiple sclerosis Complicates care, management, recovery and prognosis. Therapies have been consulted. Neurology is following. Patient to have an MRI for evaluation. Code Visit Inpatient E&M: 62220 Subs Hosp L3
--- NOTE | 2018-07-09 07:35 | PN_ITS ---
Patient Problems: Active and Suspected Problems Hypertensive emergency (Acute) Gastroenteritis (Acute) Subjective: Blood pressure was 184/87 about 4 AM today. Currently systolic is between 130- 150s. Patient was started on clonidine 0.1 mg. Amlodipine was increased to 10 mg daily. On left eye, she has finger counting at about 2 feet and confrontation test peripheral vision seems grossly normal. She feels her dizziness is much better. Vitals/I&O's: Vital Signs Temp Pulse Resp BP Pulse Ox 97.6 F L 64 14 133/81 H 99 07/09/18 00:00 07/09/18 07:00 07/09/18 07:00 07/09/18 07:00 07/09/18 07:00 Oxygen Delivery Method Room Air Weight: 212 lb 1.355 oz Body Mass Index (BMI) 32.1 Finger Stick Blood Glucose 419 Intake and Output for Last 24 Hours 07/07/18 07/08/18 07/09/18 23:59 23:59 23:59 Intake Total 2205.6 / 2205.6 1031.6 / 1031.6 450 / 450 Output Total 1850 / 1850 1500 / 1500 550 / 550 Balance 355.6 / 355.6 -468.4 / -468.4 -100 / -100 General: Alert, Oriented x3, Cooperative HEENT: Atraumatic, PERRLA, EOMI, Normocephalic Oral: Dry Mucosa Neck: Supple, No JVD, Negative Carotid Bruits Lungs: Clear to auscultation, No rhonchi, No wheeze, No rales, Diminished Cardiovascular: Regular rate, Regular Rhythm, Normal S1, Normal S2, No murmurs Abdomen: Bowel Sounds Present, Soft, Non Tender, Non-Distended Extremities: Capillary Refill Less than 3 Seconds, Edema Skin: No rashes, No breakdown Musculoskeletal: No Tenderness to Palpation of Joints or Extremities Neurological: Cranial nerves II-XII grossly intact Psych/Mental Status: Normal Affect, Appropriate Laboratory Results 07/08/18 04:44: Phosphorus 3.0, Magnesium 1.8 07/08/18 07:55: POC Glucose 244 H 07/08/18 11:11: POC Glucose 186 H 07/08/18 17:14: POC Glucose 236 H 07/08/18 21:52: POC Glucose 183 H 07/09/18 04:45: WBC 9.7, RBC 4.57, Hgb 13.1, Hct 38.6, MCV 84.5, MCH 28.7, MCHC 33.9, RDW 12.5, RDW Differential 38.3, Plt Count 257, MPV 11.4, Immature Gran % (Auto) 0.100, Neut % (Auto) 43.2 L, Lymph % (Auto) 48.4 H, [place] % (Auto) 6.9, Eos % (Auto) 1.1, Baso % (Auto) 0.3, Absolute Neuts (auto) 4.2, Absolute Lymphs (auto) 4.69 H, Total Counted Not Reportable 07/09/18 04:45: Sodium 139, Potassium 3.7, Chloride 102, Carbon Dioxide 29.0, Anion Gap 8, BUN 16, Creatinine 0.87, Estim Creat Clear Calc 68.54, Est GFR (MDRD) Af Amer 86, Est GFR (MDRD) Non-Af 71, BUN/Creatinine Ratio 18.5, Glucose 204 H, Calcium 8.2 L 07/09/18 06:34: POC Glucose 224 H Current Medications Acetaminophen (Tylenol) 650 mg PO Q6H PRN PRN PRN Reason: PAIN Last Admin: 07/07/18 00:21 Dose: 650 mg Amlodipine Besylate (Norvasc) 10 mg PO DAILY [facility] Aspirin (Aspirin, Baby) 81 mg PO DAILY@0800 [facility] Last Admin: 07/08/18 07:58 Dose: 81 mg Bupropion HCl (Wellbutrin Xl) 300 mg PO DAILY [facility] Last Admin: 07/08/18 09:56 Dose: 300 mg Chlorhexidine Gluconate () 1 each TOPICAL DAILY [facility] Last Admin: 07/08/18 12:22 Dose: Not Given Citalopram Hydrobromide (Celexa) 40 mg PO DAILY [facility] Last Admin: 07/08/18 09:56 Dose: 40 mg Clonidine (Catapres) 0.1 mg PO DAILY [facility] Dextrose (D50w Syringe) 0 gm IV X1 PRN; Protocol PRN Reason: Hypoglycemia Enoxaparin Sodium (Lovenox) 40 mg SC DAILY@1000 [facility] Last Admin: 07/08/18 09:57 Dose: 40 mg Glucagon () 1 mg IM .X1 PRN PRN Reason: Hypoglycemia Hydrochlorothiazide (Hctz) 25 mg PO DAILY [facility] Last Admin: 07/08/18 09:55 Dose: 25 mg Nicardipine HCl 25 mg/ Sodium (Chloride) 250 mls @ 50 mls/hr IV .Q5H [facility] Last Admin: 07/09/18 05:26 Dose: Not Given Insulin Glargine (Lantus (Bkc)) 25 units SC QHS [facility] Last Admin: 07/08/18 21:57 Dose: 25 units Insulin Human Lispro (Humalog Kwikpen (Bkc)) 12 unit SC TIDAC [facility] Last Admin: 07/08/18 17:16 Dose: 12 u Insulin Human Lispro (Humalog Kwikpen (Bkc)) 0 unit SQ TIDAC [facility]; Protocol Last Admin: 07/08/18 17:17 Dose: 4 u Labetalol HCl (Trandate) 10 mg IV Q4H PRN PRN PRN Reason: hypertention Last Admin: 07/08/18 22:47 Dose: 10 mg Losartan Potassium (Cozaar) 100 mg PO DAILY [facility] Last Admin: 07/08/18 09:56 Dose: 100 mg Magnesium Hydroxide (Milk Of Magnesia) 30 ml PO DAILY PRN PRN Reason: Constipation Metoprolol Tartrate (Lopressor (Beta Zenon)) 100 mg PO BID [facility] Last Admin: 07/08/18 22:00 Dose: 100 mg Nystatin/Triamcinolone Acetonide (Mycolog) 1 applic TOPICAL BID [facility]; Protocol Last Admin: 07/08/18 21:59 Dose: 1 applicatio Ondansetron HCl (Zofran) 4 mg IV Q6H PRN PRN PRN Reason: NAUSEA/VOMITING Last Admin: 07/06/18 00:34 Dose: 4 mg Sodium Chloride () 5 - 30 ml IV UD PRN PRN Reason: SALINE FLUSH Last Admin: 07/09/18 04:45 Dose: 10 ml Medical Necessity - Tobacco Use Smoking Status: Never smoker Tobacco Use: Non-smoker Assessment/Plan All Active Problems Hypertensive emergency (Acute) Gastroenteritis (Acute) Metabolic alkalosis (Acute) Hypokalemia (Acute) Abscess of right buttock (Acute) Dehydration (Acute) Hypomagnesemia (Acute) This is a 58-year-old female with history of multiple sclerosis, hypertension and diabetes mellitus type 2, uncontrolled, CKD stage II was admitted with nausea, vomiting and diarrhea since 07 July. Patient also complaining of dizziness, vertigo and unsteady gait. She states he sink down because of dizziness. She was admitted with hypertensive emergency probably could not take medications because of vomiting. 1. Hypertensive emergency: The blood pressure is better controlled after starting clonidine. Amlodipine dose also increase to 10 mg. Pulse ox normal. nicardipine drip discontinued. Labetalol IV as needed. Continue on maximum dose of losartan HCTZ, Cozaar. On metoprolol. Continue symptomatic management. 2. Possible viral gastroenteritis: Sometimes are better. On IV Zofran. 3. Hypokalemia: Monitor and correct accordingly. 4. Multiple sclerosis: Seen by neurologist Dr. Melchor. He thinks there is no exacerbation of multiple sclerosis. Probably PRES secondary to hypertensive emergency. Neurologist consult appreciated. MRI brain was done and shows no active MS plaque but total size and number plaques has increased since 2007. No acute or subacute ischemic infarct 5. DVT prophylaxis with Lovenox If patient's systolic blood pressure remains stable between 130-150s, can be transferred to PCU Laboratory Results 07/08/18 04:44: Phosphorus 3.0, Magnesium 1.8 07/08/18 07:55: POC Glucose 244 H 07/08/18 11:11: POC Glucose 186 H 07/08/18 17:14: POC Glucose 236 H 07/08/18 21:52: POC Glucose 183 H 07/09/18 04:45: WBC 9.7, RBC 4.57, Hgb 13.1, Hct 38.6, MCV 84.5, MCH 28.7, MCHC 33.9, RDW 12.5, RDW Differential 38.3, Plt Count 257, MPV 11.4, Immature Gran % (Auto) 0.100, Neut % (Auto) 43.2 L, Lymph % (Auto) 48.4 H, [place] % (Auto) 6.9, Eos % (Auto) 1.1, Baso % (Auto) 0.3, Absolute Neuts (auto) 4.2, Absolute Lymphs (auto) 4.69 H, Total Counted Not Reportable 07/09/18 04:45: Sodium 139, Potassium 3.7, Chloride 102, Carbon Dioxide 29.0, Anion Gap 8, BUN 16, Creatinine 0.87, Estim Creat Clear Calc 68.54, Est GFR (MDRD) Af Amer 86, Est GFR (MDRD) Non-Af 71, BUN/Creatinine Ratio 18.5, Glucose 204 H, Calcium 8.2 L 07/09/18 06:34: POC Glucose 224 H Clinical Impression(s) from Imaging Studies Brain CT 07/05/18 05:54 IMPRESSION: Chronic involutional and nonspecific periventricular white matter changes of the brain demonstrated, most likely chronic. Correlation with MRI exam is recommended. Brain MRI 07/07/18 07:48 IMPRESSION: 1. No MRI evidence of acute or subacute ischemic infarct. 2. 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 3. Increased size and number of MS plaques in the white matter of both cerebral hemispheres when compared to 03/02/2008. 4. No MRI evidence of any active enhancing MS plaques. Active Medications Acetaminophen (Tylenol) 650 mg PO Q6H PRN PRN PRN Reason: PAIN Last Admin: 07/07/18 00:21 Dose: 650 mg Amlodipine Besylate (Norvasc) 10 mg PO DAILY [facility] Aspirin (Aspirin, Baby) 81 mg PO DAILY@0800 [facility] Last Admin: 07/09/18 08:22 Dose: 81 mg Bupropion HCl (Wellbutrin Xl) 300 mg PO DAILY [facility] Last Admin: 07/08/18 09:56 Dose: 300 mg Chlorhexidine Gluconate () 1 each TOPICAL DAILY [facility] Last Admin: 07/08/18 12:22 Dose: Not Given Citalopram Hydrobromide (Celexa) 40 mg PO DAILY [facility] Last Admin: 07/08/18 09:56 Dose: 40 mg Clonidine (Catapres) 0.1 mg PO DAILY [facility] Clonidine (Catapres) 0.1 mg PO QHS ONE Stop: 07/09/18 22:01 Dextrose (D50w Syringe) 0 gm IV X1 PRN; Protocol PRN Reason: Hypoglycemia Enoxaparin Sodium (Lovenox) 40 mg SC DAILY@1000 [facility] Last Admin: 07/08/18 09:57 Dose: 40 mg Glucagon () 1 mg IM .X1 PRN PRN Reason: Hypoglycemia Hydrochlorothiazide (Hctz) 25 mg PO DAILY [facility] Last Admin: 07/08/18 09:55 Dose: 25 mg Insulin Glargine (Lantus (Bkc)) 25 units SC QHS [facility] Last Admin: 07/08/18 21:57 Dose: 25 units Insulin Human Lispro (Humalog Kwikpen (Bkc)) 12 unit SC TIDAC [facility] Last Admin: 07/09/18 08:22 Dose: 12 u Insulin Human Lispro (Humalog Kwikpen (Bkc)) 0 unit SQ TIDAC [facility]; Protocol Last Admin: 07/09/18 08:22 Dose: 4 u Labetalol HCl (Trandate) 10 mg IV Q4H PRN PRN PRN Reason: hypertention Last Admin: 07/08/18 22:47 Dose: 10 mg Losartan Potassium (Cozaar) 100 mg PO DAILY [facility] Last Admin: 07/08/18 09:56 Dose: 100 mg Magnesium Hydroxide (Milk Of Magnesia) 30 ml PO DAILY PRN PRN Reason: Constipation Metoprolol Tartrate (Lopressor (Beta Zenon)) 100 mg PO BID [facility] Last Admin: 07/08/18 22:00 Dose: 100 mg Nystatin/Triamcinolone Acetonide (Mycolog) 1 applic TOPICAL BID [facility]; Protocol Last Admin: 07/08/18 21:59 Dose: 1 applicatio Ondansetron HCl (Zofran) 4 mg IV Q6H PRN PRN PRN Reason: NAUSEA/VOMITING Last Admin: 07/06/18 00:34 Dose: 4 mg Sodium Chloride () 5 - 30 ml IV UD PRN PRN Reason: SALINE FLUSH Last Admin: 07/09/18 04:45 Dose: 10 ml Code Visit Inpatient E&M: [id number] [place] [id number]
[2018-07-09] MEDS: Insulin Lispro 100 UNIT/ML INSULN.PEN 12 UNIT SC ×3 (08:22→17:17)
[2018-07-09] MEDS: Aspirin 81 MG TAB.CHEW PO (08:22)
[2018-07-09] MEDS: Insulin Lispro 100 UNIT/ML INSULN.PEN SQ ×3 (08:22→17:17)
[2018-07-09] MEDS: Losartan Potassium 100 MG Tablet PO (10:32)
[2018-07-09] MEDS: CHLORHEXIDINE GLUC 2% CLOTH 1 EACH TOWELETTE TOPICAL (10:32)
[2018-07-09] MEDS: Citalopram 40 MG TABLET PO (10:32)
[2018-07-09] MEDS: hydroCHLOROthiazide 25 MG Tablet PO (10:33)
[2018-07-09] MEDS: Enoxaparin 40 MG/0.4 ML Syringe SC (10:34)
[2018-07-09] MEDS: Metoprolol Tartrate 100 MG Tablet PO ×2 (10:34→21:16)
[2018-07-09] MEDS: Nystatin/Triamcin Cream Tube 1 APPLIC TOPICAL ×2 (10:35→21:21)
[2018-07-09] MEDS: amLODIPine 10 MG Tablet PO (10:36)
[2018-07-09] MEDS: buPROPion (XL) 300 MG TABLET.XL PO (10:38)
--- NOTE | 2018-07-09 10:53 | CASEMGMT ---
SW participated in ICU rounds. SW spoke w/Rika in rehab after rounds, rehab accepted her and can take her as soon as tomorrow. SW spoke w/pt, let pt know that rehab accepted her and can take her when she is ready, as soon as tomorrow if ready. Pt states understanding and is agreeable to the discharge plan. SW will continue to follow. ANNA Huber, [employer]ING [employer]ING MACHINE OPERATOR
[2018-07-09 11:21] LABS: Bedside Glucose 219 mg/dL (70-110)
[2018-07-09 16:40] LABS: Bedside Glucose 168 mg/dL (70-110)
[2018-07-09 22:36] LABS: Bedside Glucose 317 mg/dL (70-110)
[2018-07-10] VITALS (7 sets, daily range): BP systolic 146–173; BP diastolic 76–80; PULSE 61–68; RESP 16; TEMP 36.6–37.4; O2SAT 96–98
[2018-07-10 07:16] LABS: Bedside Glucose 238 mg/dL (70-110)
--- NOTE | 2018-07-10 07:49 | PN_ITS ---
Subjective: Patient transferred out of the intensive care unit yesterday. Patient did well overnight. Patient feels that her positional nausea is improving. Patient feels that her ambulation is also improving. Patient did not require nicardipine overnight but did have increased blood pressures. General: Alert, Oriented x3, Cooperative, No apparent distress, Well developed, Well nourished, - - Speaking in full sentences HEENT: Atraumatic, PERRLA, EOMI, Normocephalic, - - No change in eye findings. No scleral icterus or injection noted. Oral: Moist Mucosa, No Gingival or Mucosal Lesions/ Ulcerations Neck: Supple, No JVD, No Nodes, Trachea Midline Lungs: Clear to auscultation, Normal air movement, No rhonchi, No wheeze, No rales Cardiovascular: Regular rate, Regular Rhythm, Normal S1, Normal S2, No murmurs, No rub noted, No Gallop Abdomen: Bowel Sounds Present, Soft, Non Tender, Non-Distended, Obese Extremities: No clubbing, No cyanosis, No edema, Capillary Refill Less than 3 Seconds Skin: No rashes, No breakdown Musculoskeletal: No Tenderness to Palpation of Joints or Extremities Lymphatic: No Cervical, Supraclavicular, or Inguinal Adenopathy Neurological: Neuro grossly intact, Motor Exam 5/5 strength throughout Psych/Mental Status: Alert and oriented to time, place, person, mood and affect Vital Signs Temp Pulse Resp BP Pulse Ox 37.4 C H 67 16 165/79 H 96 07/10/18 03:15 07/10/18 03:15 07/10/18 03:15 07/10/18 03:15 07/10/18 03:15 Oxygen Delivery Method Room Air Weight: 93.4 kg Body Mass Index (BMI) 32.1 Finger Stick Blood Glucose 419 Intake and Output for Last 24 Hours 07/08/18 07/09/18 07/10/18 23:59 23:59 23:59 Intake Total 1031.6 / 1031.6 1010 / 1010 Output Total 1500 / 1500 550 / 550 2 / 2 Balance -468.4 / -468.4 460 / 460 -2 / -2 Labs (Last 48 Hours) 07/08/18 07/08/18 07/08/18 04:44 07:55 11:11 WBC RBC Hgb Hct MCV MCH MCHC RDW RDW Differential Plt Count MPV Immature Gran % (Auto) Neut % (Auto) Lymph % (Auto) [place] % (Auto) Eos % (Auto) Baso % (Auto) Absolute Neuts (auto) Absolute Lymphs (auto) Total Counted Sodium Potassium Chloride Carbon Dioxide Anion Gap BUN Creatinine Estim Creat Clear Calc Est GFR (MDRD) Af Amer Est GFR (MDRD) Non-Af BUN/Creatinine Ratio Glucose Calcium Phosphorus 3.0 Magnesium 1.8 POC Glucose 244 H 186 H 07/08/18 07/08/18 07/09/18 17:14 21:52 04:45 WBC 9.7 RBC 4.57 Hgb 13.1 Hct 38.6 MCV 84.5 MCH 28.7 MCHC 33.9 RDW 12.5 RDW Differential 38.3 Plt Count 257 MPV 11.4 Immature Gran % (Auto) 0.100 Neut % (Auto) 43.2 L Lymph % (Auto) 48.4 H [place] % (Auto) 6.9 Eos % (Auto) 1.1 Baso % (Auto) 0.3 Absolute Neuts (auto) 4.2 Absolute Lymphs (auto) 4.69 H Total Counted Not Reportable Sodium Potassium Chloride Carbon Dioxide Anion Gap BUN Creatinine Estim Creat Clear Calc Est GFR (MDRD) Af Amer Est GFR (MDRD) Non-Af BUN/Creatinine Ratio Glucose Calcium Phosphorus Magnesium POC Glucose 236 H 183 H 07/09/18 07/09/18 07/09/18 04:45 06:34 11:13 WBC RBC Hgb Hct MCV MCH MCHC RDW RDW Differential Plt Count MPV Immature Gran % (Auto) Neut % (Auto) Lymph % (Auto) [place] % (Auto) Eos % (Auto) Baso % (Auto) Absolute Neuts (auto) Absolute Lymphs (auto) Total Counted Sodium 139 Potassium 3.7 Chloride 102 Carbon Dioxide 29.0 Anion Gap 8 BUN 16 Creatinine 0.87 Estim Creat Clear Calc 68.54 Est GFR (MDRD) Af Amer 86 Est GFR (MDRD) Non-Af 71 BUN/Creatinine Ratio 18.5 Glucose 204 H Calcium 8.2 L Phosphorus Magnesium POC Glucose 224 H 219 H 07/09/18 07/09/18 07/10/18 16:31 21:09 07:05 WBC RBC Hgb Hct MCV MCH MCHC RDW RDW Differential Plt Count MPV Immature Gran % (Auto) Neut % (Auto) Lymph % (Auto) [place] % (Auto) Eos % (Auto) Baso % (Auto) Absolute Neuts (auto) Absolute Lymphs (auto) Total Counted Sodium Potassium Chloride Carbon Dioxide Anion Gap BUN Creatinine Estim Creat Clear Calc Est GFR (MDRD) Af Amer Est GFR (MDRD) Non-Af BUN/Creatinine Ratio Glucose Calcium Phosphorus Magnesium POC Glucose 168 H 317 H 238 H Medical Necessity - Tobacco Use Smoking Status: Never smoker Tobacco Use: Non-smoker Assessment/Plan All Active Problems Hypertensive emergency (Acute) Gastroenteritis (Acute) Metabolic alkalosis (Acute) Hypokalemia (Acute) Abscess of right buttock (Acute) Dehydration (Acute) Hypomagnesemia (Acute) RECOMMENDATIONS: 1. Treat nausea symptomatically with Zofran 2. Continue current antihypertensives, await results of clonidine 0.1 daily 3. Defer to neurology on MRI findings 4. Continue with supplemental insulin 5. Emo dynamically stable on room air. Will sign off from a critical care perspective IMPRESSIONS: 1. Hypertensive emergency Patient currently is on losartan, metoprolol and hydrochlorothiazide at high doses. Patient will be increased on Norvasc to 10 mg and will add clonidine 0.1 mg. She did not receive clonidine yesterday given she received 0. 3 mg early in the morning. Await the results of the 0.1 mg of clonidine. Stressed to the patient the importance of compliance to avoid rebound hypertension. Patient voiced understanding. Patient otherwise hemodynamically stable on room air. Will sign off from a critical care perspective. 2. Possible viral gastroenteritis Nausea, vomiting and diarrhea have improved with improved blood pressure. Clinical suspicion for central etiology for GI symptoms. 3. Hypokalemia No significant potassium losses over the last 24 hours. Patient has not had any diarrhea or emesis. Continue to monitor and replete as necessary. 4. Debility/multiple sclerosis Complicates care, management, recovery and prognosis. Therapies have been consulted. Neurology is following. Patient to have an MRI for evaluation. Code Visit Inpatient E&M: [id number] Subs Hosp L2
[2018-07-10] MEDS: Insulin Lispro 100 UNIT/ML INSULN.PEN 12 UNIT SC (08:40)
[2018-07-10] MEDS: Metoprolol Tartrate 100 MG Tablet PO (08:41)
[2018-07-10] MEDS: Insulin Lispro 100 UNIT/ML INSULN.PEN SQ (08:41)
[2018-07-10] MEDS: hydroCHLOROthiazide 25 MG Tablet PO (08:42)
[2018-07-10] MEDS: cloNIDine HCl 0.1 MG Tablet PO (08:42)
[2018-07-10] MEDS: Citalopram 40 MG TABLET PO (08:43)
[2018-07-10] MEDS: Losartan Potassium 100 MG Tablet PO (08:43)
[2018-07-10] MEDS: amLODIPine 10 MG Tablet PO (08:43)
[2018-07-10] MEDS: Aspirin 81 MG TAB.CHEW PO (08:44)
[2018-07-10] MEDS: Nystatin/Triamcin Cream Tube 1 APPLIC TOPICAL (08:46)
[2018-07-10] MEDS: Enoxaparin 40 MG/0.4 ML Syringe SC (08:46)
[2018-07-10] MEDS: buPROPion (XL) 300 MG TABLET.XL PO (08:47)
--- NOTE | 2018-07-10 09:52 | DCINST_ITS ---
- Discharge Diagnoses Current Active Problems: Current Active and Chronic Problems Hypertensive emergency (Acute) Gastroenteritis (Acute) You will use the following diet at home:: Calorie/Carbohydrate Controlled (specify 1200, 1400, etc) - 1800 ADA DIET, Cardiac Discharge Activity: May Not Drive, May not drive while taking narcotic pain medications. Call your doctor if you observe: Fever of 101 or Higher, Shortness of breath, Swelling in the ankles, Calf discomfort Allergies/Adverse Reactions: Allergies No Known Allergies Allergy (Verified 07/05/18 05:50) Medications to take at Discharge Aspirin [Aspirin, Baby] 81 mg PO DAILY@0800 11/09/13 Citalopram [Celexa] 40 mg PO DAILY 11/09/13 buPROPion tablets [Wellbutrin tablets] 300 mg PO DAILY 11/09/13 Blood Sugar Diagnostic [Test Strips] 1 each MC 4X/DAY #120 strip 03/17/16 Metformin HCl [Glucophage] 1,000 mg PO BIDCM 07/05/18 Acetaminophen [Tylenol Tablet] 650 mg PO Q6H PRN PRN tablet 07/10/18 Amlodipine [Norvasc] 10 mg PO DAILY tablet 07/10/18 Clonidine HCl [Catapres] 0.1 mg PO DAILY tablet 07/10/18 Hydrochlorothiazide [Hctz] 25 mg PO DAILY #0 tablet 07/10/18 Insulin Glargine [Lantus SoloStar Pen] 30 units SC QHS pen 07/10/18 Insulin Lispro [Humalog KwikPen] 15 unit SC TIDAC insuln.pen 07/10/18 Insulin Lispro [Humalog KwikPen] See Protocol SQ TIDAC insuln.pen 07/10/18 Losartan Potassium [Cozaar] 100 mg PO DAILY tablet 07/10/18 Metoprolol Tartrate [Lopressor (beta rony)] 100 mg PO BID tablet 07/10/18 Nystatin/Triamcin Cream [Mycolog] 1 applic TOPICAL BID tube 07/10/18 Primary Care Physician: Jaskaran Garcia MD [Primary Care Provider] - Please follow up with your Primary Care Physician in: in 2 weeks Test Results: Test results from this visit will be discussed in further detail at your follow- up appointment, if applicable. Please Follow Up With: Krzysztof Mota MD When: in 2 weeks
--- NOTE | 2018-07-10 10:18 | NURSING ---
VERBAL REPORT GIVEN TO LUCIANO MAHARAJ AT REHAB
[2018-07-10] MEDS: hydrALAZINE 50 MG Tablet PO (10:25)
--- NOTE | 2018-07-10 10:29 | CASEMGMT ---
Social Work Pt ready for d/c today. Met with pt in room and pt is aware and agreeable to transfer today to inpt rehab. SW offered to call pt family and pt denies stating that she will notify them of d/c. Phone call to inpt rehab and informed of d/c today. No further d/c needs. Plan: Inpt rehab unit today DONNELL Moe
--- NOTE | 2018-07-10 10:37 | NURSING ---
PT MEDICATION PASS AND CARE COMPLETED BY Andrew OBREGON STUDENT REVIEWED BY THIS RN UNDER SUPERVISION OF THIS RN.
--- NOTE | 2018-07-10 16:08 | PCM.DC.SUM ---
Discharge Date and Diagnosis Date of Admission: 07/05/18 Date of Discharge: 07/10/18 - Primary Discharge Diagnosis Hypertensive emergency - Secondary Discharge Diagnosis Chronic Problems Depression (Chronic) Chronic renal failure, stage 2 (mild) (Chronic) HTN (hypertension) (Chronic) DM (diabetes mellitus), type 2, uncontrolled (Chronic) Dyslipidemia (Chronic) Hospital Course and Treatment Summary of Care Provided: [] This is a 58-year-old female with history of multiple sclerosis, hypertension and diabetes mellitus type 2, uncontrolled, CKD stage II was admitted with nausea, vomiting and diarrhea since 07 July. Patient also complaining of dizziness, vertigo and unsteady gait. She states he sink down because of dizziness. She was admitted with hypertensive emergency probably could not take medications because of vomiting. Patient was seen and examined today General: Alert, Oriented x3, Cooperative HEENT: Atraumatic, PERRLA, EOMI, Normocephalic, left IVs and has come back although diminished in right eye. Oral: Dry Mucosa Neck: Supple, No JVD, Negative Carotid Bruits Lungs: Clear to auscultation, No rhonchi, No wheeze, No rales, air entry bilaterally improved. Cardiovascular: Regular rate, Regular Rhythm, Normal S1, Normal S2, No murmurs Abdomen: Bowel Sounds Present, Soft, Non Tender, Non-Distended Extremities: Capillary Refill Less than 3 Seconds, Edema Skin: No rashes, No breakdown Musculoskeletal: No Tenderness to Palpation of Joints or Extremities Neurological: Cranial nerves II-XII grossly intact Psych/Mental Status: Normal Affect, Appropriate \ 1. Hypertensive emergency: The blood pressure is better controlled after starting clonidine. Pulse ox normal. nicardipine drip discontinued. Labetalol IV as needed. Continue on maximum dose of losartan HCTZ, Cozaar and amlodipine. On metoprolol. Hydralazine oral was started Continue symptomatic management. 2. Possible viral gastroenteritis: Sometimes are better. On IV Zofran. Sore 3. Hypokalemia: Monitor and correct accordingly. 4. Multiple sclerosis: Seen by neurologist Dr. Melchor. He thinks there is no exacerbation of multiple sclerosis. Probably PRES secondary to hypertensive emergency. Neurologist consult appreciated. MRI brain was done and shows no active MS plaque but total size and number plaques has increased since 2007. No acute or subacute ischemic infarct 5. DVT prophylaxis with Lovenox Discharge meds reconciliation done. Discharge note completed. Patient is being discharged to acute rehab. Total time spent, exact 35 minutes on discharge meds reconciliation, examination, review of imaging and blood test and discussion with the patient on follow-up instructions. Discharge Activity: May Not Drive, May not drive while taking narcotic pain medications. Call your doctor if you observe: Fever of 101 or Higher, Shortness of breath, Swelling in the ankles, Calf discomfort Home Medications: Medications to take at Discharge Aspirin [Aspirin, Baby] 81 mg PO DAILY@0800 11/09/13 Citalopram [Celexa] 40 mg PO DAILY 11/09/13 buPROPion tablets [Wellbutrin tablets] 300 mg PO DAILY 11/09/13 Metformin HCl [Glucophage] 1,000 mg PO BIDCM 07/05/18 Acetaminophen [Tylenol Tablet] 650 mg PO Q6H PRN PRN tablet 07/10/18 Amlodipine [Norvasc] 10 mg PO DAILY 07/10/18 Clonidine HCl [Catapres] 0.1 mg PO DAILY 07/10/18 Hydrochlorothiazide [Hctz] 25 mg PO DAILY 07/10/18 Insulin Glargine [Lantus SoloStar Pen] 25 units SC QHS 07/10/18 Insulin Lispro [Humalog KwikPen] 15 unit SC TIDAC 07/10/18 Insulin Lispro [Humalog KwikPen] See Protocol SQ TIDAC 07/10/18 Losartan Potassium [Cozaar] 100 mg PO DAILY 07/10/18 Metoprolol Tartrate [Lopressor (beta rony)] 100 mg PO BID 07/10/18 Nystatin/Triamcin Cream [Mycolog] 1 applic TOPICAL BID 07/10/18 hydrALAZINE [Apresoline] 50 mg PO TID 07/10/18 Primary Care Physician: Jaskaran Garcia MD [Primary Care Provider] - Please follow up with your Primary Care Physician in: in 2 weeks Please Follow Up With: Krzysztof Mota MD When: in 2 weeks Medical Necessity - Tobacco Use Smoking Status: Never smoker Tobacco Use: Non-smoker Meaningful Use Info Meaningful Use Diagnoses (Choose all that apply): None applicable Code Visit Inpatient E&M: 68825 Disch Hosp
== END 2018-07-10 10:50 | DRG 304 ==
LOC: ED 07:25 → PCU 07:42 → ICU 18:31 → PCU 07-09 12:09
PROVIDERS: Internal Medicine Critical Care Medicine; Emergency Provider Emergency Medicine; Family Provider Family Medicine; PCP Family Medicine; Visit Provider Internal Medicine
DX: I16.1 Hypertensive emergency (principal); I67.83 Posterior reversible encephalopathy syndrome; G35 Multiple sclerosis; F32.9 Major depressive disorder, single episode, unspecified; I12.9 Hypertensive chronic kidney disease with stage 1 through stage 4 chronic kidney disease, or unspecified chronic kidney disease; Z23 Encounter for immunization; E11.22 Type 2 diabetes mellitus with diabetic chronic kidney disease; N18.2 Chronic kidney disease, stage 2 (mild); E78.5 Hyperlipidemia, unspecified; A08.4 Viral intestinal infection, unspecified; E87.6 Hypokalemia; Z79.4 Long term (current) use of insulin
CPT/HCPCS: 70450; 70553; 80048; 80053; 82962; 83735; 84100; 84484; 85025; 97110; 97162; 97166; 97530; 97535; 97802; 99283; A9585; J7030; J7050; 90686; A4216; J2405

== ENCOUNTER 2018-07-10 11:00 | Inpatient (IN) | payer MEDICARE, MEDICAID, SELFPAY ==
[2018-07-10 11:20] VITALS: BP 122/69; PULSE 64; RESP 18; TEMP 36.7; O2SAT 96; BMI 32.8
--- NOTE | 2018-07-10 11:32 | PCM.HP.COS ---
History of Present Illness Date of Admission: 07/10/18 Chief Complaint: Multiple Sclerosis The patient is a 58 year old right handed female who was admitted to the rehab unit for rehabilitation after the presented to the hospital on 07/05 with nausea, imbalance, vision changes and hypertension. Has a PMH of HTN, DM type II, HLD, CKD stage II, depression, and MS was on Copaxone which was stopped several months ago due to insurance issues, last exacerbation episodes was years ago. Ongoing MS symptoms include short term memory loss, dizziness, and falls. She Denies any medication errors. Her medications are pre-packaged in blister packs. Per ED note see below, the patient reported several days prior to admission that she felt hot, then started to notice paresthesias around her lips, nausea, increased falling, and blurry vision out of left eye. On admission patients blood pressure was 239/137, she received 20 mg of IV hydralazine, 20 mg of IV labetalol her blood pressure was 198 systolic. She was admitted to the ICU and started on IV Cardene for bp control. The patient lives with her significant other in a mobile home that has 3 steps to get in the home. She was previously completely functionally independent and is admitted to the rehab unit in order to restore her previous level of functional independence. Per ED Note: The patient is a 58 year old F presents with nausea, vomiting and diarrhea since the . Since that time, patient has been more unsteady than she is at baseline. Has consists continue to feel worse and family brought patient into the emergency room. Patient had some lab work that was unremarkable. Head CT that grossly did not show any emergent final report still pending. Patient was noted to be hypertensive with blood pressure of 239/137. Patient received 20 mg of IV hydralazine, 20 mg of IV labetalol and blood pressure is now 198 systolic. Patient states that she has had symptoms similar to this but less severe in the past but nothing recently. Patient being admitted for further hypertensive management, therapy evaluations and IV hydration. [] Past Medical History Past Medical History (Chronic Problems): Chronic Problems Depression (Chronic) Chronic renal failure, stage 2 (mild) (Chronic) HTN (hypertension) (Chronic) DM (diabetes mellitus), type 2, uncontrolled (Chronic) Dyslipidemia (Chronic) Allergies No Known Allergies Allergy (Verified 07/10/18 11:28) Home Medications: Ambulatory Orders Medication Instructions Recorded Aspirin [Aspirin, Baby] 81 mg PO DAILY@0800 11/09/13 Citalopram [Celexa] 40 mg PO DAILY 11/09/13 buPROPion tablets [Wellbutrin 300 mg PO DAILY 11/09/13 tablets] Metformin HCl [Glucophage] 1,000 mg PO BIDCM 07/05/18 Acetaminophen [Tylenol Tablet] 650 mg PO Q6H PRN PRN tablet 07/10/18 Amlodipine [Norvasc] 10 mg PO DAILY 07/10/18 Clonidine HCl [Catapres] 0.1 mg PO DAILY 07/10/18 Hydrochlorothiazide [Hctz] 25 mg PO DAILY 07/10/18 Insulin Glargine [Lantus SoloStar 25 units SC QHS 07/10/18 Pen] Insulin Lispro [Humalog KwikPen] 15 unit SC TIDAC 07/10/18 Insulin Lispro [Humalog KwikPen] See Protocol SQ TIDAC 07/10/18 Losartan Potassium [Cozaar] 100 mg PO DAILY 07/10/18 Metoprolol Tartrate [Lopressor 100 mg PO BID 07/10/18 (beta zenon)] Nystatin/Triamcin Cream [Mycolog] 1 applic TOPICAL BID 07/10/18 hydrALAZINE [Apresoline] 50 mg PO TID 07/10/18 Surgical History: cholecystectomy, hysterectomy - Partial, tonsillectomy, - - Back surgery 2/2 MRSA infection from a tattoo Lives: Spouse/ Significant Other Smoking Status: Never smoker Tobacco Use: Non-smoker Alcohol: None Drugs: None - *Family History Maternal History Items: - - No MS Review of Systems Constitutional: Denies: Chills, Fever, Weight Change Eyes: Reports: Blurred vision HEENT: Reports: Head Aches. Denies: Sinus Congestion, Sinus Drainage Cardiovascular: Denies: Chest Pain, Palpitations Respiratory: Denies: Cough, Shortness of breath at rest, Sputum production Gastrointestinal: Denies: Abdominal Pain, Nausea, Vomiting Genitourinary: Denies: Dysuria Gynecological: Reports: Vaginal discharge, Vaginal itching Musculoskeletal: Reports: - - B/L leg weakness Skin: Denies: Rash, Wounds Neurological: Reports: Blurred vision, Tingling. Denies: Focal weakness, Numbness Psychiatric: Denies: Anxiety, Depression, Homicidal Ideations, Suicidal Ideations Hematologic/ Lymphatic: Denies: Easy Bruising, Easy Bleeding VTE Information - Inpt Only VTE Present on Admission: No VTE Mechan Device Prophylaxis: SCD's, Knee High JOSEPH Hose VTE Pharm Prophylaxis ordered?: Yes - Physical Exam General: Alert, Oriented x3, Cooperative HEENT: Atraumatic, PERRLA, EOMI, Normocephalic Oral: - - Numbness around mouth and lips Neck: Supple, No JVD, Negative Carotid Bruits Lungs: Clear to auscultation, Normal air movement, No rhonchi, No wheeze, No rales Cardiovascular: Regular rate, Normal S1, Normal S2, No murmurs, No rub noted, No Gallop Abdomen: Bowel Sounds Present, Soft, Non Tender, Non-Distended, Obese Extremities: No edema, Capillary Refill Less than 3 Seconds Skin: No rashes, No breakdown Musculoskeletal: No Tenderness to Palpation of Joints or Extremities, No Muscle Wasting Neurological: Cranial nerves II-XII grossly intact, Deep Tendon Reflexes 2+/4 and Symmetrical, Neuro grossly intact, Motor Exam 5/5 strength throughout Psych/Mental Status: Normal Affect, Appropriate, Alert and oriented to time, place, person, mood and affect Vital Signs Temp Pulse Resp BP Pulse Ox 98.1 F 64 18 122/69 H 96 07/10/18 11:20 07/10/18 11:20 07/10/18 11:20 07/10/18 11:20 07/10/18 11:20 Oxygen Delivery Method Room Air Finger Stick Blood Glucose 419 Active Medications Acetaminophen (Tylenol) 650 mg PO Q6H PRN PRN PRN Reason: PAIN Amlodipine Besylate (Norvasc) 10 mg PO DAILY [facility] Aspirin (Aspirin, Baby) 81 mg PO DAILY@0800 CAT Bisacodyl (Dulcolax) 10 mg RECTAL .PRN X 1 PRN PRN Reason: Constipation Bupropion HCl (Wellbutrin Tablets) 300 mg PO DAILY [facility] Citalopram Hydrobromide (Celexa) 40 mg PO DAILY [facility] Clonidine (Catapres) 0.1 mg PO DAILY [facility] Enoxaparin Sodium (Lovenox) 40 mg SC DAILY@0600 [facility] Hydralazine HCl (Apresoline) 50 mg PO TID [facility] Hydrochlorothiazide (Hctz) 25 mg PO DAILY [facility] Insulin Glargine (Lantus (Bkc)) 25 units SC QHS [facility] Insulin Human Lispro (Humalog Kwikpen (Bkc)) 0 unit SC TIDAC [facility]; Protocol Insulin Human Lispro (Humalog Kwikpen (Bkc)) 15 unit SC TIDAC [facility] Losartan Potassium (Cozaar) 100 mg PO DAILY [facility] Magnesium Hydroxide (Milk Of Magnesia) 30 ml PO .PRN X 1 PRN PRN Reason: Constipation [facility] Metoprolol Tartrate (Lopressor (Beta Zenon)) 100 mg PO BID [facility] Nystatin/Triamcinolone Acetonide (Mycolog) 1 applic TOPICAL 0600,2200 [facility]; Protocol Senna/Docusate Sodium (Senokot-S, Kathryn-Colace) 2 tablet PO BID [facility] Assessment/Plan All Active Problems Hypertensive emergency (Acute) Gastroenteritis (Acute) Metabolic alkalosis (Acute) Hypokalemia (Acute) Abscess of right buttock (Acute) Dehydration (Acute) Hypomagnesemia (Acute) Debility 2/2 Multiple Sclerosis. Complicated by Hypertension emergency, Hypokalemia, CKD stage II, and DM type II. Goal of rehab is yarsani of functional independence. Plan: - Physical therapy for gait and balance - Occupational Therapy for ADLs - Speech therapy - As needed analgesics - Bowel protocol - DVT prophylaxis: SCDJoseph patiño Lovenox - Hypertensive emergency: blood pressure controlled -> on clonidine, Amlodipine, HCTZ, Cozaar Metoprolol, and Hydralazine was added this morning. Continue to monitor closely - viral gastroenteritis -> improved - Hypokalemia -> improved from 3.1 to 3.7 will continue to monitor and treat accordingly - Hx of Multiple sclerosis: Seen by our office, MRI brain was obtained it shows no active MS plaque but does indicate the total size and number of plaques has increased since 2007. Did not show any acute or subacute ischemic infarct - Hx of Diabetes type 2 => check BS AC and HS, continue home medication of metformin, add Lantus 25units at HS, high to moderate sliding scale. Obtain hemoglobin A1C - Hx of depression continue home dose of Celexa and Wellbutrin - Hx of CKD Stage II -> continue to monitor BUN/Creatine - Yeast infection of groin and vagina area -> continue Nystatin cream to area
--- NOTE | 2018-07-10 11:36 | HP.PCM.COS_ITS ---
History of Present Illness Date of Admission: 07/10/18 Chief Complaint: Multiple Sclerosis The patient is a 58 year old right handed female who was admitted to the rehab unit for rehabilitation after the presented to the hospital on 07/05 with nausea, imbalance, vision changes and hypertension. Has a PMH of HTN, DM type II, HLD, CKD stage II, depression, and MS was on Copaxone which was stopped several months ago due to insurance issues, last exacerbation episodes was years ago. Ongoing MS symptoms include short term memory loss, dizziness, and falls. She Denies any medication errors. Her medications are pre-packaged in blister packs. Per ED note see below, the patient reported several days prior to admission that she felt hot, then started to notice paresthesias around her lips, nausea, increased falling, and blurry vision out of left eye. On admission patients blood pressure was 239/137, she received 20 mg of IV hydralazine, 20 mg of IV labetalol her blood pressure was 198 systolic. She was admitted to the ICU and started on IV Cardene for bp control. The patient lives with her significant ot her in a mobile home that has 3 steps to get in the home. She was previously completely functionally independent and is admitted to the rehab unit in order to restore her previous level of functional independence. Per ED Note: The patient is a 58 year old F presents with nausea, vomiting and diarrhea since the . Since that time, patient has been more unsteady than she is at baseline. Has consists continue to feel worse and family brought patient into the emergency room. Patient had some lab work that was unremarkable. Head CT that grossly did not show any emergent final report still pending. Patient was noted to be hypertensive with blood pressure of 239/137. Patient received 20 mg of IV hydralazine, 20 mg of IV labetalol and blood pressure is now 198 systolic. Patient states that she has had symptoms similar to this but less severe in the past but nothing recently. Patient being admitted for further hypertensive management, therapy evaluations and IV hydration. [] Past Medical History Past Medical History (Chronic Problems): Chronic Problems Depression (Chronic) Chronic renal failure, stage 2 (mild) (Chronic) HTN (hypertension) (Chronic) DM (diabetes mellitus), type 2, uncontrolled (Chronic) Dyslipidemia (Chronic) Allergies No Known Allergies Allergy (Verified 07/10/18 11:28) Home Medications: Ambulatory Orders Medication Instructions Recorded Aspirin [Aspirin, Baby] 81 mg PO DAILY@0800 11/09/13 Citalopram [Celexa] 40 mg PO DAILY 11/09/13 buPROPion tablets [Wellbutrin 300 mg PO DAILY 11/09/13 tablets] Metformin HCl [Glucophage] 1,000 mg PO BIDCM 07/05/18 Acetaminophen [Tylenol Tablet] 650 mg PO Q6H PRN PRN tablet 07/10/18 Amlodipine [Norvasc] 10 mg PO DAILY 07/10/18 Clonidine HCl [Catapres] 0.1 mg PO DAILY 07/10/18 Hydrochlorothiazide [Hctz] 25 mg PO DAILY 07/10/18 Insulin Glargine [Lantus SoloStar 25 units SC QHS 07/10/18 Pen] Insulin Lispro [Humalog KwikPen] 15 unit SC TIDAC 07/10/18 Insulin Lispro [Humalog KwikPen] See Protocol SQ TIDAC 07/10/18 Losartan Potassium [Cozaar] 100 mg PO DAILY 07/10/18 Metoprolol Tartrate [Lopressor 100 mg PO BID 07/10/18 (beta zenon)] Nystatin/Triamcin Cream [Mycolog] 1 applic TOPICAL BID 07/10/18 hydrALAZINE [Apresoline] 50 mg PO TID 07/10/18 Surgical History: cholecystectomy, hysterectomy - Partial, tonsillectomy, - - Back surgery 2/2 MRSA infection from a tattoo Lives: Spouse/ Significant Other Smoking Status: Never smoker Tobacco Use: Non-smoker Alcohol: None Drugs: None - *Family History Maternal History Items: - - No MS Review of Systems Constitutional: Denies: Chills, Fever, Weight Change Eyes: Reports: Blurred vision HEENT: Reports: Head Aches. Denies: Sinus Congestion, Sinus Drainage Cardiovascular: Denies: Chest Pain, Palpitations Respiratory: Denies: Cough, Shortness of breath at rest, Sputum production Gastrointestinal: Denies: Abdominal Pain, Nausea, Vomiting Genitourinary: Denies: Dysuria Gynecological: Reports: Vaginal discharge, Vaginal itching Musculoskeletal: Reports: - - B/L leg weakness Skin: Denies: Rash, Wounds Neurological: Reports: Blurred vision, Tingling. Denies: Focal weakness, Numbness Psychiatric: Denies: Anxiety, Depression, Homicidal Ideations, Suicidal Ideations Hematologic/ Lymphatic: Denies: Easy Bruising, Easy Bleeding VTE Information - Inpt Only VTE Present on Admission: No VTE Mechan Device Prophylaxis: SCD's, Knee High JOSEPH Hose VTE Pharm Prophylaxis ordered?: Yes - Physical Exam General: Alert, Oriented x3, Cooperative HEENT: Atraumatic, PERRLA, EOMI, Normocephalic Oral: - - Numbness around mouth and lips Neck: Supple, No JVD, Negative Carotid Bruits Lungs: Clear to auscultation, Normal air movement, No rhonchi, No wheeze, No rales Cardiovascular: Regular rate, Normal S1, Normal S2, No murmurs, No rub noted, No Gallop Abdomen: Bowel Sounds Present, Soft, Non Tender, Non-Distended, Obese Extremities: No edema, Capillary Refill Less than 3 Seconds Skin: No rashes, No breakdown Musculoskeletal: No Tenderness to Palpation of Joints or Extremities, No Muscle Wasting Neurological: Cranial nerves II-XII grossly intact, Deep Tendon Reflexes 2+/4 and Symmetrical, Neuro grossly intact, Motor Exam 5/5 strength throughout Psych/Mental Status: Normal Affect, Appropriate, Alert and oriented to time, place, person, mood and affect Vital Signs Temp Pulse Resp BP Pulse Ox 98.1 F 64 18 122/69 H 96 07/10/18 11:20 07/10/18 11:20 07/10/18 11:20 07/10/18 11:20 07/10/18 11:20 Oxygen Delivery Method Room Air Finger Stick Blood Glucose 419 Active Medications Acetaminophen (Tylenol) 650 mg PO Q6H PRN PRN PRN Reason: PAIN Amlodipine Besylate (Norvasc) 10 mg PO DAILY [facility] Aspirin (Aspirin, Baby) 81 mg PO DAILY@0800 [facility] Bisacodyl (Dulcolax) 10 mg RECTAL .PRN X 1 PRN PRN Reason: Constipation Bupropion HCl (Wellbutrin Tablets) 300 mg PO DAILY [facility] Citalopram Hydrobromide (Celexa) 40 mg PO DAILY [facility] Clonidine (Catapres) 0.1 mg PO DAILY [facility] Enoxaparin Sodium (Lovenox) 40 mg SC DAILY@0600 [facility] Hydralazine HCl (Apresoline) 50 mg PO TID [facility] Hydrochlorothiazide (Hctz) 25 mg PO DAILY [facility] Insulin Glargine (Lantus (Bkc)) 25 units SC QHS [facility] Insulin Human Lispro (Humalog Kwikpen (Bkc)) 0 unit SC TIDAC [facility]; Protocol Insulin Human Lispro (Humalog Kwikpen (Bkc)) 15 unit SC TIDAC [facility] Losartan Potassium (Cozaar) 100 mg PO DAILY [facility] Magnesium Hydroxide (Milk Of Magnesia) 30 ml PO .PRN X 1 PRN PRN Reason: Constipation [facility] Metoprolol Tartrate (Lopressor (Beta Zenon)) 100 mg PO BID [facility] Nystatin/Triamcinolone Acetonide (Mycolog) 1 applic TOPICAL 0600,2200 [facility]; Protocol Senna/Docusate Sodium (Senokot-S, Kathryn-Colace) 2 tablet PO BID [facility] Assessment/Plan All Active Problems Hypertensive emergency (Acute) Gastroenteritis (Acute) Metabolic alkalosis (Acute) Hypokalemia (Acute) Abscess of right buttock (Acute) Dehydration (Acute) Hypomagnesemia (Acute) Debility 2/2 Multiple Sclerosis. Complicated by Hypertension emergency, Hypokalemia, CKD stage II, and DM type II. Goal of rehab is yazidism of functional independence. Plan: - Physical therapy for gait and balance - Occupational Therapy for ADLs - Speech therapy - As needed analgesics - Bowel protocol - DVT prophylaxis: SCDs, Joseph juárez Lovenox - Hypertensive emergency: blood pressure controlled -> on clonidine, Amlodipine, HCTZ, Cozaar Metoprolol, and Hydralazine was added this morning. Continue to monitor closely - viral gastroenteritis -> improved - Hypokalemia -> improved from 3.1 to 3.7 will continue to monitor and treat accordingly - Hx of Multiple sclerosis: Seen by our office, MRI brain was obtained it shows no active MS plaque but does indicate the total size and number of plaques has increased since 2007. Did not show any acute or subacute ischemic infarct - Hx of Diabetes type 2 => check BS AC and HS, continue home medication of metformin, add Lantus 25units at HS, high to moderate sliding scale. Obtain hemoglobin A1C - Hx of depression continue home dose of Celexa and Wellbutrin - Hx of CKD Stage II -> continue to monitor BUN/Creatine - Yeast infection of groin and vagina area -> continue Nystatin cream to area
[2018-07-10 12:10] LABS: Bedside Glucose 161 mg/dL (70-110)
--- NOTE | 2018-07-10 12:50 | REHABEVAL_ITS ---
Admission Information Status Changes from Prescreening?: No changes Identified Actual Problem List:: Mobility Impaired, Self Care Deficit, Diabetes, Hyperglycemia, BP, Hypertension Potential Problem List:: DVT, Bleeding, Infection, UTI, Aspiration, Falls, Skin Integrity, Depression Risk of Complications DVT: LMWH, JOSEPH Hose, Sequential Compression Device Bleeding: Monitor Lab Values, Nursing to Teach Precautions for anti-coagulation therapy., Wound, if applicable, to be assessed every shift., Stroke patients assessed for lethargy or change in status. Infection: Clinical Staff to Monitor for S/S of infection:, S/S of infection include fever, redness, warmth, etc. Urinary Tract Infection: Monitor for frequency, burning, discomfort, or incontinence., Nursing will obtain urine sample for urinalysis and C&S when ordered. Aspiration: Clinical staff will monitor for coughing, drooling, congestion., Speech will evaluate swallowing and dsyphasia., Nursing will monitor patient swallowing during meals. Falls: Patient will be evaluated for Fall Precautions, Patient will be placed on Fall Precautions as indicated per protocol. Skin Breakdown: Nursing will assess skin daily using assessment tool., Nursing will place on Skin Breakdown Precautions as indicated. Pain: Clinical staff will assess patient's pain level per protocol., Medications will be given, if needed, and the pain level reassessed., Other methods: Massage, distraction, decrease stimulus, etc. used PRN. Plan of Care Patient requires physician specializing in physical medicine and rehab oversight to provide close medical supervision of rehab issues including: Pain Management, Sleep Problems, Bowel and Bladder, Medical and co-morbidity Management, DVT prophylaxis, Rehabilitation Leadership, Coordination of treatment team Patient needs Physical Therapy: For a minimum of 1 hour, At least 5 out of 7 days Patient needs Physical Therapy to improve:: Mobility, Mobility, Mobility, Strengthening, Transfers, Stretching, ROM, Endurance, Stairs, Gait, Balance Patient needs Occupational Therapy: For a minimum of 1 hour, At least 5 out of 7 days Patient needs Occupational Therapy to improve ADL's incl.: Eating, Grooming, Bathing, Dressing, Toileting, Toilet transfers, Community Reintegration, Higher functioning activities, Household tasks, Adaptive Equipment, Splinting, Other activities as determined Patient requires speech therapy: For a minimum of 1 hour, At least 5 out of 7 days Patient requires speech therapy for: Swallowing, Cognition, Language Skills, Compensatory Strategies Patient requires 24/7 Rehabilitation Nursing for: Pain Issues, Identifying and preventing risk factors, Monitoring and reporting current medical conditions, Assisting with ambulation, transfer, and all ADL's, Teaching patients about disease process and medications, Family teaching, Providing safe environment, Bowel and Bladder Issues, Skin integrity, Medication Management Patient needs Animation Artist/ Case Management for: Discharge Planning, Arranging Home Equipment or Services, Family Interventions Patient needs Dietary and Nutrition Services for: Adequate Nutrition, Nutritional Supplements, Nutritional Education Goals Patient will remain: free from falls, or injury at time of discharge. Patient will perform bed mobility at: MOD I level of assist. Patient will complete transfers from bed to chair at: MOD I level of assist. Patient will ambulate: 100 feet, with MOD I assist, with LRD Patient will complete upper body dressing at: MOD I level of assist. Patient will complete lower body dressing at: MOD I level of assist. Patient will complete toileting at: MOD I level of assist. Patient will perform bathing at: MOD I level of assist. Patient will complete grooming at: MOD I level of assist. Patient will complete home management skills at: MOD I level of assist. Patient will achieve: 12 stairs, at MOD I assist Patient will have pain level of: of 3 or less Patient's skin will: remain intact, free from infection. Patient will receive: adequate nutrition. Discharge Planning Pt Prognosis for Sig. Practical Improv. w/in Reasonable Time: Good Estimated Length of stay (days): 14 Anticipated D/C Destination: Home Was Preadmission Assessment Accurate?: Yes
[2018-07-10] MEDS: Insulin Lispro 100 UNIT/ML INSULN.PEN 15 UNIT SC ×2 (13:15→17:43)
[2018-07-10] MEDS: Insulin Lispro 100 UNIT/ML INSULN.PEN SC (13:16)
[2018-07-10 14:21] VITALS: BP 139/69; PULSE 62
--- NOTE | 2018-07-10 14:34 | NURSING ---
up to bathroom. c/o not feeling well and dizziness. returned back to bed, loss of balance while sitting onto bed. this nurse assisted to lying down. vitals obtained. freddy lee made aware. will monitor.
--- NOTE | 2018-07-10 14:37 | NURSING ---
Amita MILK BOTTLING MACHINE OPERATOR aware of dizziness new order to decrease apresoline to 25 mg bid and continue to hold if sbp <130.
[2018-07-10 16:51] LABS: Bedside Glucose 114 mg/dL (70-110)
[2018-07-10] MEDS: metFORMIN HCl 1,000 MG Tablet 1000 MG PO (17:43)
[2018-07-10 18:57] VITALS: BP 141/75; PULSE 64; RESP 18; TEMP 36.6; O2SAT 97
[2018-07-10 19:00] VITALS: O2SAT 99
[2018-07-10] MEDS: Nystatin/Triamcin Cream Tube 1 APPLIC TOPICAL (22:12)
[2018-07-10 22:13] VITALS: BP 164/73; PULSE 68
[2018-07-10] MEDS: Metoprolol Tartrate 100 MG Tablet PO (22:13)
[2018-07-10] MEDS: Atorvastatin Calcium 40 MG Tablet PO (22:25)
[2018-07-10 22:27] VITALS: BP 164/73; PULSE 68
[2018-07-10] MEDS: hydrALAZINE 25 MG Tablet PO (22:27)
[2018-07-10 22:40] LABS: Bedside Glucose 91 mg/dL (70-110)
[2018-07-11 03:51] LABS: Bedside Glucose 201 mg/dL (70-110)
--- NOTE | 2018-07-11 04:12 | NURSING ---
Pt blood sugar check at 03:45 = 201. Pt asymptomatic.
[2018-07-11] MEDS: Enoxaparin 40 MG/0.4 ML Syringe SC (05:07)
[2018-07-11] MEDS: Nystatin/Triamcin Cream Tube 1 APPLIC TOPICAL (05:10)
[2018-07-11 05:27] LABS: Absolute Lymphocyte Count 4.35 X10^3/ul (0.83-4.51); Absolute Neutrophil Count 6.1 X10^3/uL (2.0-7.7); Basophil# 0.03 X10^3/uL; Basophil% 0.3 % (0-1); Eosinophil# 0.14 X10^3/uL; Eosinophils% 1.2 % (0-5); Hematocrit 39.3 % (37-47); Hemoglobin 13.5 g/dl (12.0-15.0); Lymphocyte # 4.35 X10^3/ul (4.0); Lymphocyte % 37.6 % (19-41); Mean Corp Hgb Conc 34.4 g/gl (32-36); Mean Corpuscular Hgb 28.9 pg (27.0-32.0); Mean Corpuscular Volume 84.2 fL (81-99); Mean Platelet Vol. 11.2 fl (6.2-12.0); Monocyte# 0.91 X10^3/uL; Monocyte% 7.9 % (0-10); Neutrophil # 6.12 X10^3/uL (2.7-7.7); Neutrophil % 52.7 % (47-70); Platelet Count 262 K/mm3 (150-450); RBC Distribution Width CV 12.3 % (11.6-14.6); RBC Distribution Width SD 37.1 fl (35.1-43.9); Red Blood Count 4.67 M/mm3 (4.2-5.4); White Blood Count 11.6 K/mm3 (4.4-11.0)
[2018-07-11 05:29] LABS: POSITIVE COUNT NO; POSITIVE DIFFERENTIAL NO; POSITIVE MORPHOLOGY NO
[2018-07-11 05:41] LABS: ALB/GLOB Ratio 0.9 RATIO (0.9-2.4); AST(SGOT) 16 U/L (15-37); Alanine Aminotransfer ALT/SGPT 28 U/L (13-56); Albumin, Serum 2.9 g/dL (3.2-5.0); Alkaline Phosphatase 62 U/L (45-117); Anion Gap 8 (5-15); BUN 17 mg/dL (7-18); BUN/Creat Ratio 19.2 RATIO (10-20); Calcium,Total 8.4 mg/dL (8.5-10.1); Chloride 100 mmol/L (98-107); Creatinine, Serum 0.89 mg/dL (0.55-1.02); EST Glomerular Filtration Rate 70 mL/min (>60); Est Glom Filt Rate - Afr Amer 84 mL/min (>60); Globulin 3.2 g/dL (2.2-4.2); Glucose 209 mg/dL (74-106); Potassium 3.9 mmol/L (3.5-5.1); Protein, Total 6.1 g/dL (6.4-8.2); Sodium Level 140 mmol/L (136-145)
[2018-07-11 06:00] LABS: Hemoglobin A1c 11.7 % (4.2-6.3)
[2018-07-11 06:46] LABS: Bedside Glucose 216 mg/dL (70-110)
[2018-07-11 08:00] VITALS: BP 157/87; PULSE 63; RESP 16; TEMP 36.6; O2SAT 96
[2018-07-11 08:05] VITALS: BP 157/87; PULSE 63
[2018-07-11] MEDS: amLODIPine 10 MG Tablet PO (08:05)
[2018-07-11] MEDS: Losartan Potassium 100 MG Tablet PO (08:05)
[2018-07-11] MEDS: hydrALAZINE 25 MG Tablet PO ×2 (08:05→20:10)
[2018-07-11] MEDS: hydroCHLOROthiazide 25 MG Tablet PO (08:05)
[2018-07-11] MEDS: Aspirin 81 MG TAB.CHEW PO (08:05)
[2018-07-11] MEDS: Citalopram 20 MG Tablet 40 MG PO (08:05)
[2018-07-11] MEDS: metFORMIN HCl 1,000 MG Tablet 1000 MG PO ×2 (08:05→17:10)
[2018-07-11 08:07] VITALS: PULSE 63
[2018-07-11] MEDS: Metoprolol Tartrate 100 MG Tablet PO ×2 (08:07→20:10)
[2018-07-11] MEDS: Senna/Docusate Sodium 1 Tablet 2 TABLET PO (08:07)
[2018-07-11] MEDS: buPROPion (XL) 300 MG TABLET.XL PO (08:07)
[2018-07-11] MEDS: cloNIDine HCl 0.1 MG Tablet PO (08:07)
[2018-07-11] MEDS: Insulin Lispro 100 UNIT/ML INSULN.PEN 15 UNIT SC ×3 (08:11→17:10)
[2018-07-11] MEDS: Insulin Lispro 100 UNIT/ML INSULN.PEN SC ×3 (08:12→17:09)
[2018-07-11 10:40] VITALS: O2SAT 98
[2018-07-11 11:16] LABS: Bedside Glucose 229 mg/dL (70-110)
--- NOTE | 2018-07-11 14:09 | PN_ITS ---
Subjective: Patient has improvement in left eye vision. On confrontation test, peripheral vision is grossly normal. Dizziness resolved. Vitals/I&O's: Vital Signs Temp Pulse Resp BP Pulse Ox 97.9 F 63 16 157/87 H 98 07/11/18 08:00 07/11/18 08:07 07/11/18 08:00 07/11/18 08:05 07/11/18 10:40 Oxygen Delivery Method Room Air Weight: 209 lb 9.495 oz Body Mass Index (BMI) 32.8 Finger Stick Blood Glucose 419 Intake and Output for Last 24 Hours 07/09/18 07/10/18 07/11/18 23:59 23:59 23:59 Intake Total 240 / 240 720 / 720 Balance 240 / 240 720 / 720 General: Alert, Oriented x3, Cooperative HEENT: Atraumatic, PERRLA, EOMI, Normocephalic Neck: Supple, No JVD, Negative Carotid Bruits Lungs: Clear to auscultation, Normal air movement Cardiovascular: Regular rate, Regular Rhythm, Normal S1, Normal S2, No murmurs Abdomen: Bowel Sounds Present, Soft, Non Tender Extremities: No edema, Capillary Refill Less than 3 Seconds Skin: No rashes, No breakdown Musculoskeletal: No Tenderness to Palpation of Joints or Extremities, Arthritic Changes Neurological: Cranial nerves II-XII grossly intact, - - Small mild weakness in all 4 extremities Psych/Mental Status: Normal Affect, Appropriate Laboratory Results 07/10/18 16:47: POC Glucose 114 H 07/10/18 22:10: POC Glucose 91 07/11/18 03:44: POC Glucose 201 H 07/11/18 05:05: WBC 11.6 H, RBC 4.67, Hgb 13.5, Hct 39.3, MCV 84.2, MCH 28.9, MCHC 34.4, RDW 12.3, RDW Differential 37.1, Plt Count 262, MPV 11.2, Immature Gran % (Auto) 0.300, Neut % (Auto) 52.7, Lymph % (Auto) 37.6, [place] % (Auto) 7.9, Eos % (Auto) 1.2, Baso % (Auto) 0.3, Absolute Neuts (auto) 6.1, Absolute Lymphs (auto) 4.35, Total Counted Not Reportable 07/11/18 05:05: Sodium 140, Potassium 3.9, Chloride 100, Carbon Dioxide 32.0, Anion Gap 8, BUN 17, Creatinine 0.89, Estim Creat Clear Calc 67.00, Est GFR (MDRD) Af Amer 84, Est GFR (MDRD) Non-Af 70, BUN/Creatinine Ratio 19.2, Glucose 209 H, Calcium 8.4 L, Total Bilirubin 0.60, AST 16, ALT 28, Alkaline Phosphatase 62, Total Protein 6.1 L, Albumin 2.9 L, Globulin 3.2, Albumin/Globulin Ratio 0.9 07/11/18 05:05: Hemoglobin A1c 11.7 H 07/11/18 06:41: POC Glucose 216 H 07/11/18 11:13: POC Glucose 229 H Current Medications Acetaminophen (Tylenol) 650 mg PO Q6H PRN PRN PRN Reason: PAIN Amlodipine Besylate (Norvasc) 10 mg PO DAILY [facility] Last Admin: 07/11/18 08:05 Dose: 10 mg Aspirin (Aspirin, Baby) 81 mg PO DAILY@0800 [facility] Last Admin: 07/11/18 08:05 Dose: 81 mg Atorvastatin Calcium (Lipitor) 40 mg PO QHS [facility] Last Admin: 07/10/18 22:25 Dose: 40 mg Bisacodyl (Dulcolax) 10 mg RECTAL .PRN X 1 PRN PRN Reason: Constipation Bupropion HCl (Wellbutrin Xl) 300 mg PO DAILY [facility] Last Admin: 07/11/18 08:07 Dose: 300 mg Citalopram Hydrobromide (Celexa) 40 mg PO DAILY [facility] Last Admin: 07/11/18 08:05 Dose: 40 mg Clonidine (Catapres) 0.1 mg PO DAILY [facility] Last Admin: 07/11/18 08:07 Dose: 0.1 mg Enoxaparin Sodium (Lovenox) 40 mg SC DAILY@0600 [facility] Last Admin: 07/11/18 05:07 Dose: 40 mg Hydralazine HCl (Apresoline) 25 mg PO BID [facility] Last Admin: 07/11/18 08:05 Dose: 25 mg Hydrochlorothiazide (Hctz) 25 mg PO DAILY [facility] Last Admin: 07/11/18 08:05 Dose: 25 mg Insulin Glargine (Lantus (Bkc)) 25 units SC QHS [facility] Last Admin: 07/10/18 22:26 Dose: 25 u Insulin Human Lispro (Humalog Kwikpen (Bkc)) 0 unit SC TIDAC [facility]; Protocol Last Admin: 07/11/18 12:35 Dose: 4 units Insulin Human Lispro (Humalog Kwikpen (Bkc)) 15 unit SC TIDAC [facility] Last Admin: 07/11/18 12:35 Dose: 15 units Losartan Potassium (Cozaar) 100 mg PO DAILY [facility] Last Admin: 07/11/18 08:05 Dose: 100 mg Magnesium Hydroxide (Milk Of Magnesia) 30 ml PO .PRN X 1 PRN PRN Reason: Constipation [facility] Admin: 07/11/18 08:05 Dose: 1,000 mg Metoprolol Tartrate (Lopressor (Beta Zenon)) 100 mg PO BID [facility] Last Admin: 07/11/18 08:07 Dose: 100 mg Nystatin/Triamcinolone Acetonide (Mycolog) 1 applic TOPICAL 0600,2200 [facility]; Protocol Last Admin: 07/11/18 05:10 Dose: 1 applicatio Senna/Docusate Sodium (Senokot-S, Kathryn-Colace) 2 tablet PO BID [facility] Last Admin: 07/11/18 08:07 Dose: 1 tablet Medical Necessity - Tobacco Use Smoking Status: Never smoker Tobacco Use: Non-smoker Assessment/Plan All Active Problems Hypertensive emergency (Acute) Gastroenteritis (Acute) Metabolic alkalosis (Acute) Hypokalemia (Acute) Abscess of right buttock (Acute) Dehydration (Acute) Hypomagnesemia (Acute) This is a 58-year-old female with history of multiple sclerosis, hypertension and diabetes mellitus type 2, uncontrolled, CKD stage II was discharged from [facility] acute care hospital after she was managed for nausea, vomiting and diarrhea, dizziness, and hypertensive emergency. Hypertension emergency, most probably because she was not able to take antihypertensive medications. She has also multiple sclerosis and has diminished vision in the right eye and and subjective weakness in extremities. In acute rehab for PT/OT, speech and swallow evaluation and treatment 1. Multiple sclerosis: Seen by neurologist Dr. Melchor the hospital. He thinks there was no exacerbation of multiple sclerosis. Probably PRES secondary to hypertensive emergency. Neurologist consult appreciated. MRI brain was done and shows no active MS plaque but total size and number plaques has increased since 2008. No acute or subacute ischemic infarct. Patient need to follow-up Dr. Melchor as an outpatient to consider for starting MS medication 2. Hypertensive emergency: The blood pressure is better controlled after starting clonidin. Continue on maximum dose of losartan HCTZ, Cozaar and amlodipine. On metoprolol. Hydralazine oral was started 2. viral gastroenteritis: Resolved 3. Hypokalemia: Resolved 5. DVT prophylaxis with Lovenox Code Visit Inpatient E&M: 03319 Subs Hosp L3
[2018-07-11 17:25] LABS: Bedside Glucose 192 mg/dL (70-110)
[2018-07-11 20:10] VITALS: BP 156/71; PULSE 61
[2018-07-11] MEDS: Atorvastatin Calcium 40 MG Tablet PO (20:10)
[2018-07-11 20:16] LABS: Bedside Glucose 176 mg/dL (70-110)
[2018-07-11 20:30] VITALS: BP 156/71; PULSE 61; RESP 16; TEMP 36.6; O2SAT 98
[2018-07-12] VITALS (8 sets, daily range): BP systolic 103–156; BP diastolic 59–96; PULSE 58–64; RESP 18–20; TEMP 36.6–36.9; O2SAT 95–98
[2018-07-12] MEDS: Enoxaparin 40 MG/0.4 ML Syringe SC (06:13)
[2018-07-12] MEDS: Nystatin/Triamcin Cream Tube 1 APPLIC TOPICAL ×2 (06:13→20:39)
[2018-07-12 06:51] LABS: Bedside Glucose 93 mg/dL (70-110)
[2018-07-12] MEDS: hydrALAZINE 25 MG Tablet PO ×2 (08:09→20:41)
[2018-07-12] MEDS: Aspirin 81 MG TAB.CHEW PO (08:09)
[2018-07-12] MEDS: metFORMIN HCl 1,000 MG Tablet 1000 MG PO ×2 (08:10→17:23)
[2018-07-12] MEDS: hydroCHLOROthiazide 25 MG Tablet PO (08:10)
[2018-07-12] MEDS: Metoprolol Tartrate 100 MG Tablet PO ×2 (08:10→20:39)
[2018-07-12] MEDS: Citalopram 20 MG Tablet 40 MG PO (08:10)
[2018-07-12] MEDS: cloNIDine HCl 0.1 MG Tablet PO (08:10)
[2018-07-12] MEDS: Losartan Potassium 100 MG Tablet PO (08:10)
[2018-07-12] MEDS: amLODIPine 10 MG Tablet PO (08:10)
[2018-07-12] MEDS: buPROPion (XL) 300 MG TABLET.XL PO (08:11)
[2018-07-12] MEDS: Insulin Lispro 100 UNIT/ML INSULN.PEN 15 UNIT SC ×3 (08:12→17:23)
[2018-07-12 11:31] LABS: Bedside Glucose 90 mg/dL (70-110)
[2018-07-12 17:06] LABS: Bedside Glucose 99 mg/dL (70-110)
[2018-07-12] MEDS: Atorvastatin Calcium 40 MG Tablet PO (20:39)
[2018-07-12 21:56] LABS: Bedside Glucose 107 mg/dL (70-110)
[2018-07-13] MEDS: Enoxaparin 40 MG/0.4 ML Syringe SC (06:17)
[2018-07-13] MEDS: Nystatin/Triamcin Cream Tube 1 APPLIC TOPICAL ×2 (06:18→20:15)
[2018-07-13 06:56] LABS: Bedside Glucose 87 mg/dL (70-110)
[2018-07-13 08:10] VITALS: BP 143/73; PULSE 80; RESP 17; TEMP 36.6; O2SAT 97
[2018-07-13] MEDS: Citalopram 20 MG Tablet 40 MG PO (08:12)
[2018-07-13] MEDS: hydroCHLOROthiazide 25 MG Tablet PO (08:12)
[2018-07-13] MEDS: amLODIPine 10 MG Tablet PO (08:12)
[2018-07-13] MEDS: Losartan Potassium 100 MG Tablet PO (08:12)
[2018-07-13 08:13] VITALS: PULSE 80
[2018-07-13] MEDS: metFORMIN HCl 1,000 MG Tablet 1000 MG PO ×2 (08:13→17:57)
[2018-07-13] MEDS: cloNIDine HCl 0.1 MG Tablet PO (08:13)
[2018-07-13] MEDS: Aspirin 81 MG TAB.CHEW PO (08:13)
[2018-07-13] MEDS: hydrALAZINE 25 MG Tablet PO ×2 (08:13→20:13)
[2018-07-13 08:14] VITALS: PULSE 80
[2018-07-13] MEDS: Metoprolol Tartrate 100 MG Tablet PO ×2 (08:14→20:14)
[2018-07-13] MEDS: Insulin Lispro 100 UNIT/ML INSULN.PEN 15 UNIT SC ×3 (08:15→17:56)
[2018-07-13] MEDS: Senna/Docusate Sodium 1 Tablet 2 TABLET PO (08:17)
[2018-07-13] MEDS: buPROPion (XL) 300 MG TABLET.XL PO (08:24)
[2018-07-13 11:56] LABS: Bedside Glucose 172 mg/dL (70-110)
[2018-07-13] MEDS: Insulin Lispro 100 UNIT/ML INSULN.PEN SC (12:24)
--- NOTE | 2018-07-13 16:06 | PCM.PN.HOSP ---
Subjective: Patient seen and examined. She was sitting comfortably in her chair and had no complaints. She denied any fever or chills, any nausea vomiting, any chest pain, she denies shortness of breath, any diarrhea. 12 point review of systems was otherwise negative. Labs and vitals reviewed. Vitals/I&O's: Vital Signs Temp Pulse Resp BP Pulse Ox 97.9 F 80 17 143/73 H 97 07/13/18 08:10 07/13/18 08:14 07/13/18 08:10 07/13/18 08:10 07/13/18 08:10 Oxygen Delivery Method Room Air Weight: 209 lb 9.495 oz Body Mass Index (BMI) 32.8 Finger Stick Blood Glucose 419 Intake and Output for Last 24 Hours 07/11/18 07/12/18 07/13/18 23:59 23:59 23:59 Intake Total 1080 / 1080 720 / 720 240 / 240 Balance 1080 / 1080 720 / 720 240 / 240 General: Alert, Oriented x3, Cooperative, No apparent distress HEENT: Atraumatic, PERRLA, EOMI, Normocephalic Oral: Moist Mucosa Neck: Supple, No JVD, Negative Carotid Bruits Lungs: Clear to auscultation, Normal air movement, No rhonchi, No wheeze, No rales Cardiovascular: Regular rate, Regular Rhythm, Normal S1, Normal S2, No murmurs Abdomen: Bowel Sounds Present, Soft, Non Tender, Non-Distended, No Hepato-splenomegaly Extremities: No clubbing, No cyanosis, No edema, Capillary Refill Less than 3 Seconds Skin: No rashes, No breakdown Musculoskeletal: No Tenderness to Palpation of Joints or Extremities Lymphatic: No Cervical, Supraclavicular, or Inguinal Adenopathy Neurological: Cranial nerves II-XII grossly intact, Neuro grossly intact, Motor Exam 5/5 strength throughout Psych/Mental Status: Normal Affect, Appropriate, Alert and oriented to time, place, person, mood and affect Laboratory Results 07/12/18 17:03: POC Glucose 99 07/12/18 20:43: POC Glucose 107 07/13/18 06:49: POC Glucose 87 07/13/18 11:52: POC Glucose 172 H Current Medications Acetaminophen (Tylenol) 650 mg PO Q6H PRN PRN PRN Reason: PAIN Amlodipine Besylate (Norvasc) 10 mg PO DAILY [facility] Last Admin: 07/13/18 08:12 Dose: 10 mg Aspirin (Aspirin, Baby) 81 mg PO DAILY@0800 [facility] Last Admin: 07/13/18 08:13 Dose: 81 mg Atorvastatin Calcium (Lipitor) 40 mg PO QHS [facility] [place] Last Admin: 07/12/18 20:39 Dose: 40 mg Bisacodyl (Dulcolax) 10 mg RECTAL .PRN X 1 PRN PRN Reason: Constipation Bupropion HCl (Wellbutrin Xl) 300 mg PO DAILY [facility] [place] Last Admin: 07/13/18 08:24 Dose: 300 mg Citalopram Hydrobromide (Celexa) 40 mg PO DAILY [facility] [place] Last Admin: 07/13/18 08:12 Dose: 40 mg Clonidine (Catapres) 0.1 mg PO DAILY [facility] [place] Last Admin: 07/13/18 08:13 Dose: 0.1 mg Enoxaparin Sodium (Lovenox) 40 mg SC DAILY@0600 [facility] [place] Last Admin: 07/13/18 06:17 Dose: 40 mg Hydralazine HCl (Apresoline) 25 mg PO BID [facility] [place] Last Admin: 07/13/18 08:13 Dose: 25 mg Hydrochlorothiazide (Hctz) 25 mg PO DAILY [facility] [place] Last Admin: 07/13/18 08:12 Dose: 25 mg Insulin Glargine (Lantus (Bkc)) 25 units SC QHS [facility] [place] Last Admin: 07/12/18 20:42 Dose: 25 u Insulin Human Lispro (Humalog Kwikpen (Bkc)) 0 unit SC TIDAC [facility] [place]; Protocol Last Admin: 07/13/18 12:24 Dose: 2 units Insulin Human Lispro (Humalog Kwikpen (Bkc)) 15 unit SC TIDAC [facility] [place] Last Admin: 07/13/18 12:24 Dose: 15 units Losartan Potassium (Cozaar) 100 mg PO DAILY [facility] [place] Last Admin: 07/13/18 08:12 Dose: 100 mg Magnesium Hydroxide (Milk Of Magnesia) 30 ml PO .PRN X 1 PRN PRN Reason: Constipation [facility] Admin: 07/13/18 08:13 Dose: 1,000 mg Metoprolol Tartrate (Lopressor (Beta Zenon)) 100 mg PO BID [facility] [place] Last Admin: 07/13/18 08:14 Dose: 100 mg Nystatin/Triamcinolone Acetonide (Mycolog) 1 applic TOPICAL 0600,2200 [facility]; Protocol Last Admin: 07/13/18 06:18 Dose: 1 applicatio Senna/Docusate Sodium (Senokot-S, Kathryn-Colace) 2 tablet PO BID [facility] Last Admin: 07/13/18 09:05 Dose: Not Given Medical Necessity - Tobacco Use Smoking Status: Never smoker Tobacco Use: Non-smoker Assessment/Plan All Active Problems Hypertensive emergency (Acute) Gastroenteritis (Acute) Metabolic alkalosis (Acute) Hypokalemia (Acute) Abscess of right buttock (Acute) Dehydration (Acute) Hypomagnesemia (Acute) 1. Multiple sclerosis admitted with hypertensive emergency MRI showed no acute MS plaques but total number and size of plaques that increases to thousand and 8. Has not been taking the medication because according to her, she cannot afford it. Currently not on any medication for MS. Follow-up with neurology on outpatient basis to set up treatment. PT/OT on board 2. Hypertension Admitted with hypertensive emergency which is now resolved. BP fairly controlled and is rated in the 140s and 150s systolic. on amlodipine 10mg daily, clonidine 0.1mg daily, hydralazine 25mg bid, HCTZ 25mg daily, losartan 100mg daily and metoprolol 100mg bid I am concerned about polypharmacy and risk of noncompliance with this patient. before discharge, medications to be reviewed and adjusted so she is on fewer meds or combination tablets to encourage compliance. 3. Diabetes mellitus A1C elevated at 11.7 on metformin at home; lantus 25IU qhs added on due to poor control Insulin sliding scale. 4.Depression: on Celexa and Wellbutrin 5. CKD 3: stable. to follow up with nephrology on discharge DVT prophylaxis: lovenox Code Visit Inpatient E&M: 51470 Subs Hosp L2
--- NOTE | 2018-07-13 16:20 | PN_ITS ---
Subjective: Patient seen and examined. She was sitting comfortably in her chair and had no complaints. She denied any fever or chills, any nausea vomiting, any chest pain, she denies shortness of breath, any diarrhea. 12 point review of systems was otherwise negative. Labs and vitals reviewed. Vitals/I&O's: Vital Signs Temp Pulse Resp BP Pulse Ox 97.9 F 80 17 143/73 H 97 07/13/18 08:10 07/13/18 08:14 07/13/18 08:10 07/13/18 08:10 07/13/18 08:10 Oxygen Delivery Method Room Air Weight: 209 lb 9.495 oz Body Mass Index (BMI) 32.8 Finger Stick Blood Glucose 419 Intake and Output for Last 24 Hours 07/11/18 07/12/18 07/13/18 23:59 23:59 23:59 Intake Total 1080 / 1080 720 / 720 240 / 240 Balance 1080 / 1080 720 / 720 240 / 240 General: Alert, Oriented x3, Cooperative, No apparent distress HEENT: Atraumatic, PERRLA, EOMI, Normocephalic Oral: Moist Mucosa Neck: Supple, No JVD, Negative Carotid Bruits Lungs: Clear to auscultation, Normal air movement, No rhonchi, No wheeze, No rales Cardiovascular: Regular rate, Regular Rhythm, Normal S1, Normal S2, No murmurs Abdomen: Bowel Sounds Present, Soft, Non Tender, Non-Distended, No Hepato- splenomegaly Extremities: No clubbing, No cyanosis, No edema, Capillary Refill Less than 3 Seconds Skin: No rashes, No breakdown Musculoskeletal: No Tenderness to Palpation of Joints or Extremities Lymphatic: No Cervical, Supraclavicular, or Inguinal Adenopathy Neurological: Cranial nerves II-XII grossly intact, Neuro grossly intact, Motor Exam 5/5 strength throughout Psych/Mental Status: Normal Affect, Appropriate, Alert and oriented to time, place, person, mood and affect Laboratory Results 07/12/18 17:03: POC Glucose 99 07/12/18 20:43: POC Glucose 107 07/13/18 06:49: POC Glucose 87 07/13/18 11:52: POC Glucose 172 H Current Medications Acetaminophen (Tylenol) 650 mg PO Q6H PRN PRN PRN Reason: PAIN Amlodipine Besylate (Norvasc) 10 mg PO DAILY [facility] Last Admin: 07/13/18 08:12 Dose: 10 mg Aspirin (Aspirin, Baby) 81 mg PO DAILY@0800 [facility] Last Admin: 07/13/18 08:13 Dose: 81 mg Atorvastatin Calcium (Lipitor) 40 mg PO QHS [facility] Last Admin: 07/12/18 20:39 Dose: 40 mg Bisacodyl (Dulcolax) 10 mg RECTAL .PRN X 1 PRN PRN Reason: Constipation Bupropion HCl (Wellbutrin Xl) 300 mg PO DAILY [facility] Last Admin: 07/13/18 08:24 Dose: 300 mg Citalopram Hydrobromide (Celexa) 40 mg PO DAILY [facility] Last Admin: 07/13/18 08:12 Dose: 40 mg Clonidine (Catapres) 0.1 mg PO DAILY [facility] Last Admin: 07/13/18 08:13 Dose: 0.1 mg Enoxaparin Sodium (Lovenox) 40 mg SC DAILY@0600 [facility] Last Admin: 07/13/18 06:17 Dose: 40 mg Hydralazine HCl (Apresoline) 25 mg PO BID [facility] Last Admin: 07/13/18 08:13 Dose: 25 mg Hydrochlorothiazide (Hctz) 25 mg PO DAILY [facility] Last Admin: 07/13/18 08:12 Dose: 25 mg Insulin Glargine (Lantus (Bkc)) 25 units SC QHS [facility] Last Admin: 07/12/18 20:42 Dose: 25 u Insulin Human Lispro (Humalog Kwikpen (Bkc)) 0 unit SC TIDAC [facility]; Protocol Last Admin: 07/13/18 12:24 Dose: 2 units Insulin Human Lispro (Humalog Kwikpen (Bkc)) 15 unit SC TIDAC [facility] Last Admin: 07/13/18 12:24 Dose: 15 units Losartan Potassium (Cozaar) 100 mg PO DAILY [facility] Last Admin: 07/13/18 08:12 Dose: 100 mg Magnesium Hydroxide (Milk Of Magnesia) 30 ml PO .PRN X 1 PRN PRN Reason: Constipation [facility] Admin: 07/13/18 08:13 Dose: 1,000 mg Metoprolol Tartrate (Lopressor (Beta Zenon)) 100 mg PO BID [facility] Last Admin: 07/13/18 08:14 Dose: 100 mg Nystatin/Triamcinolone Acetonide (Mycolog) 1 applic TOPICAL 0600,2200 [facility]; Protocol Last Admin: 07/13/18 06:18 Dose: 1 applicatio Senna/Docusate Sodium (Senokot-S, Kathryn-Colace) 2 tablet PO BID [facility] Last Admin: 07/13/18 09:05 Dose: Not Given Medical Necessity - Tobacco Use Smoking Status: Never smoker Tobacco Use: Non-smoker Assessment/Plan All Active Problems Hypertensive emergency (Acute) Gastroenteritis (Acute) Metabolic alkalosis (Acute) Hypokalemia (Acute) Abscess of right buttock (Acute) Dehydration (Acute) Hypomagnesemia (Acute) 1. Multiple sclerosis * admitted with hypertensive emergency * MRI showed no acute MS plaques but total number and size of plaques that increases to thousand and 8. * Has not been taking the medication because according to her, she cannot afford it. Currently not on any medication for MS. * Follow-up with neurology on outpatient basis to set up treatment. * PT/OT on board * 2. Hypertension * Admitted with hypertensive emergency which is now resolved. BP fairly controlled and is rated in the 140s and 150s systolic. * on amlodipine 10mg daily, clonidine 0.1mg daily, hydralazine 25mg bid, HCTZ 25mg daily, losartan 100mg daily and metoprolol 100mg bid * I am concerned about polypharmacy and risk of noncompliance with this patient. * before discharge, medications to be reviewed and adjusted so she is on fewer meds or combination tablets to encourage compliance. * * 3. Diabetes mellitus * A1C elevated at 11.7 * on metformin at home; lantus 25IU qhs added on due to poor control * Insulin sliding scale. * 4.Depression: on Celexa and Wellbutrin 5. CKD 3: stable. to follow up with nephrology on discharge DVT prophylaxis: lovenox Code Visit Inpatient E&M: 93132 Subs Hosp L2
[2018-07-13 17:15] LABS: Bedside Glucose 76 mg/dL (70-110)
--- NOTE | 2018-07-13 17:30 | NURSING ---
up in chair all day today and ambulated in halls with assist x1 and walker.
[2018-07-13 19:16] VITALS: BP 140/79; PULSE 62; RESP 16; TEMP 36.6; O2SAT 98
[2018-07-13 20:13] VITALS: BP 140/79; PULSE 62
[2018-07-13] MEDS: Atorvastatin Calcium 40 MG Tablet PO (20:13)
[2018-07-13 20:14] VITALS: BP 140/79; PULSE 62
[2018-07-13 20:26] LABS: Bedside Glucose 90 mg/dL (70-110)
[2018-07-14] MEDS: Enoxaparin 40 MG/0.4 ML Syringe SC (05:47)
[2018-07-14 05:56] LABS: ALB/GLOB Ratio 0.9 RATIO (0.9-2.4); AST(SGOT) 22 U/L (15-37); Alanine Aminotransfer ALT/SGPT 32 U/L (13-56); Alkaline Phosphatase 74 U/L (45-117); Anion Gap 8 (5-15); BUN 18 mg/dL (7-18); BUN/Creat Ratio 22.6 RATIO (10-20); Calcium,Total 8.6 mg/dL (8.5-10.1); Chloride 102 mmol/L (98-107); EST Glomerular Filtration Rate 79 mL/min (>60); Est Glom Filt Rate - Afr Amer 95 mL/min (>60); Estimated Creatinine Clearance 74.54 ml/min; Globulin 3.2 g/dL (2.2-4.2); Glucose 131 mg/dL (74-106); Potassium 3.7 mmol/L (3.5-5.1); Protein, Total 6.2 g/dL (6.4-8.2); Sodium Level 140 mmol/L (136-145)
[2018-07-14] MEDS: Nystatin/Triamcin Cream Tube 1 APPLIC TOPICAL ×2 (06:29→21:31)
[2018-07-14 06:40] LABS: Bedside Glucose 129 mg/dL (70-110)
[2018-07-14 07:23] VITALS: BP 147/77; PULSE 66; RESP 17; TEMP 36.6; O2SAT 98
[2018-07-14] MEDS: Insulin Lispro 100 UNIT/ML INSULN.PEN 15 UNIT SC (07:42)
[2018-07-14 07:43] VITALS: PULSE 66
[2018-07-14] MEDS: cloNIDine HCl 0.1 MG Tablet PO (07:43)
[2018-07-14] MEDS: Citalopram 20 MG Tablet 40 MG PO (07:43)
[2018-07-14] MEDS: hydroCHLOROthiazide 25 MG Tablet PO (07:43)
[2018-07-14] MEDS: Metoprolol Tartrate 100 MG Tablet PO ×2 (07:43→21:26)
[2018-07-14] MEDS: amLODIPine 10 MG Tablet PO (07:43)
[2018-07-14] MEDS: Losartan Potassium 100 MG Tablet PO (07:43)
[2018-07-14] MEDS: buPROPion (XL) 300 MG TABLET.XL PO (07:43)
[2018-07-14 07:44] VITALS: PULSE 66
[2018-07-14] MEDS: hydrALAZINE 25 MG Tablet PO ×2 (07:44→21:30)
[2018-07-14] MEDS: metFORMIN HCl 1,000 MG Tablet 1000 MG PO ×2 (07:44→17:26)
[2018-07-14] MEDS: Aspirin 81 MG TAB.CHEW PO (07:44)
--- NOTE | 2018-07-14 09:20 | NURSING ---
Amita SOAP GRINDER reviewed glucose levels, new order to decrease humalog to 10 units tid.
--- NOTE | 2018-07-14 09:35 | NURSING ---
spoke with Sona from OT ok to remove personal alarm d/t patient is calling for all needs and transfers.
--- NOTE | 2018-07-14 09:57 | PCM.PN.NEU ---
Subjective: Patient seen and examined. Tolerating therapy. Continues to have blurry vision, at times, per patient had some blurry vision prior to her stroke, but it seems worse since the stroke. Will schedule ophthalmology appointment at discharge. Denies any headaches, or double vision. No issues with GI/. - Physical Exam General: Alert, Oriented x3, Cooperative HEENT: Atraumatic, PERRLA, EOMI, Normocephalic Neck: Supple, No JVD, Negative Carotid Bruits Lungs: Clear to auscultation, Normal air movement Cardiovascular: Regular rate, No murmurs Abdomen: Bowel Sounds Present, Soft, Non Tender Extremities: No edema, Capillary Refill Less than 3 Seconds Skin: No rashes, No breakdown Musculoskeletal: No Tenderness to Palpation of Joints or Extremities Neurological: Cranial nerves II-XII grossly intact Psych/Mental Status: Normal Affect, Appropriate, Alert and oriented to time, place, person, mood and affect Vital Signs Temp Pulse Resp BP Pulse Ox 98 F 66 17 147/77 H 98 07/14/18 07:23 07/14/18 07:44 07/14/18 07:23 07/14/18 07:23 07/14/18 07:23 Oxygen Delivery Method Room Air Weight: 95.07 kg Body Mass Index (BMI) 32.8 Finger Stick Blood Glucose 419 Intake and Output for Last 24 Hours 07/12/18 07/13/18 07/14/18 23:59 23:59 23:59 Intake Total 720 / 720 240 / 240 360 / 360 Balance 720 / 720 240 / 240 360 / 360 Laboratory Tests Past 24 Hrs 07/14/18 04:55 Sodium 140 Potassium 3.7 Chloride 102 Carbon Dioxide 30.0 Anion Gap 8 BUN 18 Creatinine 0.80 Estim Creat Clear Calc 74.54 Est GFR (MDRD) Af Amer 95 Est GFR (MDRD) Non-Af 79 BUN/Creatinine Ratio 22.6 H Glucose 131 H Calcium 8.6 Total Bilirubin 0.40 AST 22 ALT 32 Alkaline Phosphatase 74 Total Protein 6.2 L Albumin 3.0 L Globulin 3.2 Albumin/Globulin Ratio 0.9 POC Glucose 07/14/18 07/13/18 07/13/18 06:36 20:12 17:09 POC Glucose 129 H 90 76 07/13/18 11:52 POC Glucose 172 H Active Medications Acetaminophen (Tylenol) 650 mg PO Q6H PRN PRN PRN Reason: PAIN Amlodipine Besylate (Norvasc) 10 mg PO DAILY [facility] Last Admin: 07/14/18 07:43 Dose: 10 mg Aspirin (Aspirin, Baby) 81 mg PO DAILY@0800 [facility] Last Admin: 07/14/18 07:44 Dose: 81 mg Atorvastatin Calcium (Lipitor) 40 mg PO QHS [facility] Last Admin: 07/13/18 20:13 Dose: 40 mg Bisacodyl (Dulcolax) 10 mg RECTAL .PRN X 1 PRN PRN Reason: Constipation Bupropion HCl (Wellbutrin Xl) 300 mg PO DAILY [facility] Last Admin: 07/14/18 07:43 Dose: 300 mg Citalopram Hydrobromide (Celexa) 40 mg PO DAILY [facility] Last Admin: 07/14/18 07:43 Dose: 40 mg Clonidine (Catapres) 0.1 mg PO DAILY [facility] Last Admin: 07/14/18 07:43 Dose: 0.1 mg Enoxaparin Sodium (Lovenox) 40 mg SC DAILY@0600 [facility] Last Admin: 07/14/18 05:47 Dose: 40 mg Hydralazine HCl (Apresoline) 25 mg PO BID [facility] Last Admin: 07/14/18 07:44 Dose: 25 mg Hydrochlorothiazide (Hctz) 25 mg PO DAILY [facility] Last Admin: 07/14/18 07:43 Dose: 25 mg Insulin Glargine (Lantus (Bkc)) 25 units SC QHS [facility] Last Admin: 07/13/18 20:12 Dose: 25 u Insulin Human Lispro (Humalog Kwikpen (Bkc)) 0 unit SC TIDAC [facility]; Protocol Last Admin: 07/14/18 07:43 Dose: Not Given Insulin Human Lispro (Humalog Kwikpen (Bkc)) 10 unit SC TIDAC [facility] Losartan Potassium (Cozaar) 100 mg PO DAILY [facility] Last Admin: 07/14/18 07:43 Dose: 100 mg Magnesium Hydroxide (Milk Of Magnesia) 30 ml PO .PRN X 1 PRN PRN Reason: Constipation Metformin [facility] ([facility]) [facility] Admin: 07/14/18 07:44 Dose: 1,000 mg Metoprolol Tartrate (Lopressor (Beta Zenon)) 100 mg PO BID [facility] Last Admin: 07/14/18 07:43 Dose: 100 mg Nystatin/Triamcinolone Acetonide (Mycolog) 1 applic TOPICAL 0600,2200 [facility]; Protocol Last Admin: 07/14/18 06:29 Dose: 1 applicatio Senna/Docusate Sodium (Senokot-S, Kathryn-Colace) 2 tablet PO BID [facility] Last Admin: 07/14/18 07:44 Dose: Not Given Medical Necessity - Tobacco Use Smoking Status: Never smoker Tobacco Use: Non-smoker Assessment/Plan All Active Problems Hypertensive emergency (Acute) Gastroenteritis (Acute) Metabolic alkalosis (Acute) Hypokalemia (Acute) Abscess of right buttock (Acute) Dehydration (Acute) Hypomagnesemia (Acute) Debility 2/2 Multiple Sclerosis. Complicated by Hypertension emergency, Hypokalemia, CKD stage II, and DM type II. Goal of rehab is religious of functional independence. Plan: - Physical therapy for gait and balance - Occupational Therapy for ADLs - Speech therapy - As needed analgesics - Bowel protocol - DVT prophylaxis: SCDkaylyn, Manuel Rogers - Hypertensive emergency: blood pressure controlled -> on clonidine, Amlodipine, HCTZ, Cozaar Metoprolol, and Hydralazine was added this morning. Continue to monitor closely - viral gastroenteritis -> improved - Hypokalemia -> improved from 3.1 to 3.7 will continue to monitor and treat accordingly - Hx of Multiple sclerosis: Seen by our office, MRI brain was obtained it shows no active MS plaque but does indicate the total size and number of plaques has increased since 2007. Did not show any acute or subacute ischemic infarct - Hx of Diabetes type 2 => check BS AC and HS, continue home medication of metformin, add Lantus 25units at HS, high to moderate sliding scale. Obtain hemoglobin A1C - Hx of depression continue home dose of Celexa and Wellbutrin - Hx of CKD Stage II -> continue to monitor BUN/Creatine - Yeast infection of groin and vagina area -> continue Nystatin cream to area - Blurry vision was present prior to stroke, now is worse => schedule ophthalmology appointment at discharge
--- NOTE | 2018-07-14 10:02 | PN.NEURO_ITS ---
Subjective: Patient seen and examined. Tolerating therapy. Continues to have blurry vision, at times, per patient had some blurry vision prior to her stroke, but it seems worse since the stroke. Will schedule ophthalmology appointment at discharge. Denies any headaches, or double vision. No issues with GI/. - Physical Exam General: Alert, Oriented x3, Cooperative HEENT: Atraumatic, PERRLA, EOMI, Normocephalic Neck: Supple, No JVD, Negative Carotid Bruits Lungs: Clear to auscultation, Normal air movement Cardiovascular: Regular rate, No murmurs Abdomen: Bowel Sounds Present, Soft, Non Tender Extremities: No edema, Capillary Refill Less than 3 Seconds Skin: No rashes, No breakdown Musculoskeletal: No Tenderness to Palpation of Joints or Extremities Neurological: Cranial nerves II-XII grossly intact Psych/Mental Status: Normal Affect, Appropriate, Alert and oriented to time, place, person, mood and affect Vital Signs Temp Pulse Resp BP Pulse Ox 98 F 66 17 147/77 H 98 07/14/18 07:23 07/14/18 07:44 07/14/18 07:23 07/14/18 07:23 07/14/18 07:23 Oxygen Delivery Method Room Air Weight: 95.07 kg Body Mass Index (BMI) 32.8 Finger Stick Blood Glucose 419 Intake and Output for Last 24 Hours 07/12/18 07/13/18 07/14/18 23:59 23:59 23:59 Intake Total 720 / 720 240 / 240 360 / 360 Balance 720 / 720 240 / 240 360 / 360 Laboratory Tests Past 24 Hrs 07/14/18 04:55 Sodium 140 Potassium 3.7 Chloride 102 Carbon Dioxide 30.0 Anion Gap 8 BUN 18 Creatinine 0.80 Estim Creat Clear Calc 74.54 Est GFR (MDRD) Af Amer 95 Est GFR (MDRD) Non-Af 79 BUN/Creatinine Ratio 22.6 H Glucose 131 H Calcium 8.6 Total Bilirubin 0.40 AST 22 ALT 32 Alkaline Phosphatase 74 Total Protein 6.2 L Albumin 3.0 L Globulin 3.2 Albumin/Globulin Ratio 0.9 POC Glucose 07/14/18 07/13/18 07/13/18 06:36 20:12 17:09 POC Glucose 129 H 90 76 07/13/18 11:52 POC Glucose 172 H Active Medications Acetaminophen (Tylenol) 650 mg PO Q6H PRN PRN PRN Reason: PAIN Amlodipine Besylate (Norvasc) 10 mg PO DAILY [facility] Last Admin: 07/14/18 07:43 Dose: 10 mg Aspirin (Aspirin, Baby) 81 mg PO DAILY@0800 [facility] Last Admin: 07/14/18 07:44 Dose: 81 mg Atorvastatin Calcium (Lipitor) 40 mg PO QHS [facility] Last Admin: 07/13/18 20:13 Dose: 40 mg Bisacodyl (Dulcolax) 10 mg RECTAL .PRN X 1 PRN PRN Reason: Constipation Bupropion HCl (Wellbutrin Xl) 300 mg PO DAILY [facility] Last Admin: 07/14/18 07:43 Dose: 300 mg Citalopram Hydrobromide (Celexa) 40 mg PO DAILY [facility] Last Admin: 07/14/18 07:43 Dose: 40 mg Clonidine (Catapres) 0.1 mg PO DAILY [facility] Last Admin: 07/14/18 07:43 Dose: 0.1 mg Enoxaparin Sodium (Lovenox) 40 mg SC DAILY@0600 [facility] Last Admin: 07/14/18 05:47 Dose: 40 mg Hydralazine HCl (Apresoline) 25 mg PO BID [facility] Last Admin: 07/14/18 07:44 Dose: 25 mg Hydrochlorothiazide (Hctz) 25 mg PO DAILY [facility] Last Admin: 07/14/18 07:43 Dose: 25 mg Insulin Glargine (Lantus (Bkc)) 25 units SC QHS [facility] Last Admin: 07/13/18 20:12 Dose: 25 u Insulin Human Lispro (Humalog Kwikpen (Bkc)) 0 unit SC TIDAC [facility]; Protocol Last Admin: 07/14/18 07:43 Dose: Not Given Insulin Human Lispro (Humalog Kwikpen (Bkc)) 10 unit SC TIDAC [facility] Losartan Potassium (Cozaar) 100 mg PO DAILY [facility] Last Admin: 07/14/18 07:43 Dose: 100 mg Magnesium Hydroxide (Milk Of Magnesia) 30 ml PO .PRN X 1 PRN PRN Reason: Constipation Met[facility]) [facility] Last Admin: 07/14/18 07:44 Dose: 1,000 mg Metoprolol Tartrate (Lopressor (Beta Zenon)) 100 mg PO BID [facility] Last Admin: 07/14/18 07:43 Dose: 100 mg Nystatin/Triamcinolone Acetonide (Mycolog) 1 applic TOPICAL 0600,2200 [facility]; Protocol Last Admin: 07/14/18 06:29 Dose: 1 applicatio Senna/Docusate Sodium (Senokot-S, Kathryn-Colace) 2 tablet PO BID [facility] Last Admin: 07/14/18 07:44 Dose: Not Given Medical Necessity - Tobacco Use Smoking Status: Never smoker Tobacco Use: Non-smoker Assessment/Plan All Active Problems Hypertensive emergency (Acute) Gastroenteritis (Acute) Metabolic alkalosis (Acute) Hypokalemia (Acute) Abscess of right buttock (Acute) Dehydration (Acute) Hypomagnesemia (Acute) Debility 2/2 Multiple Sclerosis. Complicated by Hypertension emergency, Hypokalemia, CKD stage II, and DM type II. Goal of rehab is anglican of functional independence. Plan: - Physical therapy for gait and balance - Occupational Therapy for ADLs - Speech therapy - As needed analgesics - Bowel protocol - DVT prophylaxis: SCDkaylyn, Manuel Rogers - Hypertensive emergency: blood pressure controlled -> on clonidine, Amlodipine, HCTZ, Cozaar Metoprolol, and Hydralazine was added this morning. Continue to monitor closely - viral gastroenteritis -> improved - Hypokalemia -> improved from 3.1 to 3.7 will continue to monitor and treat accordingly - Hx of Multiple sclerosis: Seen by our office, MRI brain was obtained it shows no active MS plaque but does indicate the total size and number of plaques has increased since 2007. Did not show any acute or subacute ischemic infarct - Hx of Diabetes type 2 => check BS AC and HS, continue home medication of metformin, add Lantus 25units at HS, high to moderate sliding scale. Obtain hemoglobin A1C - Hx of depression continue home dose of Celexa and Wellbutrin - Hx of CKD Stage II -> continue to monitor BUN/Creatine - Yeast infection of groin and vagina area -> continue Nystatin cream to area - Blurry vision was present prior to stroke, now is worse => schedule ophthalmology appointment at discharge
[2018-07-14 11:51] LABS: Bedside Glucose 38 mg/dL (70-110)
--- NOTE | 2018-07-14 11:51 | NURSING ---
routine blood glucose level checked, level 38 before lunch. patient skin is damp and warm. orange juice provided per policy and lab backup. patient sitting up in chair eating lunch. denies any further symptoms or none noted. a/o x3.
--- NOTE | 2018-07-14 12:02 | NURSING ---
recheck glucose level was 44. orange juice provided. skin now warm and dry. patient denies any symptoms. patient remains sitting up in chair eating lunch. Amita VERDUZCO called and to return call.
--- NOTE | 2018-07-14 12:10 | NURSING ---
lab here to draw glucose level lab.
[2018-07-14 12:11] LABS: Bedside Glucose 44 mg/dL (70-110)
--- NOTE | 2018-07-14 12:23 | NURSING ---
Amita Sleeping Car Porter aware. patient is asymptomatic recheck glucose level was 52. Per Amita [employer] will continue to follow policy OJ given, no glucagon at this time. new order to decrease lantus to 13 units at bedtime. patient ate 100% of lunch meal.
[2018-07-14 12:25] LABS: Bedside Glucose 52 mg/dL (70-110)
[2018-07-14 12:37] LABS: Glucose 72 mg/dL (74-106)
[2018-07-14 12:41] LABS: Bedside Glucose 87 mg/dL (70-110)
--- NOTE | 2018-07-14 12:42 | NURSING ---
glucose level 87. per policy 8 oz mild and 6 cracker with 1 tablespoon of peanut butter provided. patient sitting up in chair working with OT at this time playing cards.
--- NOTE | 2018-07-14 12:44 | NURSING ---
Amita [employer] O[employer] aware of glucose levels and continuing to follow policy. will recheck glucose level in one hour or if patient becomes symptomatic. no acute distress noted.
[2018-07-14 13:55] LABS: Bedside Glucose 258 mg/dL (70-110)
--- NOTE | 2018-07-14 13:56 | NURSING ---
glucose level 258. patient in dining area working with therapy. denies any symptoms. a/o x3.
--- NOTE | 2018-07-14 15:49 | NURSING ---
blood sugar 326. pt asymptomatic. freddy lee made aware.
[2018-07-14 15:51] LABS: Bedside Glucose 326 mg/dL (70-110)
[2018-07-14 16:51] LABS: Bedside Glucose 311 mg/dL (70-110)
[2018-07-14] MEDS: Insulin Lispro 100 UNIT/ML INSULN.PEN 10 UNIT SC (17:26)
[2018-07-14] MEDS: Insulin Lispro 100 UNIT/ML INSULN.PEN SC (17:28)
[2018-07-14 20:01] VITALS: BP 136/86; PULSE 66; RESP 16; TEMP 36.6; O2SAT 99
[2018-07-14 21:26] VITALS: BP 137/73; PULSE 66
[2018-07-14] MEDS: Atorvastatin Calcium 40 MG Tablet PO (21:27)
[2018-07-14 21:30] VITALS: BP 137/73; PULSE 66
[2018-07-14 22:10] LABS: Bedside Glucose 221 mg/dL (70-110)
[2018-07-15 06:31] LABS: Bedside Glucose 136 mg/dL (70-110)
[2018-07-15] MEDS: Nystatin/Triamcin Cream Tube 1 APPLIC TOPICAL ×2 (06:44→21:34)
[2018-07-15] MEDS: Enoxaparin 40 MG/0.4 ML Syringe SC (06:44)
[2018-07-15 06:51] LABS: Bedside Glucose 161 mg/dL (70-110)
[2018-07-15 07:02] VITALS: BP 149/82; PULSE 64; RESP 17; TEMP 36.8; O2SAT 93
[2018-07-15] MEDS: Losartan Potassium 100 MG Tablet PO (07:42)
[2018-07-15] MEDS: Insulin Lispro 100 UNIT/ML INSULN.PEN 10 UNIT SC ×3 (07:42→17:16)
[2018-07-15] MEDS: Aspirin 81 MG TAB.CHEW PO (07:42)
[2018-07-15] MEDS: Citalopram 20 MG Tablet 40 MG PO (07:42)
[2018-07-15] MEDS: Insulin Lispro 100 UNIT/ML INSULN.PEN SC (07:42)
[2018-07-15 07:43] VITALS: PULSE 64
[2018-07-15] MEDS: cloNIDine HCl 0.1 MG Tablet PO (07:43)
[2018-07-15] MEDS: hydroCHLOROthiazide 25 MG Tablet PO (07:43)
[2018-07-15] MEDS: hydrALAZINE 25 MG Tablet PO (07:43)
[2018-07-15] MEDS: buPROPion (XL) 300 MG TABLET.XL PO (07:43)
[2018-07-15] MEDS: amLODIPine 10 MG Tablet PO (07:43)
[2018-07-15] MEDS: Metoprolol Tartrate 100 MG Tablet PO ×2 (07:43→21:34)
[2018-07-15] MEDS: metFORMIN HCl 1,000 MG Tablet 1000 MG PO ×2 (07:44→17:16)
[2018-07-15] MEDS: Senna/Docusate Sodium 1 Tablet 2 TABLET PO (07:44)
--- NOTE | 2018-07-15 11:16 | PN.NEURO_ITS ---
Subjective: Patient seen and examined. No acute events over night. Tolerating therapy. Denies any headaches, or double vision. continues to have blurry vision, which is improving slightly. No issues with GI/. - Physical Exam General: Alert, Oriented x3, Cooperative HEENT: Atraumatic, PERRLA, EOMI, Normocephalic Neck: Supple, No JVD, Negative Carotid Bruits Lungs: Clear to auscultation, Normal air movement Cardiovascular: Regular rate, No murmurs Abdomen: Bowel Sounds Present, Soft, Non Tender Extremities: No edema, Capillary Refill Less than 3 Seconds Skin: No rashes, No breakdown Musculoskeletal: No Tenderness to Palpation of Joints or Extremities Neurological: Cranial nerves II-XII grossly intact Psych/Mental Status: Normal Affect, Appropriate, Alert and oriented to time, place, person, mood and affect Vital Signs Temp Pulse Resp BP Pulse Ox 98.2 F 64 17 149/82 H 93 07/15/18 07:02 07/15/18 07:43 07/15/18 07:02 07/15/18 07:02 07/15/18 07:02 Oxygen Delivery Method Room Air Weight: 95.01 kg Body Mass Index (BMI) 32.8 Finger Stick Blood Glucose 419 Intake and Output for Last 24 Hours 07/13/18 07/14/18 07/15/18 23:59 23:59 23:59 Intake Total 240 / 240 360 / 360 240 / 240 Balance 240 / 240 360 / 360 240 / 240 Laboratory Tests Past 24 Hrs 07/14/18 12:05 Glucose 72 L POC Glucose 07/15/18 07/15/18 07/14/18 06:44 03:26 21:26 POC Glucose 161 H 136 H 221 H 07/14/18 07/14/18 07/14/18 16:48 15:44 13:52 POC Glucose 311 H 326 H 258 H 07/14/18 07/14/18 07/14/18 12:37 12:19 12:01 POC Glucose 87 52 L 44 L* 07/14/18 11:44 POC Glucose 38 L* Active Medications Acetaminophen (Tylenol) 650 mg PO Q6H PRN PRN PRN Reason: PAIN Amlodipine Besylate (Norvasc) 10 mg PO DAILY [facility] Last Admin: 07/15/18 07:43 Dose: 10 mg Aspirin (Aspirin, Baby) 81 mg PO DAILY@0800 [facility] Last Admin: 07/15/18 07:42 Dose: 81 mg Atorvastatin Calcium (Lipitor) 40 mg PO QHS [facility] Last Admin: 07/14/18 21:27 Dose: 40 mg Bisacodyl (Dulcolax) 10 mg RECTAL .PRN X 1 PRN PRN Reason: Constipation Bupropion HCl (Wellbutrin Xl) 300 mg PO DAILY [facility] Last Admin: 07/15/18 07:43 Dose: 300 mg Citalopram Hydrobromide (Celexa) 40 mg PO DAILY [facility] Last Admin: 07/15/18 07:42 Dose: 40 mg Clonidine (Catapres) 0.1 mg PO DAILY [facility] Last Admin: 07/15/18 07:43 Dose: 0.1 mg Enoxaparin Sodium (Lovenox) 40 mg SC DAILY@0600 [facility] Last Admin: 07/15/18 06:44 Dose: 40 mg Hydralazine HCl (Apresoline) 25 mg PO BID [facility] Last Admin: 07/15/18 07:43 Dose: 25 mg Hydrochlorothiazide (Hctz) 25 mg PO DAILY [facility] Last Admin: 07/15/18 07:43 Dose: 25 mg Insulin Glargine (Lantus (Bkc)) 13 units SC QHS [facility] Last Admin: 07/14/18 21:28 Dose: 13 u Insulin Human Lispro (Humalog Kwikpen (Bkc)) 0 unit SC TIDAC [facility]; Protocol Last Admin: 07/15/18 07:42 Dose: 2 units Insulin Human Lispro (Humalog Kwikpen (Bkc)) 10 unit SC TIDAC [facility] Last Admin: 07/15/18 07:42 Dose: 10 units Losartan Potassium (Cozaar) 100 mg PO DAILY [facility] Last Admin: 07/15/18 07:42 Dose: 100 mg Magnesium Hydroxide (Milk Of Magnesia) 30 ml PO .PRN X 1 PRN PRN Reason: Constipation [facility]) [facility] Last Admin: 07/15/18 07:44 Dose: 1,000 mg Metoprolol Tartrate (Lopressor (Beta Zenon)) 100 mg PO BID [facility] Last Admin: 07/15/18 07:43 Dose: 100 mg Nystatin/Triamcinolone Acetonide (Mycolog) 1 applic TOPICAL 0600,2200 [facility]; Protocol Last Admin: 07/15/18 06:44 Dose: 1 applicatio Senna/Docusate Sodium (Senokot-S, Kathryn-Colace) 2 tablet PO BID [facility] Last Admin: 07/15/18 07:44 Dose: 1 tablet Medical Necessity - Tobacco Use Smoking Status: Never smoker Tobacco Use: Non-smoker Assessment/Plan All Active Problems Hypertensive emergency (Acute) Gastroenteritis (Acute) Metabolic alkalosis (Acute) Hypokalemia (Acute) Abscess of right buttock (Acute) Dehydration (Acute) Hypomagnesemia (Acute) Debility 2/2 Multiple Sclerosis. Complicated by Hypertension emergency, Hypokalemia, CKD stage II, and DM type II. Goal of rehab is anabaptism of functional independence. Plan: - Physical therapy for gait and balance - Occupational Therapy for ADLs - Speech therapy - As needed analgesics - Bowel protocol - DVT prophylaxis: SCDkaylyn, Jose juárez, Lovenox - Hypertensive emergency: blood pressure controlled -> on clonidine, Amlodipine, HCTZ, Cozaar Metoprolol, and Hydralazine was added this morning. Continue to monitor closely - viral gastroenteritis -> improved - Hypokalemia -> improved from 3.1 to 3.7 will continue to monitor and treat accordingly - Hx of Multiple sclerosis: Seen by our office, MRI brain was obtained it shows no active MS plaque but does indicate the total size and number of plaques has increased since 2007. Did not show any acute or subacute ischemic infarct - Hx of Diabetes type 2 => check BS AC and HS, continue home medication of metformin, add Lantus 25units at HS, high to moderate sliding scale. Obtain hemoglobin A1C - Hx of depression continue home dose of Celexa and Wellbutrin - Hx of CKD Stage II -> continue to monitor BUN/Creatine - Yeast infection of groin and vagina area -> continue Nystatin cream to area - Blurry vision was present prior to stroke, now is worse => schedule ophthalmology appointment at discharge
[2018-07-15 11:35] LABS: Bedside Glucose 126 mg/dL (70-110)
--- NOTE | 2018-07-15 13:27 | PN_ITS ---
Subjective: Patient is a on physical therapy for gait imbalance/improve equilibrium. Patient still has left eye diminished vision. Vitals/I&O's: Vital Signs Temp Pulse Resp BP Pulse Ox 98.2 F 64 17 149/82 H 93 07/15/18 07:02 07/15/18 07:43 07/15/18 07:02 07/15/18 07:02 07/15/18 07:02 Oxygen Delivery Method Room Air Weight: 209 lb 7.379 oz Body Mass Index (BMI) 32.8 Finger Stick Blood Glucose 419 Intake and Output for Last 24 Hours 07/13/18 07/14/18 07/15/18 23:59 23:59 23:59 Intake Total 240 / 240 360 / 360 460 / 460 Balance 240 / 240 360 / 360 460 / 460 General: Alert, Oriented x3, Cooperative HEENT: Atraumatic, PERRLA, EOMI, Normocephalic Neck: Supple, No JVD, Negative Carotid Bruits Lungs: Clear to auscultation, Normal air movement Cardiovascular: Regular rate, Normal S1, Normal S2, No murmurs Abdomen: Bowel Sounds Present, Soft, Non Tender Extremities: No edema, Capillary Refill Less than 3 Seconds Skin: No rashes, No breakdown Musculoskeletal: No Tenderness to Palpation of Joints or Extremities, Arthritic Changes Neurological: Cranial nerves II-XII grossly intact, Unsteady Gait, - - Left eye diminished vision Psych/Mental Status: Normal Affect, Appropriate Laboratory Results 07/14/18 13:52: POC Glucose 258 H 07/14/18 15:44: POC Glucose 326 H 07/14/18 16:48: POC Glucose 311 H 07/14/18 21:26: POC Glucose 221 H 07/15/18 03:26: POC Glucose 136 H 07/15/18 06:44: POC Glucose 161 H 07/15/18 11:32: POC Glucose 126 H Current Medications Acetaminophen (Tylenol) 650 mg PO Q6H PRN PRN PRN Reason: PAIN Amlodipine Besylate (Norvasc) 10 mg PO DAILY [facility] Last Admin: 07/15/18 07:43 Dose: 10 mg Aspirin (Aspirin, Baby) 81 mg PO DAILY@0800 [facility] Last Admin: 07/15/18 07:42 Dose: 81 mg Atorvastatin Calcium (Lipitor) 40 mg PO QHS [facility] Last Admin: 07/14/18 21:27 Dose: 40 mg Bisacodyl (Dulcolax) 10 mg RECTAL .PRN X 1 PRN PRN Reason: Constipation Bupropion HCl (Wellbutrin Xl) 300 mg PO DAILY [facility] Last Admin: 07/15/18 07:43 Dose: 300 mg Citalopram Hydrobromide (Celexa) 40 mg PO DAILY [facility] Last Admin: 07/15/18 07:42 Dose: 40 mg Clonidine (Catapres) 0.1 mg PO DAILY [facility] Last Admin: 07/15/18 07:43 Dose: 0.1 mg Enoxaparin Sodium (Lovenox) 40 mg SC DAILY@0600 [facility] Last Admin: 07/15/18 06:44 Dose: 40 mg Hydralazine HCl (Apresoline) 25 mg PO BID [facility] Last Admin: 07/15/18 07:43 Dose: 25 mg Hydrochlorothiazide (Hctz) 25 mg PO DAILY [facility] Last Admin: 07/15/18 07:43 Dose: 25 mg Insulin Glargine (Lantus (Bkc)) 13 units SC QHS [facility] Last Admin: 07/14/18 21:28 Dose: 13 u Insulin Human Lispro (Humalog Kwikpen (Bkc)) 0 unit SC TIDAC [facility]; Protocol Last Admin: 07/15/18 11:59 Dose: Not Given Insulin Human Lispro (Humalog Kwikpen (Bkc)) 10 unit SC TIDAC [facility] Last Admin: 07/15/18 12:03 Dose: 10 units Losartan Potassium (Cozaar) 100 mg PO DAILY [facility] Last Admin: 07/15/18 07:42 Dose: 100 mg Magnesium Hydroxide (Milk Of Magnesia) 30 ml PO .PRN X 1 PRN PRN Reason: Constipation Metformin [facility] (Glucophage) [facility] Last Admin: 07/15/18 07:44 Dose: 1,000 mg Metoprolol Tartrate (Lopressor (Beta Zenon)) 100 mg PO BID [facility] Last Admin: 07/15/18 07:43 Dose: 100 mg Nystatin/Triamcinolone Acetonide (Mycolog) 1 applic TOPICAL 0600,2200 [facility]; Protocol Last Admin: 07/15/18 06:44 Dose: 1 applicatio Senna/Docusate Sodium (Senokot-S, Kathryn-Colace) 2 tablet PO BID [facility] Last Admin: 07/15/18 07:44 Dose: 1 tablet Medical Necessity - Tobacco Use Smoking Status: Never smoker Tobacco Use: Non-smoker Assessment/Plan All Active Problems Hypertensive emergency (Acute) Gastroenteritis (Acute) Metabolic alkalosis (Acute) Hypokalemia (Acute) Abscess of right buttock (Acute) Dehydration (Acute) Hypomagnesemia (Acute) This is a 58-year-old female with history of multiple sclerosis, hypertension and diabetes mellitus type 2, uncontrolled, CKD stage II was disc harged from [facility] acute care hospital after she was managed for nausea, vomiting and diarrhea, dizziness, and hypertensive emergency. Hypertension emergency, most probably because she was not able to take antihypertensive medications. She has also multiple sclerosis and has diminished vision in the left eye and and subjective weakness in extremities. In acute rehab for PT/OT, speech and swallow evaluation and treatment 1. Multiple sclerosis: Seen by neurologist Dr. Melchor the hospital. He thinks there was no exacerbation of multiple sclerosis. Probably PRES secondary to hypertensive emergency. Neurologist consult appreciated. MRI brain was done and shows no active MS plaque but total size and number plaques has increased since 2007. No acute or subacute ischemic infarct. 2. Hypertensive emergency: The blood pressure is better controlled after starting clonidin. Continue on maximum dose of losartan HCTZ, Cozaar and amlodipine. On metoprolol. On hydralazine 25 mg oral twice daily Laboratory Results 07/14/18 16:48: POC Glucose 311 H 07/14/18 21:26: POC Glucose 221 H 07/15/18 03:26: POC Glucose 136 H 07/15/18 06:44: POC Glucose 161 H 07/15/18 11:32: POC Glucose 126 H Blood pressure is controlled. 2. viral gastroenteritis: Resolved 3. Hypokalemia: Resolved 5. DVT prophylaxis with Lovenox Active Medications Acetaminophen (Tylenol) 650 mg PO Q6H PRN PRN PRN Reason: PAIN Amlodipine Besylate (Norvasc) 10 mg PO DAILY [facility] Last Admin: 07/15/18 07:43 Dose: 10 mg Aspirin (Aspirin, Baby) 81 mg PO DAILY@0800 [facility] Last Admin: 07/15/18 07:42 Dose: 81 mg Atorvastatin Calcium (Lipitor) 40 mg PO QHS [facility] Last Admin: 07/14/18 21:27 Dose: 40 mg Bisacodyl (Dulcolax) 10 mg RECTAL .PRN X 1 PRN PRN Reason: Constipation Bupropion HCl (Wellbutrin Xl) 300 mg PO DAILY [facility] Last Admin: 07/15/18 07:43 Dose: 300 mg Citalopram Hydrobromide (Celexa) 40 mg PO DAILY [facility] Last Admin: 07/15/18 07:42 Dose: 40 mg Clonidine (Catapres) 0.1 mg PO DAILY [facility] Last Admin: 07/15/18 07:43 Dose: 0.1 mg Enoxaparin Sodium (Lovenox) 40 mg SC DAILY@0600 [facility] Last Admin: 07/15/18 06:44 Dose: 40 mg Hydralazine HCl (Apresoline) 25 mg PO BID [facility] Last Admin: 07/15/18 07:43 Dose: 25 mg Hydrochlorothiazide (Hctz) 25 mg PO DAILY [facility] Last Admin: 07/15/18 07:43 Dose: 25 mg Insulin Glargine (Lantus (Bkc)) 13 units SC QHS [facility] Last Admin: 07/14/18 21:28 Dose: 13 u Insulin Human Lispro (Humalog Kwikpen (Bkc)) 0 unit SC TIDAC [facility]; Protocol Last Admin: 07/15/18 11:59 Dose: Not Given Insulin Human Lispro (Humalog Kwikpen (Bkc)) 10 unit SC TIDAC [facility] Last Admin: 07/15/18 12:03 Dose: 10 units Losartan Potassium (Cozaar) 100 mg PO DAILY [facility] Last Admin: 07/15/18 07:42 Dose: 100 mg Magnesium Hydroxide (Milk Of Magnesia) 30 ml PO .PRN X 1 PRN PRN Reason: Constipation Metformin HCl (Glucophage) [facility] Last Admin: 07/15/18 07:44 Dose: 1,000 mg Metoprolol Tartrate (Lopressor (Beta Zenon)) 100 mg PO BID [facility] Last Admin: 07/15/18 07:43 Dose: 100 mg Nystatin/Triamcinolone Acetonide (Mycolog) 1 applic TOPICAL 0600,2200 [facility]; Protocol Last Admin: 07/15/18 06:44 Dose: 1 applicatio Senna/Docusate Sodium (Senokot-S, Kathryn-Colace) 2 tablet PO BID [facility] Last Admin: 07/15/18 07:44 Dose: 1 tablet Code Visit Inpatient E&M: 17175 Subs Hosp L3
[2018-07-15 16:25] LABS: Bedside Glucose 138 mg/dL (70-110)
[2018-07-15 19:30] VITALS: BP 141/65; PULSE 67; RESP 18; TEMP 36.4; O2SAT 98
[2018-07-15 21:34] VITALS: BP 118/85; PULSE 67
[2018-07-15 21:35] VITALS: BP 118/85; PULSE 67
[2018-07-15] MEDS: Atorvastatin Calcium 40 MG Tablet PO (21:35)
[2018-07-15 21:51] LABS: Bedside Glucose 140 mg/dL (70-110)
[2018-07-16 03:36] LABS: Bedside Glucose 156 mg/dL (70-110)
[2018-07-16] MEDS: Nystatin/Triamcin Cream Tube 1 APPLIC TOPICAL ×2 (05:50→21:28)
[2018-07-16] MEDS: Enoxaparin 40 MG/0.4 ML Syringe SC (05:51)
[2018-07-16 06:48] VITALS: BP 142/80; PULSE 67; RESP 18; TEMP 36.4; O2SAT 98
[2018-07-16 06:50] LABS: Bedside Glucose 180 mg/dL (70-110)
[2018-07-16] MEDS: Insulin Lispro 100 UNIT/ML INSULN.PEN 10 UNIT SC ×3 (07:38→17:26)
[2018-07-16] MEDS: Insulin Lispro 100 UNIT/ML INSULN.PEN SC (07:38)
[2018-07-16 07:39] VITALS: BP 142/80; PULSE 67
[2018-07-16] MEDS: hydrALAZINE 25 MG Tablet PO ×2 (07:39→20:59)
[2018-07-16] MEDS: metFORMIN HCl 1,000 MG Tablet 1000 MG PO ×2 (07:39→18:00)
[2018-07-16] MEDS: Aspirin 81 MG TAB.CHEW PO (07:39)
[2018-07-16 07:40] VITALS: BP 142/80; PULSE 67
[2018-07-16] MEDS: Metoprolol Tartrate 100 MG Tablet PO ×2 (07:40→20:59)
[2018-07-16] MEDS: amLODIPine 10 MG Tablet PO (07:40)
[2018-07-16] MEDS: cloNIDine HCl 0.1 MG Tablet PO (07:40)
[2018-07-16] MEDS: hydroCHLOROthiazide 25 MG Tablet PO (07:40)
[2018-07-16] MEDS: Citalopram 20 MG Tablet 40 MG PO (07:41)
[2018-07-16] MEDS: Losartan Potassium 100 MG Tablet PO (07:41)
[2018-07-16] MEDS: buPROPion (XL) 300 MG TABLET.XL PO (07:42)
--- NOTE | 2018-07-16 09:38 | PCM.PN.NEU ---
Subjective: Patient seen, no new complaints. Tolerating therapy, feels her balance is improving and she is feeling stronger. No issues with GI/. - Physical Exam General: Alert, Oriented x3, Cooperative HEENT: Atraumatic, PERRLA, EOMI, Normocephalic Neck: Supple, No JVD, Negative Carotid Bruits Lungs: Clear to auscultation, Normal air movement Cardiovascular: Regular rate, No murmurs Abdomen: Bowel Sounds Present, Soft, Non Tender Extremities: No edema, Capillary Refill Less than 3 Seconds Skin: No rashes, No breakdown Musculoskeletal: No Tenderness to Palpation of Joints or Extremities Neurological: Cranial nerves II-XII grossly intact Psych/Mental Status: Normal Affect, Appropriate, Alert and oriented to time, place, person, mood and affect Vital Signs Temp Pulse Resp BP Pulse Ox 97.6 F L 67 18 142/80 H 98 07/16/18 06:48 07/16/18 07:40 07/16/18 06:48 07/16/18 07:40 07/16/18 06:48 Oxygen Delivery Method Room Air Weight: 97.1 kg Body Mass Index (BMI) 32.8 Finger Stick Blood Glucose 419 Intake and Output for Last 24 Hours 07/14/18 07/15/18 07/16/18 23:59 23:59 23:59 Intake Total 360 / 360 680 / 680 Balance 360 / 360 680 / 680 POC Glucose 07/16/18 07/16/18 07/15/18 06:46 03:26 21:32 POC Glucose 180 H 156 H 140 H 07/15/18 07/15/18 16:22 11:32 POC Glucose 138 H 126 H Active Medications Acetaminophen (Tylenol) 650 mg PO Q6H PRN PRN PRN Reason: PAIN Amlodipine Besylate (Norvasc) 10 mg PO DAILY [facility] Last Admin: 07/16/18 07:40 Dose: 10 mg Aspirin (Aspirin, Baby) 81 mg PO DAILY@0800 [facility] Last Admin: 07/16/18 07:39 Dose: 81 mg Atorvastatin Calcium (Lipitor) 40 mg PO QHS [facility] Last Admin: 07/15/18 21:35 Dose: 40 mg Bisacodyl (Dulcolax) 10 mg RECTAL .PRN X 1 PRN PRN Reason: Constipation Bupropion HCl (Wellbutrin Xl) 300 mg PO DAILY [facility] Last Admin: 07/16/18 07:42 Dose: 300 mg Citalopram Hydrobromide (Celexa) 40 mg PO DAILY [facility] Last Admin: 07/16/18 07:41 Dose: 40 mg Clonidine (Catapres) 0.1 mg PO DAILY [facility] Last Admin: 07/16/18 07:40 Dose: 0.1 mg Enoxaparin Sodium (Lovenox) 40 mg SC DAILY@0600 [facility] Last Admin: 07/16/18 05:51 Dose: 40 mg Hydralazine HCl (Apresoline) 25 mg PO BID [facility] Last Admin: 07/16/18 07:39 Dose: 25 mg Hydrochlorothiazide (Hctz) 25 mg PO DAILY [facility] Last Admin: 07/16/18 07:40 Dose: 25 mg Insulin Glargine (Lantus (Bkc)) 13 units SC QHS [facility] Last Admin: 07/15/18 21:35 Dose: 13 u Insulin Human Lispro (Humalog Kwikpen (Bkc)) 0 unit SC TIDAC [facility]; Protocol Last Admin: 07/16/18 07:38 Dose: 2 units Insulin Human Lispro (Humalog Kwikpen (Bkc)) 10 unit SC TIDAC [facility] Last Admin: 07/16/18 07:38 Dose: 10 units Losartan Potassium (Cozaar) 100 mg PO DAILY [facility] Last Admin: 07/16/18 07:41 Dose: 100 mg Magnesium Hydroxide (Milk Of Magnesia) 30 ml PO .PRN X 1 PRN PRN Reason: Constipation Metformin [facility] (Glucophage) [facility] Last Admin: 07/16/18 07:39 Dose: 1,000 mg Metoprolol Tartrate (Lopressor (Beta Zenon)) 100 mg PO BID [facility] Last Admin: 07/16/18 07:40 Dose: 100 mg Nystatin/Triamcinolone Acetonide (Mycolog) 1 applic TOPICAL 0600,2200 [facility]; Protocol Last Admin: 07/16/18 05:50 Dose: 1 applicatio Senna/Docusate Sodium (Senokot-S, Kathryn-Colace) 2 tablet PO BID [facility] Last Admin: 07/16/18 07:35 Dose: Not Given Medical Necessity - Tobacco Use Smoking Status: Never smoker Tobacco Use: Non-smoker Assessment/Plan All Active Problems Hypertensive emergency (Acute) Gastroenteritis (Acute) Metabolic alkalosis (Acute) Hypokalemia (Acute) Abscess of right buttock (Acute) Dehydration (Acute) Hypomagnesemia (Acute) Debility 2/2 Multiple Sclerosis. Complicated by Hypertension emergency, Hypokalemia, CKD stage II, and DM type II. Goal of rehab is nondenominational of functional independence. Plan: - Physical therapy for gait and balance - Occupational Therapy for ADLs - Speech therapy - As needed analgesics - Bowel protocol - DVT prophylaxis: SCDs, Jose juárez, Lovenox - Hypertensive emergency: blood pressure controlled -> on clonidine, Amlodipine, HCTZ, Cozaar Metoprolol, and Hydralazine was added this morning. Continue to monitor closely - viral gastroenteritis -> improved - Hypokalemia -> improved from 3.1 to 3.7 will continue to monitor and treat accordingly - Hx of Multiple sclerosis: Seen by our office, MRI brain was obtained it shows no active MS plaque but does indicate the total size and number of plaques has increased since 2007. Did not show any acute or subacute ischemic infarct - Hx of Diabetes type 2 => check BS AC and HS, continue home medication of metformin, add Lantus 25units at HS, high to moderate sliding scale. Obtain hemoglobin A1C - Hx of depression continue home dose of Celexa and Wellbutrin - Hx of CKD Stage II -> continue to monitor BUN/Creatine - Yeast infection of groin and vagina area -> continue Nystatin cream to area - Blurry vision was present prior to stroke, now is worse => schedule ophthalmology appointment at discharge - At discharge schedule outpatient MRI head w/wo contrast, and lab work, will follow up with outpatient Neurology to manage her MS.
--- NOTE | 2018-07-16 09:43 | PN.NEURO_ITS ---
Subjective: Patient seen, no new complaints. Tolerating therapy, feels her balance is improving and she is feeling stronger. No issues with GI/. - Physical Exam General: Alert, Oriented x3, Cooperative HEENT: Atraumatic, PERRLA, EOMI, Normocephalic Neck: Supple, No JVD, Negative Carotid Bruits Lungs: Clear to auscultation, Normal air movement Cardiovascular: Regular rate, No murmurs Abdomen: Bowel Sounds Present, Soft, Non Tender Extremities: No edema, Capillary Refill Less than 3 Seconds Skin: No rashes, No breakdown Musculoskeletal: No Tenderness to Palpation of Joints or Extremities Neurological: Cranial nerves II-XII grossly intact Psych/Mental Status: Normal Affect, Appropriate, Alert and oriented to time, place, person, mood and affect Vital Signs Temp Pulse Resp BP Pulse Ox 97.6 F L 67 18 142/80 H 98 07/16/18 06:48 07/16/18 07:40 07/16/18 06:48 07/16/18 07:40 07/16/18 06:48 Oxygen Delivery Method Room Air Weight: 97.1 kg Body Mass Index (BMI) 32.8 Finger Stick Blood Glucose 419 Intake and Output for Last 24 Hours 07/14/18 07/15/18 07/16/18 23:59 23:59 23:59 Intake Total 360 / 360 680 / 680 Balance 360 / 360 680 / 680 POC Glucose 07/16/18 07/16/18 07/15/18 06:46 03:26 21:32 POC Glucose 180 H 156 H 140 H 07/15/18 07/15/18 16:22 11:32 POC Glucose 138 H 126 H Active Medications Acetaminophen (Tylenol) 650 mg PO Q6H PRN PRN PRN Reason: PAIN Amlodipine Besylate (Norvasc) 10 mg PO DAILY [facility] Last Admin: 07/16/18 07:40 Dose: 10 mg Aspirin (Aspirin, Baby) 81 mg PO DAILY@0800 [facility] Last Admin: 07/16/18 07:39 Dose: 81 mg Atorvastatin Calcium (Lipitor) 40 mg PO QHS [facility] Last Admin: 07/15/18 21:35 Dose: 40 mg Bisacodyl (Dulcolax) 10 mg RECTAL .PRN X 1 PRN PRN Reason: Constipation Bupropion HCl (Wellbutrin Xl) 300 mg PO DAILY [facility] Last Admin: 07/16/18 07:42 Dose: 300 mg Citalopram Hydrobromide (Celexa) 40 mg PO DAILY [facility] Last Admin: 07/16/18 07:41 Dose: 40 mg Clonidine (Catapres) 0.1 mg PO DAILY [facility] Last Admin: 07/16/18 07:40 Dose: 0.1 mg Enoxaparin Sodium (Lovenox) 40 mg SC DAILY@0600 [facility] Last Admin: 07/16/18 05:51 Dose: 40 mg Hydralazine HCl (Apresoline) 25 mg PO BID [facility] Last Admin: 07/16/18 07:39 Dose: 25 mg Hydrochlorothiazide (Hctz) 25 mg PO DAILY [facility] Last Admin: 07/16/18 07:40 Dose: 25 mg Insulin Glargine (Lantus (Bkc)) 13 units SC QHS [facility] Last Admin: 07/15/18 21:35 Dose: 13 u Insulin Human Lispro (Humalog Kwikpen (Bkc)) 0 unit SC TIDAC [facility]; Protocol Last Admin: 07/16/18 07:38 Dose: 2 units Insulin Human Lispro (Humalog Kwikpen (Bkc)) 10 unit SC TIDAC [facility] Last Admin: 07/16/18 07:38 Dose: 10 units Losartan Potassium (Cozaar) 100 mg PO DAILY [facility] Last Admin: 07/16/18 07:41 Dose: 100 mg Magnesium Hydroxide (Milk Of Magnesia) 30 ml PO .PRN X 1 PRN PRN Reason: Constipation [facility] Last Admin: 07/16/18 07:39 Dose: 1,000 mg Metoprolol Tartrate (Lopressor (Beta Zenon)) 100 mg PO BID [facility] Last Admin: 07/16/18 07:40 Dose: 100 mg Nystatin/Triamcinolone Acetonide (Mycolog) 1 applic TOPICAL 0600,2200 [facility]; Protocol Last Admin: 07/16/18 05:50 Dose: 1 applicatio Senna/Docusate Sodium (Senokot-S, Kathryn-Colace) 2 tablet PO BID [facility] Last Admin: 07/16/18 07:35 Dose: Not Given Medical Necessity - Tobacco Use Smoking Status: Never smoker Tobacco Use: Non-smoker Assessment/Plan All Active Problems Hypertensive emergency (Acute) Gastroenteritis (Acute) Metabolic alkalosis (Acute) Hypokalemia (Acute) Abscess of right buttock (Acute) Dehydration (Acute) Hypomagnesemia (Acute) Debility 2/2 Multiple Sclerosis. Complicated by Hypertension emergency, Hypokalemia, CKD stage II, and DM type II. Goal of rehab is faith of functional independence. Plan: - Physical therapy for gait and balance - Occupational Therapy for ADLs - Speech therapy - As needed analgesics - Bowel protocol - DVT prophylaxis: SCDs, Jose juárez, Lovenox - Hypertensive emergency: blood pressure controlled -> on clonidine, Amlodipine, HCTZ, Cozaar Metoprolol, and Hydralazine was added this morning. Continue to monitor closely - viral gastroenteritis -> improved - Hypokalemia -> improved from 3.1 to 3.7 will continue to monitor and treat accordingly - Hx of Multiple sclerosis: Seen by our office, MRI brain was obtained it shows no active MS plaque but does indicate the total size and number of plaques has increased since 2007. Did not show any acute or subacute ischemic infarct - Hx of Diabetes type 2 => check BS AC and HS, continue home medication of metformin, add Lantus 25units at HS, high to moderate sliding scale. Obtain hemoglobin A1C - Hx of depression continue home dose of Celexa and Wellbutrin - Hx of CKD Stage II -> continue to monitor BUN/Creatine - Yeast infection of groin and vagina area -> continue Nystatin cream to area - Blurry vision was present prior to stroke, now is worse => schedule ophthalmology appointment at discharge - At discharge schedule outpatient MRI head w/wo contrast, and lab work, will follow up with outpatient Neurology to manage her MS.
[2018-07-16 11:15] LABS: Bedside Glucose 137 mg/dL (70-110)
[2018-07-16 17:10] LABS: Bedside Glucose 90 mg/dL (70-110)
[2018-07-16 18:01] VITALS: BP 129/69; PULSE 62; RESP 18; TEMP 36.5; O2SAT 97
[2018-07-16 20:59] VITALS: BP 139/82; PULSE 66
[2018-07-16] MEDS: Atorvastatin Calcium 40 MG Tablet PO (20:59)
[2018-07-16 21:06] LABS: Bedside Glucose 147 mg/dL (70-110)
[2018-07-17] VITALS (7 sets, daily range): BP systolic 138–147; BP diastolic 70–89; PULSE 66–75; RESP 18–20; TEMP 36.6–37.1; O2SAT 95–98
--- NOTE | 2018-07-17 03:05 | NURSING ---
pt BS check for 03:00 was 103.
[2018-07-17 03:06] LABS: Bedside Glucose 103 mg/dL (70-110)
[2018-07-17] MEDS: Enoxaparin 40 MG/0.4 ML Syringe SC (05:54)
[2018-07-17] MEDS: Nystatin/Triamcin Cream Tube 1 APPLIC TOPICAL ×2 (05:55→21:54)
[2018-07-17 06:35] LABS: Bedside Glucose 159 mg/dL (70-110)
[2018-07-17] MEDS: Insulin Lispro 100 UNIT/ML INSULN.PEN SC ×2 (07:50→12:03)
[2018-07-17] MEDS: hydrALAZINE 25 MG Tablet PO ×2 (07:51→21:58)
[2018-07-17] MEDS: metFORMIN HCl 1,000 MG Tablet 1000 MG PO ×2 (07:51→17:03)
[2018-07-17] MEDS: Aspirin 81 MG TAB.CHEW PO (07:51)
[2018-07-17] MEDS: Insulin Lispro 100 UNIT/ML INSULN.PEN 10 UNIT SC ×2 (07:51→12:04)
[2018-07-17] MEDS: Metoprolol Tartrate 100 MG Tablet PO ×2 (07:52→21:55)
[2018-07-17] MEDS: hydroCHLOROthiazide 25 MG Tablet PO (07:52)
[2018-07-17] MEDS: Losartan Potassium 100 MG Tablet PO (07:52)
[2018-07-17] MEDS: cloNIDine HCl 0.1 MG Tablet PO (07:52)
[2018-07-17] MEDS: amLODIPine 10 MG Tablet PO (07:53)
[2018-07-17] MEDS: buPROPion (XL) 300 MG TABLET.XL PO (07:53)
[2018-07-17] MEDS: Citalopram 20 MG Tablet 40 MG PO (07:53)
--- NOTE | 2018-07-17 09:50 | CASEMGMT ---
Addendum entered by Liliane Maria 07/17/18 09:52: Patient to continue with further care and treatment on the Inpatient Rehab Unit at this time. No discharge date. Original Note: Team meeting held. Patient present, no support person present at this time. Patient declining for this car worker to contact patient support person in regards to team information. Patient approved 16 Medicare days with a discharge on or by 07/26/18. Patient plans to discharge to home with significant other at time of discharge. Support given. Will continue to follow. Liliane JACOBO, SPORTS LAW[employer]ER
--- NOTE | 2018-07-17 09:54 | PCM.PN.NEU ---
Subjective: Staffed in team meeting. Family was not at [address], questions answered. With Physical therapy, she is able to walk greater than 300 feet using a wheel walker. She does have a tendency to lean to the left when walking, and requires verbal cues to correct her posture. She has walked up and down 8 steps using two hand rails. She is able to get in and out of bed at stand by assist. With Occupational therapy, Overall she is doing well, depending on how dizzy she is determines the amount of assistance she requires, for grooming she is contact guard to standby assistance. Dressing of her upper body she is supervision and lower body she may or may not require assistance. For transfers she is contact guard to minimal assistance. With Speech therapy, she continues to have issues with short term memory, problem solving and word finding, will continue to work on these issues. With Nursing, the major concern has been her blood sugar, they have been any where from 55 to 159, currently she is on Lantus 13 units at bedtime and Humalog 10 units with each meal. Will continue to monitor and make adjustments as needed. Will re-team her again on 07/24. - Physical Exam General: Alert, Oriented x3, Cooperative HEENT: Atraumatic, PERRLA, EOMI, Normocephalic Neck: Supple, No JVD, Negative Carotid Bruits Lungs: Clear to auscultation, Normal air movement Cardiovascular: Regular rate, No murmurs Abdomen: Bowel Sounds Present, Soft, Non Tender Extremities: No edema, Capillary Refill Less than 3 Seconds Skin: No rashes, No breakdown Musculoskeletal: No Tenderness to Palpation of Joints or Extremities Neurological: Cranial nerves II-XII grossly intact Psych/Mental Status: Normal Affect, Appropriate, Alert and oriented to time, place, person, mood and affect Vital Signs Temp Pulse Resp BP Pulse Ox 98.7 F 75 18 147/89 H 95 07/17/18 06:50 07/17/18 07:52 07/17/18 06:50 07/17/18 07:52 07/17/18 06:50 Oxygen Delivery Method Room Air Weight: 97.1 kg Body Mass Index (BMI) 32.8 Finger Stick Blood Glucose 419 Intake and Output for Last 24 Hours 07/15/18 07/16/18 07/17/18 23:59 23:59 23:59 Intake Total 680 / 680 220 / 220 Balance 680 / 680 220 / 220 POC Glucose 07/17/18 07/17/18 07/16/18 06:29 03:01 20:52 POC Glucose 159 H 103 147 H 07/16/18 07/16/18 17:08 11:09 POC Glucose 90 137 H Active Medications Acetaminophen (Tylenol) 650 mg PO Q6H PRN PRN PRN Reason: PAIN Amlodipine Besylate (Norvasc) 10 mg PO DAILY [facility] Last Admin: 07/17/18 07:53 Dose: 10 mg Aspirin (Aspirin, Baby) 81 mg PO DAILY@0800 [facility] Last Admin: 07/17/18 07:51 Dose: 81 mg Atorvastatin Calcium (Lipitor) 40 mg PO QHS [facility] Last Admin: 07/16/18 20:59 Dose: 40 mg Bisacodyl (Dulcolax) 10 mg RECTAL .PRN X 1 PRN PRN Reason: Constipation Bupropion HCl (Wellbutrin Xl) 300 mg PO DAILY [facility] Last Admin: 07/17/18 07:53 Dose: 300 mg Citalopram Hydrobromide (Celexa) 40 mg PO DAILY [facility] Last Admin: 07/17/18 07:53 Dose: 40 mg Clonidine (Catapres) 0.1 mg PO DAILY [facility] Last Admin: 07/17/18 07:52 Dose: 0.1 mg Enoxaparin Sodium (Lovenox) 40 mg SC DAILY@0600 [facility] Last Admin: 07/17/18 05:54 Dose: 40 mg Hydralazine HCl (Apresoline) 25 mg PO BID [facility] Last Admin: 07/17/18 07:51 Dose: 25 mg Hydrochlorothiazide (Hctz) 25 mg PO DAILY [facility] Last Admin: 07/17/18 07:52 Dose: 25 mg Insulin Glargine (Lantus (Bkc)) 13 units SC QHS [facility] Last Admin: 07/16/18 20:59 Dose: 13 u Insulin Human Lispro (Humalog Kwikpen (Bkc)) 0 unit SC TIDAC [facility]; Protocol Last Admin: 07/17/18 07:50 Dose: 2 units Insulin Human Lispro (Humalog Kwikpen (Bkc)) 10 unit SC TIDAC [facility] Last Admin: 07/17/18 07:51 Dose: 10 units Losartan Potassium (Cozaar) 100 mg PO DAILY [facility] Last Admin: 07/17/18 07:52 Dose: 100 mg Magnesium Hydroxide (Milk Of Magnesia) 30 ml PO .PRN X 1 PRN PRN Reason: Constipation [facility] Admin: 07/17/18 07:51 Dose: 1,000 mg Metoprolol Tartrate (Lopressor (Beta Zenon)) 100 mg PO BID [facility] Last Admin: 07/17/18 07:52 Dose: 100 mg Nystatin/Triamcinolone Acetonide (Mycolog) 1 applic TOPICAL 0600,2200 [facility]; Protocol Last Admin: 07/17/18 05:55 Dose: 1 applicatio Senna/Docusate Sodium (Senokot-S, Kathryn-Colace) 2 tablet PO BID [facility] Last Admin: 07/17/18 07:54 Dose: Not Given Medical Necessity - Tobacco Use Smoking Status: Never smoker Tobacco Use: Non-smoker Assessment/Plan All Active Problems Hypertensive emergency (Acute) Gastroenteritis (Acute) Metabolic alkalosis (Acute) Hypokalemia (Acute) Abscess of right buttock (Acute) Dehydration (Acute) Hypomagnesemia (Acute) Debility 2/2 Multiple Sclerosis. Complicated by Hypertension emergency, Hypokalemia, CKD stage II, and DM type II. Goal of rehab is faith of functional independence. Plan: - Physical therapy for gait and balance - Occupational Therapy for ADLs - Speech therapy - As needed analgesics - Bowel protocol - DVT prophylaxis: SCDs, Jose hoses, Lovenox - Hypertensive emergency: blood pressure controlled -> on clonidine, Amlodipine, HCTZ, Cozaar Metoprolol, and Hydralazine was added this morning. Continue to monitor closely - viral gastroenteritis -> improved - Hypokalemia -> improved from 3.1 to 3.7 will continue to monitor and treat accordingly - Hx of Multiple sclerosis: Seen by our office, MRI brain was obtained it shows no active MS plaque but does indicate the total size and number of plaques has increased since 2007. Did not show any acute or subacute ischemic infarct - Hx of Diabetes type 2 => check BS AC and HS, continue home medication of metformin, decrease Lantus dose to 13 units at HS, high to moderate sliding scale. Obtain hemoglobin A1C - Hx of depression continue home dose of Celexa and Wellbutrin - Hx of CKD Stage II -> continue to monitor BUN/Creatine - Yeast infection of groin and vagina area -> continue Nystatin cream to area - Blurry vision was present prior to stroke, now is worse => schedule ophthalmology appointment at discharge - At discharge schedule outpatient MRI head w/wo contrast, and lab work, will follow up with outpatient Neurology to manage her MS.
--- NOTE | 2018-07-17 10:08 | PN.NEURO_ITS ---
Subjective: Staffed in team meeting. Family was not at [address], questions answered. With Physical therapy, she is able to walk greater than 300 feet using a wheel walker. She does have a tendency to lean to the left when walking, and requires verbal cues to correct her posture. She has walked up and down 8 steps using two hand rails. She is able to get in and out of bed at stand by assist. With Occupational therapy, Overall she is doing well, depending on how dizzy she is determines the amount of assistance she requires, for grooming she is contact guard to standby assistance. Dressing of her upper body she is supervision and lower body she may or may not require assistance. For transfers she is contact guard to minimal assistance. With Speech therapy, she continues to have issues with short term memory, problem solving and word finding, will continue to work on these issues. With Nursing, the major concern has been her blood sugar, they have been any where from 55 to 159, currently she is on Lantus 13 units at bedtime and Humalog 10 units with each meal. Will continue to monitor and make adjustments as needed. Will re-team her again on 07/24. - Physical Exam General: Alert, Oriented x3, Cooperative HEENT: Atraumatic, PERRLA, EOMI, Normocephalic Neck: Supple, No JVD, Negative Carotid Bruits Lungs: Clear to auscultation, Normal air movement Cardiovascular: Regular rate, No murmurs Abdomen: Bowel Sounds Present, Soft, Non Tender Extremities: No edema, Capillary Refill Less than 3 Seconds Skin: No rashes, No breakdown Musculoskeletal: No Tenderness to Palpation of Joints or Extremities Neurological: Cranial nerves II-XII grossly intact Psych/Mental Status: Normal Affect, Appropriate, Alert and oriented to time, place, person, mood and affect Vital Signs Temp Pulse Resp BP Pulse Ox 98.7 F 75 18 147/89 H 95 07/17/18 06:50 07/17/18 07:52 07/17/18 06:50 07/17/18 07:52 07/17/18 06:50 Oxygen Delivery Method Room Air Weight: 97.1 kg Body Mass Index (BMI) 32.8 Finger Stick Blood Glucose 419 Intake and Output for Last 24 Hours 07/15/18 07/16/18 07/17/18 23:59 23:59 23:59 Intake Total 680 / 680 220 / 220 Balance 680 / 680 220 / 220 POC Glucose 07/17/18 07/17/18 07/16/18 06:29 03:01 20:52 POC Glucose 159 H 103 147 H 07/16/18 07/16/18 17:08 11:09 POC Glucose 90 137 H Active Medications Acetaminophen (Tylenol) 650 mg PO Q6H PRN PRN PRN Reason: PAIN Amlodipine Besylate (Norvasc) 10 mg PO DAILY [facility] Last Admin: 07/17/18 07:53 Dose: 10 mg Aspirin (Aspirin, Baby) 81 mg PO DAILY@0800 [facility] Last Admin: 07/17/18 07:51 Dose: 81 mg Atorvastatin Calcium (Lipitor) 40 mg PO QHS [facility] Last Admin: 07/16/18 20:59 Dose: 40 mg Bisacodyl (Dulcolax) 10 mg RECTAL .PRN X 1 PRN PRN Reason: Constipation Bupropion HCl (Wellbutrin Xl) 300 mg PO DAILY [facility] Last Admin: 07/17/18 07:53 Dose: 300 mg Citalopram Hydrobromide (Celexa) 40 mg PO DAILY [facility] Last Admin: 07/17/18 07:53 Dose: 40 mg Clonidine (Catapres) 0.1 mg PO DAILY [facility] Last Admin: 07/17/18 07:52 Dose: 0.1 mg Enoxaparin Sodium (Lovenox) 40 mg SC DAILY@0600 [facility] Last Admin: 07/17/18 05:54 Dose: 40 mg Hydralazine HCl (Apresoline) 25 mg PO BID [facility] Last Admin: 07/17/18 07:51 Dose: 25 mg Hydrochlorothiazide (Hctz) 25 mg PO DAILY [facility] Last Admin: 07/17/18 07:52 Dose: 25 mg Insulin Glargine (Lantus (Bkc)) 13 units SC QHS [facility] Last Admin: 07/16/18 20:59 Dose: 13 u Insulin Human Lispro (Humalog Kwikpen (Bkc)) 0 unit SC TIDAC [facility]; Protocol Last Admin: 07/17/18 07:50 Dose: 2 units Insulin Human Lispro (Humalog Kwikpen (Bkc)) 10 unit SC TIDAC [facility] Last Admin: 07/17/18 07:51 Dose: 10 units Losartan Potassium (Cozaar) 100 mg PO DAILY [facility] Last Admin: 07/17/18 07:52 Dose: 100 mg Magnesium Hydroxide (Milk Of Magnesia) 30 ml PO .PRN X 1 PRN PRN Reason: Constipation [facility] Last Admin: 07/17/18 07:51 Dose: 1,000 mg Metoprolol Tartrate (Lopressor (Beta Zenon)) 100 mg PO BID [facility] Last Admin: 07/17/18 07:52 Dose: 100 mg Nystatin/Triamcinolone Acetonide (Mycolog) 1 applic TOPICAL 0600,2200 [facility]; Protocol Last Admin: 07/17/18 05:55 Dose: 1 applicatio Senna/Docusate Sodium (Senokot-S, Kathryn-Colace) 2 tablet PO BID [facility] Last Admin: 07/17/18 07:54 Dose: Not Given Medical Necessity - Tobacco Use Smoking Status: Never smoker Tobacco Use: Non-smoker Assessment/Plan All Active Problems Hypertensive emergency (Acute) Gastroenteritis (Acute) Metabolic alkalosis (Acute) Hypokalemia (Acute) Abscess of right buttock (Acute) Dehydration (Acute) Hypomagnesemia (Acute) Debility 2/2 Multiple Sclerosis. Complicated by Hypertension emergency, Hypokalemia, CKD stage II, and DM type II. Goal of rehab is christianity of functional independence. Plan: - Physical therapy for gait and balance - Occupational Therapy for ADLs - Speech therapy - As needed analgesics - Bowel protocol - DVT prophylaxis: SCDs, Jose hoses, Lovenox - Hypertensive emergency: blood pressure controlled -> on clonidine, Amlodipine, HCTZ, Cozaar Metoprolol, and Hydralazine was added this morning. Continue to monitor closely - viral gastroenteritis -> improved - Hypokalemia -> improved from 3.1 to 3.7 will continue to monitor and treat acc ordingly - Hx of Multiple sclerosis: Seen by our office, MRI brain was obtained it shows no active MS plaque but does indicate the total size and number of plaques has increased since 2007. Did not show any acute or subacute ischemic infarct - Hx of Diabetes type 2 => check BS AC and HS, continue home medication of metformin, decrease Lantus dose to 13 units at HS, high to moderate sliding sca le. Obtain hemoglobin A1C - Hx of depression continue home dose of Celexa and Wellbutrin - Hx of CKD Stage II -> continue to monitor BUN/Creatine - Yeast infection of groin and vagina area -> continue Nystatin cream to area - Blurry vision was present prior to stroke, now is worse => schedule ophthalmology appointment at discharge - At discharge schedule outpatient MRI head w/wo contrast, and lab work, will follow up with outpatient Neurology to manage her MS.
[2018-07-17 11:40] LABS: Bedside Glucose 157 mg/dL (70-110)
--- NOTE | 2018-07-17 14:28 | CASEMGMT ---
Social Work Consult obtained from nursing stating patient has financial concerns. Spoke with patient in room. Patient reporting to currently be on a limited income, social security disability and to be more concerned about how hospital bill would be paid. This social work faculty member noting that patient only has Medicare listed as insurance and wondering if patient has any other insurance. Patient stating to have Medicaid and to have been in the process of waiting on the approval letter for the renewal prior to coming to the hospital. This social work faculty member noting with patient that patient medicaid information may not be in file and that patient may need to bring in medicaid information once medicaid is approved to cover medical cost. Patient voicing understanding and expressing no other concerns at this time. Support given. Will continue to follow as needed. Liliane JACOBO, PORT SURVEYOR
--- NOTE | 2018-07-17 16:35 | PCM.PN.HOSP ---
Subjective: Patient is doing good with physical therapy. Blood pressure is fairly controlled, systolic in the 140s, diastolic in 80s Objective: General: Alert, Oriented x3, Cooperative HEENT: Atraumatic, PERRLA, EOMI, Normocephalic, Left eye diminished vision Neck: Supple, No JVD, Negative Carotid Bruits Lungs: Clear to auscultation, Normal air movement Cardiovascular: Regular rate, Normal S1, Normal S2, No murmurs Abdomen: Bowel Sounds Present, Soft, Non Tender Extremities: No edema, Capillary Refill Less than 3 Seconds Skin: No rashes, No breakdown Musculoskeletal: No Tenderness to Palpation of Joints or Extremities, Arthritic Changes Neurological: Cranial nerves II-XII grossly intact, Unsteady Gait Psych/Mental Status: Normal Affect, Appropriate Vitals/I&O's: Vital Signs Temp Pulse Resp BP Pulse Ox 98.7 F 75 18 147/89 H 95 07/17/18 06:50 07/17/18 07:52 07/17/18 06:50 07/17/18 07:52 07/17/18 06:50 Oxygen Delivery Method Room Air Weight: 214 lb 1.102 oz Body Mass Index (BMI) 32.8 Finger Stick Blood Glucose 419 Intake and Output for Last 24 Hours 07/15/18 07/16/18 07/17/18 23:59 23:59 23:59 Intake Total 680 / 680 220 / 220 120 / 120 Balance 680 / 680 220 / 220 120 / 120 Laboratory Results 07/16/18 17:08: POC Glucose 90 07/16/18 20:52: POC Glucose 147 H 07/17/18 03:01: POC Glucose 103 07/17/18 06:29: POC Glucose 159 H 07/17/18 11:33: POC Glucose 157 H Current Medications Acetaminophen (Tylenol) 650 mg PO Q6H PRN PRN PRN Reason: PAIN Amlodipine Besylate (Norvasc) 10 mg PO DAILY [facility] Last Admin: 07/17/18 07:53 Dose: 10 mg Aspirin (Aspirin, Baby) 81 mg PO DAILY@0800 [facility] Last Admin: 07/17/18 07:51 Dose: 81 mg Atorvastatin Calcium (Lipitor) 40 mg PO QHS [facility] Last Admin: 07/16/18 20:59 Dose: 40 mg Bisacodyl (Dulcolax) 10 mg RECTAL .PRN X 1 PRN PRN Reason: Constipation Bupropion HCl (Wellbutrin Xl) 300 mg PO DAILY [facility] Last Admin: 07/17/18 07:53 Dose: 300 mg Citalopram Hydrobromide (Celexa) 40 mg PO DAILY [facility] Last Admin: 07/17/18 07:53 Dose: 40 mg Clonidine (Catapres) 0.1 mg PO DAILY [facility] Last Admin: 07/17/18 07:52 Dose: 0.1 mg Enoxaparin Sodium (Lovenox) 40 mg SC DAILY@0600 [facility] Last Admin: 07/17/18 05:54 Dose: 40 mg Hydralazine HCl (Apresoline) 25 mg PO BID [facility] Last Admin: 07/17/18 07:51 Dose: 25 mg Hydrochlorothiazide (Hctz) 25 mg PO DAILY [facility] Last Admin: 07/17/18 07:52 Dose: 25 mg Insulin Glargine (Lantus (Bkc)) 13 units SC QHS [facility] Last Admin: 07/16/18 20:59 Dose: 13 u Insulin Human Lispro (Humalog Kwikpen (Bkc)) 0 unit SC TIDAC [facility]; Protocol Last Admin: 07/17/18 12:03 Dose: 2 units Insulin Human Lispro (Humalog Kwikpen (Bkc)) 10 unit SC TIDAC [facility] Last Admin: 07/17/18 12:04 Dose: 10 units Losartan Potassium (Cozaar) 100 mg PO DAILY [facility] Last Admin: 07/17/18 07:52 Dose: 100 mg Magnesium Hydroxide (Milk Of Magnesia) 30 ml PO .PRN X 1 PRN PRN Reason: Constipation [facility] ([facility]) [facility] Last Admin: 07/17/18 07:51 Dose: 1,000 mg Metoprolol Tartrate (Lopressor (Beta Zenon)) 100 mg PO BID [facility] Last Admin: 07/17/18 07:52 Dose: 100 mg Nystatin/Triamcinolone Acetonide (Mycolog) 1 applic TOPICAL 0600,2200 [facility]; Protocol Last Admin: 07/17/18 05:55 Dose: 1 applicatio Senna/Docusate Sodium (Senokot-S, Kathryn-Colace) 2 tablet PO BID [facility] Last Admin: 07/17/18 07:54 Dose: Not Given Medical Necessity - Tobacco Use Smoking Status: Never smoker Tobacco Use: Non-smoker Assessment/Plan All Active Problems Hypertensive emergency (Acute) Gastroenteritis (Acute) Metabolic alkalosis (Acute) Hypokalemia (Acute) Abscess of right buttock (Acute) Dehydration (Acute) Hypomagnesemia (Acute) This is a 58-year-old female with history of multiple sclerosis, hypertension and diabetes mellitus type 2, uncontrolled, CKD stage II was discharged from [facility] acute care hospital after she was managed for nausea, vomiting and diarrhea, dizziness, and hypertensive emergency. Hypertension emergency, most probably because she was not able to take antihypertensive medications. She has also multiple sclerosis and has diminished vision in the left eye and and subjective weakness in extremities. In acute rehab for PT/OT, speech and swallow evaluation and treatment 1. Multiple sclerosis: Seen by neurologist Dr. Melchor the hospital. He thinks there was no exacerbation of multiple sclerosis. Probably PRES secondary to hypertensive emergency. Neurologist consult appreciated. MRI brain was done and shows no active MS plaque but total size and number plaques has increased since 2007. No acute or subacute ischemic infarct. 2. Hypertensive emergency: The blood pressure is better controlled after starting clonidin. Continue on maximum dose of losartan HCTZ, Cozaar and amlodipine. On metoprolol. On hydralazine 25 mg oral twice daily. If patient blood pressure, systolic remains in 150s or diastolic in 90s, increase hydralazine to 25 mg 3 times daily. Now blood pressure seems fairly controlled. 2. viral gastroenteritis: Resolved 3. Hypokalemia: Resolved 5. DVT prophylaxis with Lovenox Laboratory Results 07/16/18 17:08: POC Glucose 90 07/16/18 20:52: POC Glucose 147 H 07/17/18 03:01: POC Glucose 103 07/17/18 06:29: POC Glucose 159 H 07/17/18 11:33: POC Glucose 157 H Active Medications Acetaminophen (Tylenol) 650 mg PO Q6H PRN PRN PRN Reason: PAIN Amlodipine Besylate (Norvasc) 10 mg PO DAILY [facility] Last Admin: 07/17/18 07:53 Dose: 10 mg Aspirin (Aspirin, Baby) 81 mg PO DAILY@0800 [facility] Last Admin: 07/17/18 07:51 Dose: 81 mg Atorvastatin Calcium (Lipitor) 40 mg PO QHS [facility] Last Admin: 07/16/18 20:59 Dose: 40 mg Bisacodyl (Dulcolax) 10 mg RECTAL .PRN X 1 PRN PRN Reason: Constipation Bupropion HCl (Wellbutrin Xl) 300 mg PO DAILY [facility] Last Admin: 07/17/18 07:53 Dose: 300 mg Citalopram Hydrobromide (Celexa) 40 mg PO DAILY [facility] Last Admin: 07/17/18 07:53 Dose: 40 mg Clonidine (Catapres) 0.1 mg PO DAILY [facility] Last Admin: 07/17/18 07:52 Dose: 0.1 mg Enoxaparin Sodium (Lovenox) 40 mg SC DAILY@0600 [facility] Last Admin: 07/17/18 05:54 Dose: 40 mg Hydralazine HCl (Apresoline) 25 mg PO BID [facility] Last Admin: 07/17/18 07:51 Dose: 25 mg Hydrochlorothiazide (Hctz) 25 mg PO DAILY [facility] Last Admin: 07/17/18 07:52 Dose: 25 mg Insulin Glargine (Lantus (Bkc)) 13 units SC QHS [facility] Last Admin: 07/16/18 20:59 Dose: 13 u Insulin Human Lispro (Humalog Kwikpen (Bkc)) 0 unit SC TIDAC [facility]; Protocol Last Admin: 07/17/18 12:03 Dose: 2 units Insulin Human Lispro (Humalog Kwikpen (Bkc)) 10 unit SC TIDAC [facility] Last Admin: 07/17/18 12:04 Dose: 10 units Losartan Potassium (Cozaar) 100 mg PO DAILY [facility] Last Admin: 07/17/18 07:52 Dose: 100 mg Magnesium Hydroxide (Milk Of Magnesia) 30 ml PO .PRN X 1 PRN PRN Reason: Constipation Metformin [facility] (Gluc[facility]) [facility] Last Admin: 07/17/18 07:51 Dose: 1,000 mg Metoprolol Tartrate (Lopressor (Beta Zenon)) 100 mg PO BID [facility] Last Admin: 07/17/18 07:52 Dose: 100 mg Nystatin/Triamcinolone Acetonide (Mycolog) 1 applic TOPICAL 0600,2200 [facility]; Protocol Last Admin: 07/17/18 05:55 Dose: 1 applicatio Senna/Docusate Sodium (Senokot-S, Kathryn-Colace) 2 tablet PO BID [facility] Last Admin: 07/17/18 07:54 Dose: Not Given Code Visit Inpatient E&M: 33020 Subs Hosp L3
--- NOTE | 2018-07-17 16:38 | PN_ITS ---
Subjective: Patient is doing good with physical therapy. Blood pressure is fairly controlled, systolic in the 140s, diastolic in 80s Objective: General: Alert, Oriented x3, Cooperative HEENT: Atraumatic, PERRLA, EOMI, Normocephalic, Left eye diminished vision Neck: Supple, No JVD, Negative Carotid Bruits Lungs: Clear to auscultation, Normal air movement Cardiovascular: Regular rate, Normal S1, Normal S2, No murmurs Abdomen: Bowel Sounds Present, Soft, Non Tender Extremities: No edema, Capillary Refill Less than 3 Seconds Skin: No rashes, No breakdown Musculoskeletal: No Tenderness to Palpation of Joints or Extremities, Arthritic Changes Neurological: Cranial nerves II-XII grossly intact, Unsteady Gait Psych/Mental Status: Normal Affect, Appropriate Vitals/I&O's: Vital Signs Temp Pulse Resp BP Pulse Ox 98.7 F 75 18 147/89 H 95 07/17/18 06:50 07/17/18 07:52 07/17/18 06:50 07/17/18 07:52 07/17/18 06:50 Oxygen Delivery Method Room Air Weight: 214 lb 1.102 oz Body Mass Index (BMI) 32.8 Finger Stick Blood Glucose 419 Intake and Output for Last 24 Hours 07/15/18 07/16/18 07/17/18 23:59 23:59 23:59 Intake Total 680 / 680 220 / 220 120 / 120 Balance 680 / 680 220 / 220 120 / 120 Laboratory Results 07/16/18 17:08: POC Glucose 90 07/16/18 20:52: POC Glucose 147 H 07/17/18 03:01: POC Glucose 103 07/17/18 06:29: POC Glucose 159 H 07/17/18 11:33: POC Glucose 157 H Current Medications Acetaminophen (Tylenol) 650 mg PO Q6H PRN PRN PRN Reason: PAIN Amlodipine Besylate (Norvasc) 10 mg PO DAILY [facility] Last Admin: 07/17/18 07:53 Dose: 10 mg Aspirin (Aspirin, Baby) 81 mg PO DAILY@0800 [facility] Last Admin: 07/17/18 07:51 Dose: 81 mg Atorvastatin Calcium (Lipitor) 40 mg PO QHS [facility] Last Admin: 07/16/18 20:59 Dose: 40 mg Bisacodyl (Dulcolax) 10 mg RECTAL .PRN X 1 PRN PRN Reason: Constipation Bupropion HCl (Wellbutrin Xl) 300 mg PO DAILY [facility] Last Admin: 07/17/18 07:53 Dose: 300 mg Citalopram Hydrobromide (Celexa) 40 mg PO DAILY [facility] Last Admin: 07/17/18 07:53 Dose: 40 mg Clonidine (Catapres) 0.1 mg PO DAILY [facility] Last Admin: 07/17/18 07:52 Dose: 0.1 mg Enoxaparin Sodium (Lovenox) 40 mg SC DAILY@0600 [facility] Last Admin: 07/17/18 05:54 Dose: 40 mg Hydralazine HCl (Apresoline) 25 mg PO BID [facility] Last Admin: 07/17/18 07:51 Dose: 25 mg Hydrochlorothiazide (Hctz) 25 mg PO DAILY [facility] Last Admin: 07/17/18 07:52 Dose: 25 mg Insulin Glargine (Lantus (Bkc)) 13 units SC QHS [facility] Last Admin: 07/16/18 20:59 Dose: 13 u Insulin Human Lispro (Humalog Kwikpen (Bkc)) 0 unit SC TIDAC [facility]; Protocol Last Admin: 07/17/18 12:03 Dose: 2 units Insulin Human Lispro (Humalog Kwikpen (Bkc)) 10 unit SC TIDAC [facility] Last Admin: 07/17/18 12:04 Dose: 10 units Losartan Potassium (Cozaar) 100 mg PO DAILY [facility] Last Admin: 07/17/18 07:52 Dose: 100 mg Magnesium Hydroxide (Milk Of Magnesia) 30 ml PO .PRN X 1 PRN PRN Reason: Constipation [facility] ([facility]) [facility] Last Admin: 07/17/18 07:51 Dose: 1,000 mg Metoprolol Tartrate (Lopressor (Beta Zenon)) 100 mg PO BID [facility] Last Admin: 07/17/18 07:52 Dose: 100 mg Nystatin/Triamcinolone Acetonide (Mycolog) 1 applic TOPICAL 0600,2200 [facility]; Protocol Last Admin: 07/17/18 05:55 Dose: 1 applicatio Senna/Docusate Sodium (Senokot-S, Kathryn-Colace) 2 tablet PO BID [facility] Last Admin: 07/17/18 07:54 Dose: Not Given Medical Necessity - Tobacco Use Smoking Status: Never smoker Tobacco Use: Non-smoker Assessment/Plan All Active Problems Hypertensive emergency (Acute) Gastroenteritis (Acute) Metabolic alkalosis (Acute) Hypokalemia (Acute) Abscess of right buttock (Acute) Dehydration (Acute) Hypomagnesemia (Acute) This is a 58-year-old female with history of multiple sclerosis, hypertension and diabetes mellitus type 2, uncontrolled, CKD stage II was discharged from [facility] acute care hospital after she was managed for nausea, vomiting and diarrhea, dizziness, and hypertensive emergency. Hypertension emergency, most probably because she was not able to take antihypertensive medications. She has also multiple sclerosis and has diminished vision in the left eye and and subjective weakness in extremities. In acute rehab for PT/OT, speech and swallow evaluation and treatment 1. Multiple sclerosis: Seen by neurologist Dr. Melchor the hospital. He thinks there was no exacerbation of multiple sclerosis. Probably PRES secondary to h ypertensive emergency. Neurologist consult appreciated. MRI brain was done and shows no active MS plaque but total size and number plaques has increased since 2007. No acute or subacute ischemic infarct. 2. Hypertensive emergency: The blood pressure is better controlled after starting clonidin. Continue on maximum dose of losartan HCTZ, Cozaar and amlodipine. On metoprolol. On hydralazine 25 mg oral twice daily. If patient blood pressure, systolic remains in 150s or diastolic in 90s, increase hydralazine to 25 mg 3 times daily. Now blood pressure seems fairly controlled. 2. viral gastroenteritis: Resolved 3. Hypokalemia: Resolved 5. DVT prophylaxis with Lovenox Laboratory Results 07/16/18 17:08: POC Glucose 90 07/16/18 20:52: POC Glucose 147 H 07/17/18 03:01: POC Glucose 103 07/17/18 06:29: POC Glucose 159 H 07/17/18 11:33: POC Glucose 157 H Active Medications Acetaminophen (Tylenol) 650 mg PO Q6H PRN PRN PRN Reason: PAIN Amlodipine Besylate (Norvasc) 10 mg PO DAILY [facility] Last Admin: 07/17/18 07:53 Dose: 10 mg Aspirin (Aspirin, Baby) 81 mg PO DAILY@0800 [facility] Last Admin: 07/17/18 07:51 Dose: 81 mg Atorvastatin Calcium (Lipitor) 40 mg PO QHS [facility] Last Admin: 07/16/18 20:59 Dose: 40 mg Bisacodyl (Dulcolax) 10 mg RECTAL .PRN X 1 PRN PRN Reason: Constipation Bupropion HCl (Wellbutrin Xl) 300 mg PO DAILY [facility] Last Admin: 07/17/18 07:53 Dose: 300 mg Citalopram Hydrobromide (Celexa) 40 mg PO DAILY [facility] Last Admin: 07/17/18 07:53 Dose: 40 mg Clonidine (Catapres) 0.1 mg PO DAILY [facility] Last Admin: 07/17/18 07:52 Dose: 0.1 mg Enoxaparin Sodium (Lovenox) 40 mg SC DAILY@0600 [facility] Last Admin: 07/17/18 05:54 Dose: 40 mg Hydralazine HCl (Apresoline) 25 mg PO BID [facility] Last Admin: 07/17/18 07:51 Dose: 25 mg Hydrochlorothiazide (Hctz) 25 mg PO DAILY [facility] Last Admin: 07/17/18 07:52 Dose: 25 mg Insulin Glargine (Lantus (Bkc)) 13 units SC QHS [facility] Last Admin: 07/16/18 20:59 Dose: 13 u Insulin Human Lispro (Humalog Kwikpen (Bkc)) 0 unit SC TIDAC [facility]; Protocol Last Admin: 07/17/18 12:03 Dose: 2 units Insulin Human Lispro (Humalog Kwikpen (Bkc)) 10 unit SC TIDAC [facility] Last Admin: 07/17/18 12:04 Dose: 10 units Losartan Potassium (Cozaar) 100 mg PO DAILY [facility] Last Admin: 07/17/18 07:52 Dose: 100 mg Magnesium Hydroxide (Milk Of Magnesia) 30 ml PO .PRN X 1 PRN PRN Reason: Constipation Metformin [facility] (Glucophage) [facility] Last Admin: 07/17/18 07:51 Dose: 1,000 mg Metoprolol Tartrate (Lopressor (Beta Zenon)) 100 mg PO BID [facility] Last Admin: 07/17/18 07:52 Dose: 100 mg Nystatin/Triamcinolone Acetonide (Mycolog) 1 applic TOPICAL 0600,2200 [facility]; Protocol Last Admin: 07/17/18 05:55 Dose: 1 applicatio Senna/Docusate Sodium (Senokot-S, Kathryn-Colace) 2 tablet PO BID [facility] Last Admin: 07/17/18 07:54 Dose: Not Given Code Visit Inpatient E&M: 89485 Subs Hosp L3
[2018-07-17 16:46] LABS: Bedside Glucose 84 mg/dL (70-110)
[2018-07-17] MEDS: Atorvastatin Calcium 40 MG Tablet PO (21:55)
[2018-07-17 22:06] LABS: Bedside Glucose 161 mg/dL (70-110)
[2018-07-18] VITALS (7 sets, daily range): BP systolic 138–144; BP diastolic 76–83; PULSE 66–70; RESP 16; TEMP 36.9; O2SAT 98
[2018-07-18 02:41] LABS: Bedside Glucose 226 mg/dL (70-110)
[2018-07-18] MEDS: Nystatin/Triamcin Cream Tube 1 APPLIC TOPICAL ×2 (06:00→21:28)
[2018-07-18] MEDS: Enoxaparin 40 MG/0.4 ML Syringe SC (06:01)
[2018-07-18 06:36] LABS: Bedside Glucose 185 mg/dL (70-110)
[2018-07-18] MEDS: Insulin Lispro 100 UNIT/ML INSULN.PEN 10 UNIT SC ×2 (07:23→12:13)
[2018-07-18] MEDS: Insulin Lispro 100 UNIT/ML INSULN.PEN SC ×2 (07:23→12:12)
[2018-07-18] MEDS: metFORMIN HCl 1,000 MG Tablet 1000 MG PO ×2 (07:24→18:34)
[2018-07-18] MEDS: Losartan Potassium 100 MG Tablet PO (07:24)
[2018-07-18] MEDS: hydroCHLOROthiazide 25 MG Tablet PO (07:24)
[2018-07-18] MEDS: hydrALAZINE 25 MG Tablet PO ×2 (07:24→21:34)
[2018-07-18] MEDS: cloNIDine HCl 0.1 MG Tablet PO (07:24)
[2018-07-18] MEDS: Citalopram 20 MG Tablet 40 MG PO (07:24)
[2018-07-18] MEDS: buPROPion (XL) 300 MG TABLET.XL PO (07:24)
[2018-07-18] MEDS: amLODIPine 10 MG Tablet PO (07:24)
[2018-07-18] MEDS: Metoprolol Tartrate 100 MG Tablet PO (07:25)
[2018-07-18] MEDS: Aspirin 81 MG TAB.CHEW PO (07:25)
--- NOTE | 2018-07-18 09:48 | NURSING ---
Amita EXECUTIVE COORDINATOR aware of patient feeling intermittent dizziness after taking blood pressure medications. bp today was 138/83 and pulse 66 before receiving medications. Cozaar decreased to 75 mg and lopressor decreased to 75 mg after Amita EXECUTIVE COORDINATOR reviewed blood pressures and mediation list.
[2018-07-18 11:26] LABS: Bedside Glucose 162 mg/dL (70-110)
--- NOTE | 2018-07-18 12:38 | PCM.PN.NEU ---
Subjective: Patient seen and examined. No new complaints. Continues to have blurry vision left eye worse than right. Tolerating therapy, no issues with GI/. - Physical Exam General: Alert, Oriented x3, Cooperative HEENT: Atraumatic, PERRLA, EOMI, Normocephalic Neck: Supple, No JVD, Negative Carotid Bruits Lungs: Clear to auscultation, Normal air movement Cardiovascular: Regular rate, No murmurs Abdomen: Bowel Sounds Present, Soft, Non Tender Extremities: No edema, Capillary Refill Less than 3 Seconds Skin: No rashes, No breakdown Musculoskeletal: No Tenderness to Palpation of Joints or Extremities Neurological: Cranial nerves II-XII grossly intact Psych/Mental Status: Normal Affect, Appropriate, Alert and oriented to time, place, person, mood and affect Vital Signs Temp Pulse Resp BP Pulse Ox 98.5 F 66 16 138/83 H 98 07/18/18 07:22 07/18/18 07:25 07/18/18 07:22 07/18/18 07:22 07/18/18 07:22 Oxygen Delivery Method Room Air Weight: 97.1 kg Body Mass Index (BMI) 32.8 Finger Stick Blood Glucose 419 Intake and Output for Last 24 Hours 07/16/18 07/17/18 07/18/18 23:59 23:59 23:59 Intake Total 220 / 220 120 / 120 720 / 720 Balance 220 / 220 120 / 120 720 / 720 POC Glucose 07/18/18 07/18/18 07/18/18 11:20 06:28 02:36 POC Glucose 162 H 185 H 226 H 07/17/18 07/17/18 21:48 16:42 POC Glucose 161 H 84 Active Medications Acetaminophen (Tylenol) 650 mg PO Q6H PRN PRN PRN Reason: PAIN Amlodipine Besylate (Norvasc) 10 mg PO DAILY [facility] Last Admin: 07/18/18 07:24 Dose: 10 mg Aspirin (Aspirin, Baby) 81 mg PO DAILY@0800 [facility] Last Admin: 07/18/18 07:25 Dose: 81 mg Atorvastatin Calcium (Lipitor) 40 mg PO QHS [facility] Last Admin: 07/17/18 21:55 Dose: 40 mg Bisacodyl (Dulcolax) 10 mg RECTAL .PRN X 1 PRN PRN Reason: Constipation Bupropion HCl (Wellbutrin Xl) 300 mg PO DAILY [facility] Last Admin: 07/18/18 07:24 Dose: 300 mg Citalopram Hydrobromide (Celexa) 40 mg PO DAILY [facility] Last Admin: 07/18/18 07:24 Dose: 40 mg Clonidine (Catapres) 0.1 mg PO DAILY [facility] Last Admin: 07/18/18 07:24 Dose: 0.1 mg Enoxaparin Sodium (Lovenox) 40 mg SC DAILY@0600 [facility] Last Admin: 07/18/18 06:01 Dose: 40 mg Hydralazine HCl (Apresoline) 25 mg PO BID [facility] Last Admin: 07/18/18 07:24 Dose: 25 mg Hydrochlorothiazide (Hctz) 25 mg PO DAILY [facility] Last Admin: 07/18/18 07:24 Dose: 25 mg Insulin Glargine (Lantus (Bkc)) 13 units SC QHS [facility] Last Admin: 07/17/18 21:56 Dose: 13 u Insulin Human Lispro (Humalog Kwikpen (Bkc)) 0 unit SC TIDAC [facility]; Protocol Last Admin: 07/18/18 12:12 Dose: 2 units Insulin Human Lispro (Humalog Kwikpen (Bkc)) 10 unit SC TIDAC [facility] Last Admin: 07/18/18 12:13 Dose: 10 units Losartan Potassium (Cozaar) 75 mg PO DAILY [facility] Magnesium Hydroxide (Milk Of Magnesia) 30 ml PO .PRN X 1 PRN PRN Reason: Constipation Metformin [facility] (Gluc[facility]) [facility] Last Admin: 07/18/18 07:24 Dose: 1,000 mg Metoprolol Tartrate (Lopressor (Beta Zenon)) 75 mg PO BID [facility] Nystatin/Triamcinolone Acetonide (Mycolog) 1 applic TOPICAL 0600,2200 [facility]; Protocol Last Admin: 07/18/18 06:00 Dose: 1 applicatio Senna/Docusate Sodium (Senokot-S, Kathryn-Colace) 2 tablet PO BID [facility] Last Admin: 07/18/18 07:23 Dose: Not Given Medical Necessity - Tobacco Use Smoking Status: Never smoker Tobacco Use: Non-smoker Assessment/Plan All Active Problems Hypertensive emergency (Acute) Gastroenteritis (Acute) Metabolic alkalosis (Acute) Hypokalemia (Acute) Abscess of right buttock (Acute) Dehydration (Acute) Hypomagnesemia (Acute) Debility 2/2 Multiple Sclerosis. Complicated by Hypertension emergency, Hypokalemia, CKD stage II, and DM type II. Goal of rehab is [facility] of functional independence. Plan: - Physical therapy for gait and balance - Occupational Therapy for ADLs - Speech therapy - As needed analgesics - Bowel protocol - DVT prophylaxis: SCDs, Jose hoses, Lovenox - Hypertensive emergency: blood pressure controlled -> on clonidine, Amlodipine, HCTZ, Cozaar Metoprolol, and Hydralazine was added this morning. Continue to monitor closely - viral gastroenteritis -> improved - Hypokalemia -> improved from 3.1 to 3.7 will continue to monitor and treat accordingly - Hx of Multiple sclerosis: Seen by our office, MRI brain was obtained it shows no active MS plaque but does indicate the total size and number of plaques has increased since 2007. Did not show any acute or subacute ischemic infarct - Hx of Diabetes type 2 => check BS AC and HS, continue home medication of metformin, decrease Lantus dose to 13 units at HS, high to moderate sliding scale. Obtain hemoglobin A1C - Hx of depression continue home dose of Celexa and Wellbutrin - Hx of CKD Stage II -> continue to monitor BUN/Creatine - Yeast infection of groin and vagina area -> continue Nystatin cream to area - Blurry vision was present prior to stroke, now is worse => schedule ophthalmology appointment at discharge - At discharge schedule outpatient MRI head w/wo contrast, and lab work, will follow up with outpatient Neurology to manage her MS.
--- NOTE | 2018-07-18 12:41 | PN.NEURO_ITS ---
Subjective: Patient seen and examined. No new complaints. Continues to have blurry vision left eye worse than right. Tolerating therapy, no issues with GI/. - Physical Exam General: Alert, Oriented x3, Cooperative HEENT: Atraumatic, PERRLA, EOMI, Normocephalic Neck: Supple, No JVD, Negative Carotid Bruits Lungs: Clear to auscultation, Normal air movement Cardiovascular: Regular rate, No murmurs Abdomen: Bowel Sounds Present, Soft, Non Tender Extremities: No edema, Capillary Refill Less than 3 Seconds Skin: No rashes, No breakdown Musculoskeletal: No Tenderness to Palpation of Joints or Extremities Neurological: Cranial nerves II-XII grossly intact Psych/Mental Status: Normal Affect, Appropriate, Alert and oriented to time, place, person, mood and affect Vital Signs Temp Pulse Resp BP Pulse Ox 98.5 F 66 16 138/83 H 98 07/18/18 07:22 07/18/18 07:25 07/18/18 07:22 07/18/18 07:22 07/18/18 07:22 Oxygen Delivery Method Room Air Weight: 97.1 kg Body Mass Index (BMI) 32.8 Finger Stick Blood Glucose 419 Intake and Output for Last 24 Hours 07/16/18 07/17/18 07/18/18 23:59 23:59 23:59 Intake Total 220 / 220 120 / 120 720 / 720 Balance 220 / 220 120 / 120 720 / 720 POC Glucose 07/18/18 07/18/18 07/18/18 11:20 06:28 02:36 POC Glucose 162 H 185 H 226 H 07/17/18 07/17/18 21:48 16:42 POC Glucose 161 H 84 Active Medications Acetaminophen (Tylenol) 650 mg PO Q6H PRN PRN PRN Reason: PAIN Amlodipine Besylate (Norvasc) 10 mg PO DAILY [facility] Last Admin: 07/18/18 07:24 Dose: 10 mg Aspirin (Aspirin, Baby) 81 mg PO DAILY@0800 [facility] Last Admin: 07/18/18 07:25 Dose: 81 mg Atorvastatin Calcium (Lipitor) 40 mg PO QHS [facility] Last Admin: 07/17/18 21:55 Dose: 40 mg Bisacodyl (Dulcolax) 10 mg RECTAL .PRN X 1 PRN PRN Reason: Constipation Bupropion HCl (Wellbutrin Xl) 300 mg PO DAILY [facility] Last Admin: 07/18/18 07:24 Dose: 300 mg Citalopram Hydrobromide (Celexa) 40 mg PO DAILY [facility] Last Admin: 07/18/18 07:24 Dose: 40 mg Clonidine (Catapres) 0.1 mg PO DAILY [facility] Last Admin: 07/18/18 07:24 Dose: 0.1 mg Enoxaparin Sodium (Lovenox) 40 mg SC DAILY@0600 [facility] Last Admin: 07/18/18 06:01 Dose: 40 mg Hydralazine HCl (Apresoline) 25 mg PO BID [facility] Last Admin: 07/18/18 07:24 Dose: 25 mg Hydrochlorothiazide (Hctz) 25 mg PO DAILY [facility] Last Admin: 07/18/18 07:24 Dose: 25 mg Insulin Glargine (Lantus (Bkc)) 13 units SC QHS [facility] Last Admin: 07/17/18 21:56 Dose: 13 u Insulin Human Lispro (Humalog Kwikpen (Bkc)) 0 unit SC TIDAC [facility]; Protocol Last Admin: 07/18/18 12:12 Dose: 2 units Insulin Human Lispro (Humalog Kwikpen (Bkc)) 10 unit SC TIDAC [facility] Last Admin: 07/18/18 12:13 Dose: 10 units Losartan Potassium (Cozaar) 75 mg PO DAILY [facility] Magnesium Hydroxide (Milk Of Magnesia) 30 ml PO .PRN X 1 PRN PRN Reason: Constipation Metformin [facility] ([facility]) [facility] Last Admin: 07/18/18 07:24 Dose: 1,000 mg Metoprolol Tartrate (Lopressor (Beta Zenon)) 75 mg PO BID [facility] Nystatin/Triamcinolone Acetonide (Mycolog) 1 applic TOPICAL 0600,2200 [facility]; Protocol Last Admin: 07/18/18 06:00 Dose: 1 applicatio Senna/Docusate Sodium (Senokot-S, Kathryn-Colace) 2 tablet PO BID [facility] Last Admin: 07/18/18 07:23 Dose: Not Given Medical Necessity - Tobacco Use Smoking Status: Never smoker Tobacco Use: Non-smoker Assessment/Plan All Active Problems Hypertensive emergency (Acute) Gastroenteritis (Acute) Metabolic alkalosis (Acute) Hypokalemia (Acute) Abscess of right buttock (Acute) Dehydration (Acute) Hypomagnesemia (Acute) Debility 2/2 Multiple Sclerosis. Complicated by Hypertension emergency, Hypokalemia, CKD stage II, and DM type II. Goal of rehab is [facility] of functional independence. Plan: - Physical therapy for gait and balance - Occupational Therapy for ADLs - Speech therapy - As needed analgesics - Bowel protocol - DVT prophylaxis: SCDs, Jose hoses, Lovenox - Hypertensive emergency: blood pressure controlled -> on clonidine, Amlodipine, HCTZ, Cozaar Metoprolol, and Hydralazine was added this morning. Continue to monitor closely - viral gastroenteritis -> improved - Hypokalemia -> improved from 3.1 to 3.7 will continue to monitor and treat accordingly - Hx of Multiple sclerosis: Seen by our office, MRI brain was obtained it shows no active MS plaque but does indicate the total size and number of plaques has increased since 2007. Did not show any acute or subacute ischemic infarct - Hx of Diabetes type 2 => check BS AC and HS, continue home medication of metformin, decrease Lantus dose to 13 units at HS, high to moderate sliding scale. Obtain hemoglobin A1C - Hx of depression continue home dose of Celexa and Wellbutrin - Hx of CKD Stage II -> continue to monitor BUN/Creatine - Yeast infection of groin and vagina area -> continue Nystatin cream to area - Blurry vision was present prior to stroke, now is worse => schedule ophthalmology appointment at discharge - At discharge schedule outpatient MRI head w/wo contrast, and lab work, will follow up with outpatient Neurology to manage her MS.
[2018-07-18 17:11] LABS: Bedside Glucose 85 mg/dL (70-110)
[2018-07-18 18:30] LABS: Bedside Glucose 136 mg/dL (70-110)
[2018-07-18] MEDS: Metoprolol Tartrate 100 MG Tablet 75 MG PO (21:29)
[2018-07-18] MEDS: Atorvastatin Calcium 40 MG Tablet PO (21:32)
[2018-07-18 22:00] LABS: Bedside Glucose 206 mg/dL (70-110)
[2018-07-19 02:56] LABS: Bedside Glucose 159 mg/dL (70-110)
[2018-07-19] MEDS: Nystatin/Triamcin Cream Tube 1 APPLIC TOPICAL ×2 (05:48→21:10)
[2018-07-19] MEDS: Enoxaparin 40 MG/0.4 ML Syringe SC (05:48)
[2018-07-19 06:26] LABS: Bedside Glucose 179 mg/dL (70-110)
[2018-07-19] MEDS: Insulin Lispro 100 UNIT/ML INSULN.PEN SC ×2 (08:21→11:51)
[2018-07-19] MEDS: Insulin Lispro 100 UNIT/ML INSULN.PEN 10 UNIT SC ×3 (08:21→17:15)
[2018-07-19 08:32] VITALS: BP 151/79; PULSE 71
[2018-07-19] MEDS: hydroCHLOROthiazide 25 MG Tablet PO (08:34)
[2018-07-19] MEDS: Citalopram 20 MG Tablet 40 MG PO (08:34)
[2018-07-19 08:35] VITALS: BP 151/79; PULSE 71
[2018-07-19] MEDS: amLODIPine 10 MG Tablet PO (08:35)
[2018-07-19] MEDS: Aspirin 81 MG TAB.CHEW PO (08:35)
[2018-07-19] MEDS: cloNIDine HCl 0.1 MG Tablet PO (08:35)
[2018-07-19] MEDS: hydrALAZINE 25 MG Tablet PO ×2 (08:35→21:08)
[2018-07-19] MEDS: metFORMIN HCl 1,000 MG Tablet 1000 MG PO ×2 (08:35→17:16)
[2018-07-19] MEDS: Losartan Potassium 50 MG Tablet 75 MG PO (08:37)
[2018-07-19] MEDS: buPROPion (XL) 300 MG TABLET.XL PO (08:39)
[2018-07-19 11:37] VITALS: BP 151/79; PULSE 71
[2018-07-19] MEDS: Metoprolol Tartrate 50 MG Tablet 75 MG PO ×2 (11:37→21:06)
[2018-07-19 11:51] LABS: Bedside Glucose 171 mg/dL (70-110)
--- NOTE | 2018-07-19 15:40 | PN_ITS ---
Subjective: Patient has no complaints. Vital signs are stable. Systolic blood pressure in 140s- lower 150s Objective: General: Alert, Oriented x3, Cooperative HEENT: Atraumatic, PERRLA, EOMI, Normocephalic, Left eye diminished vision Neck: Supple, No JVD, Negative Carotid Bruits Lungs: Clear to auscultation, Normal air movement Cardiovascular: Regular rate, Normal S1, Normal S2, No murmurs Abdomen: Bowel Sounds Present, Soft, Non Tender Extremities: No edema, Capillary Refill Less than 3 Seconds Skin: No rashes, No breakdown Musculoskeletal: No Tenderness to Palpation of Joints or Extremities, Arthritic Changes Neurological: Cranial nerves II-XII grossly intact, Unsteady Gait Psych/Mental Status: Normal Affect, Appropriate Vitals/I&O's: Vital Signs Temp Pulse Resp BP Pulse Ox 98.4 F 71 16 151/79 H 98 07/18/18 20:31 07/19/18 11:37 07/18/18 20:31 07/19/18 11:37 07/18/18 20:31 Oxygen Delivery Method Room Air Weight: 214 lb 1.102 oz Body Mass Index (BMI) 32.8 Finger Stick Blood Glucose 419 Intake and Output for Last 24 Hours 07/17/18 07/18/18 07/19/18 23:59 23:59 23:59 Intake Total 120 / 120 720 / 720 360 / 360 Balance 120 / 120 720 / 720 360 / 360 Laboratory Results 07/18/18 17:07: POC Glucose 85 07/18/18 18:27: POC Glucose 136 H 07/18/18 21:27: POC Glucose 206 H 07/19/18 02:53: POC Glucose 159 H 07/19/18 06:21: POC Glucose 179 H 07/19/18 11:43: POC Glucose 171 H Current Medications Acetaminophen (Tylenol) 650 mg PO Q6H PRN PRN PRN Reason: PAIN Amlodipine Besylate (Norvasc) 10 mg PO DAILY [facility] Last Admin: 07/19/18 08:35 Dose: 10 mg Aspirin (Aspirin, Baby) 81 mg PO DAILY@0800 [facility] Last Admin: 07/19/18 08:35 Dose: 81 mg Atorvastatin Calcium (Lipitor) 40 mg PO QHS [facility] Last Admin: 07/18/18 21:32 Dose: 40 mg Bisacodyl (Dulcolax) 10 mg RECTAL .PRN X 1 PRN PRN Reason: Constipation Bupropion HCl (Wellbutrin Xl) 300 mg PO DAILY [facility] Last Admin: 07/19/18 08:39 Dose: 300 mg Citalopram Hydrobromide (Celexa) 40 mg PO DAILY [facility] Last Admin: 07/19/18 08:34 Dose: 40 mg Clonidine (Catapres) 0.1 mg PO DAILY [facility] Last Admin: 07/19/18 08:35 Dose: 0.1 mg Enoxaparin Sodium (Lovenox) 40 mg SC DAILY@0600 [facility] Last Admin: 07/19/18 05:48 Dose: 40 mg Hydralazine HCl (Apresoline) 25 mg PO BID [facility] Last Admin: 07/19/18 08:35 Dose: 25 mg Hydrochlorothiazide (Hctz) 25 mg PO DAILY [facility] Last Admin: 07/19/18 08:34 Dose: 25 mg Insulin Glargine (Lantus (Bkc)) 13 units SC QHS [facility] Last Admin: 07/18/18 21:32 Dose: 13 u Insulin Human Lispro (Humalog Kwikpen (Bkc)) 0 unit SC TIDAC [facility]; Protocol Last Admin: 07/19/18 11:51 Dose: 2 units Insulin Human Lispro (Humalog Kwikpen (Bkc)) 10 unit SC TIDAC [facility] Last Admin: 07/19/18 11:52 Dose: 10 units Losartan Potassium (Cozaar) 75 mg PO DAILY [facility] Last Admin: 07/19/18 08:37 Dose: 75 mg Magnesium Hydroxide (Milk Of Magnesia) 30 ml PO .PRN X 1 PRN PRN Reason: Constipation Metformin [facility] (Gluc[facility]) [facility] Last Admin: 07/19/18 08:35 Dose: 1,000 mg Metoprolol Tartrate (Lopressor (Beta Zenon)) 75 mg PO BID [facility] Last Admin: 07/19/18 11:37 Dose: 75 mg Nystatin/Triamcinolone Acetonide (Mycolog) 1 applic TOPICAL 0600,2200 [facility]; Protocol Last Admin: 07/19/18 05:48 Dose: 1 applicatio Senna/Docusate Sodium (Senokot-S, Kathryn-Colace) 2 tablet PO BID [facility] Last Admin: 07/19/18 08:39 Dose: Not Given Medical Necessity - Tobacco Use Smoking Status: Never smoker Tobacco Use: Non-smoker Assessment/Plan All Active Problems Hypertensive emergency (Acute) Gastroenteritis (Acute) Metabolic alkalosis (Acute) Hypokalemia (Acute) Abscess of right buttock (Acute) Dehydration (Acute) Hypomagnesemia (Acute) This is a 58-year-old female with history of multiple sclerosis, hypertension and diabetes mellitus type 2, uncontrolled, CKD stage II was discharged from [facility] acute care hospital after she was managed for nausea, vomiting and diarrhea, dizziness, and hypertensive emergency. Hypertension emergency, most probably because she was not able to take antihypertensive medications. She has also multiple sclerosis and has diminished vision in the left eye and and subjective weakness in extremities. In acute rehab for PT/OT, speech and swallow evaluation and treatment 1. Multiple sclerosis: Seen by neurologist Dr. Melchor the hospital. He thinks there was no exacerbation of multiple sclerosis. Probably PRES secondary to hypertensive emergency. Neurologist consult appreciated. MRI brain was done and shows no active MS plaque but total size and number plaques has increased since 2007. No acute or subacute ischemic infarct. 2. Hypertensive emergency: The blood pressure is better controlled after starting clonidin. Continue on maximum dose of losartan HCTZ, Cozaar and amlodipine. On metoprolol. On hydralazine 25 mg oral twice daily. If patient blood pressure, systolic remains in 150s or diastolic in 90s, increase hydralazine to 25 mg 3 times daily. Now blood pressure seems fairly controlled. 2. viral gastroenteritis: Resolved 3. Hypokalemia: Resolved 5. DVT prophylaxis with Lovenox Laboratory Results 07/16/18 17:08: POC Glucose 90 07/16/18 20:52: POC Glucose 147 H 07/17/18 03:01: POC Glucose 103 07/17/18 06:29: POC Glucose 159 H 07/17/18 11:33: POC Glucose 157 H Active Medications Acetaminophen (Tylenol) 650 mg PO Q6H PRN PRN PRN Reason: PAIN Amlodipine Besylate (Norvasc) 10 mg PO DAILY [facility] Last Admin: 07/19/18 08:35 Dose: 10 mg Aspirin (Aspirin, Baby) 81 mg PO DAILY@0800 [facility] Last Admin: 07/19/18 08:35 Dose: 81 mg Atorvastatin Calcium (Lipitor) 40 mg PO QHS [facility] Last Admin: 07/18/18 21:32 Dose: 40 mg Bisacodyl (Dulcolax) 10 mg RECTAL .PRN X 1 PRN PRN Reason: Constipation Bupropion HCl (Wellbutrin Xl) 300 mg PO DAILY [facility] Last Admin: 07/19/18 08:39 Dose: 300 mg Citalopram Hydrobromide (Celexa) 40 mg PO DAILY [facility] Last Admin: 07/19/18 08:34 Dose: 40 mg Clonidine (Catapres) 0.1 mg PO DAILY [facility] Last Admin: 07/19/18 08:35 Dose: 0.1 mg Enoxaparin Sodium (Lovenox) 40 mg SC DAILY@0600 [facility] Last Admin: 07/19/18 05:48 Dose: 40 mg Hydralazine HCl (Apresoline) 25 mg PO BID [facility] Last Admin: 07/19/18 08:35 Dose: 25 mg Hydrochlorothiazide (Hctz) 25 mg PO DAILY [facility] Last Admin: 07/19/18 08:34 Dose: 25 mg Insulin Glargine (Lantus (Bkc)) 13 units SC QHS [facility] Last Admin: 07/18/18 21:32 Dose: 13 u Insulin Human Lispro (Humalog Kwikpen (Bkc)) 0 unit SC TIDAC [facility]; Protocol Last Admin: 07/19/18 11:51 Dose: 2 units Insulin Human Lispro (Humalog Kwikpen (Bkc)) 10 unit SC TIDAC [facility] Last Admin: 07/19/18 11:52 Dose: 10 units Losartan Potassium (Cozaar) 75 mg PO DAILY [facility] Last Admin: 07/19/18 08:37 Dose: 75 mg Magnesium Hydroxide (Milk Of Magnesia) 30 ml PO .PRN X 1 PRN PRN Reason: Constipation Metformin HCl (Glucophage) 1,[facility] Last Admin: 07/19/18 08:35 Dose: 1,000 mg Metoprolol Tartrate (Lopressor (Beta Zenon)) 75 mg PO BID [facility] Last Admin: 07/19/18 11:37 Dose: 75 mg Nystatin/Triamcinolone Acetonide (Mycolog) 1 applic TOPICAL 0600,2200 [facility]; Protocol Last Admin: 07/19/18 05:48 Dose: 1 applicatio Senna/Docusate Sodium (Senokot-S, Kathryn-Colace) 2 tablet PO BID [facility] Last Admin: 07/19/18 08:39 Dose: Not Given Code Visit Inpatient E&M: 24861 Subs Hosp L2
[2018-07-19 17:16] LABS: Bedside Glucose 135 mg/dL (70-110)
--- NOTE | 2018-07-19 18:12 | NURSING ---
Staff walked pt 1 lap around the unit floor. pt tolerated well.
[2018-07-19 18:13] VITALS: BP 127/72; PULSE 66; RESP 16; TEMP 36.5; O2SAT 100
--- NOTE | 2018-07-19 18:50 | NURSING ---
pt did nustep for 10mins tolerated well.
[2018-07-19 20:50] LABS: Bedside Glucose 142 mg/dL (70-110)
[2018-07-19 21:06] VITALS: PULSE 72
[2018-07-19 21:08] VITALS: PULSE 72
[2018-07-19] MEDS: Atorvastatin Calcium 40 MG Tablet PO (21:08)
[2018-07-20 03:40] LABS: Bedside Glucose 174 mg/dL (70-110)
[2018-07-20] MEDS: Nystatin/Triamcin Cream Tube 1 APPLIC TOPICAL ×2 (06:19→20:30)
[2018-07-20] MEDS: Enoxaparin 40 MG/0.4 ML Syringe SC (06:20)
[2018-07-20 06:56] LABS: Bedside Glucose 180 mg/dL (70-110)
[2018-07-20] MEDS: Insulin Lispro 100 UNIT/ML INSULN.PEN SC ×3 (07:39→17:18)
[2018-07-20] MEDS: Insulin Lispro 100 UNIT/ML INSULN.PEN 10 UNIT SC ×3 (07:39→17:18)
[2018-07-20] MEDS: Aspirin 81 MG TAB.CHEW PO (07:40)
[2018-07-20] MEDS: amLODIPine 10 MG Tablet PO (07:40)
[2018-07-20] MEDS: hydroCHLOROthiazide 25 MG Tablet PO (07:40)
[2018-07-20] MEDS: buPROPion (XL) 300 MG TABLET.XL PO (07:40)
[2018-07-20] MEDS: Losartan Potassium 50 MG Tablet 75 MG PO (07:40)
[2018-07-20] MEDS: Citalopram 20 MG Tablet 40 MG PO (07:41)
[2018-07-20 07:42] VITALS: BP 152/78; PULSE 64
[2018-07-20] MEDS: hydrALAZINE 25 MG Tablet PO (07:42)
[2018-07-20] MEDS: metFORMIN HCl 1,000 MG Tablet 1000 MG PO ×2 (07:42→17:19)
[2018-07-20] MEDS: cloNIDine HCl 0.1 MG Tablet PO (07:42)
[2018-07-20 07:43] VITALS: BP 152/78; PULSE 64
[2018-07-20] MEDS: Metoprolol Tartrate 50 MG Tablet 75 MG PO ×2 (07:43→20:27)
[2018-07-20 09:13] VITALS: BP 152/78; PULSE 64; RESP 16; TEMP 36.7; O2SAT 98
[2018-07-20 12:01] LABS: Bedside Glucose 197 mg/dL (70-110)
--- NOTE | 2018-07-20 13:09 | NURSING ---
Pt walked a couple of laps in hallway and did nustep.
[2018-07-20 17:05] LABS: Bedside Glucose 152 mg/dL (70-110)
[2018-07-20 20:26] VITALS: BP 126/70; PULSE 68
[2018-07-20 20:27] VITALS: BP 126/70; PULSE 68
[2018-07-20] MEDS: Atorvastatin Calcium 40 MG Tablet PO (20:27)
[2018-07-20 20:43] VITALS: BP 126/70; PULSE 108; RESP 16; TEMP 36.6; O2SAT 98
[2018-07-20 20:45] LABS: Bedside Glucose 121 mg/dL (70-110)
[2018-07-21] VITALS (7 sets, daily range): BP systolic 99–157; BP diastolic 59–84; PULSE 67–69; RESP 18; TEMP 36.7; O2SAT 95
[2018-07-21 03:06] LABS: Bedside Glucose 140 mg/dL (70-110)
[2018-07-21] MEDS: Enoxaparin 40 MG/0.4 ML Syringe SC (06:12)
[2018-07-21 06:26] LABS: Bedside Glucose 133 mg/dL (70-110)
[2018-07-21] MEDS: hydrALAZINE 25 MG Tablet PO ×2 (07:56→21:47)
[2018-07-21] MEDS: Citalopram 20 MG Tablet 40 MG PO (07:56)
[2018-07-21] MEDS: cloNIDine HCl 0.1 MG Tablet PO (07:56)
[2018-07-21] MEDS: metFORMIN HCl 1,000 MG Tablet 1000 MG PO ×2 (07:57→17:14)
[2018-07-21] MEDS: Metoprolol Tartrate 50 MG Tablet 75 MG PO (07:57)
[2018-07-21] MEDS: hydroCHLOROthiazide 25 MG Tablet PO (07:58)
[2018-07-21] MEDS: Insulin Lispro 100 UNIT/ML INSULN.PEN 10 UNIT SC ×3 (07:58→17:14)
[2018-07-21] MEDS: Aspirin 81 MG TAB.CHEW PO (07:59)
[2018-07-21] MEDS: Losartan Potassium 50 MG Tablet 75 MG PO (07:59)
[2018-07-21] MEDS: buPROPion (XL) 300 MG TABLET.XL PO (07:59)
[2018-07-21] MEDS: amLODIPine 10 MG Tablet PO (08:00)
--- NOTE | 2018-07-21 09:27 | PCM.PN.NEU ---
Subjective: Patient seen and examined. No acute events over night. She is Tolerating therapy. Patient continues to have blurry vision, denies any double vision, or headaches. - Physical Exam General: Alert, Oriented x3, Cooperative HEENT: Atraumatic, PERRLA, EOMI, Normocephalic Neck: Supple, No JVD, Negative Carotid Bruits Lungs: Clear to auscultation, Normal air movement Cardiovascular: Regular rate, No murmurs Abdomen: Bowel Sounds Present, Soft, Non Tender Extremities: No edema, Capillary Refill Less than 3 Seconds Skin: No rashes, No breakdown Musculoskeletal: No Tenderness to Palpation of Joints or Extremities Neurological: Cranial nerves II-XII grossly intact Psych/Mental Status: Normal Affect, Appropriate, Alert and oriented to time, place, person, mood and affect Vital Signs Temp Pulse Resp BP Pulse Ox 98.0 F 68 18 149/80 H 95 07/21/18 07:36 07/21/18 07:57 07/21/18 07:36 07/21/18 07:36 07/21/18 07:36 Oxygen Delivery Method Room Air Weight: 97.1 kg Body Mass Index (BMI) 32.8 Finger Stick Blood Glucose 419 Intake and Output for Last 24 Hours 07/19/18 07/20/18 07/21/18 23:59 23:59 23:59 Intake Total 360 / 360 240 / 240 360 / 360 Balance 360 / 360 240 / 240 360 / 360 POC Glucose 07/21/18 07/21/18 07/20/18 06:20 03:00 20:25 POC Glucose 133 H 140 H 121 H 07/20/18 07/20/18 17:01 11:56 POC Glucose 152 H 197 H Active Medications Acetaminophen (Tylenol) 650 mg PO Q6H PRN PRN PRN Reason: PAIN Amlodipine Besylate (Norvasc) 10 mg PO DAILY [facility] Last Admin: 07/21/18 08:00 Dose: 10 mg Aspirin (Aspirin, Baby) 81 mg PO DAILY@0800 [facility] Last Admin: 07/21/18 07:59 Dose: 81 mg Atorvastatin Calcium (Lipitor) 40 mg PO QHS [facility] Last Admin: 07/20/18 20:27 Dose: 40 mg Bisacodyl (Dulcolax) 10 mg RECTAL .PRN X 1 PRN PRN Reason: Constipation Bupropion HCl (Wellbutrin Xl) 300 mg PO DAILY [facility] Last Admin: 07/21/18 07:59 Dose: 300 mg Citalopram Hydrobromide (Celexa) 40 mg PO DAILY [facility] Last Admin: 07/21/18 07:56 Dose: 40 mg Clonidine (Catapres) 0.1 mg PO DAILY [facility] Last Admin: 07/21/18 07:56 Dose: 0.1 mg Enoxaparin Sodium (Lovenox) 40 mg SC DAILY@0600 [facility] Last Admin: 07/21/18 06:12 Dose: 40 mg Hydralazine HCl (Apresoline) 25 mg PO BID [facility] Last Admin: 07/21/18 07:56 Dose: 25 mg Hydrochlorothiazide (Hctz) 25 mg PO DAILY [facility] Last Admin: 07/21/18 07:58 Dose: 25 mg Insulin Glargine (Lantus (Bkc)) 13 units SC QHS [facility] Last Admin: 07/20/18 20:31 Dose: 13 u Insulin Human Lispro (Humalog Kwikpen (Bkc)) 0 unit SC TIDAC [facility]; Protocol Last Admin: 07/21/18 07:18 Dose: Not Given Insulin Human Lispro (Humalog Kwikpen (Bkc)) 10 unit SC TIDAC [facility] Last Admin: 07/21/18 07:58 Dose: 10 units Losartan Potassium (Cozaar) 75 mg PO DAILY [facility] Last Admin: 07/21/18 07:59 Dose: 75 mg Magnesium Hydroxide (Milk Of Magnesia) 30 ml PO .PRN X 1 PRN PRN Reason: Constipation [facility] Last Admin: 07/21/18 07:57 Dose: 1,000 mg Metoprolol Tartrate (Lopressor (Beta Zenon)) 75 mg PO BID [facility] Last Admin: 07/21/18 07:57 Dose: 75 mg Senna/Docusate Sodium (Senokot-S, Kathryn-Colace) 2 tablet PO BID [facility] Last Admin: 07/21/18 08:00 Dose: Not Given Medical Necessity - Tobacco Use Smoking Status: Never smoker Tobacco Use: Non-smoker Assessment/Plan All Active Problems Hypertensive emergency (Acute) Gastroenteritis (Acute) Metabolic alkalosis (Acute) Hypokalemia (Acute) Abscess of right buttock (Acute) Dehydration (Acute) Hypomagnesemia (Acute) Debility 2/2 Multiple Sclerosis. Complicated by Hypertension emergency, Hypokalemia, CKD stage II, and DM type II. Goal of rehab is zoroastrian of functional independence. Plan: - Physical therapy for gait and balance - Occupational Therapy for ADLs - Speech therapy - As needed analgesics - Bowel protocol - DVT prophylaxis: Rambo, Jose juárez, Lovenox - Hypertensive emergency: blood pressure controlled -> on clonidine, Amlodipine, HCTZ, Cozaar Metoprolol, and Hydralazine was added this morning. Continue to monitor closely - viral gastroenteritis -> improved - Hypokalemia -> improved from 3.1 to 3.7 will continue to monitor and treat accordingly - Hx of Multiple sclerosis: Seen by our office, MRI brain was obtained it shows no active MS plaque but does indicate the total size and number of plaques has increased since 2007. Did not show any acute or subacute ischemic infarct - Hx of Diabetes type 2 => check BS AC and HS, continue home medication of metformin, decrease Lantus dose to 13 units at HS, high to moderate sliding scale. Obtain hemoglobin A1C - Hx of depression continue home dose of Celexa and Wellbutrin - Hx of CKD Stage II -> continue to monitor BUN/Creatine - Yeast infection of groin and vagina area -> continue Nystatin cream to area - Blurry vision was present prior to stroke, now is worse => schedule ophthalmology appointment at discharge - At discharge schedule outpatient MRI head w/wo contrast, and lab work, will follow up with outpatient Neurology to manage her MS.
--- NOTE | 2018-07-21 09:43 | PN.NEURO_ITS ---
Subjective: Patient seen and examined. No acute events over night. She is Tolerating therapy. Patient continues to have blurry vision, denies any double vision, or headaches. - Physical Exam General: Alert, Oriented x3, Cooperative HEENT: Atraumatic, PERRLA, EOMI, Normocephalic Neck: Supple, No JVD, Negative Carotid Bruits Lungs: Clear to auscultation, Normal air movement Cardiovascular: Regular rate, No murmurs Abdomen: Bowel Sounds Present, Soft, Non Tender Extremities: No edema, Capillary Refill Less than 3 Seconds Skin: No rashes, No breakdown Musculoskeletal: No Tenderness to Palpation of Joints or Extremities Neurological: Cranial nerves II-XII grossly intact Psych/Mental Status: Normal Affect, Appropriate, Alert and oriented to time, place, person, mood and affect Vital Signs Temp Pulse Resp BP Pulse Ox 98.0 F 68 18 149/80 H 95 07/21/18 07:36 07/21/18 07:57 07/21/18 07:36 07/21/18 07:36 07/21/18 07:36 Oxygen Delivery Method Room Air Weight: 97.1 kg Body Mass Index (BMI) 32.8 Finger Stick Blood Glucose 419 Intake and Output for Last 24 Hours 07/19/18 07/20/18 07/21/18 23:59 23:59 23:59 Intake Total 360 / 360 240 / 240 360 / 360 Balance 360 / 360 240 / 240 360 / 360 POC Glucose 07/21/18 07/21/18 07/20/18 06:20 03:00 20:25 POC Glucose 133 H 140 H 121 H 07/20/18 07/20/18 17:01 11:56 POC Glucose 152 H 197 H Active Medications Acetaminophen (Tylenol) 650 mg PO Q6H PRN PRN PRN Reason: PAIN Amlodipine Besylate (Norvasc) 10 mg PO DAILY [facility] Last Admin: 07/21/18 08:00 Dose: 10 mg Aspirin (Aspirin, Baby) 81 mg PO DAILY@0800 [facility] Last Admin: 07/21/18 07:59 Dose: 81 mg Atorvastatin Calcium (Lipitor) 40 mg PO QHS [facility] Last Admin: 07/20/18 20:27 Dose: 40 mg Bisacodyl (Dulcolax) 10 mg RECTAL .PRN X 1 PRN PRN Reason: Constipation Bupropion HCl (Wellbutrin Xl) 300 mg PO DAILY [facility] Last Admin: 07/21/18 07:59 Dose: 300 mg Citalopram Hydrobromide (Celexa) 40 mg PO DAILY [facility] Last Admin: 07/21/18 07:56 Dose: 40 mg Clonidine (Catapres) 0.1 mg PO DAILY [facility] Last Admin: 07/21/18 07:56 Dose: 0.1 mg Enoxaparin Sodium (Lovenox) 40 mg SC DAILY@0600 [facility] Last Admin: 07/21/18 06:12 Dose: 40 mg Hydralazine HCl (Apresoline) 25 mg PO BID [facility] Last Admin: 07/21/18 07:56 Dose: 25 mg Hydrochlorothiazide (Hctz) 25 mg PO DAILY [facility] Last Admin: 07/21/18 07:58 Dose: 25 mg Insulin Glargine (Lantus (Bkc)) 13 units SC QHS [facility] Last Admin: 07/20/18 20:31 Dose: 13 u Insulin Human Lispro (Humalog Kwikpen (Bkc)) 0 unit SC TIDAC [facility]; Protocol Last Admin: 07/21/18 07:18 Dose: Not Given Insulin Human Lispro (Humalog Kwikpen (Bkc)) 10 unit SC TIDAC [facility] Last Admin: 07/21/18 07:58 Dose: 10 units Losartan Potassium (Cozaar) 75 mg PO DAILY [facility] Last Admin: 07/21/18 07:59 Dose: 75 mg Magnesium Hydroxide (Milk Of Magnesia) 30 ml PO .PRN X 1 PRN PRN Reason: Constipation [facility]formin [facility] (Gl[facility]) [facility] Last Admin: 07/21/18 07:57 Dose: 1,000 mg Metoprolol Tartrate (Lopressor (Beta Zenon)) 75 mg PO BID [facility] Last Admin: 07/21/18 07:57 Dose: 75 mg Senna/Docusate Sodium (Senokot-S, Kathryn-Colace) 2 tablet PO BID [facility] Last Admin: 07/21/18 08:00 Dose: Not Given Medical Necessity - Tobacco Use Smoking Status: Never smoker Tobacco Use: Non-smoker Assessment/Plan All Active Problems Hypertensive emergency (Acute) Gastroenteritis (Acute) Metabolic alkalosis (Acute) Hypokalemia (Acute) Abscess of right buttock (Acute) Dehydration (Acute) Hypomagnesemia (Acute) Debility 2/2 Multiple Sclerosis. Complicated by Hypertension emergency, Hypokalemia, CKD stage II, and DM type II. Goal of rehab is caodaism of functional independence. Plan: - Physical therapy for gait and balance - Occupational Therapy for ADLs - Speech therapy - As needed analgesics - Bowel protocol - DVT prophylaxis: Rambo, oJse juárez, Lovenox - Hypertensive emergency: blood pressure controlled -> on clonidine, Amlodipine, HCTZ, Cozaar Metoprolol, and Hydralazine was added this morning. Continue to monitor closely - viral gastroenteritis -> improved - Hypokalemia -> improved from 3.1 to 3.7 will continue to monitor and treat accordingly - Hx of Multiple sclerosis: Seen by our office, MRI brain was obtained it shows no active MS plaque but does indicate the total size and number of plaques has increased since 2007. Did not show any acute or subacute ischemic infarct - Hx of Diabetes type 2 => check BS AC and HS, continue home medication of metformin, decrease Lantus dose to 13 units at HS, high to moderate sliding scale. Obtain hemoglobin A1C - Hx of depression continue home dose of Celexa and Wellbutrin - Hx of CKD Stage II -> continue to monitor BUN/Creatine - Yeast infection of groin and vagina area -> continue Nystatin cream to area - Blurry vision was present prior to stroke, now is worse => schedule ophthalmology appointment at discharge - At discharge schedule outpatient MRI head w/wo contrast, and lab work, will follow up with outpatient Neurology to manage her MS.
[2018-07-21 11:56] LABS: Bedside Glucose 176 mg/dL (70-110)
[2018-07-21] MEDS: Insulin Lispro 100 UNIT/ML INSULN.PEN SC ×2 (12:11→17:14)
--- NOTE | 2018-07-21 14:59 | PCM.PN.HOSP ---
Subjective: Patient is a 58-year-old lady with history of multiple sclerosis with significant debility admitted to the inpatient rehab unit where she is currently undergoing therapy Objective: GENERAL: cooperative HEENT: Atraumatic; EYES; Anicteric, NECK; supple, normal thyroid, RESPIRATORY: Diminished to auscultation bilaterally, CARDIOVASCULAR: Regular S1 S2, no audible murmurs GI: soft, non-tender, normoactive bowel sounds, : No Renal angle tenderness; No macias EXTREMITIES: No edema, no clubbing, no cyanosis. MUSCULOSKELTAL: No Joint Tenderness; no muscle waisting NEURO: Awake; no lateralizing signs. SKIN: No Rash PSYCH; Normal affect Vitals/I&O's: Vital Signs Temp Pulse Resp BP Pulse Ox 98.0 F 68 18 99/59 L 95 07/21/18 07:36 07/21/18 14:21 07/21/18 07:36 07/21/18 14:21 07/21/18 07:36 Oxygen Delivery Method Room Air Weight: 97.1 kg Body Mass Index (BMI) 32.8 Finger Stick Blood Glucose 419 Intake and Output for Last 24 Hours 07/19/18 07/20/18 07/21/18 23:59 23:59 23:59 Intake Total 360 / 360 240 / 240 720 / 720 Balance 360 / 360 240 / 240 720 / 720 Laboratory Results 07/20/18 17:01: POC Glucose 152 H 07/20/18 20:25: POC Glucose 121 H 07/21/18 03:00: POC Glucose 140 H 07/21/18 06:20: POC Glucose 133 H 07/21/18 11:50: POC Glucose 176 H Current Medications Acetaminophen (Tylenol) 650 mg PO Q6H PRN PRN PRN Reason: PAIN Amlodipine Besylate (Norvasc) 10 mg PO DAILY [facility] Last Admin: 07/21/18 08:00 Dose: 10 mg Aspirin (Aspirin, Baby) 81 mg PO DAILY@0800 [facility] Last Admin: 07/21/18 07:59 Dose: 81 mg Atorvastatin Calcium (Lipitor) 40 mg PO QHS [facility] Last Admin: 07/20/18 20:27 Dose: 40 mg Bisacodyl (Dulcolax) 10 mg RECTAL .PRN X 1 PRN PRN Reason: Constipation Bupropion HCl (Wellbutrin Xl) 300 mg PO DAILY [facility] Last Admin: 07/21/18 07:59 Dose: 300 mg Citalopram Hydrobromide (Celexa) 40 mg PO DAILY [facility] Last Admin: 07/21/18 07:56 Dose: 40 mg Clonidine (Catapres) 0.1 mg PO DAILY [facility] Last Admin: 07/21/18 07:56 Dose: 0.1 mg Enoxaparin Sodium (Lovenox) 40 mg SC DAILY@0600 [facility] Last Admin: 07/21/18 06:12 Dose: 40 mg Hydralazine HCl (Apresoline) 25 mg PO BID [facility] Last Admin: 07/21/18 07:56 Dose: 25 mg Hydrochlorothiazide (Hctz) 25 mg PO DAILY [facility] Last Admin: 07/21/18 07:58 Dose: 25 mg Insulin Glargine (Lantus (Bkc)) 13 units SC QHS [facility] Last Admin: 07/20/18 20:31 Dose: 13 u Insulin Human Lispro (Humalog Kwikpen (Bkc)) 0 unit SC TIDAC [facility]; Protocol Last Admin: 07/21/18 12:11 Dose: 2 units Insulin Human Lispro (Humalog Kwikpen (Bkc)) 10 unit SC TIDAC [facility] Last Admin: 07/21/18 12:11 Dose: 10 units Losartan Potassium (Cozaar) 75 mg PO DAILY [facility] Last Admin: 07/21/18 07:59 Dose: 75 mg Magnesium Hydroxide (Milk Of Magnesia) 30 ml PO .PRN X 1 PRN PRN Reason: Constipation Metformin [facility] (Glucophage) [facility] Last Admin: 07/21/18 07:57 Dose: 1,000 mg Metoprolol Tartrate (Lopressor (Beta Zenon)) 75 mg PO BID [facility] Last Admin: 07/21/18 07:57 Dose: 75 mg Senna/Docusate Sodium (Senokot-S, Kathryn-Colace) 2 tablet PO BID [facility] Last Admin: 07/21/18 08:00 Dose: Not Given Medical Necessity - Tobacco Use Smoking Status: Never smoker Tobacco Use: Non-smoker Assessment/Plan All Active Problems Hypertensive emergency (Acute) Gastroenteritis (Acute) Metabolic alkalosis (Acute) Hypokalemia (Acute) Abscess of right buttock (Acute) Dehydration (Acute) Hypomagnesemia (Acute) Patient is a 58-year-old lady with history of multiple sclerosis with significant debility admitted to the inpatient rehab unit where she is currently undergoing therapy 1. Multiple sclerosis with significant debility patient currently being managed on the inpatient rehab unit 2. Acute hypertensive crisis resolved 3. Hypertension patient presented with acute hypertensive crisis Home medications adjusted BP has since stabilized 4. Diabetes mellitus type II: Controlled with hemoglobin A1c of 11.7, Placed on long acting insulin, Accu-Cheks a.c. and at bedtime and covered with sliding scale insulin 5. Depression with anxiety patient is on Celexa and Wellbutrin 6. 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 DVT prophylaxis: lovenox Code Visit Inpatient E&M: 22304 Subs Hosp L2
--- NOTE | 2018-07-21 15:14 | PN_ITS ---
Subjective: Patient is a 58-year-old lady with history of multiple sclerosis with significant debility admitted to the inpatient rehab unit where she is currently undergoing therapy Objective: GENERAL: cooperative HEENT: Atraumatic; EYES; Anicteric, NECK; supple, normal thyroid, RESPIRATORY: Diminished to auscultation bilaterally, CARDIOVASCULAR: Regular S1 S2, no audible murmurs GI: soft, non-tender, normoactive bowel sounds, : No Renal angle tenderness; No macias EXTREMITIES: No edema, no clubbing, no cyanosis. MUSCULOSKELTAL: No Joint Tenderness; no muscle waisting NEURO: Awake; no lateralizing signs. SKIN: No Rash PSYCH; Normal affect Vitals/I&O's: Vital Signs Temp Pulse Resp BP Pulse Ox 98.0 F 68 18 99/59 L 95 07/21/18 07:36 07/21/18 14:21 07/21/18 07:36 07/21/18 14:21 07/21/18 07:36 Oxygen Delivery Method Room Air Weight: 97.1 kg Body Mass Index (BMI) 32.8 Finger Stick Blood Glucose 419 Intake and Output for Last 24 Hours 07/19/18 07/20/18 07/21/18 23:59 23:59 23:59 Intake Total 360 / 360 240 / 240 720 / 720 Balance 360 / 360 240 / 240 720 / 720 Laboratory Results 07/20/18 17:01: POC Glucose 152 H 07/20/18 20:25: POC Glucose 121 H 07/21/18 03:00: POC Glucose 140 H 07/21/18 06:20: POC Glucose 133 H 07/21/18 11:50: POC Glucose 176 H Current Medications Acetaminophen (Tylenol) 650 mg PO Q6H PRN PRN PRN Reason: PAIN Amlodipine Besylate (Norvasc) 10 mg PO DAILY [facility] Last Admin: 07/21/18 08:00 Dose: 10 mg Aspirin (Aspirin, Baby) 81 mg PO DAILY@0800 [facility] Last Admin: 07/21/18 07:59 Dose: 81 mg Atorvastatin Calcium (Lipitor) 40 mg PO QHS [facility] Last Admin: 07/20/18 20:27 Dose: 40 mg Bisacodyl (Dulcolax) 10 mg RECTAL .PRN X 1 PRN PRN Reason: Constipation Bupropion HCl (Wellbutrin Xl) 300 mg PO DAILY [facility] Last Admin: 07/21/18 07:59 Dose: 300 mg Citalopram Hydrobromide (Celexa) 40 mg PO DAILY [facility] Last Admin: 07/21/18 07:56 Dose: 40 mg Clonidine (Catapres) 0.1 mg PO DAILY [facility] Last Admin: 07/21/18 07:56 Dose: 0.1 mg Enoxaparin Sodium (Lovenox) 40 mg SC DAILY@0600 [facility] Last Admin: 07/21/18 06:12 Dose: 40 mg Hydralazine HCl (Apresoline) 25 mg PO BID [facility] Last Admin: 07/21/18 07:56 Dose: 25 mg Hydrochlorothiazide (Hctz) 25 mg PO DAILY [facility] Last Admin: 07/21/18 07:58 Dose: 25 mg Insulin Glargine (Lantus (Bkc)) 13 units SC QHS [facility] Last Admin: 07/20/18 20:31 Dose: 13 u Insulin Human Lispro (Humalog Kwikpen (Bkc)) 0 unit SC TIDAC [facility]; Protocol Last Admin: 07/21/18 12:11 Dose: 2 units Insulin Human Lispro (Humalog Kwikpen (Bkc)) 10 unit SC TIDAC [facility] Last Admin: 07/21/18 12:11 Dose: 10 units Losartan Potassium (Cozaar) 75 mg PO DAILY [facility] Last Admin: 07/21/18 07:59 Dose: 75 mg Magnesium Hydroxide (Milk Of Magnesia) 30 ml PO .PRN X 1 PRN PRN Reason: Constipation [facility] Last Admin: 07/21/18 07:57 Dose: 1,000 mg Metoprolol Tartrate (Lopressor (Beta Zenon)) 75 mg PO BID [facility] Last Admin: 07/21/18 07:57 Dose: 75 mg Senna/Docusate Sodium (Senokot-S, Kathryn-Colace) 2 tablet PO BID [facility] Last Admin: 07/21/18 08:00 Dose: Not Given Medical Necessity - Tobacco Use Smoking Status: Never smoker Tobacco Use: Non-smoker Assessment/Plan All Active Problems Hypertensive emergency (Acute) Gastroenteritis (Acute) Metabolic alkalosis (Acute) Hypokalemia (Acute) Abscess of right buttock (Acute) Dehydration (Acute) Hypomagnesemia (Acute) Patient is a 58-year-old lady with history of multiple sclerosis with significant debility admitted to the inpatient rehab unit where she is currently undergoing therapy 1. Multiple sclerosis with significant debility patient currently being managed on the inpatient rehab unit 2. Acute hypertensive crisis resolved 3. Hypertension patient presented with acute hypertensive crisis Home medications adjusted BP has since stabilized 4. Diabetes mellitus type II: Controlled with hemoglobin A1c of 11.7, Placed on long acting insulin, Accu-Cheks a.c. and at bedtime and covered with sliding scale insulin 5. Depression with anxiety patient is on Celexa and Wellbutrin 6. 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 DVT prophylaxis: lovenox Code Visit Inpatient E&M: 84423 Subs Hosp L2
[2018-07-21 16:35] LABS: Bedside Glucose 158 mg/dL (70-110)
[2018-07-21] MEDS: Atorvastatin Calcium 40 MG Tablet PO (21:48)
[2018-07-21] MEDS: Metoprolol Tartrate 50 MG Tablet PO (21:48)
[2018-07-21 22:25] LABS: Bedside Glucose 191 mg/dL (70-110)
[2018-07-22] MEDS: Enoxaparin 40 MG/0.4 ML Syringe SC (05:54)
[2018-07-22 06:51] LABS: Bedside Glucose 196 mg/dL (70-110)
[2018-07-22 07:03] VITALS: BP 138/79; PULSE 62; RESP 18; TEMP 36.6; O2SAT 95
[2018-07-22] MEDS: cloNIDine HCl 0.1 MG Tablet PO (07:28)
[2018-07-22] MEDS: Aspirin 81 MG TAB.CHEW PO (07:28)
[2018-07-22] MEDS: metFORMIN HCl 1,000 MG Tablet 1000 MG PO ×2 (07:28→17:26)
[2018-07-22] MEDS: Citalopram 20 MG Tablet 40 MG PO (07:28)
[2018-07-22] MEDS: Insulin Lispro 100 UNIT/ML INSULN.PEN 10 UNIT SC ×3 (07:29→17:26)
[2018-07-22] MEDS: Insulin Lispro 100 UNIT/ML INSULN.PEN SC ×2 (07:29→12:02)
[2018-07-22 07:32] VITALS: BP 138/79; PULSE 62
[2018-07-22] MEDS: hydrALAZINE 25 MG Tablet PO ×2 (07:32→21:13)
[2018-07-22] MEDS: Losartan Potassium 50 MG Tablet 75 MG PO (09:28)
[2018-07-22 09:29] VITALS: BP 132/71; PULSE 67
[2018-07-22] MEDS: Metoprolol Tartrate 50 MG Tablet PO ×2 (09:29→21:13)
[2018-07-22] MEDS: hydroCHLOROthiazide 25 MG Tablet PO (09:29)
[2018-07-22] MEDS: buPROPion (XL) 300 MG TABLET.XL PO (09:30)
[2018-07-22] MEDS: amLODIPine 10 MG Tablet PO (09:30)
--- NOTE | 2018-07-22 11:04 | PN.NEURO_ITS ---
Subjective: Patient seen during therapy session. No new complaints. Tolerating therapy, was able to walk about 60 feet without the cane or walker, was steady and did much better than she does with the cane. Recommend that she uses the wlaker since she is more steady and secure with the walker. No issues with GI/. - Physical Exam General: Alert, Oriented x3, Cooperative HEENT: Atraumatic, PERRLA, EOMI, Normocephalic Neck: Supple, No JVD, Negative Carotid Bruits Lungs: Clear to auscultation, Normal air movement Cardiovascular: Regular rate, No murmurs Abdomen: Bowel Sounds Present, Soft, Non Tender Extremities: No edema, Capillary Refill Less than 3 Seconds Skin: No rashes, No breakdown Musculoskeletal: No Tenderness to Palpation of Joints or Extremities Neurological: Cranial nerves II-XII grossly intact Psych/Mental Status: Normal Affect, Appropriate, Alert and oriented to time, place, person, mood and affect Vital Signs Temp Pulse Resp BP Pulse Ox 97.8 F 67 18 132/71 H 95 07/22/18 07:03 07/22/18 09:29 07/22/18 07:03 07/22/18 09:29 07/22/18 07:03 Oxygen Delivery Method Room Air Weight: 97.1 kg Body Mass Index (BMI) 32.8 Finger Stick Blood Glucose 419 Intake and Output for Last 24 Hours 07/20/18 07/21/18 07/22/18 23:59 23:59 23:59 Intake Total 240 / 240 720 / 720 240 / 240 Balance 240 / 240 720 / 720 240 / 240 POC Glucose 07/22/18 07/21/18 07/21/18 06:42 21:40 16:30 POC Glucose 196 H 191 H 158 H 07/21/18 11:50 POC Glucose 176 H Active Medications Acetaminophen (Tylenol) 650 mg PO Q6H PRN PRN PRN Reason: PAIN Amlodipine Besylate (Norvasc) 10 mg PO DAILY [facility] Last Admin: 07/22/18 09:30 Dose: 10 mg Aspirin (Aspirin, Baby) 81 mg PO DAILY@0800 [facility] Last Admin: 07/22/18 07:28 Dose: 81 mg Atorvastatin Calcium (Lipitor) 40 mg PO QHS [facility] Last Admin: 07/21/18 21:48 Dose: 40 mg Bisacodyl (Dulcolax) 10 mg RECTAL .PRN X 1 PRN PRN Reason: Constipation Bupropion HCl (Wellbutrin Xl) 300 mg PO DAILY [facility] Last Admin: 07/22/18 09:30 Dose: 300 mg Citalopram Hydrobromide (Celexa) 40 mg PO DAILY [facility] Last Admin: 07/22/18 07:28 Dose: 40 mg Clonidine (Catapres) 0.1 mg PO DAILY [facility] Last Admin: 07/22/18 07:28 Dose: 0.1 mg Enoxaparin Sodium (Lovenox) 40 mg SC DAILY@0600 [facility] Last Admin: 07/22/18 05:54 Dose: 40 mg Hydralazine HCl (Apresoline) 25 mg PO BID [facility] Last Admin: 07/22/18 07:32 Dose: 25 mg Hydrochlorothiazide (Hctz) 25 mg PO DAILY [facility] Last Admin: 07/22/18 09:29 Dose: 25 mg Insulin Glargine (Lantus (Bkc)) 13 units SC QHS [facility] Last Admin: 07/21/18 21:47 Dose: 13 u Insulin Human Lispro (Humalog Kwikpen (Bkc)) 0 unit SC TIDAC [facility]; Protocol Last Admin: 07/22/18 07:29 Dose: 2 units Insulin Human Lispro (Humalog Kwikpen (Bkc)) 10 unit SC TIDAC [facility] Last Admin: 07/22/18 07:29 Dose: 10 units Losartan Potassium (Cozaar) 75 mg PO DAILY [facility] Last Admin: 07/22/18 09:28 Dose: 75 mg Magnesium Hydroxide (Milk Of Magnesia) 30 ml PO .PRN X 1 PRN PRN Reason: Constipation [facility] Last Admin: 07/22/18 07:28 Dose: 1,000 mg Metoprolol Tartrate (Lopressor (Beta Zenon)) 50 mg PO BID [facility] Last Admin: 07/22/18 09:29 Dose: 50 mg Senna/Docusate Sodium (Senokot-S, Kathryn-Colace) 2 tablet PO BID [facility] Last Admin: 07/22/18 09:30 Dose: Not Given Medical Necessity - Tobacco Use Smoking Status: Never smoker Tobacco Use: Non-smoker Assessment/Plan All Active Problems Hypertensive emergency (Acute) Gastroenteritis (Acute) Metabolic alkalosis (Acute) Hypokalemia (Acute) Abscess of right buttock (Acute) Dehydration (Acute) Hypomagnesemia (Acute) Debility 2/2 Multiple Sclerosis. Complicated by Hypertension emergency, Hypokalemia, CKD stage II, and DM type II. Goal of rehab is taoism of functional independence. Plan: - Physical therapy for gait and balance - Occupational Therapy for ADLs - Speech therapy - As needed analgesics - Bowel protocol - DVT prophylaxis: SCDs, Jose juárez, Lovenox - Hypertensive emergency: blood pressure controlled -> on clonidine, Amlodipine, HCTZ, Cozaar Metoprolol, and Hydralazine was added this morning. Continue to monitor closely - viral gastroenteritis -> improved - Hypokalemia -> improved from 3.1 to 3.7 will continue to monitor and treat accordingly - Hx of Multiple sclerosis: Seen by our office, MRI brain was obtained it shows no active MS plaque but does indicate the total size and number of plaques has increased since 2007. Did not show any acute or subacute ischemic infarct - Hx of Diabetes type 2 => check BS AC and HS, continue home medication of metformin, decrease Lantus dose to 13 units at HS, high to moderate sliding scale. Obtain hemoglobin A1C - Hx of depression continue home dose of Celexa and Wellbutrin - Hx of CKD Stage II -> continue to monitor BUN/Creatine - Yeast infection of groin and vagina area -> continue Nystatin cream to area - Blurry vision was present prior to stroke, now is worse => schedule ophthalmology appointment at discharge - At discharge schedule outpatient MRI head w/wo contrast, and lab work, will follow up with outpatient Neurology to manage her MS.
[2018-07-22 12:40] LABS: Bedside Glucose 229 mg/dL (70-110)
[2018-07-22 16:55] LABS: Bedside Glucose 104 mg/dL (70-110)
[2018-07-22 19:27] VITALS: BP 150/70; PULSE 67; RESP 16; TEMP 37; O2SAT 98
[2018-07-22 21:13] VITALS: BP 150/70; PULSE 67
[2018-07-22] MEDS: Atorvastatin Calcium 40 MG Tablet PO (21:13)
[2018-07-22 21:26] LABS: Bedside Glucose 96 mg/dL (70-110)
[2018-07-23 02:26] LABS: Bedside Glucose 143 mg/dL (70-110)
[2018-07-23 06:45] LABS: Bedside Glucose 172 mg/dL (70-110)
[2018-07-23 07:32] VITALS: BP 142/83; PULSE 65; RESP 18; TEMP 36.6; O2SAT 98
[2018-07-23] MEDS: Insulin Lispro 100 UNIT/ML INSULN.PEN 10 UNIT SC ×3 (07:34→17:27)
[2018-07-23] MEDS: Insulin Lispro 100 UNIT/ML INSULN.PEN SC ×2 (07:34→17:27)
[2018-07-23 07:35] VITALS: PULSE 65
[2018-07-23] MEDS: Losartan Potassium 50 MG Tablet 75 MG PO (07:35)
[2018-07-23] MEDS: Aspirin 81 MG TAB.CHEW PO (07:35)
[2018-07-23] MEDS: metFORMIN HCl 1,000 MG Tablet 1000 MG PO ×2 (07:35→17:28)
[2018-07-23] MEDS: hydroCHLOROthiazide 25 MG Tablet PO (07:35)
[2018-07-23] MEDS: Metoprolol Tartrate 50 MG Tablet PO ×2 (07:35→20:04)
[2018-07-23] MEDS: amLODIPine 10 MG Tablet PO (07:35)
[2018-07-23] MEDS: cloNIDine HCl 0.1 MG Tablet PO (07:35)
[2018-07-23] MEDS: Citalopram 20 MG Tablet 40 MG PO (07:35)
[2018-07-23] MEDS: buPROPion (XL) 300 MG TABLET.XL PO (07:36)
[2018-07-23] MEDS: Enoxaparin 40 MG/0.4 ML Syringe SC (07:36)
[2018-07-23 07:37] VITALS: PULSE 65
[2018-07-23] MEDS: hydrALAZINE 25 MG Tablet PO ×2 (07:37→20:04)
--- NOTE | 2018-07-23 10:25 | PCM.PN.NEU ---
Subjective: Patient seen, no new complaints. Tolerating therapy. No issues with GI/. - Physical Exam General: Alert, Oriented x3, Cooperative HEENT: Atraumatic, PERRLA, EOMI, Normocephalic Neck: Supple, No JVD, Negative Carotid Bruits Lungs: Clear to auscultation, Normal air movement Cardiovascular: Regular rate, No murmurs Abdomen: Bowel Sounds Present, Soft, Non Tender Extremities: No edema, Capillary Refill Less than 3 Seconds Skin: No rashes, No breakdown Musculoskeletal: No Tenderness to Palpation of Joints or Extremities Neurological: Cranial nerves II-XII grossly intact Psych/Mental Status: Normal Affect, Appropriate, Alert and oriented to time, place, person, mood and affect Vital Signs Temp Pulse Resp BP Pulse Ox 97.8 F 65 18 142/83 H 98 07/23/18 07:32 07/23/18 07:37 07/23/18 07:32 07/23/18 07:32 07/23/18 07:32 Oxygen Delivery Method Room Air Weight: 96 kg Body Mass Index (BMI) 32.8 Finger Stick Blood Glucose 419 Intake and Output for Last 24 Hours 07/21/18 07/22/18 07/23/18 23:59 23:59 23:59 Intake Total 720 / 720 480 / 480 Balance 720 / 720 480 / 480 POC Glucose 07/23/18 07/23/18 07/22/18 06:38 02:22 21:13 POC Glucose 172 H 143 H 96 07/22/18 07/22/18 16:51 11:56 POC Glucose 104 229 H Active Medications Acetaminophen (Tylenol) 650 mg PO Q6H PRN PRN PRN Reason: PAIN Amlodipine Besylate (Norvasc) 10 mg PO DAILY [facility] Last Admin: 07/23/18 07:35 Dose: 10 mg Aspirin (Aspirin, Baby) 81 mg PO DAILY@0800 [facility] Last Admin: 07/23/18 07:35 Dose: 81 mg Atorvastatin Calcium (Lipitor) 40 mg PO QHS [facility] Last Admin: 07/22/18 21:13 Dose: 40 mg Bisacodyl (Dulcolax) 10 mg RECTAL .PRN X 1 PRN PRN Reason: Constipation Bupropion HCl (Wellbutrin Xl) 300 mg PO DAILY [facility] Last Admin: 07/23/18 07:36 Dose: 300 mg Citalopram Hydrobromide (Celexa) 40 mg PO DAILY [facility] Last Admin: 07/23/18 07:35 Dose: 40 mg Clonidine (Catapres) 0.1 mg PO DAILY [facility] Last Admin: 07/23/18 07:35 Dose: 0.1 mg Enoxaparin Sodium (Lovenox) 40 mg SC DAILY@0600 [facility] Last Admin: 07/23/18 07:36 Dose: 40 mg Hydralazine HCl (Apresoline) 25 mg PO BID [facility] Last Admin: 07/23/18 07:37 Dose: 25 mg Hydrochlorothiazide (Hctz) 25 mg PO DAILY [facility] Last Admin: 07/23/18 07:35 Dose: 25 mg Insulin Glargine (Lantus (Bkc)) 13 units SC QHS [facility] Last Admin: 07/22/18 21:14 Dose: 13 u Insulin Human Lispro (Humalog Kwikpen (Bkc)) 0 unit SC TIDAC [facility]; Protocol Last Admin: 07/23/18 07:34 Dose: 2 units Insulin Human Lispro (Humalog Kwikpen (Bkc)) 10 unit SC TIDAC [facility] Last Admin: 07/23/18 07:34 Dose: 10 units Losartan Potassium (Cozaar) 75 mg PO DAILY [facility] Last Admin: 07/23/18 07:35 Dose: 75 mg Magnesium Hydroxide (Milk Of Magnesia) 30 ml PO .PRN X 1 PRN PRN Reason: Constipation [facility]) [facility] Last Admin: 07/23/18 07:35 Dose: 1,000 mg Metoprolol Tartrate (Lopressor (Beta Zenon)) 50 mg PO BID [facility] Last Admin: 07/23/18 07:35 Dose: 50 mg Senna/Docusate Sodium (Senokot-S, Kathryn-Colace) 2 tablet PO BID [facility] Last Admin: 07/23/18 07:37 Dose: Not Given Medical Necessity - Tobacco Use Smoking Status: Never smoker Tobacco Use: Non-smoker Assessment/Plan All Active Problems Hypertensive emergency (Acute) Gastroenteritis (Acute) Metabolic alkalosis (Acute) Hypokalemia (Acute) Abscess of right buttock (Acute) Dehydration (Acute) Hypomagnesemia (Acute) Debility 2/2 Multiple Sclerosis. Complicated by Hypertension emergency, Hypokalemia, CKD stage II, and DM type II. Goal of rehab is advent of functional independence. Plan: - Physical therapy for gait and balance - Occupational Therapy for ADLs - Speech therapy - As needed analgesics - Bowel protocol - DVT prophylaxis: SCDs, Manuel Rogers - Hypertensive emergency: blood pressure controlled -> on clonidine, Amlodipine, HCTZ, Cozaar Metoprolol, and Hydralazine was added this morning. Continue to monitor closely - viral gastroenteritis -> improved - Hypokalemia -> improved from 3.1 to 3.7 will continue to monitor and treat accordingly - Hx of Multiple sclerosis: Seen by our office, MRI brain was obtained it shows no active MS plaque but does indicate the total size and number of plaques has increased since 2007. Did not show any acute or subacute ischemic infarct - Hx of Diabetes type 2 => check BS AC and HS, continue home medication of metformin, decrease Lantus dose to 13 units at HS, high to moderate sliding scale. Obtain hemoglobin A1C - Hx of depression continue home dose of Celexa and Wellbutrin - Hx of CKD Stage II -> continue to monitor BUN/Creatine - Yeast infection of groin and vagina area -> continue Nystatin cream to area - Blurry vision was present prior to stroke, now is worse => schedule ophthalmology appointment at discharge - At discharge schedule outpatient MRI head w/wo contrast, and lab work, will follow up with outpatient Neurology to manage her MS.
--- NOTE | 2018-07-23 10:29 | PN.NEURO_ITS ---
Subjective: Patient seen, no new complaints. Tolerating therapy. No issues with GI/. - Physical Exam General: Alert, Oriented x3, Cooperative HEENT: Atraumatic, PERRLA, EOMI, Normocephalic Neck: Supple, No JVD, Negative Carotid Bruits Lungs: Clear to auscultation, Normal air movement Cardiovascular: Regular rate, No murmurs Abdomen: Bowel Sounds Present, Soft, Non Tender Extremities: No edema, Capillary Refill Less than 3 Seconds Skin: No rashes, No breakdown Musculoskeletal: No Tenderness to Palpation of Joints or Extremities Neurological: Cranial nerves II-XII grossly intact Psych/Mental Status: Normal Affect, Appropriate, Alert and oriented to time, place, person, mood and affect Vital Signs Temp Pulse Resp BP Pulse Ox 97.8 F 65 18 142/83 H 98 07/23/18 07:32 07/23/18 07:37 07/23/18 07:32 07/23/18 07:32 07/23/18 07:32 Oxygen Delivery Method Room Air Weight: 96 kg Body Mass Index (BMI) 32.8 Finger Stick Blood Glucose 419 Intake and Output for Last 24 Hours 07/21/18 07/22/18 07/23/18 23:59 23:59 23:59 Intake Total 720 / 720 480 / 480 Balance 720 / 720 480 / 480 POC Glucose 07/23/18 07/23/18 07/22/18 06:38 02:22 21:13 POC Glucose 172 H 143 H 96 07/22/18 07/22/18 16:51 11:56 POC Glucose 104 229 H Active Medications Acetaminophen (Tylenol) 650 mg PO Q6H PRN PRN PRN Reason: PAIN Amlodipine Besylate (Norvasc) 10 mg PO DAILY [facility] Last Admin: 07/23/18 07:35 Dose: 10 mg Aspirin (Aspirin, Baby) 81 mg PO DAILY@0800 [facility] Last Admin: 07/23/18 07:35 Dose: 81 mg Atorvastatin Calcium (Lipitor) 40 mg PO QHS [facility] Last Admin: 07/22/18 21:13 Dose: 40 mg Bisacodyl (Dulcolax) 10 mg RECTAL .PRN X 1 PRN PRN Reason: Constipation Bupropion HCl (Wellbutrin Xl) 300 mg PO DAILY [facility] Last Admin: 07/23/18 07:36 Dose: 300 mg Citalopram Hydrobromide (Celexa) 40 mg PO DAILY [facility] Last Admin: 07/23/18 07:35 Dose: 40 mg Clonidine (Catapres) 0.1 mg PO DAILY [facility] Last Admin: 07/23/18 07:35 Dose: 0.1 mg Enoxaparin Sodium (Lovenox) 40 mg SC DAILY@0600 [facility] Last Admin: 07/23/18 07:36 Dose: 40 mg Hydralazine HCl (Apresoline) 25 mg PO BID [facility] Last Admin: 07/23/18 07:37 Dose: 25 mg Hydrochlorothiazide (Hctz) 25 mg PO DAILY [facility] Last Admin: 07/23/18 07:35 Dose: 25 mg Insulin Glargine (Lantus (Bkc)) 13 units SC QHS [facility] Last Admin: 07/22/18 21:14 Dose: 13 u Insulin Human Lispro (Humalog Kwikpen (Bkc)) 0 unit SC TIDAC [facility]; Protocol Last Admin: 07/23/18 07:34 Dose: 2 units Insulin Human Lispro (Humalog Kwikpen (Bkc)) 10 unit SC TIDAC [facility] Last Admin: 07/23/18 07:34 Dose: 10 units Losartan Potassium (Cozaar) 75 mg PO DAILY [facility] Last Admin: 07/23/18 07:35 Dose: 75 mg Magnesium Hydroxide (Milk Of Magnesia) 30 ml PO .PRN X 1 PRN PRN Reason: Constipation [facility] Last Admin: 07/23/18 07:35 Dose: 1,000 mg Metoprolol Tartrate (Lopressor (Beta Zenon)) 50 mg PO BID [facility] Last Admin: 07/23/18 07:35 Dose: 50 mg Senna/Docusate Sodium (Senokot-S, Kathryn-Colace) 2 tablet PO BID [facility] Last Admin: 07/23/18 07:37 Dose: Not Given Medical Necessity - Tobacco Use Smoking Status: Never smoker Tobacco Use: Non-smoker Assessment/Plan All Active Problems Hypertensive emergency (Acute) Gastroenteritis (Acute) Metabolic alkalosis (Acute) Hypokalemia (Acute) Abscess of right buttock (Acute) Dehydration (Acute) Hypomagnesemia (Acute) Debility 2/2 Multiple Sclerosis. Complicated by Hypertension emergency, H ypokalemia, CKD stage II, and DM type II. Goal of rehab is episcopalian of functional independence. Plan: - Physical therapy for gait and balance - Occupational Therapy for ADLs - Speech therapy - As needed analgesics - Bowel protocol - DVT prophylaxis: SCDs, Manuel Rogers - Hypertensive emergency: blood pressure controlled -> on clonidine, Amlodipine, HCTZ, Cozaar Metoprolol, and Hydralazine was added this morning. Continue to monitor closely - viral gastroenteritis -> improved - Hypokalemia -> improved from 3.1 to 3.7 will continue to monitor and treat accordingly - Hx of Multiple sclerosis: Seen by our office, MRI brain was obtained it shows no active MS plaque but does indicate the total size and number of plaques has increased since 2007. Did not show any acute or subacute ischemic infarct - Hx of Diabetes type 2 => check BS AC and HS, continue home medication of metformin, decrease Lantus dose to 13 units at HS, high to moderate sliding scale. Obtain hemoglobin A1C - Hx of depression continue home dose of Celexa and Wellbutrin - Hx of CKD Stage II -> continue to monitor BUN/Creatine - Yeast infection of groin and vagina area -> continue Nystatin cream to area - Blurry vision was present prior to stroke, now is worse => schedule ophthalmology appointment at discharge - At discharge schedule outpatient MRI head w/wo contrast, and lab work, will follow up with outpatient Neurology to manage her MS.
[2018-07-23 12:06] LABS: Bedside Glucose 138 mg/dL (70-110)
--- NOTE | 2018-07-23 12:42 | PCM.PN.HOSP ---
Subjective: Patient seen participating in physical therapy Objective: GENERAL: cooperative HEENT: Atraumatic; EYES; Anicteric, NECK; supple, normal thyroid, RESPIRATORY: Diminished to auscultation bilaterally, CARDIOVASCULAR: Regular S1 S2, no audible murmurs GI: soft, non-tender, normoactive bowel sounds, : No Renal angle tenderness; No macias EXTREMITIES: No edema, no clubbing, no cyanosis. MUSCULOSKELTAL: No Joint Tenderness; no muscle waisting NEURO: Awake; no lateralizing signs. SKIN: No Rash PSYCH; Normal affect Vitals/I&O's: Vital Signs Temp Pulse Resp BP Pulse Ox 97.8 F 65 18 142/83 H 98 07/23/18 07:32 07/23/18 07:37 07/23/18 07:32 07/23/18 07:32 07/23/18 07:32 Oxygen Delivery Method Room Air Weight: 96 kg Body Mass Index (BMI) 32.8 Finger Stick Blood Glucose 419 Intake and Output for Last 24 Hours 07/21/18 07/22/18 07/23/18 23:59 23:59 23:59 Intake Total 720 / 720 480 / 480 Balance 720 / 720 480 / 480 Laboratory Results 07/22/18 16:51: POC Glucose 104 07/22/18 21:13: POC Glucose 96 07/23/18 02:22: POC Glucose 143 H 07/23/18 06:38: POC Glucose 172 H 07/23/18 11:50: POC Glucose 138 H Current Medications Acetaminophen (Tylenol) 650 mg PO Q6H PRN PRN PRN Reason: PAIN Amlodipine Besylate (Norvasc) 10 mg PO DAILY [facility] Last Admin: 07/23/18 07:35 Dose: 10 mg Aspirin (Aspirin, Baby) 81 mg PO DAILY@0800 [facility] Last Admin: 07/23/18 07:35 Dose: 81 mg Atorvastatin Calcium (Lipitor) 40 mg PO QHS [facility] Last Admin: 07/22/18 21:13 Dose: 40 mg Bisacodyl (Dulcolax) 10 mg RECTAL .PRN X 1 PRN PRN Reason: Constipation Bupropion HCl (Wellbutrin Xl) 300 mg PO DAILY [facility] Last Admin: 07/23/18 07:36 Dose: 300 mg Citalopram Hydrobromide (Celexa) 40 mg PO DAILY [facility] Last Admin: 07/23/18 07:35 Dose: 40 mg Clonidine (Catapres) 0.1 mg PO DAILY [facility] Last Admin: 07/23/18 07:35 Dose: 0.1 mg Enoxaparin Sodium (Lovenox) 40 mg SC DAILY@0600 [facility] Last Admin: 07/23/18 07:36 Dose: 40 mg Hydralazine HCl (Apresoline) 25 mg PO BID [facility] Last Admin: 07/23/18 07:37 Dose: 25 mg Hydrochlorothiazide (Hctz) 25 mg PO DAILY [facility] Last Admin: 07/23/18 07:35 Dose: 25 mg Insulin Glargine (Lantus (Bkc)) 13 units SC QHS [facility] Last Admin: 07/22/18 21:14 Dose: 13 u Insulin Human Lispro (Humalog Kwikpen (Bkc)) 0 unit SC TIDAC [facility]; Protocol Last Admin: 07/23/18 11:51 Dose: Not Given Insulin Human Lispro (Humalog Kwikpen (Bkc)) 10 unit SC TIDAC [facility] Last Admin: 07/23/18 11:51 Dose: 10 units Losartan Potassium (Cozaar) 75 mg PO DAILY [facility] Last Admin: 07/23/18 07:35 Dose: 75 mg Magnesium Hydroxide (Milk Of Magnesia) 30 ml PO .PRN X 1 PRN PRN Reason: Constipation [facility] Admin: 07/23/18 07:35 Dose: 1,000 mg Metoprolol Tartrate (Lopressor (Beta Zenon)) 50 mg PO BID [facility] Last Admin: 07/23/18 07:35 Dose: 50 mg Senna/Docusate Sodium (Senokot-S, Kathryn-Colace) 2 tablet PO BID [facility] Last Admin: 07/23/18 07:37 Dose: Not Given Medical Necessity - Tobacco Use Smoking Status: Never smoker Tobacco Use: Non-smoker Assessment/Plan All Active Problems Hypertensive emergency (Acute) Gastroenteritis (Acute) Metabolic alkalosis (Acute) Hypokalemia (Acute) Abscess of right buttock (Acute) Dehydration (Acute) Hypomagnesemia (Acute) Patient is a 58-year-old lady with history of multiple sclerosis with significant debility admitted to the inpatient rehab unit where she is currently undergoing therapy 1. Multiple sclerosis with significant debility patient currently being managed on the inpatient rehab unit 2. Acute hypertensive crisis resolved 3. Hypertension patient presented with acute hypertensive crisis Home medications adjusted BP has since stabilized 4. Diabetes mellitus type II: Controlled with hemoglobin A1c of 11.7, Placed on long acting insulin, Accu-Cheks a.c. and at bedtime and covered with sliding scale insulin 5. Depression with anxiety patient is on Celexa and Wellbutrin 6. 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 DVT prophylaxis: lovenox Code Visit Inpatient E&M: 15026 Subs Hosp L2
[2018-07-23 16:40] LABS: Bedside Glucose 207 mg/dL (70-110)
[2018-07-23 20:00] VITALS: BP 150/77; PULSE 72; RESP 18; TEMP 36.7; O2SAT 97
[2018-07-23 20:04] VITALS: BP 150/77; PULSE 72
[2018-07-23] MEDS: Atorvastatin Calcium 40 MG Tablet PO (20:05)
[2018-07-23 22:26] LABS: Bedside Glucose 125 mg/dL (70-110)
--- NOTE | 2018-07-24 05:23 | NURSING ---
REVIEWED AND AGREE WITH CONTACT LENS ASSISTANT'S FIM AND HANDOFF CHARTING.
[2018-07-24] MEDS: Enoxaparin 40 MG/0.4 ML Syringe SC (05:29)
[2018-07-24 07:26] LABS: Bedside Glucose 205 mg/dL (70-110)
[2018-07-24 07:34] VITALS: BP 150/56; PULSE 68; RESP 18; TEMP 36.8; O2SAT 96
[2018-07-24] MEDS: Insulin Lispro 100 UNIT/ML INSULN.PEN 10 UNIT SC ×3 (07:36→17:20)
[2018-07-24] MEDS: Insulin Lispro 100 UNIT/ML INSULN.PEN SC ×2 (07:36→12:12)
[2018-07-24 07:37] VITALS: PULSE 68
[2018-07-24] MEDS: amLODIPine 10 MG Tablet PO (07:37)
[2018-07-24] MEDS: hydroCHLOROthiazide 25 MG Tablet PO (07:37)
[2018-07-24] MEDS: Aspirin 81 MG TAB.CHEW PO (07:37)
[2018-07-24] MEDS: Losartan Potassium 50 MG Tablet 75 MG PO (07:37)
[2018-07-24] MEDS: buPROPion (XL) 300 MG TABLET.XL PO (07:37)
[2018-07-24] MEDS: Metoprolol Tartrate 50 MG Tablet PO (07:37)
[2018-07-24] MEDS: hydrALAZINE 25 MG Tablet PO ×2 (07:37→22:02)
[2018-07-24] MEDS: Citalopram 20 MG Tablet 40 MG PO (07:37)
[2018-07-24] MEDS: metFORMIN HCl 1,000 MG Tablet 1000 MG PO ×2 (07:38→17:20)
[2018-07-24] MEDS: cloNIDine HCl 0.1 MG Tablet PO (07:38)
[2018-07-24 09:37] VITALS: PULSE 68
[2018-07-24] MEDS: Metoprolol Tartrate 25 MG Tablet PO (09:37)
--- NOTE | 2018-07-24 10:42 | PCM.PN.NEU ---
Subjective: Staffed in team meeting. No family at bedside, questions answered. With Physical therapy, she is able to walk and be consistently steady with her balance and her mobility using the walker versus the cane or no device. They have walked in the community over different surfaces using the walker without any difficulty. She has walked up and down 8 steps at contact guard. Coming to a stand she is minimal assist. With Occupational therapy, she is supervision for all ADLs. They have assessed her doing laundry and cooking she was stand by assist, she does have occasional loss of balance, but is able to recover. With Speech therapy, they will continue to work on memory issues, functional and recall and strategies to help with improve her recall. She is having no issues with Eating or drinking. With Nursing, will make appointments with Inspector Health Care Facilities and Wheel Alignment Mechanic on discharge, and schedule follow up appointment with Neurology. The plan is for discharge home on 07.26 with outpatient PT and Speech therapy. - Physical Exam General: Alert, Oriented x3, Cooperative HEENT: Atraumatic, PERRLA, EOMI, Normocephalic Neck: Supple, No JVD, Negative Carotid Bruits Lungs: Clear to auscultation, Normal air movement Cardiovascular: Regular rate, No murmurs Abdomen: Bowel Sounds Present, Soft, Non Tender Extremities: No edema, Capillary Refill Less than 3 Seconds Skin: No rashes, No breakdown Musculoskeletal: No Tenderness to Palpation of Joints or Extremities Neurological: Cranial nerves II-XII grossly intact Psych/Mental Status: Normal Affect, Appropriate, Alert and oriented to time, place, person, mood and affect Vital Signs Temp Pulse Resp BP Pulse Ox 98.2 F 68 18 150/56 H 96 07/24/18 07:34 07/24/18 09:37 07/24/18 07:34 07/24/18 07:34 07/24/18 07:34 Oxygen Delivery Method Room Air Weight: 96 kg Body Mass Index (BMI) 32.8 Finger Stick Blood Glucose 419 Intake and Output for Last 24 Hours 07/22/18 07/23/18 07/24/18 23:59 23:59 23:59 Intake Total 480 / 480 Balance 480 / 480 POC Glucose 07/24/18 07/23/18 07/23/18 07:19 22:06 16:36 POC Glucose 205 H 125 H 207 H 07/23/18 11:50 POC Glucose 138 H Active Medications Acetaminophen (Tylenol) 650 mg PO Q6H PRN PRN PRN Reason: PAIN Amlodipine Besylate (Norvasc) 10 mg PO DAILY [facility] Last Admin: 07/24/18 07:37 Dose: 10 mg Aspirin (Aspirin, Baby) 81 mg PO DAILY@0800 [facility] Last Admin: 07/24/18 07:37 Dose: 81 mg Atorvastatin Calcium (Lipitor) 40 mg PO QHS [facility] Last Admin: 07/23/18 20:05 Dose: 40 mg Bisacodyl (Dulcolax) 10 mg RECTAL .PRN X 1 PRN PRN Reason: Constipation Bupropion HCl (Wellbutrin Xl) 300 mg PO DAILY [facility] Last Admin: 07/24/18 07:37 Dose: 300 mg Citalopram Hydrobromide (Celexa) 40 mg PO DAILY [facility] Last Admin: 07/24/18 07:37 Dose: 40 mg Clonidine (Catapres) 0.1 mg PO DAILY [facility] Last Admin: 07/24/18 07:38 Dose: 0.1 mg Enoxaparin Sodium (Lovenox) 40 mg SC DAILY@0600 [facility] Last Admin: 07/24/18 05:29 Dose: 40 mg Hydralazine HCl (Apresoline) 25 mg PO BID [facility] Last Admin: 07/24/18 07:37 Dose: 25 mg Hydrochlorothiazide (Hctz) 25 mg PO DAILY [facility] Last Admin: 07/24/18 07:37 Dose: 25 mg Insulin Glargine (Lantus (Bkc)) 13 units SC QHS [facility] Last Admin: 07/23/18 22:21 Dose: 13 u Insulin Human Lispro (Humalog Kwikpen (Bkc)) 0 unit SC TIDAC [facility]; Protocol Last Admin: 07/24/18 07:36 Dose: 4 units Insulin Human Lispro (Humalog Kwikpen (Bkc)) 10 unit SC TIDAC [facility] Last Admin: 07/24/18 07:36 Dose: 10 units Losartan Potassium (Cozaar) 75 mg PO DAILY [facility] Last Admin: 07/24/18 07:37 Dose: 75 mg Magnesium Hydroxide (Milk Of Magnesia) 30 ml PO .PRN X 1 PRN PRN Reason: Constipation Metformin [facility] ([facility]) [facility] Last Admin: 07/24/18 07:38 Dose: 1,000 mg Metoprolol Tartrate (Lopressor (Beta Zenon)) 75 mg PO BID [facility] Senna/Docusate Sodium (Senokot-S, Kathryn-Colace) 2 tablet PO BID PRN PRN PRN Reason: Constipation Medical Necessity - Tobacco Use Smoking Status: Never smoker Tobacco Use: Non-smoker Assessment/Plan All Active Problems Hypertensive emergency (Acute) Gastroenteritis (Acute) Metabolic alkalosis (Acute) Hypokalemia (Acute) Abscess of right buttock (Acute) Dehydration (Acute) Hypomagnesemia (Acute) Debility 2/2 Multiple Sclerosis. Complicated by Hypertension emergency, Hypokalemia, CKD stage II, and DM type II. Goal of rehab is druze of functional independence. Plan: - Physical therapy for gait and balance - Occupational Therapy for ADLs - Speech therapy - As needed analgesics - Bowel protocol - DVT prophylaxis: SCDs, Jose juárez, Lovenox - Hypertensive emergency: blood pressure controlled -> on clonidine, Amlodipine, HCTZ, Cozaar Metoprolol, and Hydralazine was added this morning. Continue to monitor closely - viral gastroenteritis -> improved - Hypokalemia -> improved from 3.1 to 3.7 will continue to monitor and treat accordingly - Hx of Multiple sclerosis: Seen by our office, MRI brain was obtained it shows no active MS plaque but does indicate the total size and number of plaques has increased since 2007. Did not show any acute or subacute ischemic infarct - Hx of Diabetes type 2 => check BS AC and HS, continue home medication of metformin, decrease Lantus dose to 13 units at HS, high to moderate sliding scale. Obtain hemoglobin A1C - Hx of depression continue home dose of Celexa and Wellbutrin - Hx of CKD Stage II -> continue to monitor BUN/Creatine - Yeast infection of groin and vagina area -> continue Nystatin cream to area - Blurry vision was present prior to stroke, now is worse => schedule ophthalmology appointment at discharge - At discharge schedule outpatient and lab work, will follow up with outpatient Neurology to manage her MS. - Plan is for discharge on Saturday with outpatient PT and Speech therapy.
--- NOTE | 2018-07-24 10:56 | PN.NEURO_ITS ---
Subjective: Staffed in team meeting. No family at bedside, questions answered. With Physical therapy, she is able to walk and be consistently steady with her ba yemi and her mobility using the walker versus the cane or no device. They have walked in the community over different surfaces using the walker without any difficulty. She has walked up and down 8 steps at contact guard. Coming to a stand she is minimal assist. With Occupational therapy, she is supervision for all ADLs. They have assessed her doing laundry and cooking she was stand by assist, she does have occasional loss of balance, but is able to recover. With Speech therapy, they will continue to work on memory issues, functional and recall and strategies to help with improve her recall. She is having no issues with Eating or drinking. With Nursing, will make appointments with Sports Administrator and Timber Repairer on discharge, and schedule follow up appointment with Neurology. The plan is for discharge home on 07.26 with outpatient PT and Speech therapy. - Physical Exam General: Alert, Oriented x3, Cooperative HEENT: Atraumatic, PERRLA, EOMI, Normocephalic Neck: Supple, No JVD, Negative Carotid Bruits Lungs: Clear to auscultation, Normal air movement Cardiovascular: Regular rate, No murmurs Abdomen: Bowel Sounds Present, Soft, Non Tender Extremities: No edema, Capillary Refill Less than 3 Seconds Skin: No rashes, No breakdown Musculoskeletal: No Tenderness to Palpation of Joints or Extremities Neurological: Cranial nerves II-XII grossly intact Psych/Mental Status: Normal Affect, Appropriate, Alert and oriented to time, place, person, mood and affect Vital Signs Temp Pulse Resp BP Pulse Ox 98.2 F 68 18 150/56 H 96 07/24/18 07:34 07/24/18 09:37 07/24/18 07:34 07/24/18 07:34 07/24/18 07:34 Oxygen Delivery Method Room Air Weight: 96 kg Body Mass Index (BMI) 32.8 Finger Stick Blood Glucose 419 Intake and Output for Last 24 Hours 07/22/18 07/23/18 07/24/18 23:59 23:59 23:59 Intake Total 480 / 480 Balance 480 / 480 POC Glucose 07/24/18 07/23/18 07/23/18 07:19 22:06 16:36 POC Glucose 205 H 125 H 207 H 07/23/18 11:50 POC Glucose 138 H Active Medications Acetaminophen (Tylenol) 650 mg PO Q6H PRN PRN PRN Reason: PAIN Amlodipine Besylate (Norvasc) 10 mg PO DAILY [facility] Last Admin: 07/24/18 07:37 Dose: 10 mg Aspirin (Aspirin, Baby) 81 mg PO DAILY@0800 [facility] Last Admin: 07/24/18 07:37 Dose: 81 mg Atorvastatin Calcium (Lipitor) 40 mg PO QHS [facility] Last Admin: 07/23/18 20:05 Dose: 40 mg Bisacodyl (Dulcolax) 10 mg RECTAL .PRN X 1 PRN PRN Reason: Constipation Bupropion HCl (Wellbutrin Xl) 300 mg PO DAILY [facility] Last Admin: 07/24/18 07:37 Dose: 300 mg Citalopram Hydrobromide (Celexa) 40 mg PO DAILY [facility] Last Admin: 07/24/18 07:37 Dose: 40 mg Clonidine (Catapres) 0.1 mg PO DAILY [facility] Last Admin: 07/24/18 07:38 Dose: 0.1 mg Enoxaparin Sodium (Lovenox) 40 mg SC DAILY@0600 [facility] Last Admin: 07/24/18 05:29 Dose: 40 mg Hydralazine HCl (Apresoline) 25 mg PO BID [facility] Last Admin: 07/24/18 07:37 Dose: 25 mg Hydrochlorothiazide (Hctz) 25 mg PO DAILY [facility] Last Admin: 07/24/18 07:37 Dose: 25 mg Insulin Glargine (Lantus (Bkc)) 13 units SC QHS [facility] Last Admin: 07/23/18 22:21 Dose: 13 u Insulin Human Lispro (Humalog Kwikpen (Bkc)) 0 unit SC TIDAC [facility]; Protocol Last Admin: 07/24/18 07:36 Dose: 4 units Insulin Human Lispro (Humalog Kwikpen (Bkc)) 10 unit SC TIDAC [facility] Last Admin: 07/24/18 07:36 Dose: 10 units Losartan Potassium (Cozaar) 75 mg PO DAILY [facility] Last Admin: 07/24/18 07:37 Dose: 75 mg Magnesium Hydroxide (Milk Of Magnesia) 30 ml PO .PRN X 1 PRN PRN Reason: Constipation Metformin [facility] (Gl[facility]) [facility] Last Admin: 07/24/18 07:38 Dose: 1,000 mg Metoprolol Tartrate (Lopressor (Beta Zenon)) 75 mg PO BID [facility] Senna/Docusate Sodium (Senokot-S, Katrhyn-Colace) 2 tablet PO BID PRN PRN PRN Reason: Constipation Medical Necessity - Tobacco Use Smoking Status: Never smoker Tobacco Use: Non-smoker Assessment/Plan All Active Problems Hypertensive emergency (Acute) Gastroenteritis (Acute) Metabolic alkalosis (Acute) Hypokalemia (Acute) Abscess of right buttock (Acute) Dehydration (Acute) Hypomagnesemia (Acute) Debility 2/2 Multiple Sclerosis. Complicated by Hypertension emergency, Hypokalemia, CKD stage II, and DM type II. Goal of rehab is oriental orthodox of functional independence. Plan: - Physical therapy for gait and balance - Occupational Therapy for ADLs - Speech therapy - As needed analgesics - Bowel protocol - DVT prophylaxis: SCDs, Jose juárez, Lovenox - Hypertensive emergency: blood pressure controlled -> on clonidine, Amlodipine, HCTZ, Cozaar Metoprolol, and Hydralazine was added this morning. Continue to monitor closely - viral gastroenteritis -> improved - Hypokalemia -> improved from 3.1 to 3.7 will continue to monitor and treat accordingly - Hx of Multiple sclerosis: Seen by our office, MRI brain was obtained it shows no active MS plaque but does indicate the total size and number of plaques has increased since 2007. Did not show any acute or subacute ischemic infarct - Hx of Diabetes type 2 => check BS AC and HS, continue home medication of metformin, decrease Lantus dose to 13 units at HS, high to moderate sliding scale. Obtain hemoglobin A1C - Hx of depression continue home dose of Celexa and Wellbutrin - Hx of CKD Stage II -> continue to monitor BUN/Creatine - Yeast infection of groin and vagina area -> continue Nystatin cream to area - Blurry vision was present prior to stroke, now is worse => schedule ophthalmology appointment at discharge - At discharge schedule outpatient and lab work, will follow up with outpatient Neurology to manage her MS. - Plan is for discharge on Saturday with outpatient PT and Speech therapy.
[2018-07-24 11:45] LABS: Bedside Glucose 199 mg/dL (70-110)
--- NOTE | 2018-07-24 13:21 | CASEMGMT ---
Team meeting held. Patient present as well as patient, no support person present at this time. Patient plans to discharge to home with significant other at time of discharge. Discharge date set for 07/26/18. Patient agreeable to discharge date and plan. Physical therapy recommending for patient to continue with services through outpatient therapy services. Patient is agreeable to recommendation and requesting for outpatient physical therapy to be set up through [facility]. Patient aware that order for outpatient therapy will be faxed to [facility] and then [facility] will contact patient to set up appointment. Patient reporting to also need a walker at time of discharge. Patient does not have a preference of [employer] to be utilized. Patient significant other to provide transportation home for patient at time of discharge. Patient declining for this social service coordinator to contact patient family in regards to discharge date/plan. Patient planning to notify patient family on own. Support given. Order faxed to [facility]. Order faxed to [facility]. Walker to be delivered to patient room prior to patient discharge. Proposed discharge date: 07/26/18 PLAN: Discharge to home with significant other and outpatient physical therapy. Liliane JACOBO, DIGITAL EXPERIENCE MANAGER
[2018-07-24 17:10] LABS: Bedside Glucose 127 mg/dL (70-110)
[2018-07-24 19:41] VITALS: BP 144/70; PULSE 73; RESP 18; TEMP 36.7; O2SAT 99
[2018-07-24 21:46] LABS: Bedside Glucose 105 mg/dL (70-110)
[2018-07-24 22:02] VITALS: BP 151/83; PULSE 68
[2018-07-24] MEDS: Atorvastatin Calcium 40 MG Tablet PO (22:02)
[2018-07-24 22:03] VITALS: BP 151/83; PULSE 68
[2018-07-24] MEDS: Metoprolol Tartrate 25 MG Tablet 75 MG PO (22:03)
[2018-07-25] VITALS (8 sets, daily range): BP systolic 137–150; BP diastolic 72–80; PULSE 68–72; RESP 16–18; TEMP 36.5–36.6; O2SAT 95–98
[2018-07-25] MEDS: Enoxaparin 40 MG/0.4 ML Syringe SC (05:11)
[2018-07-25 06:36] LABS: Bedside Glucose 175 mg/dL (70-110)
[2018-07-25] MEDS: Insulin Lispro 100 UNIT/ML INSULN.PEN SC (08:00)
[2018-07-25] MEDS: Insulin Lispro 100 UNIT/ML INSULN.PEN 10 UNIT SC ×3 (08:00→17:06)
[2018-07-25] MEDS: amLODIPine 10 MG Tablet PO ×2 (08:01→08:02)
[2018-07-25] MEDS: Metoprolol Tartrate 25 MG Tablet 75 MG PO ×2 (08:01→22:06)
[2018-07-25] MEDS: Losartan Potassium 50 MG Tablet 75 MG PO (08:02)
[2018-07-25] MEDS: hydroCHLOROthiazide 25 MG Tablet PO (08:02)
[2018-07-25] MEDS: buPROPion (XL) 300 MG TABLET.XL PO (08:02)
[2018-07-25] MEDS: Aspirin 81 MG TAB.CHEW PO (08:03)
[2018-07-25] MEDS: Citalopram 20 MG Tablet 40 MG PO (08:03)
[2018-07-25] MEDS: metFORMIN HCl 1,000 MG Tablet 1000 MG PO ×2 (08:03→17:07)
[2018-07-25] MEDS: hydrALAZINE 25 MG Tablet PO ×2 (08:03→22:04)
[2018-07-25] MEDS: cloNIDine HCl 0.1 MG Tablet PO (08:05)
--- NOTE | 2018-07-25 10:03 | DS.PCM_ITS ---
Rehab Discharge Summary DATE OF ADMISSION: 07/10/18 DATE OF DISCHARGE: 07/26/2018 - Rehab Diagnosis MS - Physical Exam General: Alert, Oriented x3, Cooperative HEENT: Atraumatic, PERRLA, EOMI, Normocephalic Neck: Supple, No JVD, Negative Carotid Bruits Lungs: Clear to auscultation, Normal air movement Cardiovascular: Regular rate, No murmurs Abdomen: Bowel Sounds Present, Soft, Non Tender Extremities: No edema, Capillary Refill Less than 3 Seconds Skin: No rashes, No breakdown Musculoskeletal: No Tenderness to Palpation of Joints or Extremities Neurological: Cranial nerves II-XII grossly intact Psych/Mental Status: Normal Affect, Appropriate, Alert and oriented to time, place, person, mood and affect Vital Signs Temp Pulse Resp BP Pulse Ox 97.7 F L 72 18 139/72 H 98 07/25/18 07:10 07/25/18 08:03 07/25/18 07:10 07/25/18 08:03 07/25/18 07:10 Oxygen Delivery Method Room Air Weight: 96 kg Body Mass Index (BMI) 32.8 Finger Stick Blood Glucose 419 Intake and Output for Last 24 Hours 07/23/18 07/24/18 07/25/18 23:59 23:59 23:59 Intake Total 360 / 360 Balance 360 / 360 POC Glucose 07/25/18 07/24/18 07/24/18 06:31 21:39 16:59 POC Glucose 175 H 105 127 H 07/24/18 11:37 POC Glucose 199 H Active Medications Acetaminophen (Tylenol) 650 mg PO Q6H PRN PRN PRN Reason: PAIN Amlodipine Besylate (Norvasc) 10 mg PO DAILY [facility] Last Admin: 07/25/18 08:02 Dose: 10 mg Aspirin (Aspirin, Baby) 81 mg PO DAILY@0800 [facility] Last Admin: 07/25/18 08:03 Dose: 81 mg Atorvastatin Calcium (Lipitor) 40 mg PO QHS [facility] Last Admin: 07/24/18 22:02 Dose: 40 mg Bisacodyl (Dulcolax) 10 mg RECTAL .PRN X 1 PRN PRN Reason: Constipation Bupropion HCl (Wellbutrin Xl) 300 mg PO DAILY [facility] Last Admin: 07/25/18 08:02 Dose: 300 mg Citalopram Hydrobromide (Celexa) 40 mg PO DAILY [facility] Last Admin: 07/25/18 08:03 Dose: 40 mg Clonidine (Catapres) 0.1 mg PO DAILY [facility] Last Admin: 07/25/18 08:05 Dose: 0.1 mg Enoxaparin Sodium (Lovenox) 40 mg SC DAILY@0600 [facility] Last Admin: 07/25/18 05:11 Dose: 40 mg Hydralazine HCl (Apresoline) 25 mg PO BID [facility] Last Admin: 07/25/18 08:03 Dose: 25 mg Hydrochlorothiazide (Hctz) 25 mg PO DAILY [facility] Last Admin: 07/25/18 08:02 Dose: 25 mg Insulin Glargine (Lantus (Bkc)) 13 units SC QHS [facility] Last Admin: 07/24/18 22:05 Dose: 13 u Insulin Human Lispro (Humalog Kwikpen (Bkc)) 0 unit SC TIDAC [facility]; Protocol Last Admin: 07/25/18 12:07 Dose: Not Given Insulin Human Lispro (Humalog Kwikpen (Bkc)) 10 unit SC TIDAC [facility] Last Admin: 07/25/18 12:09 Dose: 10 units Losartan Potassium (Cozaar) 75 mg PO DAILY [facility] Last Admin: 07/25/18 08:02 Dose: 75 mg Magnesium Hydroxide (Milk Of Magnesia) 30 ml PO .PRN X 1 PRN PRN Reason: Constipation [facility] Last Admin: 07/25/18 08:03 Dose: 1,000 mg Metoprolol Tartrate (Lopressor (Beta Zenon)) 75 mg PO BID [facility] Last Admin: 07/25/18 08:01 Dose: 75 mg Senna/Docusate Sodium (Senokot-S, Kathryn-Colace) 2 tablet PO BID PRN PRN PRN Reason: Constipation Discharge Diet: 2000 mg Sodium Diet Discharge Activity: May Not Drive, May Shower, May Take a Tub Bath, Use Walker Weight Bearing Status: Full weight bearing Call your doctor if you observe: Fever of 101 or Higher, Coldness, Increased Pain, Numbness or Tingling, Change in Color, Inability to urinate, Inability to have a bowel movement, Using more than one pad per hour, Shortness of breath, Dizziness, Fainting spells, Swelling in the ankles, Chest pain, Prolonged hiccoughing, Increased palpitations (irregular heartbeat), Calf discomfort, Uncontrolled pain Home Medications: Medications to take at Discharge Aspirin [Aspirin, Baby] 81 mg PO DAILY@0800 11/09/13 Acetaminophen [Tylenol Tablet] 650 mg PO Q6H PRN PRN tablet 07/10/18 Nystatin/Triamcin Cream [Mycolog] 1 applic TOPICAL BID 07/10/18 Amlodipine [Norvasc] 10 mg PO DAILY #60 tablet 07/25/18 Atorvastatin Calcium [Lipitor] 40 mg PO QHS #60 tablet 07/25/18 Citalopram [Celexa] 40 mg PO DAILY #60 tablet 07/25/18 Clonidine HCl [Catapres] 0.1 mg PO DAILY #60 tablet 07/25/18 Hydrochlorothiazide [Hctz] 25 mg PO DAILY #60 tablet 07/25/18 Insulin Glargine [Lantus SoloStar Pen] 13 units SC QHS #2 pen 07/25/18 Insulin Lispro [Humalog KwikPen] 10 unit SC TIDAC #2 insuln.pen 07/25/18 Losartan Potassium [Cozaar] 75 mg PO DAILY #60 tablet 07/25/18 Metformin HCl [Glucophage] 1,000 mg PO BIDCM 120 Days tablet 07/25/18 Metoprolol Tartrate [Lopressor (beta zenon)] 75 mg PO BID #120 tablet 07/25/18 buPROPion tablets [Wellbutrin tablets] 300 mg PO DAILY #60 tablet 07/25/18 hydrALAZINE [Apresoline] 50 mg PO TID #180 tablet 07/25/18 Following Prescrptions Were Given to Patient: Amlodipine [Norvasc] 10 mg PO DAILY #60 tablet Atorvastatin Calcium [Lipitor] 40 mg PO QHS #60 tablet buPROPion tablets [Wellbutrin tablets] 300 mg PO DAILY #60 tablet Citalopram [Celexa] 40 mg PO DAILY #60 tablet Clonidine HCl [Catapres] 0.1 mg PO DAILY #60 tablet Hydrochlorothiazide [Hctz] 25 mg PO DAILY #60 tablet Insulin Glargine [Lantus SoloStar Pen] 13 units SC QHS #2 pen Insulin Lispro [Humalog KwikPen] 10 unit SC TIDAC #2 insuln.pen Losartan Potassium [Cozaar] 75 mg PO DAILY #60 tablet Metformin HCl [Glucophage] 1,000 mg PO BIDCM 120 Days tablet Metoprolol Tartrate [Lopressor (beta zenon)] 75 mg PO BID #120 tablet hydrALAZINE [Apresoline] 50 mg PO TID #180 tablet Primary Care Physician: Jaskaran Garcia MD [Primary Care Provider] - Please Follow Up With: Dr. Wellington Please Follow Up With: ANTOINETTE Gonzalez Please Follow Up With: [facility] - Outpatient [facility] Please Follow Up With: Valentino Please Follow Up With: Amita VERDUZCO Please Follow Up With: Clemencia Drummond Disposition: Home - with outpatient Physical therapy Minutes spent on discharge:: 40 Patient Condition:: Good Rehab Course The patient is a 58 year old right handed female who was admitted to the rehab unit for rehabilitation after the presented to the hospital on 07/05 with nausea, imbalance, vision changes and hypertension. Has a PMH of HTN, DM type II, HLD, CKD stage II, depression, and MS was on Copaxone which was stopped several months ago due to insurance issues, last exacerbation episodes was years ago. Ongoing MS symptoms include short term memory loss, dizziness, and falls. She Denies any medication errors. Her medications are pre-packaged in blister packs. Per ED note see below, the patient reported several days prior to admission that she felt hot, then started to notice paresthesias around her lips, nausea, increased falling, and blurry vision out of left eye. On admission patients blood pressure was 239/137, she received 20 mg of IV hydralazine, 20 mg of IV labetalol her blood pressure was 198 systolic. She was admitted to the ICU and started on IV Cardene for bp control. The patient lives with her significant other in a mobile home that has 3 steps to get in the home. She was previously completely functionally independent and is admitted to the rehab unit in order to restore her previous level of functional independence. Per ED Note: The patient is a 58 year old F presents with nausea, vomiting and diarrhea since the . Since that time, patient has been more unsteady than she is at baseline. Has consists continue to feel worse and family brought patient into the emergency room. Patient had some lab work that was unremarkable. Head CT that grossly did not show any emergent final report still pending. Patient was noted to be hypertensive with blood pressure of 239/137. Patient received 20 mg of IV hydralazine, 20 mg of IV labetalol and blood pressure is now 198 systolic. Patient states that she has had symptoms similar to this but less severe in the past but nothing recently. Patient being admitted for further hypertensive management, therapy evaluations and IV hydration. Rehab progress: Week of 07/10 to 07/17 With Physical therapy, she is able to walk greater than 300 feet using a wheel walker. She does have a tendency to lean to the left when walking, and requires verbal cues to correct her posture. She has walked up and down 8 steps using two hand rails. She is able to get in and out of bed at stand by assist. With Occupational therapy, Overall she is doing well, depending on how dizzy she is determines the amount of assistance she requires, for grooming she is contact guard to standby assistance. Dressing of her upper body she is supervision and lower body she may or may not require assistance. For transfers she is contact guard to minimal assistance. With Speech therapy, she continues to have issues with short term memory, problem solving and word finding, will continue to work on these issues. With Nursing, the major concern has been her blood sugar, they have been any where from 55 to 159, currently she is on Lantus 13 units at bedtime and Humalog 10 units with each meal. Will continue to monitor and make adjustments as needed Week of 07/18 to 07/26 With Physical therapy, she is able to walk and be consistently steady with her balance and her mobility using the walker versus the cane or no device. They h ave walked in the community over different surfaces using the walker without any difficulty. She has walked up and down 8 steps at contact guard. Coming to a stand she is minimal assist. With Occupational therapy, she is supervision for all ADLs. They have assessed her doing laundry and cooking she was stand by assist, she does have occasional loss of balance, but is able to recover. With Speech therapy, they will continue to work on memory issues, functional and recall and strategies to help with improve her recall. She is having no issues with Eating or drinking. With Nursing, will make appointments with [facility] on discharge, and schedule follow up appointment with Neurology. The plan is for discharge home on 07.26 with outpatient PT and Speech therapy. Meaningful Use Info Meaningful Use Diagnoses (Choose all that apply): None applicable
[2018-07-25 12:15] LABS: Bedside Glucose 148 mg/dL (70-110)
--- NOTE | 2018-07-25 13:52 | DCINST_ITS ---
- Discharge Diagnoses Reason(s) for Visit for Discharge Instructions: MS You will use the following diet at home:: Calorie/Carbohydrate Controlled (specify 1200, 1400, etc) Your food should be the consistency of: Regular Your liquids should be the consistency of: Regular/Thin Discharge Activity: May Not Drive, May Shower, May Take a Tub Bath, Use Walker Weight Bearing Status: Full weight bearing Call your doctor if you observe: Fever of 101 or Higher, Coldness, Increased Pain, Numbness or Tingling, Change in Color, Inability to urinate, Inability to have a bowel movement, Using more than one pad per hour, Shortness of breath, Dizziness, Fainting spells, Swelling in the ankles, Chest pain, Prolonged hiccoughing, Increased palpitations (irregular heartbeat), Calf discomfort, Uncontrolled pain Allergies/Adverse Reactions: Allergies No Known Allergies Allergy (Verified 07/10/18 11:28) Medications to take at Discharge Aspirin [Aspirin, Baby] 81 mg PO DAILY@0800 11/09/13 Acetaminophen [Tylenol Tablet] 650 mg PO Q6H PRN PRN tablet 07/10/18 Nystatin/Triamcin Cream [Mycolog] 1 applic TOPICAL BID 07/10/18 Amlodipine [Norvasc] 10 mg PO DAILY #60 tablet 07/25/18 Atorvastatin Calcium [Lipitor] 40 mg PO QHS #60 tablet 07/25/18 Citalopram [Celexa] 40 mg PO DAILY #60 tablet 07/25/18 Clonidine HCl [Catapres] 0.1 mg PO DAILY #60 tablet 07/25/18 Hydrochlorothiazide [Hctz] 25 mg PO DAILY #60 tablet 07/25/18 Insulin Glargine [Lantus SoloStar Pen] 13 units SC QHS #2 pen 07/25/18 Insulin Lispro [Humalog KwikPen] 10 unit SC TIDAC #2 insuln.pen 07/25/18 Losartan Potassium [Cozaar] 75 mg PO DAILY #60 tablet 07/25/18 Metformin HCl [Glucophage] 1,000 mg PO BIDCM 120 Days tablet 07/25/18 Metoprolol Tartrate [Lopressor (beta rony)] 75 mg PO BID #120 tablet 07/25/18 buPROPion tablets [Wellbutrin tablets] 300 mg PO DAILY #60 tablet 10/12/18 hydrALAZINE [Apresoline] 50 mg PO TID #180 tablet 07/25/18 The following prescriptions were given: Amlodipine [Norvasc] 10 mg PO DAILY #60 tablet Atorvastatin Calcium [Lipitor] 40 mg PO QHS #60 tablet buPROPion tablets [Wellbutrin tablets] 300 mg PO DAILY #60 tablet Citalopram [Celexa] 40 mg PO DAILY #60 tablet Clonidine HCl [Catapres] 0.1 mg PO DAILY #60 tablet Hydrochlorothiazide [Hctz] 25 mg PO DAILY #60 tablet Insulin Glargine [Lantus SoloStar Pen] 13 units SC QHS #2 pen Insulin Lispro [Humalog KwikPen] 10 unit SC TIDAC #2 insuln.pen Losartan Potassium [Cozaar] 75 mg PO DAILY #60 tablet Metformin HCl [Glucophage] 1,000 mg PO BIDCM 120 Days tablet Metoprolol Tartrate [Lopressor (beta rony)] 75 mg PO BID #120 tablet hydrALAZINE [Apresoline] 50 mg PO TID #180 tablet Primary Care Physician: Jaskaran Garcia MD [Primary Care Provider] - Test Results: Test results from this visit will be discussed in further detail at your follow- up appointment, if applicable. Please Follow Up With: Dr. Wellington Please Follow Up With: ANTOINETTE Gonzalez Please Follow Up With: [facility] - [facility]patient [facility] Please Follow Up With: Valentino Please Follow Up With: Amita VERDUZCO Please Follow Up With: Clemencia Drummond Proposed Discharge Date: 07/26/18
[2018-07-25 17:16] LABS: Bedside Glucose 134 mg/dL (70-110)
--- NOTE | 2018-07-25 17:35 | PCM.PN.HOSP ---
Subjective: Patient seen has apparently tolerated PT well. Plan is for patient to be discharged home on 07/26/2018. Did discuss with patient regarding home-going medications as well as her request for a sphygmomanometer. Objective: GENERAL: cooperative HEENT: Atraumatic; EYES; Anicteric, NECK; supple, normal thyroid, RESPIRATORY: Diminished to auscultation bilaterally, CARDIOVASCULAR: Regular S1 S2, no audible murmurs GI: soft, non-tender, normoactive bowel sounds, : No Renal angle tenderness; No macias EXTREMITIES: No edema, no clubbing, no cyanosis. MUSCULOSKELTAL: No Joint Tenderness; no muscle waisting NEURO: Awake; no lateralizing signs. SKIN: No Rash PSYCH; Normal affect Vitals/I&O's: Vital Signs Temp Pulse Resp BP Pulse Ox 97.7 F L 72 18 139/72 H 98 07/25/18 07:10 07/25/18 08:03 07/25/18 07:10 07/25/18 08:03 07/25/18 07:10 Oxygen Delivery Method Room Air Weight: 96 kg Body Mass Index (BMI) 32.8 Finger Stick Blood Glucose 419 Intake and Output for Last 24 Hours 07/23/18 07/24/18 07/25/18 23:59 23:59 23:59 Intake Total 360 / 360 Balance 360 / 360 Laboratory Results 07/24/18 21:39: POC Glucose 105 07/25/18 06:31: POC Glucose 175 H 07/25/18 12:06: POC Glucose 148 H 07/25/18 17:05: POC Glucose 134 H Current Medications Acetaminophen (Tylenol) 650 mg PO Q6H PRN PRN PRN Reason: PAIN Amlodipine Besylate (Norvasc) 10 mg PO DAILY [facility] Last Admin: 07/25/18 08:02 Dose: 10 mg Aspirin (Aspirin, Baby) 81 mg PO DAILY@0800 [facility] Last Admin: 07/25/18 08:03 Dose: 81 mg Atorvastatin Calcium (Lipitor) 40 mg PO QHS [facility] Last Admin: 07/24/18 22:02 Dose: 40 mg Bisacodyl (Dulcolax) 10 mg RECTAL .PRN X 1 PRN PRN Reason: Constipation Bupropion HCl (Wellbutrin Xl) 300 mg PO DAILY [facility] Last Admin: 07/25/18 08:02 Dose: 300 mg Citalopram Hydrobromide (Celexa) 40 mg PO DAILY [facility] Last Admin: 07/25/18 08:03 Dose: 40 mg Clonidine (Catapres) 0.1 mg PO DAILY [facility] Last Admin: 07/25/18 08:05 Dose: 0.1 mg Enoxaparin Sodium (Lovenox) 40 mg SC DAILY@0600 [facility] Last Admin: 07/25/18 05:11 Dose: 40 mg Hydralazine HCl (Apresoline) 25 mg PO BID [facility] Last Admin: 07/25/18 08:03 Dose: 25 mg Hydrochlorothiazide (Hctz) 25 mg PO DAILY [facility] Last Admin: 07/25/18 08:02 Dose: 25 mg Insulin Glargine (Lantus (Bk)) 13 units SC QHS [facility] Last Admin: 07/24/18 22:05 Dose: 13 u Insulin Human Lispro (Humalog Kwikpen ([facility])) 0 unit SC TIDAC [facility]; Protocol Last Admin: 07/25/18 17:06 Dose: Not Given Insulin Human Lispro (Humalog Kwikpen (Bk)) 10 unit SC TIDAC [facility] Last Admin: 07/25/18 17:06 Dose: 10 units Losartan Potassium (Cozaar) 75 mg PO DAILY [facility] Last Admin: 07/25/18 08:02 Dose: 75 mg Magnesium Hydroxide (Milk Of Magnesia) 30 ml PO .PRN X 1 PRN PRN Reason: Constipation [facility] Last Admin: 07/25/18 17:07 Dose: 1,000 mg Metoprolol Tartrate (Lopressor (Beta Zenon)) 75 mg PO BID [facility] Last Admin: 07/25/18 08:01 Dose: 75 mg Senna/Docusate Sodium (Senokot-S, Kathryn-Colace) 2 tablet PO BID PRN PRN PRN Reason: Constipation Medical Necessity - Tobacco Use Smoking Status: Never smoker Tobacco Use: Non-smoker Assessment/Plan All Active Problems Hypertensive emergency (Acute) Gastroenteritis (Acute) Metabolic alkalosis (Acute) Hypokalemia (Acute) Abscess of right buttock (Acute) Dehydration (Acute) Hypomagnesemia (Acute) Patient is a 58-year-old lady with history of multiple sclerosis with significant debility admitted to the inpatient rehab unit where she is currently undergoing therapy 1. Multiple sclerosis with significant debility patient currently being managed on the inpatient rehab unit tolerated pretty well so far 2. Acute hypertensive crisis resolved. Did go over patient's blood pressure medications with her 3. Hypertension patient presented with acute hypertensive crisis Home medications adjusted BP has since stabilized 4. Diabetes mellitus type II: Controlled with hemoglobin A1c of 11.7, Placed on long acting insulin, Accu-Cheks a.c. and at bedtime and covered with sliding scale insulin 5. Depression with anxiety patient is on Celexa and Wellbutrin 6. 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 DVT prophylaxis: lovenox Code Visit Inpatient E&M: 34916 Subs Hosp L2
[2018-07-25] MEDS: Atorvastatin Calcium 40 MG Tablet PO (22:07)
[2018-07-25 22:31] LABS: Bedside Glucose 137 mg/dL (70-110)
--- NOTE | 2018-07-26 03:54 | NURSING ---
REVIEWED AND AGREE WITH [employer]S FIM AND HANDOFF CHARTING.
[2018-07-26] MEDS: Enoxaparin 40 MG/0.4 ML Syringe SC (05:15)
[2018-07-26 06:25] LABS: Bedside Glucose 163 mg/dL (70-110)
[2018-07-26 07:37] VITALS: BP 150/80; PULSE 72; RESP 16; TEMP 36.6; O2SAT 98
[2018-07-26] MEDS: Insulin Lispro 100 UNIT/ML INSULN.PEN SC (07:44)
[2018-07-26] MEDS: Insulin Lispro 100 UNIT/ML INSULN.PEN 10 UNIT SC (07:51)
[2018-07-26 07:52] VITALS: BP 150/80; PULSE 72
[2018-07-26] MEDS: Aspirin 81 MG TAB.CHEW PO (07:52)
[2018-07-26] MEDS: metFORMIN HCl 1,000 MG Tablet 1000 MG PO (07:52)
[2018-07-26] MEDS: hydrALAZINE 25 MG Tablet PO (07:52)
[2018-07-26 07:53] VITALS: BP 150/80; PULSE 72
[2018-07-26] MEDS: hydroCHLOROthiazide 25 MG Tablet PO (07:53)
[2018-07-26] MEDS: buPROPion (XL) 300 MG TABLET.XL PO (07:53)
[2018-07-26] MEDS: Metoprolol Tartrate 25 MG Tablet 75 MG PO (07:53)
[2018-07-26] MEDS: Losartan Potassium 50 MG Tablet 75 MG PO (07:53)
[2018-07-26] MEDS: cloNIDine HCl 0.1 MG Tablet PO (07:55)
[2018-07-26] MEDS: Citalopram 20 MG Tablet 40 MG PO (07:56)
--- NOTE | 2018-07-26 08:33 | NURSING ---
DC instructions given this RN went over medications, appts, insulin teaching, pt verbalized understanding, denied questions. Pt gave morning dose of insulin to self, demonstrating to this RN understanding on how to do dosing of insulin and administer to self. Pt being discharged home by POV with boyfriend has all personal belongings in hand.
== END 2018-07-26 08:41 | disposition home or self-care (01) | DRG 948 ==
PROVIDERS: Internal Medicine; Nurse Practitioner Acute Care; Student in an Organized Health Care Education/Training Program; Admitting Provider Psychiatry & Neurology Neurology; Family Provider Family Medicine; PCP Family Medicine; Referring Provider Psychiatry & Neurology Neurology; Visit Provider Internal Medicine
DX: R53.81 Other malaise (principal); I16.1 Hypertensive emergency; G35 Multiple sclerosis; I12.9 Hypertensive chronic kidney disease with stage 1 through stage 4 chronic kidney disease, or unspecified chronic kidney disease; N18.3 Chronic kidney disease, stage 3 (moderate); E11.22 Type 2 diabetes mellitus with diabetic chronic kidney disease; E78.5 Hyperlipidemia, unspecified; H53.8 Other visual disturbances; B37.3 Candidiasis of vulva and vagina; E11.65 Type 2 diabetes mellitus with hyperglycemia; Z86.73 Personal history of transient ischemic attack (TIA), and cerebral infarction without residual deficits; F41.8 Other specified anxiety disorders
CPT/HCPCS: 36415; 80053; 82947; 82962; 83036; 85025; 92507; 92523; 97110; 97112; 97116; 97162; 97166; 97530; 97535; 97802

== ENCOUNTER → 2018-10-08 14:51 | Outpatient (CLI) | payer MEDICARE, MEDICAID, SELFPAY ==
[2018-10-08 16:04] LABS: Absolute Lymphocyte Count 3.56 X10^3/ul (0.83-4.51); Absolute Neutrophil Count 8.2 X10^3/uL (2.0-7.7); Basophil# 0.05 X10^3/uL; Basophil% 0.4 % (0-1); Eosinophil# 0.11 X10^3/uL; Eosinophils% 0.9 % (0-5); Hemoglobin 13.1 g/dl (12.0-15.0); Lymphocyte # 3.56 X10^3/ul (4.0); Lymphocyte % 28.2 % (19-41); Mean Corp Hgb Conc 32.8 g/gl (32-36); Mean Corpuscular Hgb 28.7 pg (27.0-32.0); Mean Corpuscular Volume 87.7 fL (81-99); Mean Platelet Vol. 11.4 fl (6.2-12.0); Monocyte# 0.67 X10^3/uL; Monocyte% 5.3 % (0-10); Platelet Count 299 K/mm3 (150-450); RBC Distribution Width CV 13.1 % (11.6-14.6); RBC Distribution Width SD 42.3 fl (35.1-43.9); Red Blood Count 4.56 M/mm3 (4.2-5.4); White Blood Count 12.6 K/mm3 (4.4-11.0)
[2018-10-08 16:10] LABS: POSITIVE COUNT NO; POSITIVE DIFFERENTIAL NO; POSITIVE MORPHOLOGY NO
[2018-10-08 16:19] LABS: Anion Gap 7 (5-15); BUN 19 mg/dL (7-18); BUN/Creat Ratio 19.2 RATIO (10-20); Calcium,Total 8.8 mg/dL (8.5-10.1); Chloride 105 mmol/L (98-107); Creatinine, Serum 0.99 mg/dL (0.55-1.02); EST Glomerular Filtration Rate 61 mL/min (>60); Est Glom Filt Rate - Afr Amer 74 mL/min (>60); Glucose 78 mg/dL (74-106); Magnesium 1.5 mg/dL (1.6-2.6); Phosphorus 3.6 mg/dL (2.5-4.9); Potassium 3.8 mmol/L (3.5-5.1); Sodium Level 144 mmol/L (136-145)
[2018-10-10 11:04] LABS: HEPATITIS B SURFACE AG Negative (Negative); Hep B Surface Antibodies Non Reactive (.)
== END ==
PROVIDERS: Family Provider Family Medicine; PCP Family Medicine; Referring Provider Nurse Practitioner Acute Care; Visit Provider Nurse Practitioner Acute Care
DX: G35 Multiple sclerosis (principal); Z13.89 Encounter for screening for other disorder
CPT/HCPCS: 36415; 80048; 83735; 84100; 85025; 86706; 87340

== ENCOUNTER 2018-10-28 15:17 | Outpatient (RCR) | payer MEDICARE, MEDICAID, SELFPAY ==
--- NOTE | 2018-10-28 16:19 | HP.PTEVAL_ITS ---
Patient's Visit Information BRE GONSALEZ is a 58 year old F referred to Physical Therapy by NAYELI Gutiérrez with a diagnosis of multiple falls, dizziness, MS. Date of Evaluation: 10/28/18 Physical Therapist: RADHA Moody - Visit Plan Frequency: 2x /Week Duration: 4 Weeks Plan: 2X/ week for 4 weeks for smooth pursuit and VOR progression, standing with feet together static balance with and without head movements and various compliant surfaces, balance progression and functional strengthening with HEP - Subjective Findings: Pt has had MS since 1995 and is progressive remitting. Pt has weakness in legs. SHe fatigues quickly. MS has been progressing. She does not see double. She gets up slow from a sitting position. Pt reports that she can not walk a straight line, she falls off sidewalks, at home she gets disoriented and she falls for no reason, sometimes when she looks up she feels that everything is spinning (it lasts more than a minute).....she sits down and closes eyes or focuses on something onthe wall and concentrates on that.... can last about 5 minutes. This has been going on for a month. She does not notices it when she rolls over in bed. She has fallen in the shower and fallen getting to the toliet. She has falled 10 times in the last month...some are related to dizziness... a few times she has gotten up and stumbles backwards and has fallen. When she turns her head she does feel off. Stairs 3 to get into home with a railing. She has to concentrate when using the stairs. She can get up from the floor when she falls. - Objective Gait: walks with decreased knee flex and decreased DF B with wider silva and occ toe catch on the L. CATSIB: 55/120. FGA: 04/02 ( patient could not walk and turn head....). VOR: Pursuit: pt was not able to follow object through one complete range.... Had pt close L eye( which needs surgery) and she was able to floolw through 2 rounds and continued for about 10 seconds and then felt ill to her stomach. LE MMT: hip flex B 4-/5, knee ext B 4/5, B knee flex 4-/5, B hip abd 4/5, able to full bridge, Pt is able to heel raise about 1/2 jessa ROM and has def less than 1/2 Normal ROM toe raise - Balance Scores Functional Gait Assessment Score: 6 % Disability: 80.0000 CATSIB Score (Max score 120 seconds): 55 - Goals Goal 1:: I hEP Goal Time Frame: 4-6 Weeks Goal 2:: Be able to complete 45 seconds of smooth pursuit without getting the ill stomch feeling Goal Time Frame: 4-6 Weeks Goal 3:: Increase FGA score to 12 to decrease fall risk Goal Time Frame: 4-6 Weeks Goal 4:: Be able to stand with feet together in // bars and turn head in horizontal and vertical plane X 30 seonds without getting the feeling of dizziness Goal Time Frame: 4-6 Weeks - Rehabilitation Potential Rehabilitation Potential: Good - Anticipated Interventions Patient/Client Instruction: Educate patient on: Plan of Care For the Purpose of:: To improve muscle performance and motor function, To improve ability to perform ADL's, To increase tolerance to activity/condition/position, To improve performance and independence with ADL's, To decrease level of supervision to perform tasks, To improve ability of physical actions for home/community/work/leisure, To improve gait and locomotor functions, To improve balance, To improve safety with gait Therapeutic Exercise to Include: Strength training, Balance training, Body mechanics, Postural training, Gait and locomotor training, Neuromotor development, Passive ROM, Active ROM For the Purpose of:: To improve nutrient delivery to tissue, To improve muscle performance and motor function, To improve ability to perform ADL's, To increase tolerance to activity/condition/position, To improve performance and independence with ADL's, To improve ability of physical actions for home/community/work/leisure, To improve gait and locomotor functions, To increase flexibility/ROM, To improve balance, To improve safety with gait Functional Training to Include: Gait training For the Purpose of:: To improve gait and locomotor functions Thank you for the opportunity to evaluate your patient. For Medicare and Medicare HMO plans, please review the plan of care and approve it. It will need to be FAXED BACK to us at [phone] for Medicare purposes. For Medicare only, by signing this I certify the plan of care. Please let me know if there are questions or concerns regarding this plan of care. Physician Signature: Date:
--- NOTE | 2019-01-16 09:21 | HP.PTDCNRP_ITS ---
HP - Discharge Summary (1) - Patient Information BRE GONSALEZ was seen in my office for initial evaluation on 10/28/18. The following Plan of Care was established for this patient: Initial Frequency: 2x /Week Initial Duration: 4 Weeks - Anticipated Interventions Patient/Client Instruction: Educate patient on: Plan of Care For the Purpose of:: To improve muscle performance and motor function, To improve ability to perform ADL's, To increase tolerance to activity/condition/position, To improve performance and independence with ADL's, To decrease level of supervision to perform tasks, To improve ability of physic al actions for home/community/work/leisure, To improve gait and locomotor functions, To improve balance, To improve safety with gait Therapeutic Exercise to Include: Strength training, Balance training, Body mechanics, Postural training, Gait and locomotor training, Neuromotor development, Passive ROM, Active ROM For the Purpose of:: To improve nutrient delivery to tissue, To improve muscle performance and motor function, To improve ability to perform ADL's, To increase tolerance to activity/condition/position, To improve performance and indepe ndence with ADL's, To improve ability of physical actions for home/community/work/leisure, To improve gait and locomotor functions, To increase flexibility/ROM, To improve balance, To improve safety with gait Functional Training to Include: Gait training For the Purpose of:: To improve gait and locomotor functions This patient was last seen in our office 10/28/18. Pertinent comments regarding their Physical therapy will appear below: Pt will be discharged as she has cancelled 4 appointments and no-showed for 3 of her last 7 appointments. DC PT. At this point I will be discontinuing this patient from physical therapy. I would be happy to see this patient again in the future if found appropriate by the physician. Thank you! Lisbeth Saunders, MPT
== END 2018-10-28 19:00 | disposition home or self-care (01) ==
LOC: PT 15:17
PROVIDERS: Family Provider Family Medicine; PCP Family Medicine; Referring Provider Nurse Practitioner Acute Care; Visit Provider Nurse Practitioner Acute Care
DX: R29.6 Repeated falls (principal); R42 Dizziness and giddiness; G35 Multiple sclerosis
CPT/HCPCS: 97162

== ENCOUNTER → 2018-10-30 08:39 | Outpatient (CLI) | payer MEDICARE, MEDICAID, SELFPAY ==
[2018-07-10 11:20] VITALS: BMI 32.8
[2018-10-30 08:57] VITALS: BP 118/69; PULSE 70; RESP 18; TEMP 35.9; O2SAT 97; BMI 31.3
[2018-10-30] MEDS: MethylPREDNISolone 125 MG/2 ML Vial 100 MG IV (09:11)
[2018-10-30] MEDS: DiphenhydrAMINE 50 MG/ML Syringe 25 MG IV ×2 (09:11→12:04)
[2018-10-30 14:36] VITALS: BP 136/68; PULSE 87; RESP 16; TEMP 36.6; O2SAT 95
--- OUTSIDE RECORDS SUMMARY | 2019-01-03 21:46 | XMS RPT_ITS ---
:1960 Author Organization OHIP Support Name Relationship Address Phone D Unavailable Unavailable Unavailable ANEUDY BAILEY Unavailable [address] + [address] [place] [address] D Unavailable Unavailable Unavailable ANEUDY BAILEY Unavailable [address] + [address] [place] [address] D Unavailable Unavailable Unavailable ANEUDY BAILEY Unavailable [address] + [place] [address] D Unavailable Unavailable Unavailable ANEUDY BAILEY Unavailable [address] + [place] [address] D Unavailable Unavailable Unavailable ANEUDY BAILEY Unavailable [address] + [place] [address] D Unavailable Unavailable Unavailable ANEUDY BAILEY Unavailable [address] + [place] [address] D Unavailable Unavailable Unavailable ANEUDY BAILEY Unavailable [address] + [place] [address] D Unavailable Unavailable Unavailable ANEUDY BAILEY Unavailable [address] + [place] [address] D Unavailable Unavailable Unavailable ANEUDY BAILEY Unavailable [address] + [place] [address] D Unavailable Unavailable Unavailable ANEUDY BAILEY Unavailable [address] + [place] [address] D Unavailable Unavailable Unavailable ANEUDY BAILEY Unavailable [address] + [place] [address] D Unavailable Unavailable Unavailable ANEUDY BAILEY Unavailable [address] + [place] [address] D Unavailable Unavailable Unavailable ANEUDY BAILEY Unavailable [address] + [place] [address] D Unavailable Unavailable Unavailable ANEUDY BAILEY Unavailable [address] + [place] [address] D Unavailable Unavailable Unavailable ANEUDY BAILEY Unavailable [address] + [place] [address] D Unavailable Unavailable Unavailable ANEUDY BAILEY Unavailable [address] + [place] [address] D Unavailable Unavailable Unavailable ANEUDY BAILEY Unavailable [address] + [place] [address] D Unavailable Unavailable Unavailable ANEUDY BAILEY Unavailable [address] + [place] [address] D Unavailable Unavailable Unavailable ANEUDY BAILEY Unavailable [address] + [place] [address] D Unavailable Unavailable Unavailable ANEUDY BAILEY Unavailable [address] + [place] [address] Care Team Providers Name Role Phone Swetha Moya DYE TANK TENDER-C Attending Unavailable Swetha Moya DYE TANK TENDER-C Referring Unavailable [facility] Care Unavailable Swetha Moya DYE TANK TENDER-C Attending Unavailable Swetha Moya DYE TANK TENDER-C Referring Unavailable [facility] Care Unavailable [facility] Care Unavailable Jopperi, Carlos Eduardo Admitting Unavailable Dilshad Pak Consulting Unavailable Frank, Armond Attending Unavailable Ramón Melchor Consulting Unavailable Jopperi, Carlos Eduardo Admitting Unavailable Jopperi, Carlos Eduardo Attending Unavailable [facility] Unavailable Jopperi, Carlos Eduardo Consulting Unavailable Jopperi, Carlos Eduardo Admitting Unavailable Frank, Armond Attending Unavailable [facility] Care Unavailable Dilshad Pak Consulting Unavailable Ruiz, Ramón Consulting Unavailable Frank, Armond Consulting Unavailable Swetha Moya DYE TANK TENDER-C Attending Unavailable GriffinSwetha bryant DYE TANK TENDER-C Referring Unavailable [facility] Care Unavailable Jopperi, Carlos Eduardo Admitting Unavailable Frank, Armond Attending Unavailable [facility] Care Unavailable Dilshad Pak Consulting Unavailable Melchor, Ramón Consulting Unavailable Frank, Armond Consulting Unavailable Jopperi, Carlos Eduardo Admitting Unavailable Frank, Armond Attending Unavailable [place], Jaskaran Primary Care Unavailable Pasha, Dilshad Consulting Unavailable Melchor, Ramón Consulting Unavailable Frank, Armond Consulting Unavailable Jopperi, Carlos Eduardo Admitting Unavailable Frank, Armond Attending Unavailable Jose, Jaskaran Primary Care Unavailable Pasha, Dilshad Consulting Unavailable Melchor, Ramón Consulting Unavailable Frank, Armond Consulting Unavailable Svetlana, Krzysztof S. Admitting Unavailable Svetlana, Krzysztof S. Referring Unavailable Jose, Jaskaran Primary Care Unavailable Frank, Armond Consulting Unavailable Umesh Delacruz Attending Unavailable Jopperi, Carlos Eduardo Admitting Unavailable Frank, Armond Attending Unavailable Jose, Jaskaran Primary Care Unavailable Pasha, Dilshad Consulting Unavailable Melchor, Ramón Consulting Unavailable Frank, Armond Consulting Unavailable Svetlana, Krzysztof S. Admitting Unavailable Frank, Armond Attending Unavailable Svetlana, Krzysztof S. Referring Unavailable Jose, Jaskaran Primary Care Unavailable Frank, Armond Consulting Unavailable Svetlana, Krzysztof S. Consulting Unavailable Svetlana, Krzysztof S. Admitting Unavailable Koram, Clare Jodee Attending Unavailable Svetlana, Krzysztof S. Referring Unavailable Jose, Jaskaran Primary Care Unavailable Frank, Armond Consulting Unavailable Koram, Clare Jodee Consulting Unavailable Svetlana, Krzysztof S. Admitting Unavailable Frank, Armond Attending Unavailable Svetlana, Rkzysztof S. Referring Unavailable Jose, Jaskaran Primary Care Unavailable Frank, Armond Consulting Unavailable Svetlana, Krzysztof S. Admitting Unavailable Frank, Armond Attending Unavailable Svetlana, Krzysztof S. Referring Unavailable Jose, Jaskaran Primary Care Unavailable Frank, Armond Consulting Unavailable Svetalna, Krzysztof S. Admitting Unavailable Frank, Armond Attending Unavailable Svetlana, Krzysztof S. Referring Unavailable Jose, Jaskaran Primary Care Unavailable Frank, Armond Consulting Unavailable Svetlana, Krzysztof S. Admitting Unavailable Umesh Delacruz Attending Unavailable Svetlana, Krzysztof S. Referring Unavailable Jose, Jaskaran Primary Care Unavailable Frank, Armond Consulting Unavailable Umesh Delacruz Consulting Unavailable Svetlana, Krzysztof S. Admitting Unavailable KitUmesh mcneal Attending Unavailable Svetlana, Krzysztof S. Referring Unavailable Jose, Jaskaran Primary Care Unavailable Frank, Armond Consulting Unavailable Umesh Delacruz Consulting Unavailable Svetlana, Krzysztof S. Admitting Unavailable Umesh Delacruz Attending Unavailable Krzysztof Mota Referring Unavailable Jaskaran Garcia Primary Care Unavailable Armond Marie Consulting Unavailable Umesh Delacruz Consulting Unavailable Dilshad Pak Attending Unavailable Carlos Eduardo Grayson Referring Unavailable PROBLEMS PROBLEMS DATE TYPE CONDITION / CODE ATTENDING STATUS SOURCE 10/08/2018 Unknown G35 - Multiple Swetha Moya sclerosis / DYE TANK TENDER-C [facility] G35(ICD-10) Hospital Repository 08/25/2018 Unknown I16.1 - Pasha Dilshad Active [place] Hypertensive [facility] emergency / Hospital I16.1(ICD-10) Repository 08/25/2018 Unknown E87.6 - Pasha, Dilshad Active [place] Hypokalemia / Community E87.6(ICD-10) Hospital Repository PROCEDURES PROCEDURES No Procedure Records FoundRESULTS RESULTS INITAL EVALUATION (1) Observed: 10/28/2018 Status: F Source: [place] - PT 5:35 PM [facility] REPOSITORY [facility] Physical [facility] [address] [place] [address]. [address] [place] [address] / REHABILITATION SERVICES INITIAL EVALUATION MR#: [id number] Acct: [id number] Name: BRE GONSALEZ Rep #: [id number] : 1960 58 From: Lisbeth GARCIA Referring Dr.: DAX Moya Status: REG RCR Insurance: MEDICARE PART A B MEDICAID Patient's Visit Information BRE GONSALEZ is a 58 year old F referred to Physical Therapy by RIRI Gutiérrez with a diagnosis of multiple falls, dizziness, MS. Date of Evaluation: 10/28/18 Physical Therapist: RADHA Moody - Visit Plan Frequency: 2x /Week Duration: 4 Weeks Plan: 2X/ week for 4 weeks for smooth pursuit and VOR progression, standing with feet together static balance with and without head movements and various compliant surfaces, balance progression and functional strengthening with HEP - Subjective Findings: Pt has had MS since 1995 and is progressive remitting. Pt has weakness in legs. SHe fatigues quickly. MS has been progressing. She does not see double. She gets up slow from a sitting position. Pt reports that she can not walk a straight line, she falls off sidewalks, at home she gets disoriented and she falls for no reason, sometimes when she looks up she feels that everything is spinning (it lasts more than a minute).....she sits down and closes eyes or focuses on something onthe wall and concentrates on that.... can last about 5 minutes. This has been going on for a month. She does not notices it when she rolls over in bed. She has fallen in the shower and fallen getting to the toliet. She has falled 10 times in the last month...some are related to dizziness... a few times she has gotten up and stumbles backwards and has fallen. When she turns her head she does feel off. Stairs 3 to get into home with a railing. She has to concentrate when using the stairs. She can get up from the floor when she falls. - Objective Gait: walks with decreased knee flex and decreased DF B with wider silva and occ toe catch on the L. CATSIB: 55/120. FGA: 20 ( patient could not walk and turn head....). VOR: Pursuit: pt was not able to follow object through one complete range.... Had pt close L eye( which needs surgery) and she was able to floolw through 2 rounds and continued for about 10 seconds and then felt ill to her stomach. LE MMT: hip flex B 4-/5, knee ext B 4/5, B knee flex 4-/5, B hip abd 4/5, able to full bridge, Pt is able to heel raise about 1/2 jessa ROM and has def less than 1/2 Normal ROM toe raise - Balance Scores Functional Gait Assessment Score: 6 % Disability: 80.0000 CATSIB Score (Max score 120 seconds): 55 - Goals Goal 1:: I hEP Goal Time Frame: 4-6 Weeks Goal 2:: Be able to complete 45 seconds of smooth pursuit without getting the ill stomch feeling Goal Time Frame: 4-6 Weeks Goal 3:: Increase FGA score to 12 to decrease fall risk Goal Time Frame: 4-6 Weeks Goal 4:: Be able to stand with feet together in // bars and turn head in horizontal and vertical plane X 30 seonds without getting the feeling of dizziness Goal Time Frame: 4-6 Weeks - Rehabilitation Potential Rehabilitation Potential: Good - Anticipated Interventions Patient/Client Instruction: Educate patient on: Plan of Care For the Purpose of:: To improve muscle performance and motor function, To improve ability to perform ADL's, To increase tolerance to activity/condition/position, To improve performance and independence with ADL's, To decrease level of supervision to perform tasks, To improve ability of physical actions for home/community/work/leisure, To improve gait and locomotor functions, To improve balance, To improve safety with gait Therapeutic Exercise to Include: Strength training, Balance training, Body mechanics, Postural training, Gait and locomotor training, Neuromotor development, Passive ROM, Active ROM For the Purpose of:: To improve nutrient delivery to tissue, To improve muscle performance and motor function, To improve ability to perform ADL's, To increase tolerance to activity/condition/position, To improve performance and independence with ADL's, To improve ability of physical actions for home/community/work/leisure, To improve gait and locomotor functions, To increase flexibility/ROM, To improve balance, To improve safety with gait Functional Training to Include: Gait training For the Purpose of:: To improve gait and locomotor functions Thank you for the opportunity to evaluate your patient. For Medicare and Medicare HMO plans, please review the plan of care and approve it. It will need to be FAXED BACK to us at [phone] for Medicare purposes. For Medicare only, by signing this I certify the plan of care. Please let me know if there are questions or concerns regarding this plan of care. Physician Signature: Date: <Electronically signed by Lisbeth Saunders MPT> 10/28/18 1735 CC: DAX Moya; Jaskaran Garcia MD Signed CBC W/DIFF, AUTOMATED Collected: 10/08/2018 Status: F Source: [place] 2:57 PM [facility] REPOSITORY TYPE CODE TESTS RESULT OUT OF RANGE REFERENCE UNITS LAB L100.1000 4.4-11.0 K/mm3 High WBC 12.6 LAB L100.1200 4.2-5.4 M/mm3 Normal RBC 4.56 LAB L100.1300 12.0-15.0 g/dl Normal HGB 13.1 LAB L100.1400 37-47 % Normal HCT 40.0 LAB L100.1500 81-99 fL Normal MCV 87.7 LAB L100.1600 27.0-32.0 pg Normal MCH 28.7 LAB L100.1700 32-36 g/gl Normal MCHC 32.8 LAB L100.1810 11.6-14.6 % Normal RDW CV 13.1 LAB L100.1820 35.1-43.9 fl Normal RDW SD 42.3 LAB L100.1900 150-450 K/mm3 Normal PLT 299 LAB L100.2000 6.2-12.0 fl Normal MPV 11.4 LAB L100.2100 47-70 % Normal NEUT% 65.0 LAB L100.2200 19-41 % Normal LY% 28.2 LAB L100.2300 0-10 % Normal MONO% 5.3 LAB L100.2400 0-5 % Normal EO% 0.9 LAB L100.2500 0-1 % Normal BASO% 0.4 LAB L100.2550 0.0-0.9 % Normal IM GRAN % 0.200 Result Comment: IG% - Immature Granulocytes (promyelocytes, myelocytes and metamyelocytes) > 1% indicates that a LEFT SHIFT is Present. LAB L100.2620 2.0-7.7 X10 3/uL High Absolute Neut 8.2 LAB L100.2720 0.83-4.51 X10 3/ul Normal Absolute Lymph 3.56 Performed By: #### L100.0100 #### [facility] [address] [place], [address] BASIC METABOLIC Collected: 10/08/2018 Status: F Source: [place] PROFILE ([facility]) 2:57 PM [facility] REPOSITORY TYPE CODE TESTS RESULT OUT OF RANGE REFERENCE UNITS LAB L501.0100 74-106 mg/dL Normal GLU 78 Result Comment: Please note revised GLUCOSE reference range effective 2017. LAB L501.1000 7-18 mg/dL High BUN 19 LAB L501.1100 0.55-1.02 mg/dL Normal CREAT,SERUM 0.99 Result Comment: The validity of the calculated GFR AND GFRAA in patients over 70 years has not been determined. Clinical correlation is essential. LAB L501.1110 >60 mL/min Normal EST GFR 61 Result Comment: Non- GFR Calc LAB L501.1115 >60 mL/min Normal EST GFR - AA 74 Result Comment: GFR Calc LAB L501.1300 10-20 RATIO Normal BUN/CRE 19.2 LAB L501.2200 8.5-10.1 mg/dL CA Normal 8.8 LAB L501.5300 136-145 mmol/L NA Normal 144 LAB L501.5600 3.5-5.1 mmol/L K Normal 3.8 LAB L501.5900 98-107 mmol/L CL Normal 105 LAB L501.6100 21.0-32.0 mmol/L Normal CO2 32.0 LAB L501.6200 5-15 Normal GAP 7 Performed By: #### L500.2500, L501.2300, L501.5200 #### [facility] [address] [place], [address] PHOSPHORUS Collected: 10/08/2018 Status: F Source: [place] 2:57 PM [facility] REPOSITORY TYPE CODE TESTS RESULT OUT OF RANGE REFERENCE UNITS LAB L501.2300 2.5-4.9 mg/dL Normal PHOS 3.6 Performed By: #### L500.2500, L501.2300, L501.5200 #### [facility] [address] [place], [address] MAGNESIUM Collected: 10/08/2018 Status: F Source: [place] 2:57 PM [facility] REPOSITORY TYPE CODE TESTS RESULT OUT OF RANGE REFERENCE UNITS LAB L501.5200 1.6-2.6 mg/dL Low MG 1.5 Performed By: #### L500.2500, L501.2300, L501.5200 #### [facility] [address] [place], [address] HEPATITIS B SURFACE Collected: 10/08/2018 Status: F Source: [place] AG 2:57 PM [facility] REPOSITORY TYPE CODE TESTS RESULT OUT OF RANGE REFERENCE UNITS LAB L3100.0400 Negative Normal HB Negative SURF AG Result Comment: Performed at: - [facility] [address] [id number] Motor Vehicle Technician: Teddy Chavez PhD, Phone: [phone] Performed By: #### L3100.0390, L3100.0528 #### [facility] (refer to report for specific site) refer to report for address and phone number HEP B SURFACE Collected: 10/08/2018 Status: F Source: [place] ANTIBODIES 2:57 PM [facility] REPOSITORY TYPE CODE TESTS RESULT OUT OF RANGE REFERENCE UNITS LAB L3100.0528 . Normal Hep B Non Reactive Jeremy AB Result Comment: Non Reactive: Inconsistent with immunity, less than 10 mIU/mL Reactive: Consistent with immunity, greater than 9.9 mIU/mL Performed By: #### L3100.0390, L3100.0528 #### [facility] (refer to report for specific site) refer to report for address and phone number DISCHARGE SUMMARY Observed: 07/26/2018 Status: C Source: [place] 10:19 AM [facility] REPOSITORY [facility] Medical Records Department [address] [place] [address] Discharge Summary 07/25/18 1003 MR#: [id number] Acct: [id number] Name: BRE GONSALEZ Rep #: [id number] : 1960 58 From: Swetha MENEZES PCP: Jaskaran Garcia MD Status: DIS IN Y Location: [place] [address] ADDENDUM by Merle Mota MD on 07/26/18 at 1019 I have personally examined the patient at bedside. Please see DAX Moya's note as below for further complete details. I have discussed the management plan for the patient in detail with DAX Moya and please see the plan as noted below. Tolerated therapies well. fall precautions. Better BP control with goal BP < 130/80 mmHg. Patient to follow up with PCP, endocrinology and HTN specialist as outpatient following discharge. Discharge with outpatient PT and ST. Follow up with Neurology as outpatient for MS management. 07/26/18 1019 <Electronically signed by Krzysztof Mota MD> Date Krzysztof Mota MD cc: DAX Moya; Merle Mota MD; Jaskaran Garcia MD * Addendum Rehab Discharge Summary DATE OF ADMISSION: 07/10/18 DATE OF DISCHARGE: 07/26/2018 - Rehab Diagnosis MS - Physical Exam General: Alert, Oriented x3, Cooperative HEENT: Atraumatic, PERRLA, EOMI, Normocephalic Neck: Supple, No JVD, Negative Carotid Bruits Lungs: Clear to auscultation, Normal air movement Cardiovascular: Regular rate, No murmurs Abdomen: Bowel Sounds Present, Soft, Non Tender Extremities: No edema, Capillary Refill Less than 3 Seconds Skin: No rashes, No breakdown Musculoskeletal: No Tenderness to Palpation of Joints or Extremities Neurological: Cranial nerves II-XII grossly intact Psych/Mental Status: Normal Affect, Appropriate, Alert and oriented to time, place, person, mood and affect Vital Signs Temp Pulse Resp BP Pulse Ox 97.7 F L 72 18 139/72 H 98 07/25/18 07:10 07/25/18 08:03 07/25/18 07:10 07/25/18 08:03 07/25/18 07:10 Oxygen Delivery Method Room Air Weight: 96 kg Body Mass Index (BMI) 32.8 Finger Stick Blood Glucose 419 Intake and Output for Last 24 Hours Intake Total 360 / 360 Balance 360 / 360 POC Glucose POC Glucose 175 H 105 127 H POC Glucose 199 H Active Medications Acetaminophen (Tylenol) 650 mg PO Q6H PRN PRN PRN Reason: PAIN Amlodipine Besylate (Norvasc) 10 mg PO DAILY [facility] Last Admin: 07/25/18 08:02 Dose: 10 mg Aspirin (Aspirin, Baby) 81 mg PO DAILY@0800 [facility] Last Admin: 07/25/18 08:03 Dose: 81 mg Atorvastatin Calcium (Lipitor) 40 mg PO QHS [facility] Last Admin: 07/24/18 22:02 Dose: 40 mg Bisacodyl (Dulcolax) 10 mg RECTAL .PRN X 1 PRN PRN Reason: Constipation Bupropion HCl (Wellbutrin Xl) 300 mg PO DAILY [facility] Last Admin: 07/25/18 08:02 Dose: 300 mg Citalopram Hydrobromide (Celexa) 40 mg PO DAILY [facility] Last Admin: 07/25/18 08:03 Dose: 40 mg Clonidine (Catapres) 0.1 mg PO DAILY [facility] Last Admin: 07/25/18 08:05 Dose: 0.1 mg Enoxaparin Sodium (Lovenox) 40 mg SC DAILY@0600 [facility] Last Admin: 07/25/18 05:11 Dose: 40 mg Hydralazine HCl (Apresoline) 25 mg PO BID [facility] Last Admin: 07/25/18 08:03 Dose: 25 mg Hydrochlorothiazide (Hctz) 25 mg PO DAILY [facility] Last Admin: 07/25/18 08:02 Dose: 25 mg Insulin Glargine (Lantus (Bkc)) 13 units SC QHS [facility] Last Admin: 07/24/18 22:05 Dose: 13 u Insulin Human Lispro (Humalog Kwikpen (Bkc)) 0 unit SC TIDAC [facility]; Protocol Last Admin: 07/25/18 12:07 Dose: Not Given Insulin Human Lispro (Humalog Kwikpen (Bkc)) 10 unit SC TIDAC [facility] Last Admin: 07/25/18 12:09 Dose: 10 units Losartan Potassium (Cozaar) 75 mg PO DAILY [facility] Last Admin: 07/25/18 08:02 Dose: 75 mg Magnesium Hydroxide (Milk Of Magnesia) 30 ml PO .PRN X 1 PRN PRN Reason: Constipation Met[facility] ([facility]) [facility] Last Admin: 07/25/18 08:03 Dose: 1,000 mg Metoprolol Tartrate (Lopressor (Beta Zenon)) 75 mg PO BID [facility] Last Admin: 07/25/18 08:01 Dose: 75 mg Senna/Docusate Sodium (Senokot-S, Kathryn-Colace) 2 tablet PO BID PRN PRN PRN Reason: Constipation Discharge Diet: 2000 mg Sodium Diet Discharge Activity: May Not Drive, May Shower, May Take a Tub Bath, Use Walker Weight Bearing Status: Full weight bearing Call your doctor if you observe: Fever of 101 or Higher, Coldness, Increased Pain, Numbness or Tingling, Change in Color, Inability to urinate, Inability to have a bowel movement, Using more than one pad per hour, Shortness of breath, Dizziness, Fainting spells, Swelling in the ankles, Chest pain, Prolonged hiccoughing, Increased palpitations (irregular heartbeat), Calf discomfort, Uncontrolled pain Home Medications: Medications to take at Discharge Aspirin [Aspirin, Baby] 81 mg PO DAILY@0800 11/09/13 Acetaminophen [Tylenol Tablet] 650 mg PO Q6H PRN PRN tablet 07/10/18 Nystatin/Triamcin Cream [Mycolog] 1 applic TOPICAL BID 07/10/18 Amlodipine [Norvasc] 10 mg PO DAILY #60 tablet 07/25/18 Atorvastatin Calcium [Lipitor] 40 mg PO QHS #60 tablet 07/25/18 Citalopram [Celexa] 40 mg PO DAILY #60 tablet 07/25/18 Clonidine HCl [Catapres] 0.1 mg PO DAILY #60 tablet 07/25/18 Hydrochlorothiazide [Hctz] 25 mg PO DAILY #60 tablet 07/25/18 Insulin Glargine [Lantus SoloStar Pen] 13 units SC QHS #2 pen 07/25/18 Insulin Lispro [Humalog KwikPen] 10 unit SC TIDAC #2 insuln.pen 07/25/18 Losartan Potassium [Cozaar] 75 mg PO DAILY #60 tablet 07/25/18 Metformin HCl [Glucophage] 1,000 mg PO BIDCM 120 Days tablet 07/25/18 Metoprolol Tartrate [Lopressor (beta zenon)] 75 mg PO BID #120 tablet 07/25/18 buPROPion tablets [Wellbutrin tablets] 300 mg PO DAILY #60 tablet 07/25/18 hydrALAZINE [Apresoline] 50 mg PO TID #180 tablet 07/25/18 Following Prescrptions Were Given to Patient: Amlodipine [Norvasc] 10 mg PO DAILY #60 tablet Atorvastatin Calcium [Lipitor] 40 mg PO QHS #60 tablet buPROPion tablets [Wellbutrin tablets] 300 mg PO DAILY #60 tablet Citalopram [Celexa] 40 mg PO DAILY #60 tablet Clonidine HCl [Catapres] 0.1 mg PO DAILY #60 tablet Hydrochlorothiazide [Hctz] 25 mg PO DAILY #60 tablet Insulin Glargine [Lantus SoloStar Pen] 13 units SC QHS #2 pen Insulin Lispro [Humalog KwikPen] 10 unit SC TIDAC #2 insuln.pen Losartan Potassium [Cozaar] 75 mg PO DAILY #60 tablet Metformin HCl [Glucophage] 1,000 mg PO BIDCM 120 Days tablet Metoprolol Tartrate [Lopressor (beta zenon)] 75 mg PO BID #120 tablet hydrALAZINE [Apresoline] 50 mg PO TID #180 tablet Primary Care Physician: Jaskaran Garcia MD [Primary Care Provider] - Please Follow Up With: Dr. Wellington Please Follow Up With: ANTOINETTE Gonzalez Please Follow Up With: [facility] - [facility] Please Follow Up With: Valentino Please Follow Up With: Amita VERDUZCO Please Follow Up With: Clemencia Drummond Disposition: Home - with outpatient Physical therapy Minutes spent on discharge:: 40 Patient Condition:: Good Rehab Course The patient is a 58 year old right handed female who was admitted to the rehab unit for rehabilitation after the presented to the hospital on 07/05 with nausea, imbalance, vision changes and hypertension. Has a PMH of HTN, DM type II, HLD, CKD stage II, depression, and MS was on Copaxone which was stopped several months ago due to insurance issues, last exacerbation episodes was years ago. Ongoing MS symptoms include short term memory loss, dizziness, and falls. She Denies any medication errors. Her medications are pre-packaged in blister packs. Per ED note see below, the patient reported several days prior to admission that she felt hot, then started to notice paresthesias around her lips, nausea, increased falling, and blurry vision out of left eye. On admission patients blood pressure was 239/137, she received 20 mg of IV hydralazine, 20 mg of IV labetalol her blood pressure was 198 systolic. She was admitted to the ICU and started on IV Cardene for bp control. The patient lives with her significant other in a mobile home that has 3 steps to get in the home. She was previously completely functionally independent and is admitted to the rehab unit in order to restore her previous level of functional independence. Per ED Note: The patient is a 58 year old F presents with nausea, vomiting and diarrhea since the . Since that time, patient has been more unsteady than she is at baseline. Has consists continue to feel worse and family brought patient into the emergency room. Patient had some lab work that was unremarkable. Head CT that grossly did not show any emergent final report still pending. Patient was noted to be hypertensive with blood pressure of 239/137. Patient received 20 mg of IV hydralazine, 20 mg of IV labetalol and blood pressure is now 198 systolic. Patient states that she has had symptoms similar to this but less severe in the past but nothing recently. Patient being admitted for further hypertensive management, therapy evaluations and IV hydration. Rehab progress: Week of 07/10 to 07/17 With Physical therapy, she is able to walk greater than 300 feet using a wheel walker. She does have a tendency to lean to the left when walking, and requires verbal cues to correct her posture. She has walked up and down 8 steps using two hand rails. She is able to get in and out of bed at stand by assist. With Occupational therapy, Overall she is doing well, depending on how dizzy she is determines the amount of assistance she requires, for grooming she is contact guard to standby assistance. Dressing of her upper body she is supervision and lower body she may or may not require assistance. For transfers she is contact guard to minimal assistance. With Speech therapy, she continues to have issues with short term memory, problem solving and word finding, will continue to work on these issues. With Nursing, the major concern has been her blood sugar, they have been any where from 55 to 159, currently she is on Lantus 13 units at bedtime and Humalog 10 units with each meal. Will continue to monitor and make adjustments as needed Week of 07/18 to 07/26 With Physical therapy, she is able to walk and be consistently steady with her balance and her mobility using the walker versus the cane or no device. They have walked in the community over different surfaces using the walker without any difficulty. She has walked up and down 8 steps at contact guard. Coming to a stand she is minimal assist. With Occupational therapy, she is supervision for all ADLs. They have assessed her doing laundry and cooking she was stand by assist, she does have occasional loss of balance, but is able to recover. With Speech therapy, they will continue to work on memory issues, functional and recall and strategies to help with improve her recall. She is having no issues with Eating or drinking. With Nursing, will make appointments with Hydroelectric Plant Maintainer and Wallpaper Inspector on discharge, and schedule follow up appointment with Neurology. The plan is for discharge home on Saturday 10.13 with outpatient PT and Speech therapy. Meaningful Use Info Meaningful Use Diagnoses (Choose all that apply): None applicable 07/25/18 1743 <Electronically signed by Swetha Moya DYE TANK TENDER-C> Date Swetha Moya DYE TANK TENDER-C 07/26/18 1017<Electronically signed by Krzysztof Mota MD> Cosigner Signature (if applicable): Date Krzysztof Mota MD CC: DAX Moya; Merle Mota MD; Jaskaran Garcia MD Addendum BEDSIDE GLUCOSE Collected: 07/26/2018 Status: F Source: JOYA 6:20 AM [facility] REPOSITORY TYPE CODE TESTS RESULT OUT OF REFERENCE UNITS RANGE LAB L501.080 70-110 mg/dL High BEDSIDE GLU 163 Result Comment: MANAGEMENT OF PATIENT CARE PER NURSING PROTOCOL Performed By: #### L501.080 #### [facility] Point of Care [address] [facility]. [place], [place] [address] BEDSIDE GLUCOSE Collected: 07/25/2018 Status: F Source: JOYA 9:58 PM [facility] REPOSITORY TYPE CODE TESTS RESULT OUT OF REFERENCE UNITS RANGE LAB L501.080 70-110 mg/dL High BEDSIDE GLU 137 Result Comment: MANAGEMENT OF PATIENT CARE PER NURSING PROTOCOL Performed By: #### L501.080 #### [facility] Point of Care [address] [place] [address] DISCHARGE INSTRUCTION Observed: 07/25/2018 Status: F Source: JOYA 5:43 PM [facility] REPOSITORY [facility] Medical Records Department [address] [place] [address] Instructions for Home/Discharge Instructions 07/25/18 1348 MR#: [id number] Acct: [id number] Name: BRE GONSALEZ Rep #: [id number] : 1960 [id number] From: Swetha MENEZES PCP: Jaskaran Garcia MD Status: ADM IN - Discharge Diagnoses Reason(s) for Visit for Discharge Instructions: MS You will use the following diet at home:: Calorie/Carbohydrate Controlled (specify 1200, 1400, etc) Your food should be the consistency of: Regular Your liquids should be the consistency of: Regular/Thin Discharge Activity: May Not Drive, May Shower, May Take a Tub Bath, Use Walker Weight Bearing Status: Full weight bearing Call your doctor if you observe: Fever of 101 or Higher, Coldness, Increased Pain, Numbness or Tingling, Change in Color, Inability to urinate, Inability to have a bowel movement, Using more than one pad per hour, Shortness of breath, Dizziness, Fainting spells, Swelling in the ankles, Chest pain, Prolonged hiccoughing, Increased palpitations (irregular heartbeat), Calf discomfort, Uncontrolled pain Allergies/Adverse Reactions: Allergies No Known Allergies Allergy (Verified 07/10/18 11:28) Medications to take at Discharge Aspirin [Aspirin, Baby] 81 mg PO DAILY@0800 11/09/13 Acetaminophen [Tylenol Tablet] 650 mg PO Q6H PRN PRN tablet 07/10/18 Nystatin/Triamcin Cream [Mycolog] 1 applic TOPICAL BID 07/10/18 Amlodipine [Norvasc] 10 mg PO DAILY #60 tablet 07/25/18 Atorvastatin Calcium [Lipitor] 40 mg PO QHS #60 tablet 07/25/18 Citalopram [Celexa] 40 mg PO DAILY #60 tablet 07/25/18 Clonidine HCl [Catapres] 0.1 mg PO DAILY #60 tablet 07/25/18 Hydrochlorothiazide [Hctz] 25 mg PO DAILY #60 tablet 07/25/18 Insulin Glargine [Lantus SoloStar Pen] 13 units SC QHS #2 pen 07/25/18 Insulin Lispro [Humalog KwikPen] 10 unit SC TIDAC #2 insuln.pen 07/25/18 Losartan Potassium [Cozaar] 75 mg PO DAILY #60 tablet 07/25/18 Metformin HCl [Glucophage] 1,000 mg PO BIDCM 120 Days tablet 07/25/18 Metoprolol Tartrate [Lopressor (beta zenon)] 75 mg PO BID #120 tablet 07/25/18 buPROPion tablets [Wellbutrin tablets] 300 mg PO DAILY #60 tablet 07/25/18 hydrALAZINE [Apresoline] 50 mg PO TID #180 tablet 07/25/18 The following prescriptions were given: Amlodipine [Norvasc] 10 mg PO DAILY #60 tablet Atorvastatin Calcium [Lipitor] 40 mg PO QHS #60 tablet buPROPion tablets [Wellbutrin tablets] 300 mg PO DAILY #60 tablet Citalopram [Celexa] 40 mg PO DAILY #60 tablet Clonidine HCl [Catapres] 0.1 mg PO DAILY #60 tablet Hydrochlorothiazide [Hctz] 25 mg PO DAILY #60 tablet Insulin Glargine [Lantus SoloStar Pen] 13 units SC QHS #2 pen Insulin Lispro [Humalog KwikPen] 10 unit SC TIDAC #2 insuln.pen Losartan Potassium [Cozaar] 75 mg PO DAILY #60 tablet Metformin HCl [Glucophage] 1,000 mg PO BIDCM 120 Days tablet Metoprolol Tartrate [Lopressor (beta zenon)] 75 mg PO BID #120 tablet hydrALAZINE [Apresoline] 50 mg PO TID #180 tablet Primary Care Physician: Jaskaran Garcia MD [Primary Care Provider] - Test Results: Test results from this visit will be discussed in further detail at your follow-up appointment, if applicable. Please Follow Up With: Dr. Wellington Please Follow Up With: ANTOINETTE Gonzalez Please Follow Up With: [facility] Please Follow Up With: Valentino Please Follow Up With: Amita VERDUZCO Please Follow Up With: Clemencia Drummond Proposed Discharge Date: 07/26/18 07/25/18 1743 <Electronically signed by Swetha Moya NP-C> Date Swetha MENEZES CC: Armond Marie MD; Jaskaran Garcia MD BEDSIDE GLUCOSE Collected: 07/25/2018 Status: F Source: JOYA 5:05 PM [facility] REPOSITORY TYPE CODE TESTS RESULT OUT OF REFERENCE UNITS RANGE LAB L501.080 70-110 mg/dL High BEDSIDE GLU 134 Result Comment: MANAGEMENT OF PATIENT CARE PER NURSING PROTOCOL Performed By: #### L501.080 #### [facility] Point of Care [address] [place] [address] BEDSIDE GLUCOSE Collected: 07/25/2018 Status: F Source: JOYA 12:06 PM [facility] REPOSITORY TYPE CODE TESTS RESULT OUT OF REFERENCE UNITS RANGE LAB L501.080 70-110 mg/dL High BEDSIDE GLU 148 Result Comment: MANAGEMENT OF PATIENT CARE PER NURSING PROTOCOL Performed By: #### L501.080 #### [facility] Point of Care [address] [place] [address] BEDSIDE GLUCOSE Collected: 07/25/2018 Status: F Source: JOYA 6:31 AM [facility] REPOSITORY TYPE CODE TESTS RESULT OUT OF REFERENCE UNITS RANGE LAB L501.080 70-110 mg/dL High BEDSIDE GLU 175 Result Comment: MANAGEMENT OF PATIENT CARE PER NURSING PROTOCOL Performed By: #### L501.080 #### [facility] Point of Care [address] [place] [address] BEDSIDE GLUCOSE Collected: 07/24/2018 Status: F Source: JOYA 9:39 PM [facility] REPOSITORY TYPE CODE TESTS RESULT OUT OF RANGE REFERENCE UNITS LAB L501.080 70-110 mg/dL Normal BEDSIDE GLU 105 Result Comment: MANAGEMENT OF PATIENT CARE PER NURSING PROTOCOL Performed By: #### L501.080 #### [facility] Point of Care [address] [place] [address] BEDSIDE GLUCOSE Collected: 07/24/2018 Status: F Source: JOYA 4:59 PM [facility] REPOSITORY TYPE CODE TESTS RESULT OUT OF REFERENCE UNITS RANGE LAB L501.080 70-110 mg/dL High BEDSIDE GLU 127 Result Comment: MANAGEMENT OF PATIENT CARE PER NURSING PROTOCOL Performed By: #### L501.080 #### [facility] Point of Care [address] [place] [address] BEDSIDE GLUCOSE Collected: 07/24/2018 Status: F Source: JOYA 11:37 AM [facility] REPOSITORY TYPE CODE TESTS RESULT OUT OF REFERENCE UNITS RANGE LAB L501.080 70-110 mg/dL High BEDSIDE GLU 199 Result Comment: MANAGEMENT OF PATIENT CARE PER NURSING PROTOCOL Performed By: #### L501.080 #### [facility] Point of Care [address] [place] [address] BEDSIDE GLUCOSE Collected: 07/24/2018 Status: F Source: JOYA 7:19 AM [facility] REPOSITORY TYPE CODE TESTS RESULT OUT OF REFERENCE UNITS RANGE LAB L501.080 70-110 mg/dL High BEDSIDE GLU 205 Result Comment: MANAGEMENT OF PATIENT CARE PER NURSING PROTOCOL Performed By: #### L501.080 #### [facility] Point of Care [address] [place] [address] BEDSIDE GLUCOSE Collected: 07/23/2018 Status: F Source: JOYA 10:06 PM [facility] REPOSITORY TYPE CODE TESTS RESULT OUT OF REFERENCE UNITS RANGE LAB L501.080 70-110 mg/dL High BEDSIDE GLU 125 Result Comment: MANAGEMENT OF PATIENT CARE PER NURSING PROTOCOL Performed By: #### L501.080 #### [facility] Point of Care [address] [place] [address] BEDSIDE GLUCOSE Collected: 07/23/2018 Status: F Source: JOYA 4:36 PM [facility] REPOSITORY TYPE CODE TESTS RESULT OUT OF REFERENCE UNITS RANGE LAB L501.080 70-110 mg/dL High BEDSIDE GLU 207 Result Comment: MANAGEMENT OF PATIENT CARE PER NURSING PROTOCOL Performed By: #### L501.080 #### [facility] Point of Care [address] [place] [address] BEDSIDE GLUCOSE Collected: 07/23/2018 Status: F Source: JOYA 11:50 AM [facility] REPOSITORY TYPE CODE TESTS RESULT OUT OF REFERENCE UNITS RANGE LAB L501.080 70-110 mg/dL High BEDSIDE GLU 138 Result Comment: MANAGEMENT OF PATIENT CARE PER NURSING PROTOCOL Performed By: #### L501.080 #### [facility] Point of Care [address] [place] [address] BEDSIDE GLUCOSE Collected: 07/23/2018 Status: F Source: JOYA 6:38 AM [facility] REPOSITORY TYPE CODE TESTS RESULT OUT OF REFERENCE UNITS RANGE LAB L501.080 70-110 mg/dL High BEDSIDE GLU 172 Result Comment: MANAGEMENT OF PATIENT CARE PER NURSING PROTOCOL Performed By: #### L501.080 #### [facility] Point of Care [address] [place] [address] BEDSIDE GLUCOSE Collected: 07/23/2018 Status: F Source: JOYA 2:22 AM [facility] REPOSITORY TYPE CODE TESTS RESULT OUT OF REFERENCE UNITS RANGE LAB L501.080 70-110 mg/dL High BEDSIDE GLU 143 Result Comment: MANAGEMENT OF PATIENT CARE PER NURSING PROTOCOL Performed By: #### L501.080 #### [facility] Point of Care [address] [place] [address] BEDSIDE GLUCOSE Collected: 07/22/2018 Status: F Source: JOYA 9:13 PM [facility] REPOSITORY TYPE CODE TESTS RESULT OUT OF RANGE REFERENCE UNITS LAB L501.080 70-110 mg/dL Normal BEDSIDE GLU 96 Result Comment: MANAGEMENT OF PATIENT CARE PER NURSING PROTOCOL Performed By: #### L501.080 #### [facility] Point of Care [address] [place] [address] BEDSIDE GLUCOSE Collected: 07/22/2018 Status: F Source: JOYA 4:51 PM [facility] REPOSITORY TYPE CODE TESTS RESULT OUT OF RANGE REFERENCE UNITS LAB L501.080 70-110 mg/dL Normal BEDSIDE GLU 104 Result Comment: MANAGEMENT OF PATIENT CARE PER NURSING PROTOCOL Performed By: #### L501.080 #### [facility] Point of Care [address] [place] [address] BEDSIDE GLUCOSE Collected: 07/22/2018 Status: F Source: JOYA 11:56 AM [facility] REPOSITORY TYPE CODE TESTS RESULT OUT OF REFERENCE UNITS RANGE LAB L501.080 70-110 mg/dL High BEDSIDE GLU 229 Result Comment: MANAGEMENT OF PATIENT CARE PER NURSING PROTOCOL Performed By: #### L501.080 #### [facility] Point of Care [address] [place] [address] BEDSIDE GLUCOSE Collected: 07/22/2018 Status: F Source: JOYA 6:42 AM [facility] REPOSITORY TYPE CODE TESTS RESULT OUT OF REFERENCE UNITS RANGE LAB L501.080 70-110 mg/dL High BEDSIDE GLU 196 Result Comment: MANAGEMENT OF PATIENT CARE PER NURSING PROTOCOL Performed By: #### L501.080 #### [facility] Point of Care [address] [place] [address] BEDSIDE GLUCOSE Collected: 07/21/2018 Status: F Source: JOYA 9:40 PM [facility] REPOSITORY TYPE CODE TESTS RESULT OUT OF REFERENCE UNITS RANGE LAB L501.080 70-110 mg/dL High BEDSIDE GLU 191 Result Comment: MANAGEMENT OF PATIENT CARE PER NURSING PROTOCOL Performed By: #### L501.080 #### [facility] Point of Care [address] [place] [address] BEDSIDE GLUCOSE Collected: 07/21/2018 Status: F Source: JOYA 4:30 PM [facility] REPOSITORY TYPE CODE TESTS RESULT OUT OF REFERENCE UNITS RANGE LAB L501.080 70-110 mg/dL High BEDSIDE GLU 158 Result Comment: MANAGEMENT OF PATIENT CARE PER NURSING PROTOCOL Performed By: #### L501.080 #### [facility] Point of Care [address] [place] [address] BEDSIDE GLUCOSE Collected: 07/21/2018 Status: F Source: JOYA 11:50 AM [facility] REPOSITORY TYPE CODE TESTS RESULT OUT OF REFERENCE UNITS RANGE LAB L501.080 70-110 mg/dL High BEDSIDE GLU 176 Result Comment: MANAGEMENT OF PATIENT CARE PER NURSING PROTOCOL Performed By: #### L501.080 #### [facility] Point of Care [address] [place] [address] BEDSIDE GLUCOSE Collected: 07/21/2018 Status: F Source: JOYA 6:20 AM [facility] REPOSITORY TYPE CODE TESTS RESULT OUT OF REFERENCE UNITS RANGE LAB L501.080 70-110 mg/dL High BEDSIDE GLU 133 Result Comment: MANAGEMENT OF PATIENT CARE PER NURSING PROTOCOL Performed By: #### L501.080 #### [facility] Point of Care [address] [place] [address] BEDSIDE GLUCOSE Collected: 07/21/2018 Status: F Source: JOYA 3:00 AM [facility] REPOSITORY TYPE CODE TESTS RESULT OUT OF REFERENCE UNITS RANGE LAB L501.080 70-110 mg/dL High BEDSIDE GLU 140 Result Comment: MANAGEMENT OF PATIENT CARE PER NURSING PROTOCOL Performed By: #### L501.080 #### [facility] Point of Care [address] [place] [address] BEDSIDE GLUCOSE Collected: 07/20/2018 Status: F Source: JOYA 8:25 PM [facility] REPOSITORY TYPE CODE TESTS RESULT OUT OF REFERENCE UNITS RANGE LAB L501.080 70-110 mg/dL High BEDSIDE GLU 121 Result Comment: MANAGEMENT OF PATIENT CARE PER NURSING PROTOCOL Performed By: #### L501.080 #### [facility] Point of Care [address] [place], [place] [id number] BEDSIDE GLUCOSE Collected: 07/20/2018 Status: F Source: JOYA 5:01 PM [facility] REPOSITORY TYPE CODE TESTS RESULT OUT OF REFERENCE UNITS RANGE LAB L501.080 70-110 mg/dL High BEDSIDE GLU 152 Result Comment: MANAGEMENT OF PATIENT CARE PER NURSING PROTOCOL Performed By: #### L501.080 #### [facility] Point of Care [address] [place], [place] [address] BEDSIDE GLUCOSE Collected: 07/20/2018 Status: F Source: JOYA 11:56 AM [facility] REPOSITORY TYPE CODE TESTS RESULT OUT OF REFERENCE UNITS RANGE LAB L501.080 70-110 mg/dL High BEDSIDE GLU 197 Result Comment: MANAGEMENT OF PATIENT CARE PER NURSING PROTOCOL Performed By: #### L501.080 #### [facility] Point of Care [address] [place] [address] BEDSIDE GLUCOSE Collected: 07/20/2018 Status: F Source: JOYA 6:53 AM [facility] REPOSITORY TYPE CODE TESTS RESULT OUT OF REFERENCE UNITS RANGE LAB L501.080 70-110 mg/dL High BEDSIDE GLU 180 Result Comment: MANAGEMENT OF PATIENT CARE PER NURSING PROTOCOL Performed By: #### L501.080 #### [facility] Point of Care [address] [place] [address] BEDSIDE GLUCOSE Collected: 07/20/2018 Status: F Source: JOYA 3:34 AM [facility] REPOSITORY TYPE CODE TESTS RESULT OUT OF REFERENCE UNITS RANGE LAB L501.080 70-110 mg/dL High BEDSIDE GLU 174 Result Comment: MANAGEMENT OF PATIENT CARE PER NURSING PROTOCOL Performed By: #### L501.080 #### [facility] Point of Care [address] [place] [address] BEDSIDE GLUCOSE Collected: 07/19/2018 Status: F Source: JOYA 8:44 PM [facility] REPOSITORY TYPE CODE TESTS RESULT OUT OF REFERENCE UNITS RANGE LAB L501.080 70-110 mg/dL High BEDSIDE GLU 142 Result Comment: MANAGEMENT OF PATIENT CARE PER NURSING PROTOCOL Performed By: #### L501.080 #### [facility] Point of Care [address] [place] [address] BEDSIDE GLUCOSE Collected: 07/19/2018 Status: F Source: JOYA 5:13 PM [facility] REPOSITORY TYPE CODE TESTS RESULT OUT OF REFERENCE UNITS RANGE LAB L501.080 70-110 mg/dL High BEDSIDE GLU 135 Result Comment: MANAGEMENT OF PATIENT CARE PER NURSING PROTOCOL Performed By: #### L501.080 #### [facility] Point of Care [address] [place] [address] BEDSIDE GLUCOSE Collected: 07/19/2018 Status: F Source: JOYA 11:43 AM [facility] REPOSITORY TYPE CODE TESTS RESULT OUT OF REFERENCE UNITS RANGE LAB L501.080 70-110 mg/dL High BEDSIDE GLU 171 Result Comment: MANAGEMENT OF PATIENT CARE PER NURSING PROTOCOL Performed By: #### L501.080 #### [facility] Point of Care [address] [place] [address] BEDSIDE GLUCOSE Collected: 07/19/2018 Status: F Source: JOYA 6:21 AM [facility] REPOSITORY TYPE CODE TESTS RESULT OUT OF REFERENCE UNITS RANGE LAB L501.080 70-110 mg/dL High BEDSIDE GLU 179 Result Comment: MANAGEMENT OF PATIENT CARE PER NURSING PROTOCOL Performed By: #### L501.080 #### [facility] Point of Care [address] [place] [address] BEDSIDE GLUCOSE Collected: 07/19/2018 Status: F Source: JOYA 2:53 AM [facility] REPOSITORY TYPE CODE TESTS RESULT OUT OF REFERENCE UNITS RANGE LAB L501.080 70-110 mg/dL High BEDSIDE GLU 159 Result Comment: MANAGEMENT OF PATIENT CARE PER NURSING PROTOCOL Performed By: #### L501.080 #### [facility] Point of Care [address] [place] [address] BEDSIDE GLUCOSE Collected: 07/18/2018 Status: F Source: JOYA 9:27 PM [facility] REPOSITORY TYPE CODE TESTS RESULT OUT OF REFERENCE UNITS RANGE LAB L501.080 70-110 mg/dL High BEDSIDE GLU 206 Result Comment: MANAGEMENT OF PATIENT CARE PER NURSING PROTOCOL Performed By: #### L501.080 #### [facility] Point of Care [address] [place] [address] BEDSIDE GLUCOSE Collected: 07/18/2018 Status: F Source: JOYA 6:27 PM [facility] REPOSITORY TYPE CODE TESTS RESULT OUT OF REFERENCE UNITS RANGE LAB L501.080 70-110 mg/dL High BEDSIDE GLU 136 Result Comment: MANAGEMENT OF PATIENT CARE PER NURSING PROTOCOL Performed By: #### L501.080 #### [facility] Point of Care [address] [place] [address] BEDSIDE GLUCOSE Collected: 07/18/2018 Status: F Source: JOYA 5:07 PM [facility] REPOSITORY TYPE CODE TESTS RESULT OUT OF RANGE REFERENCE UNITS LAB L501.080 70-110 mg/dL Normal BEDSIDE GLU 85 Result Comment: MANAGEMENT OF PATIENT CARE PER NURSING PROTOCOL Performed By: #### L501.080 #### [facility] Point of Care [address] [place] [address] BEDSIDE GLUCOSE Collected: 07/18/2018 Status: F Source: JOYA 11:20 AM [facility] REPOSITORY TYPE CODE TESTS RESULT OUT OF REFERENCE UNITS RANGE LAB L501.080 70-110 mg/dL High BEDSIDE GLU 162 Result Comment: MANAGEMENT OF PATIENT CARE PER NURSING PROTOCOL Performed By: #### L501.080 #### [facility] Point of Care [address] [place] [address] BEDSIDE GLUCOSE Collected: 07/18/2018 Status: F Source: JOYA 6:28 AM [facility] REPOSITORY TYPE CODE TESTS RESULT OUT OF REFERENCE UNITS RANGE LAB L501.080 70-110 mg/dL High BEDSIDE GLU 185 Result Comment: MANAGEMENT OF PATIENT CARE PER NURSING PROTOCOL Performed By: #### L501.080 #### [facility] Point of Care [address] [place] [address] BEDSIDE GLUCOSE Collected: 07/18/2018 Status: F Source: JOYA 2:36 AM [facility] REPOSITORY TYPE CODE TESTS RESULT OUT OF REFERENCE UNITS RANGE LAB L501.080 70-110 mg/dL High BEDSIDE GLU 226 Result Comment: MANAGEMENT OF PATIENT CARE PER NURSING PROTOCOL Performed By: #### L501.080 #### [facility] Point of Care [address] [place] [address] BEDSIDE GLUCOSE Collected: 07/17/2018 Status: F Source: JOYA 9:48 PM [facility] REPOSITORY TYPE CODE TESTS RESULT OUT OF REFERENCE UNITS RANGE LAB L501.080 70-110 mg/dL High BEDSIDE GLU 161 Result Comment: MANAGEMENT OF PATIENT CARE PER NURSING PROTOCOL Performed By: #### L501.080 #### [facility] Point of Care [address] [place] [address] BEDSIDE GLUCOSE Collected: 07/17/2018 Status: F Source: JOYA 4:42 PM [facility] REPOSITORY TYPE CODE TESTS RESULT OUT OF RANGE REFERENCE UNITS LAB L501.080 70-110 mg/dL Normal BEDSIDE GLU 84 Result Comment: MANAGEMENT OF PATIENT CARE PER NURSING PROTOCOL Performed By: #### L501.080 #### [facility] Laboratory Point of Care [address] [place] [address] BEDSIDE GLUCOSE Collected: 07/17/2018 Status: F Source: JOYA 11:33 AM [facility] REPOSITORY TYPE CODE TESTS RESULT OUT OF REFERENCE UNITS RANGE LAB L501.080 70-110 mg/dL High BEDSIDE GLU 157 Result Comment: MANAGEMENT OF PATIENT CARE PER NURSING PROTOCOL Performed By: #### L501.080 #### [facility] Laboratory Point of Care [address] [place] [address] BEDSIDE GLUCOSE Collected: 07/17/2018 Status: F Source: JOYA 6:29 AM [facility] REPOSITORY TYPE CODE TESTS RESULT OUT OF REFERENCE UNITS RANGE LAB L501.080 70-110 mg/dL High BEDSIDE GLU 159 Result Comment: MANAGEMENT OF PATIENT CARE PER NURSING PROTOCOL Performed By: #### L501.080 #### [facility] Laboratory Point of Care [address] [place] [address] BEDSIDE GLUCOSE Collected: 07/17/2018 Status: F Source: JOYA 3:01 AM [facility] REPOSITORY TYPE CODE TESTS RESULT OUT OF RANGE REFERENCE UNITS LAB L501.080 70-110 mg/dL Normal BEDSIDE GLU 103 Result Comment: MANAGEMENT OF PATIENT CARE PER NURSING PROTOCOL Performed By: #### L501.080 #### [facility] Laboratory Point of Care [address] [place] [address] BEDSIDE GLUCOSE Collected: 07/16/2018 Status: F Source: JOYA 8:52 PM [facility] REPOSITORY TYPE CODE TESTS RESULT OUT OF REFERENCE UNITS RANGE LAB L501.080 70-110 mg/dL High BEDSIDE GLU 147 Result Comment: MANAGEMENT OF PATIENT CARE PER NURSING PROTOCOL Performed By: #### L501.080 #### [facility] Laboratory Point of Care [address] [place] [address] BEDSIDE GLUCOSE Collected: 07/16/2018 Status: F Source: JOYA 5:08 PM [facility] REPOSITORY TYPE CODE TESTS RESULT OUT OF RANGE REFERENCE UNITS LAB L501.080 70-110 mg/dL Normal BEDSIDE GLU 90 Result Comment: MANAGEMENT OF PATIENT CARE PER NURSING PROTOCOL Performed By: #### L501.080 #### [facility] Laboratory Point of Care [address] [place] [address] H AND P W/ COSIGN Observed: 07/16/2018 Status: F Source: JOYA 1:12 PM [facility] REPOSITORY [facility] Medical Records Department [address] [place] [address] H AND P w/ Cosign 07/10/18 1132 MR#: [id number] Acct: [id number] Name: BRE GONSALEZ Rep #: [id number] : 1960 58 From: Swetha Moya DYE TANK TENDER-C PCP: Jaskaran Garcia MD Status: ADM IN Y Location: [place] [address] ADDENDUM by Merle Mota MD on 07/16/18 at 1312 Code Visit I have personally examined the patient at bedside. Please see DAX Moya's note as below for further complete details. I have discussed the management plan for the patient in detail with DAX Moya and please see the plan as noted below. 58 yr CF with PMH HTN, HLD, DM, Depression, MS, admitted to inpatient with hypertensive emergency now admitted to [facility] with debility, for > 3 hrs therapy daily, with a goal of returning back home at or near her prior level of functional independence. vestibular therapy for dizziness, Goal BP < 130/80 mmHg, follows up with Dr. Melchor for MS, plan to possibly start Ocrevus as outpatient. PT/TO/ST. GI/DVT prophylaxis. fall precautions. Further medical management per hospitalist recommendations. Inpatient E AND M: [id number] Init Hosp L3 07/16/18 1312 <Electronically signed by Krzysztof Mota MD> Date Krzysztof Mota MD cc: DAX Moya; Merle Mota MD; Jaskaran Garcia MD * Signed History of Present Illness Date of Admission: 07/10/18 Chief Complaint: Multiple Sclerosis The patient is a 58 year old right handed female who was admitted to the rehab unit for rehabilitation after the presented to the hospital on 07/05 with nausea, imbalance, vision changes and hypertension. Has a PMH of HTN, DM type II, HLD, CKD stage II, depression, and MS was on Copaxone which was stopped several months ago due to insurance issues, last exacerbation episodes was years ago. Ongoing MS symptoms include short term memory loss, dizziness, and falls. She Denies any medication errors. Her medications are pre-packaged in blister packs. Per ED note see below, the patient reported several days prior to admission that she felt hot, then started to notice paresthesias around her lips, nausea, increased falling, and blurry vision out of left eye. On admission patients blood pressure was 239/137, she received 20 mg of IV hydralazine, 20 mg of IV labetalol her blood pressure was 198 systolic. She was admitted to the ICU and started on IV Cardene for bp control. The patient lives with her significant other in a mobile home that has 3 steps to get in the home. She was previously completely functionally independent and is admitted to the rehab unit in order to restore her previous level of functional independence. Per ED Note: The patient is a 58 year old F presents with nausea, vomiting and diarrhea since the . Since that time, patient has been more unsteady than she is at baseline. Has consists continue to feel worse and family brought patient into the emergency room. Patient had some lab work that was unremarkable. Head CT that grossly did not show any emergent final report still pending. Patient was noted to be hypertensive with blood pressure of 239/137. Patient received 20 mg of IV hydralazine, 20 mg of IV labetalol and blood pressure is now 198 systolic. Patient states that she has had symptoms similar to this but less severe in the past but nothing recently. Patient being admitted for further hypertensive management, therapy evaluations and IV hydration. [] Past Medical History Past Medical History (Chronic Problems): Chronic Problems Depression (Chronic) Chronic renal failure, stage 2 (mild) (Chronic) HTN (hypertension) (Chronic) DM (diabetes mellitus), type 2, uncontrolled (Chronic) Dyslipidemia (Chronic) Allergies No Known Allergies Allergy (Verified 07/10/18 11:28) Home Medications: Ambulatory Orders Medication Instructions Recorded Aspirin [Aspirin, Baby] 81 mg PO DAILY@0800 11/09/13 Citalopram [Celexa] 40 mg PO DAILY 11/09/13 Surgical History: cholecystectomy, hysterectomy - Partial, tonsillectomy, - - Back surgery 2/2 MRSA infection from a tattoo Lives: Spouse/ Significant Other Smoking Status: Never smoker Tobacco Use: Non-smoker Alcohol: None Drugs: None - *Family History Maternal History Items: - - No MS Review of Systems Constitutional: Denies: Chills, Fever, Weight Change Eyes: Reports: Blurred vision HEENT: Reports: Head Aches. Denies: Sinus Congestion, Sinus Drainage Cardiovascular: Denies: Chest Pain, Palpitations Respiratory: Denies: Cough, Shortness of breath at rest, Sputum production Gastrointestinal: Denies: Abdominal Pain, Nausea, Vomiting Genitourinary: Denies: Dysuria Gynecological: Reports: Vaginal discharge, Vaginal itching Musculoskeletal: Reports: - - B/L leg weakness Skin: Denies: Rash, Wounds Neurological: Reports: Blurred vision, Tingling. Denies: Focal weakness, Numbness Psychiatric: Denies: Anxiety, Depression, Homicidal Ideations, Suicidal Ideations Hematologic/ Lymphatic: Denies: Easy Bruising, Easy Bleeding VTE Information - Inpt Only VTE Present on Admission: No VTE Mechan Device Prophylaxis: SCD's, Knee High JOSEPH Hose VTE Pharm Prophylaxis ordered?: Yes - Physical Exam General: Alert, Oriented x3, Cooperative HEENT: Atraumatic, PERRLA, EOMI, Normocephalic Oral: - - Numbness around mouth and lips Neck: Supple, No JVD, Negative Carotid Bruits Lungs: Clear to auscultation, Normal air movement, No rhonchi, No wheeze, No rales Cardiovascular: Regular rate, Normal S1, Normal S2, No murmurs, No rub noted, No Gallop Abdomen: Bowel Sounds Present, Soft, Non Tender, Non-Distended, Obese Extremities: No edema, Capillary Refill Less than 3 Seconds Skin: No rashes, No breakdown Musculoskeletal: No Tenderness to Palpation of Joints or Extremities, No Muscle Wasting Neurological: Cranial nerves II-XII grossly intact, Deep Tendon Reflexes 2+/4 and Symmetrical, Neuro grossly intact, Motor Exam 5/5 strength throughout Psych/Mental Status: Normal Affect, Appropriate, Alert and oriented to time, place, person, mood and affect Vital Signs Temp Pulse Resp BP Pulse Ox 98.1 F 64 18 122/69 H 96 07/10/18 11:20 07/10/18 11:20 07/10/18 11:20 07/10/18 11:20 07/10/18 11:20 Oxygen Delivery Method Room Air Finger Stick Blood Glucose 419 Active Medications Acetaminophen (Tylenol) 650 mg PO Q6H PRN PRN PRN Reason: PAIN Amlodipine Besylate (Norvasc) 10 mg PO DAILY [facility] Aspirin (Aspirin, Baby) 81 mg PO DAILY@0800 [facility] Bisacodyl (Dulcolax) 10 mg RECTAL .PRN X 1 PRN PRN Reason: Constipation Bupropion HCl (Wellbutrin Tablets) 300 mg PO DAILY [facility] Citalopram Hydrobromide (Celexa) 40 mg PO DAILY [facility] Clonidine (Catapres) 0.1 mg PO DAILY [facility] Enoxaparin Sodium (Lovenox) 40 mg SC DAILY@0600 [facility] Hydralazine HCl (Apresoline) 50 mg PO TID [facility] Hydrochlorothiazide (Hctz) 25 mg PO DAILY [facility] Insulin Glargine (Lantus (Bkc)) 25 units SC QHS [facility] Insulin Human Lispro (Humalog Kwikpen (Bkc)) 0 unit SC TIDAC [facility]; Protocol Insulin Human Lispro (Humalog Kwikpen (Bkc)) 15 unit SC TIDAC [facility] Losartan Potassium (Cozaar) 100 mg PO DAILY [facility] Magnesium Hydroxide (Milk Of Magnesia) 30 ml PO .PRN X 1 PRN PRN Reason: Constipation Metformin [facility] ([facility]uc[facility]) [facility] Metoprolol Tartrate (Lopressor (Beta Zenon)) 100 mg PO BID [facility] Nystatin/Triamcinolone Acetonide (Mycolog) 1 applic TOPICAL 0600,2200 [facility]; Protocol Senna/Docusate Sodium (Senokot-S, Kathryn-Colace) 2 tablet PO BID [facility] Assessment/Plan All Active Problems Hypertensive emergency (Acute) Gastroenteritis (Acute) Metabolic alkalosis (Acute) Hypokalemia (Acute) Abscess of right buttock (Acute) Dehydration (Acute) Hypomagnesemia (Acute) Debility 2/2 Multiple Sclerosis. Complicated by Hypertension emergency, Hypokalemia, CKD stage II, and DM type II. Goal of rehab is roman catholic of functional independence. Plan: - Physical therapy for gait and balance - Occupational Therapy for ADLs - Speech therapy - As needed analgesics - Bowel protocol - DVT prophylaxis: SCDs, Joseph hoses, Lovenox - Hypertensive emergency: blood pressure controlled -> on clonidine, Amlodipine, HCTZ, Cozaar Metoprolol, and Hydralazine was added this morning. Continue to monitor closely - viral gastroenteritis -> improved - Hypokalemia -> improved from 3.1 to 3.7 will continue to monitor and treat accordingly - Hx of Multiple sclerosis: Seen by our office, MRI brain was obtained it shows no active MS plaque but does indicate the total size and number of plaques has increased since 2007. Did not show any acute or subacute ischemic infarct - Hx of Diabetes type 2 => check BS AC and HS, continue home medication of metformin, add Lantus 25units at HS, high to moderate sliding scale. Obtain hemoglobin A1C - Hx of depression continue home dose of Celexa and Wellbutrin - Hx of CKD Stage II -> continue to monitor BUN/Creatine - Yeast infection of groin and vagina area -> continue Nystatin cream to area 07/14/18 1048 <Electronically signed by Swetha Moya DYE TANK TENDER-C> Date Swetha Moya DYE TANK TENDER-C 07/16/18 1310<Electronically signed by Krzysztof Mota MD> Cosigner Signature (if applicable): Date Krzysztof Mota MD CC: DAX Moya; Merle Mota MD; Jaskaran Garcia MD Signed BEDSIDE GLUCOSE Collected: 07/16/2018 Status: F Source: JOYA 11:09 AM [facility] REPOSITORY TYPE CODE TESTS RESULT OUT OF REFERENCE UNITS RANGE LAB L501.080 70-110 mg/dL High BEDSIDE GLU 137 Result Comment: MANAGEMENT OF PATIENT CARE PER NURSING PROTOCOL Performed By: #### L501.080 #### [facility] Point of [place] [address] BEDSIDE GLUCOSE Collected: 07/16/2018 Status: F Source: JOYA 6:46 AM [facility] REPOSITORY TYPE CODE TESTS RESULT OUT OF REFERENCE UNITS RANGE LAB L501.080 70-110 mg/dL High BEDSIDE GLU 180 Result Comment: MANAGEMENT OF PATIENT CARE PER NURSING PROTOCOL Performed By: #### L501.080 #### [facility] Laboratory Point of Care [address] [place] [address] BEDSIDE GLUCOSE Collected: 07/16/2018 Status: F Source: JOYA 3:26 AM [facility] REPOSITORY TYPE CODE TESTS RESULT OUT OF REFERENCE UNITS RANGE LAB L501.080 70-110 mg/dL High BEDSIDE GLU 156 Result Comment: MANAGEMENT OF PATIENT CARE PER NURSING PROTOCOL Performed By: #### L501.080 #### [facility] Laboratory Point of Care [address] [place] [address] BEDSIDE GLUCOSE Collected: 07/15/2018 Status: F Source: JOYA 9:32 PM [facility] REPOSITORY TYPE CODE TESTS RESULT OUT OF REFERENCE UNITS RANGE LAB L501.080 70-110 mg/dL High BEDSIDE GLU 140 Result Comment: MANAGEMENT OF PATIENT CARE PER NURSING PROTOCOL Performed By: #### L501.080 #### [facility] Laboratory Point of Care [address] [place] [address] BEDSIDE GLUCOSE Collected: 07/15/2018 Status: F Source: JOYA 4:22 PM [facility] REPOSITORY TYPE CODE TESTS RESULT OUT OF REFERENCE UNITS RANGE LAB L501.080 70-110 mg/dL High BEDSIDE GLU 138 Result Comment: MANAGEMENT OF PATIENT CARE PER NURSING PROTOCOL Performed By: #### L501.080 #### [facility] Laboratory Point of Care [address] [place] [address] BEDSIDE GLUCOSE Collected: 07/15/2018 Status: F Source: JOYA 11:32 AM [facility] REPOSITORY TYPE CODE TESTS RESULT OUT OF REFERENCE UNITS RANGE LAB L501.080 70-110 mg/dL High BEDSIDE GLU 126 Result Comment: MANAGEMENT OF PATIENT CARE PER NURSING PROTOCOL Performed By: #### L501.080 #### [facility] Laboratory Point of Care [address] [place] [address] BEDSIDE GLUCOSE Collected: 07/15/2018 Status: F Source: JOYA 6:44 AM [facility] REPOSITORY TYPE CODE TESTS RESULT OUT OF REFERENCE UNITS RANGE LAB L501.080 70-110 mg/dL High BEDSIDE GLU 161 Result Comment: MANAGEMENT OF PATIENT CARE PER NURSING PROTOCOL Performed By: #### L501.080 #### [facility] Laboratory Point of Care [address] [place] [address] BEDSIDE GLUCOSE Collected: 07/15/2018 Status: F Source: JOYA 3:26 AM [facility] REPOSITORY TYPE CODE TESTS RESULT OUT OF REFERENCE UNITS RANGE LAB L501.080 70-110 mg/dL High BEDSIDE GLU 136 Result Comment: MANAGEMENT OF PATIENT CARE PER NURSING PROTOCOL Performed By: #### L501.080 #### [facility] Laboratory Point of Care [address] [place] [address] BEDSIDE GLUCOSE Collected: 07/14/2018 Status: F Source: JOYA 9:26 PM [facility] REPOSITORY TYPE CODE TESTS RESULT OUT OF REFERENCE UNITS RANGE LAB L501.080 70-110 mg/dL High BEDSIDE GLU 221 Result Comment: MANAGEMENT OF PATIENT CARE PER NURSING PROTOCOL Performed By: #### L501.080 #### [facility] Laboratory Point of Care [address] [place] [address] BEDSIDE GLUCOSE Collected: 07/14/2018 Status: F Source: JOYA 4:48 PM [facility] REPOSITORY TYPE CODE TESTS RESULT OUT OF REFERENCE UNITS RANGE LAB L501.080 70-110 mg/dL High BEDSIDE GLU 311 Result Comment: MANAGEMENT OF PATIENT CARE PER NURSING PROTOCOL Performed By: #### L501.080 #### [facility] Laboratory Point of Care [address] [place] [address] BEDSIDE GLUCOSE Collected: 07/14/2018 Status: F Source: JOYA 3:44 PM [facility] REPOSITORY TYPE CODE TESTS RESULT OUT OF REFERENCE UNITS RANGE LAB L501.080 70-110 mg/dL High BEDSIDE GLU 326 Result Comment: MANAGEMENT OF PATIENT CARE PER NURSING PROTOCOL Performed By: #### L501.080 #### [facility] Laboratory Point of Care [address] [place] [address] BEDSIDE GLUCOSE Collected: 07/14/2018 Status: F Source: JOYA 1:52 PM [facility] REPOSITORY TYPE CODE TESTS RESULT OUT OF REFERENCE UNITS RANGE LAB L501.080 70-110 mg/dL High BEDSIDE GLU 258 Result Comment: MANAGEMENT OF PATIENT CARE PER NURSING PROTOCOL Performed By: #### L501.080 #### [facility] Laboratory Point of Care [address] [place] [address] BEDSIDE GLUCOSE Collected: 07/14/2018 Status: F Source: JOYA 12:37 PM [facility] REPOSITORY TYPE CODE TESTS RESULT OUT OF RANGE REFERENCE UNITS LAB L501.080 70-110 mg/dL Normal BEDSIDE GLU 87 Result Comment: MANAGEMENT OF PATIENT CARE PER NURSING PROTOCOL Performed By: #### L501.080 #### [facility] Laboratory Point of Care [address] [place] [address] BEDSIDE GLUCOSE Collected: 07/14/2018 Status: F Source: JOYA 12:19 PM [facility] REPOSITORY TYPE CODE TESTS RESULT OUT OF REFERENCE UNITS RANGE LAB L501.080 70-110 mg/dL Low BEDSIDE GLU 52 Result Comment: MANAGEMENT OF PATIENT CARE PER NURSING PROTOCOL Performed By: #### L501.080 #### [facility] Laboratory Point of Care [address] [place] [address] GLUCOSE Collected: 07/14/2018 Status: F Source: JOYA 12:05 PM [facility] REPOSITORY Order Comment: Comments: glucose 38 lab backup TYPE CODE TESTS RESULT OUT OF RANGE REFERENCE UNITS LAB L501.0100 74-106 mg/dL Low GLU 72 Result Comment: Please note revised GLUCOSE reference range effective 2017. Performed By: #### L501.0100 #### [facility] [address] [place], [address] BEDSIDE GLUCOSE Collected: 07/14/2018 Status: F Source: JOYA 12:01 PM [facility] REPOSITORY TYPE CODE TESTS RESULT OUT OF REFERENCE UNITS RANGE LAB L501.080 70-110 mg/dL Low alert BEDSIDE GLU 44 Result Comment: Snack Given MANAGEMENT OF PATIENT CARE PER NURSING PROTOCOL Performed By: #### L501.080 #### [facility] Laboratory Point of Care [address] [place] [address] BEDSIDE GLUCOSE Collected: 07/14/2018 Status: F Source: JOYA 11:44 AM [facility] REPOSITORY TYPE CODE TESTS RESULT OUT OF REFERENCE UNITS RANGE LAB L501.080 70-110 mg/dL Low alert BEDSIDE GLU 38 Result Comment: Snack Given Dr Orders Followed Repeat Test MANAGEMENT OF PATIENT CARE PER NURSING PROTOCOL Performed By: #### L501.080 #### [facility] Laboratory Point of Care [address] [place] [address] BEDSIDE GLUCOSE Collected: 07/14/2018 Status: F Source: JOYA 6:36 AM [facility] REPOSITORY TYPE CODE TESTS RESULT OUT OF REFERENCE UNITS RANGE LAB L501.080 70-110 mg/dL High BEDSIDE GLU 129 Result Comment: MANAGEMENT OF PATIENT CARE PER NURSING PROTOCOL Performed By: #### L501.080 #### [facility] Laboratory Point of Care [address] [place] [address] COMPREHENSIVE METABOLIC Collected: 07/14/2018 Status: F Source: JOYA PROFIL 4:55 AM [facility] REPOSITORY TYPE CODE TESTS RESULT OUT OF RANGE REFERENCE UNITS LAB L501.0100 74-106 mg/dL High GLU 131 Result Comment: Fasting Glucose result greater than or equal to 126 mg/dL suggests DIABETES MELLITUS per A.D.A. criteria. Please note revised GLUCOSE reference range effective 2017. LAB L501.1000 7-18 mg/dL Normal BUN 18 LAB L501.1100 0.55-1.02 mg/dL Normal CREAT,SERUM 0.80 Result Comment: The validity of the calculated GFR AND GFRAA in patients over 70 years has not been determined. Clinical correlation is essential. LAB L501.1110 >60 mL/min Normal EST GFR 79 Result Comment: Non- GFR Calc LAB L501.1115 >60 mL/min Normal EST GFR - AA 95 Result Comment: GFR Calc LAB L501.1255 ml/min Normal Estimated CRCL 74.54 LAB L501.1300 10-20 RATIO High BUN/CRE 22.6 LAB L501.1500 6.4-8. g/dL Low 2 T PROT 6.2 LAB L501.1800 3.2-5. g/dL Low 0 ALB 3.0 LAB L501.1950 2.2-4. g/dL Normal 2 GLOB 3.2 LAB L501.2000 0.9-2. RATIO Normal 4 A/G 0.9 LAB L501.2200 8.5-10 mg/dL Normal .1 CA 8.6 LAB L501.4100 15-37 U/L Normal AST 22 LAB L501.4305 45-117 U/L Normal ALK P 74 LAB L501.4405 13-56 U/L Normal ALT 32 LAB L501.4600 0.20-1 mg/dL Normal .00 T BILI 0.40 LAB L501.5300 136-14 mmol/L Normal 5 NA 140 LAB L501.5600 3.5-5. mmol/L Normal 1 K 3.7 LAB L501.5900 98-107 mmol/L Normal CL 102 LAB L501.6100 21.0-3 mmol/L Normal 2.0 CO2 30.0 LAB L501.6200 5-15 Normal GAP 8 Performed By: #### L500.4050 #### [facility] [address] [facility] [facility] [address] BEDSIDE GLUCOSE Collected: 07/13/2018 Status: F Source: JOYA 8:12 PM [facility] REPOSITORY TYPE CODE TESTS RESULT OUT OF RANGE REFERENCE UNITS LAB L501.080 70-110 mg/dL Normal BEDSIDE GLU 90 Result Comment: MANAGEMENT OF PATIENT CARE PER NURSING PROTOCOL Performed By: #### L501.080 #### [facility] Point [facility] [address] [facility] [facility] [place], [place] [address] BEDSIDE GLUCOSE Collected: 07/13/2018 Status: F Source: JOYA 5:09 PM [facility] REPOSITORY TYPE CODE TESTS RESULT OUT OF RANGE REFERENCE UNITS LAB L501.080 70-110 mg/dL Normal BEDSIDE GLU 76 Result Comment: MANAGEMENT OF PATIENT CARE PER NURSING PROTOCOL Performed By: #### L501.080 #### [facility] Laboratory Point of Care [address] [place] [address] BEDSIDE GLUCOSE Collected: 07/13/2018 Status: F Source: JOYA 11:52 AM [facility] REPOSITORY TYPE CODE TESTS RESULT OUT OF REFERENCE UNITS RANGE LAB L501.080 70-110 mg/dL High BEDSIDE GLU 172 Result Comment: MANAGEMENT OF PATIENT CARE PER NURSING PROTOCOL Performed By: #### L501.080 #### [facility] Laboratory Point of Care [address] [place] [address] BEDSIDE GLUCOSE Collected: 07/13/2018 Status: F Source: JOYA 6:49 AM [facility] REPOSITORY TYPE CODE TESTS RESULT OUT OF RANGE REFERENCE UNITS LAB L501.080 70-110 mg/dL Normal BEDSIDE GLU 87 Result Comment: MANAGEMENT OF PATIENT CARE PER NURSING PROTOCOL Performed By: #### L501.080 #### [facility] Laboratory Point of Care [address] [place] [address] BEDSIDE GLUCOSE Collected: 07/12/2018 Status: F Source: JOYA 8:43 PM [facility] REPOSITORY TYPE CODE TESTS RESULT OUT OF RANGE REFERENCE UNITS LAB L501.080 70-110 mg/dL Normal BEDSIDE GLU 107 Result Comment: MANAGEMENT OF PATIENT CARE PER NURSING PROTOCOL Performed By: #### L501.080 #### [facility] Laboratory Point of Care [address] [place] [address] BEDSIDE GLUCOSE Collected: 07/12/2018 Status: F Source: JOYA 5:03 PM [facility] REPOSITORY TYPE CODE TESTS RESULT OUT OF RANGE REFERENCE UNITS LAB L501.080 70-110 mg/dL Normal BEDSIDE GLU 99 Result Comment: MANAGEMENT OF PATIENT CARE PER NURSING PROTOCOL Performed By: #### L501.080 #### [facility] Laboratory Point of Care [address] [place] [address] BEDSIDE GLUCOSE Collected: 07/12/2018 Status: F Source: JOYA 11:28 AM [facility] REPOSITORY TYPE CODE TESTS RESULT OUT OF RANGE REFERENCE UNITS LAB L501.080 70-110 mg/dL Normal BEDSIDE GLU 90 Result Comment: MANAGEMENT OF PATIENT CARE PER NURSING PROTOCOL Performed By: #### L501.080 #### [facility] [facility] Point of Care [address] [place] [address] BEDSIDE GLUCOSE Collected: 07/12/2018 Status: F Source: JOYA 6:44 AM [facility] REPOSITORY TYPE CODE TESTS RESULT OUT OF RANGE REFERENCE UNITS LAB L501.080 70-110 mg/dL Normal BEDSIDE GLU 93 Result Comment: MANAGEMENT OF PATIENT CARE PER NURSING PROTOCOL Performed By: #### L501.080 #### [facility] Point of Care [address] [place] [address] BEDSIDE GLUCOSE Collected: 07/11/2018 Status: F Source: JOYA 8:10 PM [facility] REPOSITORY TYPE CODE TESTS RESULT OUT OF REFERENCE UNITS RANGE LAB L501.080 70-110 mg/dL High BEDSIDE GLU 176 Result Comment: MANAGEMENT OF PATIENT CARE PER NURSING PROTOCOL Performed By: #### L501.080 #### [facility] Point of Care [address] [place] [address] BEDSIDE GLUCOSE Collected: 07/11/2018 Status: F Source: JOYA 5:08 PM [facility] REPOSITORY TYPE CODE TESTS RESULT OUT OF REFERENCE UNITS RANGE LAB L501.080 70-110 mg/dL High BEDSIDE GLU 192 Result Comment: MANAGEMENT OF PATIENT CARE PER NURSING PROTOCOL Performed By: #### L501.080 #### [facility] Point of Care [address] [place] [address] BEDSIDE GLUCOSE Collected: 07/11/2018 Status: F Source: JOYA 11:13 AM [facility] REPOSITORY TYPE CODE TESTS RESULT OUT OF REFERENCE UNITS RANGE LAB L501.080 70-110 mg/dL High BEDSIDE GLU 229 Result Comment: MANAGEMENT OF PATIENT CARE PER NURSING PROTOCOL Performed By: #### L501.080 #### [facility] Point of Care [address] [place] [address] BEDSIDE GLUCOSE Collected: 07/11/2018 Status: F Source: JOYA 6:41 AM [facility] REPOSITORY TYPE CODE TESTS RESULT OUT OF REFERENCE UNITS RANGE LAB L501.080 70-110 mg/dL High BEDSIDE GLU 216 Result Comment: MANAGEMENT OF PATIENT CARE PER NURSING PROTOCOL Performed By: #### L501.080 #### [facility] Point of Care [address] [place] [address] CBC W/DIFF, AUTOMATED Collected: 07/11/2018 Status: F Source: JOYA 5:05 AM [facility] REPOSITORY TYPE CODE TESTS RESULT OUT OF RANGE REFERENCE UNITS LAB L100.1000 4.4-11.0 K/mm3 High WBC 11.6 LAB L100.1200 4.2-5.4 M/mm3 Normal RBC 4.67 LAB L100.1300 12.0-15.0 g/dl Normal HGB 13.5 LAB L100.1400 37-47 % Normal HCT 39.3 LAB L100.1500 81-99 fL Normal MCV 84.2 LAB L100.1600 27.0-32.0 pg Normal MCH 28.9 LAB L100.1700 32-36 g/gl Normal MCHC 34.4 LAB L100.1810 11.6-14.6 % Normal RDW CV 12.3 LAB L100.1820 35.1-43.9 fl Normal RDW SD 37.1 LAB L100.1900 150-450 K/mm3 Normal PLT 262 LAB L100.2000 6.2-12.0 fl Normal MPV 11.2 LAB L100.2100 47-70 % Normal NEUT% 52.7 LAB L100.2200 19-41 % Normal LY% 37.6 LAB L100.2300 0-10 % Normal MONO% 7.9 LAB L100.2400 0-5 % Normal EO% 1.2 LAB L100.2500 0-1 % Normal BASO% 0.3 LAB L100.2550 0.0-0.9 % Normal IM GRAN % 0.300 Result Comment: IG% - Immature Granulocytes (promyelocytes, myelocytes and metamyelocytes) > 1% indicates that a LEFT SHIFT is Present. LAB L100.2620 2.0-7.7 X10 3/uL Normal Absolute Neut 6.1 LAB L100.2720 0.83-4.51 X10 3/ul Normal Absolute Lymph 4.35 Performed By: #### L100.0100 #### [facility] [place], [address] COMPREHENSIVE METABOLIC Collected: 07/11/2018 Status: F Source: JOYA [facility] 5:05 AM [facility] REPOSITORY TYPE CODE TESTS RESULT OUT OF RANGE REFERENCE UNITS LAB L501.0100 74-106 mg/dL High GLU 209 Result Comment: Glucose result greater than or equal to 200 mg/dL suggests DIABETES MELLITUS per A.D.A. criteria. Please note revised GLUCOSE reference range effective 2017. LAB L501.1000 7-18 mg/dL Normal BUN 17 LAB L501.1100 0.55-1.02 mg/dL Normal CREAT,SERUM 0.89 Result Comment: The validity of the calculated GFR AND GFRAA in patients over 70 years has not been determined. Clinical correlation is essential. LAB L501.1110 >60 mL/min Normal EST GFR 70 Result Comment: Non- GFR Calc LAB L501.1115 >60 mL/min Normal EST GFR - AA 84 Result Comment: GFR Calc LAB L501.1255 ml/min Normal Estimated CRCL 67.00 LAB L501.1300 10-20 RATIO Normal BUN/CRE 19.2 LAB L501.1500 6.4-8. g/dL Low 2 T PROT 6.1 LAB L501.1800 3.2-5. g/dL Low 0 ALB 2.9 LAB L501.1950 2.2-4. g/dL Normal 2 GLOB 3.2 LAB L501.2000 0.9-2. RATIO Normal 4 A/G 0.9 LAB L501.2200 8.5-10 mg/dL Low .1 CA 8.4 LAB L501.4100 15-37 U/L Normal AST 16 LAB L501.4305 45-117 U/L Normal ALK P 62 LAB L501.4405 13-56 U/L Normal ALT 28 LAB L501.4600 0.20-1 mg/dL Normal .00 T BILI 0.60 LAB L501.5300 136-14 mmol/L Normal 5 NA 140 LAB L501.5600 3.5-5. mmol/L Normal 1 K 3.9 LAB L501.5900 98-107 mmol/L Normal CL 100 LAB L501.6100 21.0-3 mmol/L Normal 2.0 CO2 32.0 LAB L501.6200 5-15 Normal GAP 8 Performed By: #### L500.4050 #### [facility] [place], [place], [address] HEMOGLOBIN A1C Collected: 07/11/2018 Status: F Source: JOYA 5:05 AM [facility] REPOSITORY TYPE CODE TESTS RESULT OUT OF RANGE REFERENCE UNITS LAB L501.9985 4.2-6.3 % High HGB A1C 11.7 Performed By: #### L501.9985 #### [facility] [address] [place], [address] BEDSIDE GLUCOSE Collected: 07/11/2018 Status: F Source: JOYA 3:44 AM [facility] REPOSITORY TYPE CODE TESTS RESULT OUT OF REFERENCE UNITS RANGE LAB L501.080 70-110 mg/dL High BEDSIDE GLU 201 Result Comment: MANAGEMENT OF PATIENT CARE PER NURSING PROTOCOL Performed By: #### L501.080 #### [facility] Point of Care [address] [place] [address] BEDSIDE GLUCOSE Collected: 07/10/2018 Status: F Source: JOYA 10:10 PM [facility] REPOSITORY TYPE CODE TESTS RESULT OUT OF RANGE REFERENCE UNITS LAB L501.080 70-110 mg/dL Normal BEDSIDE GLU 91 Result Comment: MANAGEMENT OF PATIENT CARE PER NURSING PROTOCOL Performed By: #### L501.080 #### [facility] Point of Care [address] [place] [address] BEDSIDE GLUCOSE Collected: 07/10/2018 Status: F Source: JOYA 4:47 PM [facility] REPOSITORY TYPE CODE TESTS RESULT OUT OF REFERENCE UNITS RANGE LAB L501.080 70-110 mg/dL High BEDSIDE GLU 114 Result Comment: MANAGEMENT OF PATIENT CARE PER NURSING PROTOCOL Performed By: #### L501.080 #### [facility] Point of Care [address] [place] [address] DISCHARGE SUMMARY Observed: 07/10/2018 Status: F Source: JOYA 4:14 PM [facility] REPOSITORY [facility] Medical Records Department [address] [place], [place] [address] [address] Discharge Summary 07/10/18 1608 MR#: [id number] Acct: [id number] Name: BRE GONSALEZ Rep #: [id number] : 1960 58 From: Armond Marie MD PCP: Jaskaran Garcia MD Status: DIS IN Y [id number] Date and Diagnosis Date of Admission: 07/05/18 Date of Discharge: 07/10/18 - Primary Discharge Diagnosis Hypertensive emergency - Secondary Discharge Diagnosis Chronic Problems Depression (Chronic) Chronic renal failure, stage 2 (mild) (Chronic) HTN (hypertension) (Chronic) DM (diabetes mellitus), type 2, uncontrolled (Chronic) Dyslipidemia (Chronic) Hospital Course and Treatment Summary of Care Provided: [] This is a 58-year-old female with history of multiple sclerosis, hypertension and diabetes mellitus type 2, uncontrolled, CKD stage II was admitted with nausea, vomiting and diarrhea since 07 July. Patient also complaining of dizziness, vertigo and unsteady gait. She states he sink down because of dizziness. She was admitted with hypertensive emergency probably could not take medications because of vomiting. Patient was seen and examined today General: Alert, Oriented x3, Cooperative HEENT: Atraumatic, PERRLA, EOMI, Normocephalic, left IVs and has come back although diminished in right eye. Oral: Dry Mucosa Neck: Supple, No JVD, Negative Carotid Bruits Lungs: Clear to auscultation, No rhonchi, No wheeze, No rales, air entry bilaterally improved. Cardiovascular: Regular rate, Regular Rhythm, Normal S1, Normal S2, No murmurs Abdomen: Bowel Sounds Present, Soft, Non Tender, Non-Distended Extremities: Capillary Refill Less than 3 Seconds, Edema Skin: No rashes, No breakdown Musculoskeletal: No Tenderness to Palpation of Joints or Extremities Neurological: Cranial nerves II-XII grossly intact Psych/Mental Status: Normal Affect, Appropriate \ 1. Hypertensive emergency: The blood pressure is better controlled after starting clonidine. Pulse ox normal. nicardipine drip discontinued. Labetalol IV as needed. Continue on maximum dose of losartan HCTZ, Cozaar and amlodipine. On metoprolol. Hydralazine oral was started Continue symptomatic management. 2. Possible viral gastroenteritis: Sometimes are better. On IV Zofran. Sore 3. Hypokalemia: Monitor and correct accordingly. 4. Multiple sclerosis: Seen by neurologist Dr. Melchor. He thinks there is no exacerbation of multiple sclerosis. Probably PRES secondary to hypertensive emergency. Neurologist consult appreciated. MRI brain was done and shows no active MS plaque but total size and number plaques has increased since 2007. No acute or subacute ischemic infarct 5. DVT prophylaxis with Lovenox Discharge meds reconciliation done. Discharge note completed. Patient is being discharged to acute rehab. Total time spent, exact 35 minutes on discharge meds reconciliation, examination, review of imaging and blood test and discussion with the patient on follow-up instructions. Discharge Activity: May Not Drive, May not drive while taking narcotic pain medications. Call your doctor if you observe: Fever of 101 or Higher, Shortness of breath, Swelling in the ankles, Calf discomfort Home Medications: Medications to take at Discharge Aspirin [Aspirin, Baby] 81 mg PO DAILY@0800 11/09/13 Citalopram [Celexa] 40 mg PO DAILY 11/09/13 buPROPion tablets [Wellbutrin tablets] 300 mg PO DAILY 11/09/13 Metformin HCl [Glucophage] 1,000 mg PO BIDCM 07/05/18 Acetaminophen [Tylenol Tablet] 650 mg PO Q6H PRN PRN tablet 07/10/18 Amlodipine [Norvasc] 10 mg PO DAILY 07/10/18 Clonidine HCl [Catapres] 0.1 mg PO DAILY 07/10/18 Hydrochlorothiazide [Hctz] 25 mg PO DAILY 07/10/18 Insulin Glargine [Lantus SoloStar Pen] 25 units SC QHS 07/10/18 Insulin Lispro [Humalog KwikPen] 15 unit SC TIDAC 07/10/18 Insulin Lispro [Humalog KwikPen] See Protocol SQ TIDAC 07/10/18 Losartan Potassium [Cozaar] 100 mg PO DAILY 07/10/18 Metoprolol Tartrate [Lopressor (beta zenon)] 100 mg PO BID 07/10/18 Nystatin/Triamcin Cream [Mycolog] 1 applic TOPICAL BID 07/10/18 hydrALAZINE [Apresoline] 50 mg PO TID 07/10/18 Primary Care Physician: Jaskaran Garcia MD [Primary Care Provider] - Please follow up with your Primary Care Physician in: in 2 weeks Please Follow Up With: Krzysztof Mota MD When: in 2 weeks Medical Necessity - Tobacco Use Smoking Status: Never smoker Tobacco Use: Non-smoker Meaningful Use Info Meaningful Use Diagnoses (Choose all that apply): None applicable Code Visit Inpatient E AND M: 68237 Disch Hosp 07/10/18 1614 <Electronically signed by Armond Marie MD> Date Armond Marie MD Cosigner Signature (if applicable): Date CC: Armond Marie MD; Jaskaran Garcia MD Signed BEDSIDE GLUCOSE Collected: 07/10/2018 Status: F Source: JOYA 12:06 PM [facility] REPOSITORY TYPE CODE TESTS RESULT OUT OF REFERENCE UNITS RANGE LAB L501.080 70-110 mg/dL High BEDSIDE GLU 161 Result Comment: MANAGEMENT OF PATIENT CARE PER NURSING PROTOCOL Performed By: #### L501.080 #### [facility] Point of Care [address] [place] [address] DISCHARGE INSTRUCTION Observed: 07/10/2018 Status: F Source: JOYA 9:52 AM [facility] REPOSITORY [facility] Medical Records Department [address] [place] [address] Instructions for Home/Discharge Instructions 07/10/1848 MR#: [id number] Acct: [id number] Name: BRE GONSALEZ Rep #: [id number] : 1960 58 From: Armond Marie MD PCP: Jaskaran Garcia MD Status: ADM IN - Discharge Diagnoses Current Active Problems: Current Active and Chronic Problems Hypertensive emergency (Acute) Gastroenteritis (Acute) You will use the following diet at home:: Calorie/Carbohydrate Controlled (specify 1200, 1400, etc) - 1800 ADA DIET, Cardiac Discharge Activity: May Not Drive, May not drive while taking narcotic pain medications. Call your doctor if you observe: Fever of 101 or Higher, Shortness of breath, Swelling in the ankles, Calf discomfort Allergies/Adverse Reactions: Allergies No Known Allergies Allergy (Verified 07/05/18 05:50) Medications to take at Discharge Aspirin [Aspirin, Baby] 81 mg PO DAILY@0800 11/09/13 Citalopram [Celexa] 40 mg PO DAILY 11/09/13 buPROPion tablets [Wellbutrin tablets] 300 mg PO DAILY 11/09/13 Blood Sugar Diagnostic [Test Strips] 1 each MC 4X/DAY #120 strip 03/17/16 Metformin HCl [Glucophage] 1,000 mg PO BIDCM 07/05/18 Acetaminophen [Tylenol Tablet] 650 mg PO Q6H PRN PRN tablet 07/10/18 Amlodipine [Norvasc] 10 mg PO DAILY tablet 07/10/18 Clonidine HCl [Catapres] 0.1 mg PO DAILY tablet 07/10/18 Hydrochlorothiazide [Hctz] 25 mg PO DAILY #0 tablet 07/10/18 Insulin Glargine [Lantus SoloStar Pen] 30 units SC QHS pen 07/10/18 Insulin Lispro [Humalog KwikPen] 15 unit SC TIDAC insuln.pen 07/10/18 Insulin Lispro [Humalog KwikPen] See Protocol SQ TIDAC insuln.pen 07/10/18 Losartan Potassium [Cozaar] 100 mg PO DAILY tablet 07/10/18 Metoprolol Tartrate [Lopressor (beta zenon)] 100 mg PO BID tablet 07/10/18 Nystatin/Triamcin Cream [Mycolog] 1 applic TOPICAL BID tube 07/10/18 Primary Care Physician: Jaskaran Garcia MD [Primary Care Provider] - Please follow up with your Primary Care Physician in: in 2 weeks Test Results: Test results from this visit will be discussed in further detail at your follow-up appointment, if applicable. Please Follow Up With: Krzysztof Mota MD When: in 2 weeks 07/10/18 0952 <Electronically signed by Armond Marie MD> Date Armond Marie MD CC: Dilshad Pak MD; Ramón Melchor MD; Jaskaran Garcia MD BEDSIDE GLUCOSE Collected: 07/10/2018 Status: F Source: JOYA 7:05 AM [facility] REPOSITORY TYPE CODE TESTS RESULT OUT OF REFERENCE UNITS RANGE LAB L501.080 70-110 mg/dL High BEDSIDE GLU 238 Result Comment: MANAGEMENT OF PATIENT CARE PER NURSING PROTOCOL Performed By: #### L501.080 #### [facility] Point of Care [address] [place] [address] BEDSIDE GLUCOSE Collected: 07/09/2018 Status: F Source: JOYA 9:09 PM [facility] REPOSITORY TYPE CODE TESTS RESULT OUT OF REFERENCE UNITS RANGE LAB L501.080 70-110 mg/dL High BEDSIDE GLU 317 Result Comment: MANAGEMENT OF PATIENT CARE PER NURSING PROTOCOL Performed By: #### L501.080 #### [facility] Point of Care [address] [place] [address] BEDSIDE GLUCOSE Collected: 07/09/2018 Status: F Source: JOYA 4:31 PM [facility] REPOSITORY TYPE CODE TESTS RESULT OUT OF REFERENCE UNITS RANGE LAB L501.080 70-110 mg/dL High BEDSIDE GLU 168 Result Comment: MANAGEMENT OF PATIENT CARE PER NURSING PROTOCOL Performed By: #### L501.080 #### [facility] Point of Care [address] [place] [address] BEDSIDE GLUCOSE Collected: 07/09/2018 Status: F Source: JOYA 11:13 AM [facility] REPOSITORY TYPE CODE TESTS RESULT OUT OF REFERENCE UNITS RANGE LAB L501.080 70-110 mg/dL High BEDSIDE GLU 219 Result Comment: MANAGEMENT OF PATIENT CARE PER NURSING PROTOCOL Performed By: #### L501.080 #### [facility] Point of Care [address] [place] [address] BEDSIDE GLUCOSE Collected: 07/09/2018 Status: F Source: JOYA 6:34 AM [facility] REPOSITORY TYPE CODE TESTS RESULT OUT OF REFERENCE UNITS RANGE LAB L501.080 70-110 mg/dL High BEDSIDE GLU 224 Result Comment: MANAGEMENT OF PATIENT CARE PER NURSING PROTOCOL Performed By: #### L501.080 #### [facility] Point of Care [address] [place] [address] CBC W/DIFF, AUTOMATED Collected: 07/09/2018 Status: F Source: JOYA 4:45 AM [facility] REPOSITORY TYPE CODE TESTS RESULT OUT OF RANGE REFERENCE UNITS LAB L100.1000 4.4-11.0 K/mm3 Normal WBC 9.7 LAB L100.1200 4.2-5.4 M/mm3 Normal RBC 4.57 LAB L100.1300 12.0-15.0 g/dl Normal HGB 13.1 LAB L100.1400 37-47 % Normal HCT 38.6 LAB L100.1500 81-99 fL Normal MCV 84.5 LAB L100.1600 27.0-32.0 pg Normal MCH 28.7 LAB L100.1700 32-36 g/gl Normal MCHC 33.9 LAB L100.1810 11.6-14.6 % Normal RDW CV 12.5 LAB L100.1820 35.1-43.9 fl Normal RDW SD 38.3 LAB L100.1900 150-450 K/mm3 Normal PLT 257 LAB L100.2000 6.2-12.0 fl Normal MPV 11.4 LAB L100.2100 47-70 % Low NEUT% 43.2 LAB L100.2200 19-41 % High LY% 48.4 LAB L100.2300 0-10 % Normal MONO% 6.9 LAB L100.2400 0-5 % Normal EO% 1.1 LAB L100.2500 0-1 % Normal BASO% 0.3 LAB L100.2550 0.0-0.9 % Normal IM GRAN % 0.100 Result Comment: IG% - Immature Granulocytes (promyelocytes, myelocytes and metamyelocytes) > 1% indicates that a LEFT SHIFT is Present. LAB L100.2620 2.0-7.7 X10 3/uL Normal Absolute Neut 4.2 LAB L100.2720 0.83-4.51 X10 3/ul High Absolute Lymph 4.69 Performed By: #### L100.0100 #### [facility] [address] [place], [place], [address] BASIC METABOLIC Collected: 07/09/2018 Status: F Source: JOYA PROFILE (BMP) 4:45 AM [facility] REPOSITORY TYPE CODE TESTS RESULT OUT OF RANGE REFERENCE UNITS LAB L501.0100 74-106 mg/dL High GLU 204 Result Comment: Glucose result greater than or equal to 200 mg/dL suggests DIABETES MELLITUS per A.D.A. criteria. Please note revised GLUCOSE reference range effective 2017. LAB L501.1000 7-18 mg/dL Normal BUN 16 LAB L501.1100 0.55-1.02 mg/dL Normal CREAT,SERUM 0.87 Result Comment: The validity of the calculated GFR AND GFRAA in patients over 70 years has not been determined. Clinical correlation is essential. LAB L501.1110 >60 mL/min Normal EST GFR 71 Result Comment: Non- GFR Calc LAB L501.1115 >60 mL/min Normal EST GFR - AA 86 Result Comment: GFR Calc LAB L501.1255 ml/min Normal Estimated CRCL 68.54 LAB L501.1300 10-20 RATIO Normal BUN/CRE 18.5 LAB L501.2200 8.5-10 mg/dL Low .1 CA 8.2 LAB L501.5300 136-14 mmol/L Normal 5 NA 139 LAB L501.5600 3.5-5. mmol/L Normal 1 K 3.7 LAB L501.5900 98-107 mmol/L Normal CL 102 LAB L501.6100 21.0-3 mmol/L Normal 2.0 CO2 29.0 LAB L501.6200 5-15 Normal GAP 8 Performed By: #### L500.2500 #### [facility] [address] [facility] [id number] BEDSIDE GLUCOSE Collected: 07/08/2018 Status: F Source: ENIGMA 9:52 PM [facility] REPOSITORY TYPE CODE TESTS RESULT OUT OF REFERENCE UNITS RANGE LAB L501.080 70-110 mg/dL High BEDSIDE GLU 183 Result Comment: MANAGEMENT OF PATIENT CARE PER NURSING PROTOCOL Performed By: #### L501.080 #### [facility] Point of Care [address] [facility] [place] [address] BEDSIDE GLUCOSE Collected: 07/08/2018 Status: F Source: ENIGMA 5:14 PM [facility] REPOSITORY TYPE CODE TESTS RESULT OUT OF REFERENCE UNITS RANGE LAB L501.080 70-110 mg/dL High BEDSIDE GLU 236 Result Comment: MANAGEMENT OF PATIENT CARE PER NURSING PROTOCOL Performed By: #### L501.080 #### [facility] Point of Care [address] [facility] [place] [address] BEDSIDE GLUCOSE Collected: 07/08/2018 Status: F Source: JOYA 11:11 AM [facility] REPOSITORY TYPE CODE TESTS RESULT OUT OF REFERENCE UNITS RANGE LAB L501.080 70-110 mg/dL High BEDSIDE GLU 186 Result Comment: MANAGEMENT OF PATIENT CARE PER NURSING PROTOCOL Performed By: #### L501.080 #### [facility] Point of Care [address] [place], [place] [address] BEDSIDE GLUCOSE Collected: 07/08/2018 Status: F Source: JOYA 7:55 AM [facility] REPOSITORY TYPE CODE TESTS RESULT OUT OF REFERENCE UNITS RANGE LAB L501.080 70-110 mg/dL High BEDSIDE GLU 244 Result Comment: MANAGEMENT OF PATIENT CARE PER NURSING PROTOCOL Performed By: #### L501.080 #### [facility] Point of Care [address] [place] [address] BASIC METABOLIC Collected: 07/08/2018 Status: F Source: JOYA PROFILE (BMP) 4:44 AM [facility] REPOSITORY TYPE CODE TESTS RESULT OUT OF RANGE REFERENCE UNITS LAB L501.0100 74-106 mg/dL High GLU 196 Result Comment: Fasting Glucose result greater than or equal to 126 mg/dL suggests DIABETES MELLITUS per A.D.A. criteria. Please note revised GLUCOSE reference range effective 2017. LAB L501.1000 7-18 mg/dL Normal BUN 18 LAB L501.1100 0.55-1.02 mg/dL Normal CREAT,SERUM 0.81 Result Comment: The validity of the calculated GFR AND GFRAA in patients over 70 years has not been determined. Clinical correlation is essential. LAB L501.1110 >60 mL/min Normal EST GFR 77 Result Comment: Non- GFR Calc LAB L501.1115 >60 mL/min Normal EST GFR - AA 93 Result Comment: GFR Calc LAB L501.1255 ml/min Normal Estimated CRCL 73.62 LAB L501.1300 10-20 RATIO High BUN/CRE 22.2 LAB L501.2200 8.5-10 mg/dL Low .1 CA 8.0 LAB L501.5300 136-14 mmol/L Normal 5 NA 140 LAB L501.5600 3.5-5. mmol/L Low 1 K 3.1 LAB L501.5900 98-107 mmol/L Normal CL 102 LAB L501.6100 21.0-3 mmol/L Normal 2.0 CO2 28.0 LAB L501.6200 5-15 Normal GAP 10 Performed By: #### L500.2500, L100.0100 #### [facility] [place], [address] CBC W/DIFF, AUTOMATED Collected: 07/08/2018 Status: F Source: ENIGMA 4:44 AM [facility] REPOSITORY TYPE CODE TESTS RESULT OUT OF RANGE REFERENCE UNITS LAB L100.1000 4.4-11.0 K/mm3 High WBC 11.3 LAB L100.1200 4.2-5.4 M/mm3 Normal RBC 4.72 LAB L100.1300 12.0-15.0 g/dl Normal HGB 13.4 LAB L100.1400 37-47 % Normal HCT 39.4 LAB L100.1500 81-99 fL Normal MCV 83.5 LAB L100.1600 27.0-32.0 pg Normal MCH 28.4 LAB L100.1700 32-36 g/gl Normal MCHC 34.0 LAB L100.1810 11.6-14.6 % Normal RDW CV 12.5 LAB L100.1820 35.1-43.9 fl Normal RDW SD 37.7 LAB L100.1900 150-450 K/mm3 Normal PLT 297 LAB L100.2000 6.2-12.0 fl Normal MPV 11.6 LAB L100.2100 47-70 % Normal NEUT% 47.4 LAB L100.2200 19-41 % High LY% 42.8 LAB L100.2300 0-10 % Normal MONO% 8.4 LAB L100.2400 0-5 % Normal EO% 0.7 LAB L100.2500 0-1 % Normal BASO% 0.4 LAB L100.2550 0.0-0.9 % Normal IM GRAN % 0.300 Result Comment: IG% - Immature Granulocytes (promyelocytes, myelocytes and metamyelocytes) > 1% indicates that a LEFT SHIFT is Present. LAB L100.2620 2.0-7.7 X10 3/uL Normal Absolute Neut 5.4 LAB L100.2720 0.83-4.51 X10 3/ul High Absolute Lymph 4.83 Performed By: #### L500.2500, L100.0100 #### [facility] [address] [facility] [place], [address] PHOSPHORUS Collected: 07/08/2018 Status: F Source: ENIGMA 4:44 AM [facility] REPOSITORY TYPE CODE TESTS RESULT OUT OF RANGE REFERENCE UNITS LAB L501.2300 2.5-4.9 mg/dL Normal PHOS 3.0 Performed By: #### L501.2300, L501.5200 #### [facility] [address] [facility] [place], [address] MAGNESIUM Collected: 07/08/2018 Status: F Source: ENIGMA 4:44 AM [facility] REPOSITORY TYPE CODE TESTS RESULT OUT OF RANGE REFERENCE UNITS LAB L501.5200 1.6-2.6 mg/dL Normal MG 1.8 Performed By: #### L501.2300, L501.5200 #### [facility] [address] [place], [address] EMERGENCY DEPARTMENT Observed: 07/08/2018 Status: F Source: ENIGMA SUMMARY 1:15 AM [facility] REPOSITORY [facility] Medical Records Department [address] [place] [id number] Emergency Department Summary 07/05/18 0556 MR#: [id number] Acct: [id number] Name: BRE GONSALEZ Rep #: [id number] : 1960 58 From: Nam Riggins MD PCP: Jaskaran Garcia MD Status: ADM IN - ER Visit Summary Date of Service: 07/05/18 Chief Complaint: [] Nausea vomiting and diarrhea History of Present Illness: The patient is a 58 F [] patient states she has had nausea vomiting diarrhea since yesterday morning. Gradual onset intermittent. She is vomited at least 20 times with 10 episodes of loose watery diarrhea. She stated that she fell off balance earlier this morning when walking and felt vertigo and dizzy. She states she has not been able to hold anything down including her medications yesterday. She does have a history of multiple sclerosis in the past. She is seen neurology in the past. She is off her medications currently. She does have diabetes. She has never had a stroke. She denies any focal weakness slurred speech or other stroke symptoms. Physical Examination: [] Vital signs reviewed General: Well-nourished well-developed Head: Normocephalic atraumatic Eyes: Pupils equal round and reactive to light extraocular movements intact ENT: TMs clear no hemotympanum no trauma Neck: Nontender full range of motion Cardiovascular: Regular rate rhythm no murmurs normal S1-S2 Respiratory: No distress clear to auscultation bilaterally chest nontender Abdomen: Soft nontender nondistended normal bowel sounds no masses Back: Nontender no CVA tenderness Extremities: Nontender active range of motion 4 extremities no trauma Skin: Normal color no trauma Neuro alert oriented cranial nerves II through XII intact normal strength sensation reflexes Test Results: [] Emergency Department Course and Treatment: [] She given IV fluids and Zofran. Lab work and CT brain obtained. Lab work shows a white count of 13.8. Chemistries normal except chloride 97 anion gap 20 glucose 419 creatinine 1.08. Liver function tests normal except total bili 1.1. Troponin negative less than 0.01. Patient given a dose of labetalol IV as she has not been able to take her metoprolol and her blood sugar is over 200 systolic. She was given insulin subcutaneous for her blood sugar that was 419. Normally her blood sugars at home are in the upper 100s. CT looked at by myself shows nothing acute. No active bleeding. Still waiting on radiology evaluation will be signed out to the oncoming physician. She given dose of hydralazine as her blood pressure remains above 200 systolic. Patient's she is significantly better after treatment. She will be admitted and discussed with the hospitalist Treatment Plan: [] Disposition: [] Impression: [] Nausea vomiting diarrhea Acute dehydration Diabetes with hyperglycemia Hypertension established out of control symptomatic Weakness and dizziness This note was generated with Flowboardation software. It may contain incorrect words, spelling, and punctuation that were not noted in review of the chart prior to signing ED Disposition - Plan for ED Patient: Chief Complaint: Nausea/Vomiting/Diarrhea Referrals: Jaskaran Garcia MD [Primary Care Provider] - What to do if you have Problems For any increased pain, shortness of breath, bleeding, nausea or vomiting, chest pain, or any unexpected problems, contact your Primary Care Provider. Call [facility] ([phone]) or report to the closest Emergency Room. Call 911 if necessary. 07/08/18 0115 <Electronically signed by Nam Riggins MD> Date Nam Riggins MD Cosigner Signature (If Indicated): Date CC: Jaskaran Garcia MD BEDSIDE GLUCOSE Collected: 07/07/2018 Status: F Source: JOYA 9:14 PM [facility] REPOSITORY TYPE CODE TESTS RESULT OUT OF REFERENCE UNITS RANGE LAB L501.080 70-110 mg/dL High BEDSIDE GLU 265 Result Comment: MANAGEMENT OF PATIENT CARE PER NURSING PROTOCOL Performed By: #### L501.080 #### [facility] Laboratory Point of Care [address] [place] [address] BEDSIDE GLUCOSE Collected: 07/07/2018 Status: F Source: JOYA 4:24 PM [facility] REPOSITORY TYPE CODE TESTS RESULT OUT OF REFERENCE UNITS RANGE LAB L501.080 70-110 mg/dL High BEDSIDE GLU 245 Result Comment: MANAGEMENT OF PATIENT CARE PER NURSING PROTOCOL Performed By: #### L501.080 #### [facility] Point of Care [address] [place] [address] BEDSIDE GLUCOSE Collected: 07/07/2018 Status: F Source: JOYA 11:30 AM [facility] REPOSITORY TYPE CODE TESTS RESULT OUT OF REFERENCE UNITS RANGE LAB L501.080 70-110 mg/dL High BEDSIDE GLU 254 Result Comment: MANAGEMENT OF PATIENT CARE PER NURSING PROTOCOL Performed By: #### L501.080 #### [facility] Point of Care [address] [place] [address] BEDSIDE GLUCOSE Collected: 07/07/2018 Status: F Source: JOYA 7:40 AM [facility] REPOSITORY TYPE CODE TESTS RESULT OUT OF REFERENCE UNITS RANGE LAB L501.080 70-110 mg/dL High BEDSIDE GLU 298 Result Comment: MANAGEMENT OF PATIENT CARE PER NURSING PROTOCOL Performed By: #### L501.080 #### [facility] Point of Care [address] [place] [address] CONSULTATION Observed: 07/07/2018 Status: F Source: ENIGMA 5:28 AM [facility] REPOSITORY [facility] Medical Records Department [address] [place] [address] Consultation 07/06/18 0727 MR#: [id number] Acct: [id number] Name: BRE GONSALEZ Rep #: [id number] : 1960 58 From: Dilshad Pak MD PCP: Jaskaran Garcia MD Status: [facility] Problem List (1) Hypertensive emergency Status: Acute (2) Gastroenteritis Status: Acute (3) Chronic renal failure, stage 2 (mild) Status: Chronic (4) Hypokalemia Status: Acute (5) HTN (hypertension) Status: Chronic Qualifiers: Hypertension type: essential hypertension Qualified Code(s): I10 - Essential (primary) hypertension (6) DM (diabetes mellitus), type 2, uncontrolled Status: Chronic (7) Dyslipidemia Status: Chronic (8) Sleep apnea Status: Suspected Reason for Consult Date of Consultation: 07/06/18 Reason for Consultation: Hypertensive emergency History of Present Illness: The patient is a 58 year old F, with past medical history listed below, who presented to [facility] on 07/05/2018 secondary to nausea, vomiting and diarrhea. Patient had reportedly started to have nausea vomiting and diarrhea on and reported a gradual onset. Patient states that she had at least 20 episodes of emesis and 10 episodes of loose diarrhea over the previous day and a half. Patient had had issues with vertigo and dizziness and was unable to hold any medications down including her antihypertensives. Patient does have a history of multiple sclerosis in the past and has been seen by neurology. In the emergency room, patient was given IV fluids and Zofran. CT scan was unremarkable. Patient was noted to have a leukocytosis and elevated glucose of 419. Patient was given labetalol IV and insulin. She was admitted to the floor and seen by the hospitalist. At that time, patient was noted to be 239/137. Patient did receive hydralazine and labetalol with slight improvement in blood pressure. Patient was then transferred to the intensive care unit to be started on a nicardipine drip. Overnight, patient reports subjective improvement in overall condition. Patient still has significant nausea, but has not had any emesis. Patient does not report any bowel movements since admission. Patient denies any current pain, fever or chills. Patient has not had any reported melena, hematochezia or hematemesis. Patient denies any recent change in diet. Patient does can her own peaches and states that she had some on . Patient denies any change in flavor or alteration of the peaches. Patient denies any paralysis. Patient has reportedly been lost to follow-up with Dr. Melchor for her multiple sclerosis. Patient has not been able to take any medications for MS secondary to insurance issues. Patient denies any recent onset of rash. Patient is unaware of any sick contacts. Review of systems otherwise negative 10 systems. Past Medical History Past Medical History (Chronic Problems): Chronic Problems Depression (Chronic) Chronic renal failure, stage 2 (mild) (Chronic) HTN (hypertension) (Chronic) DM (diabetes mellitus), type 2, uncontrolled (Chronic) Dyslipidemia (Chronic) Allergies No Known Allergies Allergy (Verified 07/05/18 05:50) Home Medications: Ambulatory Orders Medication Instructions Recorded Aspirin [Aspirin, Baby] 81 mg PO DAILY@0800 11/09/13 Smoking Status: Never smoker Tobacco Use: Non-smoker Alcohol: None Drugs: None - *Family History Maternal History Items: - - No MS Review of Systems Comment: See HPI, otherwise negative 10 systems. Patient Problems: Active and Suspected Problems Hypertensive emergency (Acute) Gastroenteritis (Acute) Objective: CT scan of the head was reviewed. This did show some periventricular changes. - Physical Exam General: Alert, Oriented x3, Cooperative, - - Mild distress secondary to nausea. Obese. Speaking in full sentences. HEENT: Atraumatic, PERRLA, EOMI, Normocephalic, - - No scleral icterus or injection noted. Glasses in place. Oral: No Gingival or Mucosal Lesions/ Ulcerations, Dry Mucosa Neck: Supple, No JVD, No Nodes, Trachea Midline Lungs: Clear to auscultation, Normal air movement, No rhonchi, No wheeze, No rales Cardiovascular: Regular rate, Regular Rhythm, Normal S1, Normal S2, No murmurs, No rub noted, No Gallop Abdomen: Soft, Non Tender, Non-Distended, Hyperactive Bowel Sounds, Obese Extremities: No clubbing, No cyanosis, No edema, Capillary Refill Less than 3 Seconds Skin: No rashes, No breakdown Musculoskeletal: No Tenderness to Palpation of Joints or Extremities Lymphatic: No Cervical, Supraclavicular, or Inguinal Adenopathy Neurological: Cranial nerves II-XII grossly intact, Neuro grossly intact, Motor Exam 5/5 strength throughout Psych/Mental Status: Alert and oriented to time, place, person, mood and affect Vital Signs Temp Pulse Resp BP Pulse Ox 37.1 C 86 14 170/74 H 95 07/06/18 04:00 07/06/18 07:00 07/06/18 07:00 07/06/18 07:00 07/06/18 07:00 Oxygen Delivery Method Room Air Weight: 94.4 kg Body Mass Index (BMI) 32.1 Intake and Output for Last 24 Hours Intake Total 2494 / 2494 813 / 813 Output Total 1450 / 1450 700 / 700 Balance 1044 / 1044 113 / 113 Laboratory Tests Past 24 Hrs Sodium 142 Potassium 3.1 L Chloride 104 Carbon Dioxide 24.0 POC Glucose POC Glucose 328 H 341 H 342 H POC Glucose 340 H Assessment/Plan Active and Suspected Problems Hypertensive emergency (Acute) Gastroenteritis (Acute) RECOMMENDATIONS: 1. Treat nausea symptomatically with Zofran 2. Reinitiate baseline medications for hypertension 3. Potentially add a third medication for hypertension if persists this evening 4. Continue with supplemental insulin 5. Potassium repletion IMPRESSIONS: 1. Hypertensive emergency Patient may be having an element of rebound hypertension secondary to inability to tolerate oral beta-zenon. Patient is currently getting Zofran therapy and still having nausea, but emesis is much improved. Will attempt to give p.o. medications and monitor. If patient continues to be hypertensive, a third line medication can be added. Patient may benefit from an MRI to be sure she has no white matter changes in the vestibular area that may be leading to the nausea and increased gastric motility. 2. Possible viral gastroenteritis Patient does not report any sick contacts, but is having nausea, vomiting and diarrhea. We will continue to monitor fluid status. Keep patient n.p.o. for now. Hypokalemia likely secondary to GI losses. 3. Hypokalemia Replace IV given patient's GI symptoms 4. Debility/multiple sclerosis Complicates care, management, recovery and prognosis. Therapies have been consulted. Patient may require high-dose steroids if new acute lesions noted on MRI. Code Visit Inpatient E AND M: [id number] Init Hosp L3 07/07/18 0528 <Electronically signed by Dilshad Pak MD> Date Dilshad Pak MD Cosigner Signature (if applicable): Date CC: Dilshad Pak MD; Ramón Melchor MD; Jaskaran Garcia MD Signed BASIC METABOLIC Collected: 07/07/2018 Status: F Source: JOYA PROFILE (BMP) 5:00 AM [facility] REPOSITORY TYPE CODE TESTS RESULT OUT OF RANGE REFERENCE UNITS LAB L501.0100 74-106 mg/dL High GLU 249 Result Comment: Glucose result greater than or equal to 200 mg/dL suggests DIABETES MELLITUS per A.D.A. criteria. Please note revised GLUCOSE reference range effective 2017. LAB L501.1000 7-18 mg/dL High BUN 23 LAB L501.1100 0.55-1.02 mg/dL Normal CREAT,SERUM 0.80 Result Comment: The validity of the calculated GFR AND GFRAA in patients over 70 years has not been determined. Clinical correlation is essential. LAB L501.1110 >60 mL/min Normal EST GFR 78 Result Comment: Non- GFR Calc LAB L501.1115 >60 mL/min Normal EST GFR - AA 94 Result Comment: GFR Calc LAB L501.1255 ml/min Normal Estimated CRCL 74.54 LAB L501.1300 10-20 RATIO High BUN/CRE 28.6 LAB L501.2200 8.5-10 mg/dL Low .1 CA 8.0 LAB L501.5300 136-14 mmol/L Normal 5 NA 141 LAB L501.5600 3.5-5. mmol/L Low 1 K 3.0 LAB L501.5900 98-107 mmol/L Normal CL 105 LAB L501.6100 21.0-3 mmol/L Normal 2.0 CO2 26.0 LAB L501.6200 5-15 Normal GAP 10 Performed By: #### L500.2500 #### [facility] [place], [address] CBC W/DIFF, AUTOMATED Collected: 07/07/2018 Status: F Source: ENIGMA 5:00 AM [facility] REPOSITORY TYPE CODE TESTS RESULT OUT OF RANGE REFERENCE UNITS LAB L100.1000 4.4-11.0 K/mm3 High WBC 14.3 LAB L100.1200 4.2-5.4 M/mm3 Normal RBC 4.45 LAB L100.1300 12.0-15.0 g/dl Normal HGB 12.9 LAB L100.1400 37-47 % Normal HCT 37.7 LAB L100.1500 81-99 fL Normal MCV 84.7 LAB L100.1600 27.0-32.0 pg Normal MCH 29.0 LAB L100.1700 32-36 g/gl Normal MCHC 34.2 LAB L100.1810 11.6-14.6 % Normal RDW CV 13.0 LAB L100.1820 35.1-43.9 fl Normal RDW SD 39.7 LAB L100.1900 150-450 K/mm3 Normal PLT 308 LAB L100.2000 6.2-12.0 fl High MPV 12.1 LAB L100.2100 47-70 % Normal NEUT% 61.1 LAB L100.2200 19-41 % Normal LY% 31.1 LAB L100.2300 0-10 % Normal MONO% 7.4 LAB L100.2400 0-5 % Normal EO% 0.0 LAB L100.2500 0-1 % Normal BASO% 0.2 LAB L100.2550 0.0-0.9 % Normal IM GRAN % 0.200 Result Comment: IG% - Immature Granulocytes (promyelocytes, myelocytes and metamyelocytes) > 1% indicates that a LEFT SHIFT is Present. LAB L100.2620 2.0-7.7 X10 3/uL High Absolute Neut 8.7 LAB L100.2720 0.83-4.51 X10 3/ul Normal Absolute Lymph 4.44 Performed By: #### L100.0100 #### [facility] [address] [place], [address] BEDSIDE GLUCOSE Collected: 07/06/2018 Status: F Source: ENIGMA 8:57 PM [facility] REPOSITORY TYPE CODE TESTS RESULT OUT OF REFERENCE UNITS RANGE LAB L501.080 70-110 mg/dL High BEDSIDE GLU 168 Result Comment: MANAGEMENT OF PATIENT CARE PER NURSING PROTOCOL Performed By: #### L501.080 #### [facility] Laboratory Point of Care [address] [place] [address] BEDSIDE GLUCOSE Collected: 07/06/2018 Status: F Source: ENIGMA 4:12 PM [facility] REPOSITORY TYPE CODE TESTS RESULT OUT OF REFERENCE UNITS RANGE LAB L501.080 70-110 mg/dL High BEDSIDE GLU 175 Result Comment: MANAGEMENT OF PATIENT CARE PER NURSING PROTOCOL Performed By: #### L501.080 #### [facility] Point of Care [address] [place] [address] CONSULTATION Observed: 07/06/2018 Status: F Source: ENIGMA 3:02 PM [facility] REPOSITORY [facility] Medical Records Department [address] [facility] [place] [address] Consultation 07/06/18 1404 MR#: [id number] Acct: [id number] Name: BRE GONSALEZ Rep #: [id number] : 1960 58 From: Ramón Melchor MD PCP: Jaskaran Garcia MD Status: ADM IN Y Location: ICU ICU03-1 Reason for Consult Date of Consultation: 07/06/18 Reason for Consultation: nausea and vision changes History of Present Illness: The patient is a 58 year old right handed female presented to the hospital yesterday with nausea, imbalance, vision changes and hypertension. denies any medication errors. medications apparently pre-packaged in blister packs. reports felt hot several days ago, then started to notice paresthesias around her lips, nausea, increased falling, and blurry vision out of left eye. staff engineer reports somewhat improved today. in ICU due to IV cardene for bp control. also has diagnosis of ms, seen by myself as an outpatient. stopped copaxone several months ago due to insurance issues. last ms exacerbation years ago. reports ongoing ms symptoms include short term memory loss, dizziness, and falls. no other ms meds in the past. Past Medical History Past Medical History (Chronic Problems): Chronic Problems Depression (Chronic) Chronic renal failure, stage 2 (mild) (Chronic) HTN (hypertension) (Chronic) DM (diabetes mellitus), type 2, uncontrolled (Chronic) Dyslipidemia (Chronic) Allergies No Known Allergies Allergy (Verified 07/05/18 05:50) Home Medications: Ambulatory Orders Medication Instructions Recorded Aspirin [Aspirin, Baby] 81 mg PO DAILY@0800 11/09/13 Smoking Status: Never smoker Tobacco Use: Non-smoker Alcohol: None Drugs: None - *Family History Maternal History Items: - - No MS Review of Systems Constitutional: Denies: Chills, Fever, Weight Change Eyes: Reports: Blurred vision HEENT: Reports: Head Aches. Denies: Sinus Congestion, Sinus Drainage Cardiovascular: Denies: Chest Pain, Palpitations Respiratory: Denies: Cough, Shortness of breath at rest, Sputum production Gastrointestinal: Denies: Abdominal Pain, Nausea, Vomiting Genitourinary: Denies: Dysuria Musculoskeletal: Denies: Joint Pain, Joint Tenderness Skin: Denies: Rash, Wounds Neurological: Reports: Blurred vision, Tingling. Denies: Focal weakness, Numbness Psychiatric: Denies: Anxiety, Depression, Homicidal Ideations, Suicidal Ideations Hematologic/ Lymphatic: Denies: Easy Bruising, Easy Bleeding Patient Problems: Active and Suspected Problems Hypertensive emergency (Acute) Gastroenteritis (Acute) - Physical Exam General: Alert, Oriented x3, Cooperative HEENT: Atraumatic, PERRLA, EOMI, Normocephalic Neck: Supple, No JVD, Negative Carotid Bruits Lungs: Clear to auscultation, Normal air movement Cardiovascular: Regular rate, No murmurs Abdomen: Bowel Sounds Present, Soft, Non Tender Extremities: No edema, Capillary Refill Less than 3 Seconds Skin: No rashes, No breakdown Musculoskeletal: No Tenderness to Palpation of Joints or Extremities Neurological: Cranial nerves II-XII grossly intact, Deep Tendon Reflexes 2+/4 and Symmetrical, Neuro grossly intact, Motor Exam 5/5 strength throughout Psych/Mental Status: Normal Affect, Appropriate Vital Signs Temp Pulse Resp BP Pulse Ox 36.9 C 70 10 L 155/79 H 96 07/06/18 12:00 07/06/18 13:00 07/06/18 13:00 07/06/18 13:00 07/06/18 13:00 Oxygen Delivery Method Room Air Weight: 94.4 kg Body Mass Index (BMI) 32.1 Intake and Output for Last 24 Hours Intake Total 2494 / 2494 1523 / 1523 Output Total 1450 / 1450 1100 / 1100 Balance 1044 / 1044 423 / 423 Laboratory Tests Past 24 Hrs Sodium 142 Potassium 3.1 L Chloride 104 Carbon Dioxide 24.0 POC Glucose POC Glucose 218 H 328 H 341 H POC Glucose 342 H Current Home Med List Medication Instructions Recorded Confirmed Type Current Medications Generic Name Dose Route Start Last Admin Trade Name Freq PRN Reason Stop Dose Admin Aspirin 81 mg 07/05/18 11:00 07/05/18 16:32 ct reviewed: atrophy and subcort wm diz, ms vs old strokes mri: last mri '08 due to claustrophobia. 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, ms likely non issue acutely mri when able with sedation agree with agressive bp control outpt followup for ms rx 07/06/18 1502 <Electronically signed by Ramón Melchor MD> Date Ramón Melchor MD Cosigner Signature (if applicable): Date CC: Dilshad Pak MD; Ramón Melchor MD; Jaskaran Garcia MD Signed BRAIN W/WO CONTRAST Observed: 07/06/2018 Status: F Source: JOYA 2:23 PM [facility] REPOSITORY [facility] Imaging Services [address] [place] [address] Brain W/WO Contrast MR#: [id number] Acct: [id number] Name: BRE GONSALEZ Rep #: [id number] : 1960 F 58 From: Luis Mike MD PCP: Jaskaran Garcia MD Status: ADM IN Study: Brain W/WO Contrast Date of Exam: 07/07/18 Exam# [id number] Ordering Dr: Ramón Melchor MD STUDY: MRI BRAIN WITH AND WITHOUT CONTRAST REASON FOR EXAM: Female, 58 years old. Confusion. History of MS. TECHNIQUE: Standardized multiplanar fat and water weighted pulse sequences were obtained. 10 ml of Gadavist contrast material was administered intravenously for the contrast portion of the examination. COMPARISON: 03/02/2008. 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 Increased size and number of MS plaques in the white matter of both cerebral hemispheres. Normal bilateral basal ganglia. Normal thalami. There is no extra-axial fluid accumulation. Normal flow voids within the major intracranial circulation suggesting patency by spin echo criteria. Normal venous enhancement. There is no enhancing intra-axial or extra-axial abnormality. Normal sella turcica, pituitary gland, infundibular stalk, optic chiasm and hypothalamus. Normal tectal plate and pineal gland. Normal midbrain, juan and medulla. Normal cerebellum. Normal basal cisterns. Normal bilateral temporal bones. Normal bilateral internal auditory canals. No demonstrated orbital abnormality, within the constraints of a routine brain study. Normal visualized paranasal sinuses. Normal calvarium and skull base. Normal visualized soft tissue structures. Normal visualized upper cervical spine. MRI/Brain W/WO Contrast IMPRESSION: 1. No MRI evidence of acute or subacute ischemic infarct. 2. 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 3. Increased size and number of MS plaques in the white matter of both cerebral hemispheres when compared to 03/02/2008. 4. No MRI evidence of any active enhancing MS plaques. Electronically Signed: Luis Mike MD at 13:31 EDT , Service support , CC: Ramón Melchor MD; Jaskaran Garcia MD Disc Ruler Operator: Signed BEDSIDE GLUCOSE Collected: 07/06/2018 Status: F Source: JOYA 11:20 AM [facility] REPOSITORY TYPE CODE TESTS RESULT OUT OF REFERENCE UNITS RANGE LAB L501.080 70-110 mg/dL High BEDSIDE GLU 218 Result Comment: MANAGEMENT OF PATIENT CARE PER NURSING PROTOCOL Performed By: #### L501.080 #### [facility] Point of Care [address] [place] [address] BEDSIDE GLUCOSE Collected: 07/06/2018 Status: F Source: JOYA 7:05 AM [facility] REPOSITORY TYPE CODE TESTS RESULT OUT OF REFERENCE UNITS RANGE LAB L501.080 70-110 mg/dL High BEDSIDE GLU 328 Result Comment: MANAGEMENT OF PATIENT CARE PER NURSING PROTOCOL Performed By: #### L501.080 #### [facility] Point of Care [address] [place] [address] BASIC METABOLIC Collected: 07/06/2018 Status: F Source: JOYA PROFILE (BMP) 4:25 AM [facility] REPOSITORY TYPE CODE TESTS RESULT OUT OF RANGE REFERENCE UNITS LAB L501.0100 74-106 mg/dL High GLU 319 Result Comment: Glucose result greater than or equal to 200 mg/dL suggests DIABETES MELLITUS per A.D.A. criteria. Please note revised GLUCOSE reference range effective 2017. LAB L501.1000 7-18 mg/dL Normal BUN 18 LAB L501.1100 0.55-1.02 mg/dL Normal CREAT,SERUM 0.88 Result Comment: The validity of the calculated GFR AND GFRAA in patients over 70 years has not been determined. Clinical correlation is essential. LAB L501.1110 >60 mL/min Normal EST GFR 70 Result Comment: Non- GFR Calc LAB L501.1115 >60 mL/min Normal EST GFR - AA 85 Result Comment: GFR Calc LAB L501.1255 ml/min Normal Estimated CRCL 67.76 LAB L501.1300 10-20 RATIO High BUN/CRE 20.5 LAB L501.2200 8.5-10 mg/dL Low .1 CA 8.1 LAB L501.5300 136-14 mmol/L Normal 5 NA 142 LAB L501.5600 3.5-5. mmol/L Low 1 K 3.1 LAB L501.5900 98-107 mmol/L Normal CL 104 LAB L501.6100 21.0-3 mmol/L Normal 2.0 CO2 24.0 LAB L501.6200 5-15 Normal GAP 14 Performed By: #### L500.2500 #### [facility] Laboratory [address] [place], [address] BEDSIDE GLUCOSE Collected: 07/05/2018 Status: F Source: ENIGMA 10:17 PM [facility] REPOSITORY TYPE CODE TESTS RESULT OUT OF REFERENCE UNITS RANGE LAB L501.080 70-110 mg/dL High BEDSIDE GLU 341 Result Comment: MANAGEMENT OF PATIENT CARE PER NURSING PROTOCOL Performed By: #### L501.080 #### [facility] Laboratory Point of Care [address] [place] [address] HISTORY AND PHYSICAL Observed: 07/05/2018 Status: F Source: ENIGMA EXAM 4:53 PM [facility] REPOSITORY [facility] Medical Records Department [address] [place] [address] History and Physical 07/05/18 0732 MR#: [id number] Acct: [id number] Name: BRE GONSALEZ Rep #: [id number] : 1960 58 From: Carlos Eduardo Grayson DO PCP: Jaskaran Garcia MD Status: ADM IN Y Location: U [id number] ADDENDUM by Carlos Edaurdo Grayson DO on 07/05/18 at 1653 Code Visit BP uncontrolled despite numerous dosings of labetalol and clonidine. Will start nicardipine gtt. DW Dr. Pak and pharmacy--no central IV access needed. Updated CLIENT PARTNER and PLASTIC TILE LAYER. 07/05/18 1653 <Electronically signed by Carlos Eduardo Grayson DO> Date Carlos Eduardo Grayson DO cc: Carlos Eduardo Grayson DO; Jaskaran Garcia MD * Signed Problem List (1) Hypertensive emergency Status: Acute (2) Gastroenteritis Status: Acute History of Present Illness Date of Admission: 07/05/18 Chief Complaint: N/V/D The patient is a 58 year old F presents with nausea, vomiting and diarrhea since the . Since that time, patient has been more unsteady than she is at baseline. Has consists continue to feel worse and family brought patient into the emergency room. Patient had some lab work that was unremarkable. Head CT that grossly did not show any emergent final report still pending. Patient was noted to be hypertensive with blood pressure of 239/137. Patient received 20 mg of IV hydralazine, 20 mg of IV labetalol and blood pressure is now 198 systolic. Patient states that she has had symptoms similar to this but less severe in the past but nothing recently. Patient being admitted for further hypertensive management, therapy evaluations and IV hydration. [] Past Medical History Past Medical History (Chronic Problems): Chronic Problems Depression (Chronic) Chronic renal failure, stage 2 (mild) (Chronic) HTN (hypertension) (Chronic) DM (diabetes mellitus), type 2, uncontrolled (Chronic) Dyslipidemia (Chronic) Allergies No Known Allergies Allergy (Verified 07/05/18 05:50) Home Medications: Ambulatory Orders Medication Instructions Recorded Aspirin [Aspirin, Baby] 81 mg PO DAILY@0800 11/09/13 Citalopram [Celexa] 40 mg PO DAILY 11/09/13 Smoking Status: Never smoker Tobacco Use: Non-smoker Alcohol: None Drugs: None - *Family History Maternal History Items: - - No MS Review of Systems Constitutional: Reports: Weakness. Denies: Chills, Fever, Weight Change Eyes: Denies: Blurred vision, Double vision HEENT: Reports: - - chronic vision loss in left eye due to optic neuritis.. Denies: Head Aches, Sinus Congestion, Sinus Drainage Cardiovascular: Denies: Chest Pain, Chest Pressure Respiratory: Denies: Cough, Shortness of breath at rest, Sputum production Gastrointestinal: Reports: Diarrhea, Nausea, Vomiting. Denies: Abdominal Pain Genitourinary: Denies: Dysuria Musculoskeletal: Denies: Joint Pain, Joint Tenderness Skin: Denies: Rash, Wounds Neurological: Denies: Numbness, Tingling, Focal weakness Psychiatric: Denies: Anxiety, Depression Hematologic/ Lymphatic: Denies: Easy Bruising, Easy Bleeding Comment: All review of systems are negative except as mentioned in the history of present illness and the other review of systems. VTE Information - Inpt Only VTE Present on Admission: No VTE Pharm Prophylaxis ordered?: Yes Patient Problems: Active and Suspected Problems Hypertensive emergency (Acute) Gastroenteritis (Acute) - Physical Exam General: Alert, No apparent distress HEENT: Atraumatic, PERRLA, EOMI, Normocephalic, - - vertical and horizontal nystagmus Oral: Moist Mucosa, No Gingival or Mucosal Lesions/ Ulcerations Neck: No Nodes, Thyroid Normal Size and Texture Lungs: Clear to auscultation, Normal air movement, No rhonchi, No wheeze Cardiovascular: Regular rate, Regular Rhythm, Normal S1, Normal S2, No murmurs Abdomen: Bowel Sounds Present, Soft, Non Tender, Non-Distended, No Hepato-splenomegaly, Passing Flatus Extremities: No edema, No Calf Tenderness Skin: No rashes, No breakdown Neurological: Cranial nerves II-XII grossly intact, Motor Exam 5/5 strength throughout, - - no clonus Psych/Mental Status: Normal Affect, Appropriate Vital Signs Temp Pulse Resp BP Pulse Ox 36.5 C L 94 19 H 216/102 H 100 07/05/18 05:38 07/05/18 06:31 07/05/18 06:26 07/05/18 06:31 07/05/18 06:26 Oxygen Delivery Method Room Air Weight: 94.7 kg Body Mass Index (BMI) 32.2 Finger Stick Blood Glucose 419 Laboratory Tests Past 24 Hrs WBC 13.8 H RBC 5.11 Hgb 14.7 Hct 42.4 MCV 83.0 MCH 28.8 MCHC 34.7 POC Glucose POC Glucose 419 H Clinical Impression(s) from Imaging Studies Brain CT 07/05/18 05:54 IMPRESSION: Chronic involutional and nonspecific periventricular white matter changes of the brain demonstrated, most likely chronic. Correlation with MRI exam is recommended. Electronically Signed: Mushtaq Chicas MD at 7:13 EDT Tel , Service support , Assessment/Plan All Active Problems Hypertensive emergency (Acute) Gastroenteritis (Acute) Metabolic alkalosis (Acute) Hypokalemia (Acute) Abscess of right buttock (Acute) Dehydration (Acute) Hypomagnesemia (Acute) 1. Hypertensive emergency * likely symptomatic with some of his symptoms but is unclear the symptoms began before after * Supportive management * Continue with his home medications * As needed hydralazine * Improved at this time, does not require ICU level care at this time. 2. Suspected gastroenteritis * May be viral * IV Zofran * IV fluids 3. Debility * Patient has weakness at baseline * Physical and occupational therapy evaluate and treat * Discussed the possibility of jail facility or home health care upon discharge with patient and her daughters 4. Multiple sclerosis * Not currently on any medications but from the description of the family this may have been due to some insurance changes * Family is inquired about getting insurance coverage of the patient to follow-up with Dr. Melchor in the future to get back on medications. 5. DVT prophylaxis with Lovenox Code Visit Inpatient E AND M: 01539 Init Hosp L3 07/05/18 0742 <Electronically signed by Carlos Eduardo Grayson DO> Date [facility]: Date (if applicable) CC: Carlos Eduardo Grayson DO; Jaskaran Garcia MD Signed BEDSIDE GLUCOSE Collected: 07/05/2018 Status: F Source: JOYA 4:36 PM [facility] REPOSITORY TYPE CODE TESTS RESULT OUT OF REFERENCE UNITS RANGE LAB L501.080 70-110 mg/dL High BEDSIDE GLU 342 Result Comment: MANAGEMENT OF PATIENT CARE PER NURSING PROTOCOL Performed By: #### L501.080 #### [facility] Laboratory Point of Care [address] [place] [address] BEDSIDE GLUCOSE Collected: 07/05/2018 Status: F Source: JOYA 11:18 AM [facility] REPOSITORY TYPE CODE TESTS RESULT OUT OF REFERENCE UNITS RANGE LAB L501.080 70-110 mg/dL High BEDSIDE GLU 340 Result Comment: MANAGEMENT OF PATIENT CARE PER NURSING PROTOCOL Performed By: #### L501.080 #### [facility] Laboratory Point of Care [address] [place] [address] BEDSIDE GLUCOSE Collected: 07/05/2018 Status: F Source: JOYA 7:01 AM [facility] REPOSITORY TYPE CODE TESTS RESULT OUT OF REFERENCE UNITS RANGE LAB L501.080 70-110 mg/dL High BEDSIDE GLU 419 Result Comment: MANAGEMENT OF PATIENT CARE PER NURSING PROTOCOL Performed By: #### L501.080 #### [facility] Laboratory Point of Care [address] [place] [address] BRAIN/HEAD WITHOUT Observed: 07/05/2018 Status: F Source: JOYA CONTRAST 5:56 AM [facility] REPOSITORY [facility] Imaging Services [address] [place] [address] Brain/Head without Contrast MR#: [id number] Acct: [id number] Name: BRE GONSALEZ Rep #: [id number] : 1960 F 58 From: Jose Chicas PCP: Jaskaran Garcia MD Status: REG ER Study: Brain/Head without Contrast Date of Exam: 07/05/18 Exam# [id number] Ordering Dr: Nam Riggins MD STUDY: CT BRAIN WITHOUT CONTRAST REASON FOR EXAM: Female, 58 years old. Nausea vomiting diarrhea, weakness, lightheadedness, unsteady gait. RADIATION DOSAGE (If Supplied By Facility): CTDIvol = ( 44.99 ) mGy, DLP = ( 779.24 ) mGycm TECHNIQUE: Transaxial CT imaging of the brain was performed without administration of intravenous contrast material. Individualized dose optimization techniques were used for this CT. COMPARISON: 11/09/2013 FINDINGS: Normal soft tissue structures. Normal calvarium. There is mild/moderate cerebral atrophy with widening of the extra-axial spaces and ventricular dilatation. Moderate size focal zone of decreased attenuation noted centrally in the left posterior frontal subcortical white matter, reflective of subacute/chronic ischemic injury. There are significant areas of decreased attenuation within the white matter tracts of the supratentorial brain, demonstrated, consistent with nonspecific white matter demyelination. No definite acute abnormality of the basal ganglia, thalami and brainstem noted. Normal cerebellum. There is no intracranial hemorrhage. There are no findings of an acute ischemic infarction. Normal visualized paranasal sinuses. CT/Brain/Head without Contrast IMPRESSION: Chronic involutional and nonspecific periventricular white matter changes of the brain demonstrated, most likely chronic. Correlation with MRI exam is recommended. Electronically Signed: Mushtaq Chicas MD at 7:13 EDT Tel , Service support , CC: Nam Riggins MD; Jaskaran Garcia MD Disc Ruler Operator: Signed CBC W/DIFF, AUTOMATED Collected: 07/05/2018 Status: F Source: JOYA 5:45 AM [facility] REPOSITORY TYPE CODE TESTS RESULT OUT OF RANGE REFERENCE UNITS LAB L100.1000 4.4-11.0 K/mm3 High WBC 13.8 LAB L100.1200 4.2-5.4 M/mm3 Normal RBC 5.11 LAB L100.1300 12.0-15.0 g/dl Normal HGB 14.7 LAB L100.1400 37-47 % Normal HCT 42.4 LAB L100.1500 81-99 fL Normal MCV 83.0 LAB L100.1600 27.0-32.0 pg Normal MCH 28.8 LAB L100.1700 32-36 g/gl Normal MCHC 34.7 LAB L100.1810 11.6-14.6 % Normal RDW CV 12.3 LAB L100.1820 35.1-43.9 fl Normal RDW SD 37.3 LAB L100.1900 150-450 K/mm3 Normal PLT 308 LAB L100.2000 6.2-12.0 fl Normal MPV 11.8 LAB L100.2100 47-70 % High NEUT% 77.6 LAB L100.2200 19-41 % Low LY% 18.8 LAB L100.2300 0-10 % Normal MONO% 3.3 LAB L100.2400 0-5 % Normal EO% 0.0 LAB L100.2500 0-1 % Normal BASO% 0.2 LAB L100.2550 0.0-0.9 % Normal IM GRAN % 0.100 Result Comment: IG% - Immature Granulocytes (promyelocytes, myelocytes and metamyelocytes) > 1% indicates that a LEFT SHIFT is Present. LAB L100.2620 2.0-7.7 X10 3/uL High Absolute Neut 10.7 LAB L100.2720 0.83-4.51 X10 3/ul Normal Absolute Lymph 2.59 Performed By: #### L100.0100 #### [facility] [address] [place], [address] COMPREHENSIVE METABOLIC Collected: 07/05/2018 Status: F Source: [facility] 5:45 AM [facility] REPOSITORY TYPE CODE TESTS RESULT OUT OF RANGE REFERENCE UNITS LAB L501.0100 74-106 mg/dL High GLU 419 Result Comment: Glucose result greater than or equal to 200 mg/dL suggests DIABETES MELLITUS per A.D.A. criteria. Please note revised GLUCOSE reference range effective 2017. LAB L501.1000 7-18 mg/dL Normal BUN 14 LAB L501.1100 0.55-1.02 mg/dL High CREAT,SERUM 1.08 Result Comment: The validity of the calculated GFR AND GFRAA in patients over 70 years has not been determined. Clinical correlation is essential. LAB L501.1110 >60 mL/min Low EST GFR 55 Result Comment: Non- GFR Calc LAB L501.1115 >60 mL/min Normal EST GFR - AA 67 Result Comment: GFR Calc LAB L501.1255 ml/min Normal Estimated CRCL 55.22 LAB L501.1300 10-20 RATIO Normal BUN/CRE 13.0 LAB L501.1500 6.4-8. g/dL Normal 2 T PROT 8.0 LAB L501.1800 3.2-5. g/dL Normal 0 ALB 4.0 LAB L501.1950 2.2-4. g/dL Normal 2 GLOB 4.0 LAB L501.2000 0.9-2. RATIO Normal 4 A/G 1.0 LAB L501.2200 8.5-10 mg/dL Normal .1 CA 8.8 LAB L501.4100 15-37 U/L Normal AST 15 LAB L501.4305 45-117 U/L Normal ALK P 92 LAB L501.4405 13-56 U/L Normal ALT 32 LAB L501.4600 0.20-1 mg/dL High .00 T BILI 1.10 LAB L501.5300 136-14 mmol/L Normal 5 NA 138 LAB L501.5600 3.5-5. mmol/L Normal 1 K 3.5 LAB L501.5900 98-107 mmol/L Low CL 97 LAB L501.6100 21.0-3 mmol/L Normal 2.0 CO2 21.0 LAB L501.6200 5-15 High GAP 20 Performed By: #### L500.4050, L501.4010 #### [facility] [address] [facility] [place], [place], [address] TROPONIN-I Collected: 07/05/2018 Status: F Source: ENIGMA 5:45 AM [facility] REPOSITORY TYPE CODE TESTS RESULT OUT OF RANGE REFERENCE UNITS LAB L501.4010 <0.045 ng/mL Normal < 0.015 TROPONIN-I Result Comment: TROPONIN-I EXPECTED VALUES <0.045 Negative 0.045 - 0.590 Consistent with Cardiac Damage > OR = 0.600 Critical Value Not every elevated troponin is indicative of TN. These values should be used with clinical judgement in examining the patient's clinical picture for diagnosis. To establish a diagnosis of TN versus myocardial injury, there must be a demonstrated rise and/or fall in the troponin values, in addition to ischemic symptoms, EKG changes, new regional wall motion abnormality, and/or angiographical evidence. PLEASE NOTE: REFERENCE RANGES EDITED 18 Performed By: #### L500.4050, L501.4010 #### [facility] [address] [place], [address] ALLERGIES ALLERGIES DATE TYPE / CODE NAME / CODE REACTION SEVERITY SOURCE 07/10/2018 Drug No Known Unknown [facility] Allergy/4160 Allergies/F00 Hospital 15408(SNOMED 6819083(RXNOR Repository CT) M) ENCOUNTERS ENCOUNTERS ADMIT/DISCHARGE ACCOUNT ADMITTING ENCOUNTER LOCATION SOURCE NUMBER CLASS 10/30/2018 [id number] Ambulatory [place] [facility] 1 [facility] ing:MEDOUTP Repository 10/28/2018 [id number] Ambulatory [facility] [place] 5 [facility] ing:PT Repository 10/08/2018 [id number] Ambulatory [facility] [place] 0 [facility] ing:LAB Repository 07/10/2018/ [id number] Svetlana, Inpatient [place] [facility] 8 4 [place] S. Encounter [facility] ing:RURoom: Repository [id number]: 1 07/10/2018 [id number] Svetlana, Ambulatory BMSBuilding:B [place] 5 [place] S. [facility] Repository 07/10/2018 [id number] Svetlana, Ambulatory BMSBuilding:B [place] 0 [place] S. [facility] Repository 07/10/2018 [id number] Svetlana, Ambulatory BMSBuilding:B [place] 6 [place] S. [facility] Repository 07/10/2018 [id number] Svetlana, Ambulatory BMSBuilding:B [place] 0 [place] S. [facility] Repository 07/10/2018 [id number] Svetlana, Ambulatory BMSBuilding:B [place] 4 [place] S. [facility] Repository 07/10/2018 [id number] Svetlana, Ambulatory BMSBuilding:B [facility] 4 [place] S. [facility] Repository 07/10/2018 [id number] Svetlana, Ambulatory BMSBuilding:B [place] 2 [place] S. [facility] Repository 07/10/2018 [id number] Svetlana, Ambulatory BMSBuilding:B [place] 4 [place] S. [facility] Repository 07/05/2018/ [id number] Carlos Eduardo Grayson Inpatient [place] 8 4 Encounter [facility] ing:PCURoom: Repository [id number]: 1 07/05/2018 [id number] Jomonique, Carlos Eduardo Ambulatory BMSBuilding:B [facility] 3 [facility] Repository 07/05/2018 [id number] Kenan, Carlos Eduardo Ambulatory BMSBuilding:B [place] 7 [facility] Repository 07/05/2018 [id number] Kenan, Carlos Eduardo Ambulatory BMSBuilding:B [place] 0 [facility] Repository 07/05/2018 [id number] Kenan, Carlos Eduardo Ambulatory BMSBuilding:B [place] 7 [facility] Repository 07/05/2018 [id number] Kenan Carlos Eduardo Ambulatory BMSBuilding:B [place] 1 [facility] Repository 07/05/2018 [id number] Kenan, Carlos Eduardo Ambulatory BMSBuilding:B [facility] 5 [facility] Repository 07/05/2018/ [id number] Ambulatory BMSBuilding:W [place] 8 3 [facility] Repository PAYERS PAYERS ENCOUNTER GUARANTOR PAYER SUBSCRIBER SOURCE 10/30/2018 BRE L [id number] Primary [place] Insurance:MEDICARE GOINSDOB: [address] PART A [facility] [id number] Hospital [address]Mke: (330) Number: Repository [phone] () [id number] Date:2018-10-24 10/30/2018 Secondary BRE L [place] Insurance:MEDICAIDPol GOINSDOB: [facility] Number: [id number] Hospital [id number] Repository Date:2018-10-24 10/30/2018 Tertiary NOT GIVENUNK [place] Insurance:SELF [facility]Y [facility] Number: Effective Repository Date:2018-10-24 10/28/2018 BRE L [id number] Primary BRE L [place] Insurance:MEDICARE GOINSDOB: [address] PART A [facility] [id number] Hospital [address]Bzu: (330) Number: Repository [phone] () [id number] Date:2010-08-23 10/28/2018 Secondary BRE L [facility] Insurance:MEDICAIDPol GOINSDOB: [facility] icy Number: [id number] Hospital [id number] Repository Date:2018-10-14 10/28/2018 Tertiary NOT GIVENUNK [place] Insurance:SELF PAY [facility] Number: Effective Repository Date:2018-10-17 10/08/2018 BRE L [id number] Primary BRE L [place] Insurance:MEDICARE GOINSDOB: [address] PART A [facility] [id number] Hospital [address]Fsh: (330) Number: Repository [phone] () [id number] Date:2018-10-08 10/08/2018 Secondary BRE L [facility] [facility] icy Number: [id number] Hospital [id number] Repository Date:2018-10-08 10/08/2018 Tertiary NOT GIVENUNK [place] Insurance:SELF PAY [facility] Number: Effective Repository Date:2018-10-08 07/10/2018 BRE L [id number] Primary BRE L [place] Insurance:MEDICARE GOINSDOB: [address] PART A [facility] [id number] Hospital [address]Lpp: (330) Number: Repository [phone] () [id number] Date:2018-07-10 07/10/2018 Secondary BRE L [place] Insurance:MEDICAIDPol GOINSDOB: [facility] icy Number: [id number] Hospital [id number] Repository Date:2018-07-10 07/10/2018 Tertiary NOT GIVENUNK [place] Insurance:SELF PAY [facility] Number: Effective Repository Date:2018-07-10 07/10/2018 BRE L [id number] Primary BRE L [place] Insurance:MEDICARE GOINSDOB: [address] PART A [facility] [id number] Hospital [address]Soz: (330) Number: Repository [phone] () [id number] Date:2018-07-10 07/10/2018 Secondary BRE L [place] Insurance:MEDICAIDPol GOINSDOB: Community icy Number: Effective [id number] Hospital Date:2018-07-10 Repository 07/10/2018 Tertiary NOT GIVENUNK [place] Insurance:SELF PAY [facility] Number: Effective Repository Date:2018-07-10 07/10/2018 BRE L [id number] Primary BRE L [place] Insurance:MEDICARE GOINSDOB: [address] PART A [facility] [id number] Hospital [address]Aie: (330) Number: Repository [phone] () [id number] Date:2018-07-10 07/10/2018 Secondary BRE L [place] Insurance:MEDICAIDPol GOINSDOB: [facility] icy Number: Effective [id number] Hospital Date:2018-07-10 Repository 07/10/2018 Tertiary NOT GIVENUNK [place] Insurance:SELF PAY [facility] Number: Effective Repository Date:2018-07-10 07/10/2018 BRE L [id number] Primary BRE L [place] Insurance:MEDICARE GOINSDOB: [address] PART A [facility] [id number] Hospital [address]Vbz: (330) Number: Repository [phone] () [id number] Date:2018-07-10 07/10/2018 Secondary BRE L [place] Insurance:MEDICAIDPol GOINSDOB: Community icy Number: Effective [id number] Hospital Date:2018-07-10 Repository 07/10/2018 Tertiary NOT GIVENUNK [place] Insurance:SELF PAY [facility] Number: Effective Repository Date:2018-07-10 07/10/2018 BRE L [id number] Primary BRE L [place] Insurance:MEDICARE GOINSDOB: [address] PART A [facility] [id number] Hospital [address]Syl: (330) Number: Repository [phone] () [id number] Date:2018-07-10 07/10/2018 Secondary BRE L [place] Insurance:MEDICAIDPol GOINSDOB: Community icy Number: Effective [id number] Hospital Date:2018-07-10 Repository 07/10/2018 Tertiary NOT GIVENUNK [place] Insurance:SELF PAY [facility] Number: Effective Repository Date:2018-07-10 07/10/2018 BRE L [id number] Primary BRE L [place] Insurance:MEDICARE GOINSDOB: [address] PART A [facility] [id number] Hospital [address]Fqc: (330) Number: Repository [phone] () [id number] Date:2018-07-10 07/10/2018 Secondary BRE L [place] Insurance:MEDICAIDPol GOINSDOB: [facility] icy Number: [id number] Hospital [id number] Repository Date:2018-07-10 07/10/2018 Tertiary NOT GIVENUNK [place] Insurance:SELF PAY [facility] Number: Effective Repository Date:2018-07-10 07/10/2018 BRE L [id number] Primary BRE L [place] Insurance:MEDICARE GOINSDOB: [address] PART A [facility] [id number] Hospital [address]War: (330) Number: Repository [phone] () [id number] Date:2018-07-10 07/10/2018 Secondary BRE L [place] Insurance:MEDICAIDPol GOINSDOB: [facility] icy Number: [id number] Hospital [id number] Repository Date:2018-07-10 07/10/2018 Tertiary NOT GIVENUNK [place] Insurance:SELF PAY [facility] Number: Effective Repository Date:2018-07-10 07/10/2018 BRE L [id number] Primary BRE L [place] Insurance:MEDICARE GOINSDOB: [address] PART A [facility] [id number] Hospital [address]Aww: (330) Number: Repository [phone] () [id number] Date:2018-07-10 07/10/2018 Secondary BRE L [place] Insurance:MEDICAIDPol GOINSDOB: Community icy Number: [id number] Hospital [id number] Repository Date:2018-07-10 07/10/2018 Tertiary NOT GIVENUNK [place] Insurance:SELF PAY [facility] Number: Effective Repository Date:2018-07-10 07/10/2018 BRE L [id number] Primary BRE L [place] Insurance:MEDICARE GOINSDOB: Community [address] [place] [address], [place] PART A [facility] [id number] Hospital [address]Dsx: (330) Number: Repository [phone] () [id number] Date:2018-07-10 07/10/2018 Secondary BRE L [place] Insurance:MEDICAIDPol GOINSDOB: [facility] icy Number: [id number] Hospital [id number] Repository Date:2018-07-10 07/10/2018 Tertiary NOT GIVENUNK [place] Insurance:SELF PAY [facility] Number: Effective Repository Date:2018-07-10 07/05/2018 BRE L [id number] Primary [place] L [place] [place] Insurance:MEDICARE GOINSDOB: [address] PART A [facility] [id number] Hospital [address]Wvv: [phone]) Number: Repository [phone] () [id number] Date:2018-07-05 07/05/2018 Secondary BRE L [place] Insurance:MEDICAIDPol GOINSDOB: [facility] icy Number: Effective [id number] Hospital Date:2018-07-05 Repository 07/05/2018 Tertiary NOT GIVENUNK Joy[place] Insurance:SELF PAY [facility] Number: Effective Repository Date:2018-07-05 07/05/2018 BRE L [id number] Primary BRE L [place] Insurance:MEDICARE GOINSDOB: [address] PART A [facility] [id number] Hospital [address]Cai: [phone]) Number: Repository [phone] () [id number] Date:2018-07-05 07/05/2018 Secondary BRE L Joya Insurance:MEDICAIDPol GOINSDOB: [facility] icy Number: Effective [id number] Hospital Date:2018-07-05 Repository 07/05/2018 Tertiary NOT GIVENUNK [place] Insurance:SELF PAY [facility] Number: Effective Repository Date:2018-07-05 07/05/2018 BRE L [id number] Primary BRE L [place] Insurance:MEDICARE GOINSDOB: [address] PART A [facility] [id number] Hospital [address]Rda: [phone]) Number: Repository [phone] () [id number] Date:2018-07-05 07/05/2018 Secondary BRE L Joya Insurance:MEDICAIDPol GOINSDOB: [facility] icy Number: Effective [id number] Hospital Date:2018-07-05 Repository 07/05/2018 Tertiary NOT GIVENUNK Joy[place] Insurance:SELF PAY [facility] Number: Effective Repository Date:2018-07-05 07/05/2018 BRE L [id number] Primary BRE L [place] Insurance:MEDICARE GOINSDOB: [address] PART A [facility] [id number] Hospital [address]Zps: [phone]) Number: Repository [phone] () [id number] Date:2018-07-05 07/05/2018 Secondary BRE L [place] Insurance:MEDICAIDPol GOINSDOB: [facility] icy Number: Effective [id number] Hospital Date:2018-07-05 Repository 07/05/2018 Tertiary NOT GIVENUNK [place] Insurance:SELF PAY [facility] Number: Effective Repository Date:2018-07-05 07/05/2018 BRE L [id number] Primary BRE L [place] Insurance:MEDICARE GOINSDOB: [address] PART A [facility] [id number] Hospital [address]Yco: [phone]) Number: Repository [phone] () [id number] Date:2018-07-05 07/05/2018 Secondary BRE L [place] Insurance:MEDICAIDPol GOINSDOB: [facility] icy Number: Effective [id number] Hospital Date:2018-07-05 Repository 07/05/2018 Tertiary NOT GIVENUNK [place] Insurance:SELF PAY [facility] Number: Effective Repository Date:2018-07-05 07/05/2018 BRE L [id number] Primary BRE L Joy[place] Insurance:MEDICARE GOINSDOB: [address] PART A [facility] [id number] Hospital [address]Zhj: [phone]) Number: Repository [phone] () [id number] Date:2018-07-05 07/05/2018 Secondary BRE L Joya Insurance:MEDICAIDPol GOINSDOB: Community icy Number: Effective [id number] Hospital Date:2018-07-05 Repository 07/05/2018 Tertiary NOT GIVENUNK [place] Insurance:SELF PAY [facility] Number: Effective Repository Date:2018-07-05 07/05/2018 BRE L [id number] Primary BRE L Joy[place] Insurance:MEDICARE GOINSDOB: [address] PART A [facility] [id number] Hospital [address]Asc: [phone]) Number: Repository [phone] () [id number] Date:2018-07-05 07/05/2018 Secondary BRE L [place] Insurance:MEDICAIDPol GOINSDOB: Community icy Number: Effective [id number] Hospital Date:2018-07-05 Repository 07/05/2018 Tertiary NOT GIVENUNK [place] Insurance:SELF PAY [facility] Number: Effective Repository Date:2018-07-05 07/05/2018 BRE L [id number] Primary BRE L [place] Insurance:MEDICARE GOINSDOB: [address] PART A [facility] [id number] Hospital [address]Ujk: [phone]) Number: Repository [phone] () [id number] Date:2018-07-05 07/05/2018 Secondary BRE L [place] Insurance:MEDICAIDPol GOINSDOB: Community icy Number: [id number] Hospital [id number] Repository Date:2018-07-05 07/05/2018 Tertiary NOT GIVENUNK [place] Insurance:SELF PAY [facility] Number: Effective Repository Date:2018-07-05
== END ==
PROVIDERS: Family Provider Family Medicine; PCP Family Medicine; Referring Provider Nurse Practitioner Acute Care; Visit Provider Nurse Practitioner Acute Care
DX: G35 Multiple sclerosis (principal)
CPT/HCPCS: 96365; 96366; 96375; 96376; J7040; J7050; A4216; J2350

== ENCOUNTER → 2018-11-13 08:40 | Outpatient (CLI) | payer MEDICARE, MEDICAID, SELFPAY ==
[2018-10-30 08:57] VITALS: BMI 31.3
[2018-11-13 08:50] VITALS: BP 128/73; PULSE 67; RESP 16; TEMP 36.3; O2SAT 98; BMI 31.3
[2018-11-13] MEDS: DiphenhydrAMINE 50 MG/ML Syringe 25 MG IV (09:07)
[2018-11-13] MEDS: MethylPREDNISolone 125 MG/2 ML Vial 100 MG IV (09:12)
[2018-11-13 11:32] VITALS: BP 126/72; PULSE 68; RESP 16; TEMP 36.6; O2SAT 96
[2018-11-13 14:11] VITALS: BP 127/68; PULSE 77; RESP 16; TEMP 37.3
== END ==
PROVIDERS: Family Provider Family Medicine; PCP Family Medicine; Referring Provider Nurse Practitioner Acute Care; Visit Provider Nurse Practitioner Acute Care
DX: G35 Multiple sclerosis (principal)
CPT/HCPCS: 96365; 96366; 96375; J7050; A4216; J2350

== ENCOUNTER → 2019-04-30 | Outpatient (CLI) | payer MEDICARE, MEDICAID, SELFPAY ==
[2018-11-13 08:50] VITALS: BMI 31.3
[2019-04-30 08:35] VITALS: BP 145/79; PULSE 70; RESP 16; TEMP 36.8; O2SAT 98; BMI 31.3
[2019-04-30] MEDS: DiphenhydrAMINE 50 MG/ML Syringe 25 MG IV ×2 (08:43→11:46)
[2019-04-30] MEDS: MethylPREDNISolone 125 MG/2 ML Vial 100 MG IV (08:48)
[2019-04-30] MEDS: Ocrelizumab 600mg Infusion 40 MG IV (09:25)
[2019-04-30 09:55] VITALS: BP 135/72; PULSE 73; TEMP 36.9
[2019-04-30 10:34] VITALS: BP 132/79; PULSE 75; RESP 16; TEMP 36.6; O2SAT 96
[2019-04-30 13:05] VITALS: BP 124/76; PULSE 84; TEMP 36.6
[2019-04-30 13:35] VITALS: BP 113/71; PULSE 85; RESP 16; TEMP 37.1
[2019-04-30 14:11] VITALS: BP 131/77; PULSE 86; RESP 16
== END | disposition home or self-care (01) ==
PROVIDERS: Family Provider Family Medicine; PCP Family Medicine; Referring Provider Nurse Practitioner Acute Care; Visit Provider Nurse Practitioner Acute Care
DX: G35 Multiple sclerosis (principal)
CPT/HCPCS: 96365; 96366; 96375; J7040; J7050; J2350

== ENCOUNTER → 2019-07-28 | Outpatient (CLI) | payer MEDICARE, SELFPAY ==
[2019-04-30 08:35] VITALS: BMI 31.3
[2019-07-28 15:56] LABS: Absolute Lymphocyte Count 2.88 X10^3/uL (0.83-4.51); Basophil% 1.1 % (0-1); Eosinophil# 0.31 X10^3/uL; Eosinophils% 3.4 % (0-5); Hematocrit 40.3 % (37-47); Hemoglobin 13.6 g/dL (12.0-15.0); Lymphocyte # 2.88 X10^3/ul (4.0); Lymphocyte % 31.6 % (19-41); Mean Corp Hgb Conc 33.7 g/dL (32-36); Mean Corpuscular Hgb 28.9 pg (27.0-32.0); Mean Corpuscular Volume 85.6 fL (81-99); Mean Platelet Vol. 12.2 fl (6.2-12.0); Monocyte# 0.77 X10^3/uL; Monocyte% 8.5 % (0-10); NRBC Flagged by Analyzer 0 % (0-5); Neutrophil # 5.02 X10^3/uL (2.7-7.7); Neutrophil % 55.1 % (47-70); Platelet Count 299 K/mm3 (150-450); RBC Distribution Width CV 12.8 % (11.6-14.6); RBC Distribution Width SD 39.8 fl (35.1-43.9); Red Blood Count 4.71 M/mm3 (4.2-5.4); White Blood Count 9.1 K/mm3 (4.4-11.0)
[2019-07-28 16:18] LABS: ALB/GLOB Ratio 1.1 RATIO (0.9-2.4); AST(SGOT) 27 U/L (15-37); Alanine Aminotransfer ALT/SGPT 37 U/L (13-56); Albumin, Serum 3.8 g/dL (3.2-5.0); Alkaline Phosphatase 69 U/L (45-117); Anion Gap 9 (5-15); BUN 20 mg/dL (7-18); BUN/Creat Ratio 16.1 RATIO (10-20); Calcium,Total 8.4 mg/dL (8.5-10.1); Chloride 104 mmol/L (98-107); Creatinine, Serum 1.24 mg/dL (0.55-1.02); EST Glomerular Filtration Rate 47 mL/min (>60); Est Glom Filt Rate - Afr Amer 57 mL/min (>60); Globulin 3.5 g/dL (2.2-4.2); Glucose 135 mg/dL (74-106); Potassium 3.6 mmol/L (3.5-5.1); Protein, Total 7.3 g/dL (6.4-8.2); Sodium Level 140 mmol/L (136-145); Thyroid Stim Hormone (TSH) 2.07 uIU/mL (0.358-3.74)
[2019-07-29 09:47] LABS: Hepatitis C Antibody Non-Reactive (Nonreactive); Vitamin D,25 Hydroxy 32.2 ng/mL (29.95-100.01)
== END | disposition home or self-care (01) ==
LOC: POLAB3 14:42
PROVIDERS: Visit Provider Family Medicine Geriatric Medicine
DX: E55.9 Vitamin D deficiency, unspecified (principal); I10 Essential (primary) hypertension; Z13.89 Encounter for screening for other disorder
CPT/HCPCS: 36415; 80053; 82306; 84443; 85025; 86803

== ENCOUNTER → 2019-11-03 08:21 | Outpatient (CLI) | payer MEDICARE, MEDICAID, SELFPAY ==
[2019-04-30 08:35] VITALS: BMI 31.3
[2019-11-03 08:31] VITALS: BP 141/79; PULSE 89; RESP 16; TEMP 36.6; O2SAT 98; BMI 32.1
[2019-11-03] MEDS: DiphenhydrAMINE 50 MG/ML Syringe 25 MG IV ×2 (08:41→10:44)
[2019-11-03] MEDS: MethylPREDNISolone 125 MG/2 ML Vial 100 MG IV (08:46)
[2019-11-03] MEDS: Ocrelizumab 600mg Infusion 40 MG IV (09:13)
[2019-11-03 15:36] VITALS: BP 155/81; PULSE 101; RESP 18; TEMP 36.6; O2SAT 98
== END ==
PROVIDERS: Family Provider Family Medicine; PCP Family Medicine; Referring Provider Nurse Practitioner Acute Care; Visit Provider Nurse Practitioner Acute Care
DX: G35 Multiple sclerosis (principal)
CPT/HCPCS: 96365; 96366; 96375; 96376; J7040; J7050; A4216; J2350

== ENCOUNTER → 2019-12-03 | Outpatient (CLI) | payer MEDICARE, MEDICAID, SELFPAY ==
[2019-11-03 08:31] VITALS: BMI 32.1
== END | disposition home or self-care (01) ==
LOC: SL 20:05
PROVIDERS: PCP Family Medicine Geriatric Medicine; Referring Provider Nurse Practitioner Family; Visit Provider Nurse Practitioner Family
DX: G47.33 Obstructive sleep apnea (adult) (pediatric) (principal)
CPT/HCPCS: 95810

== ENCOUNTER → 2020-05-13 | Outpatient (CLI) | payer MEDICARE, MEDICAID, SELFPAY ==
[2019-11-03 08:31] VITALS: BMI 32.1
[2020-05-13] MEDS: 0.9% NaCl IVPB Med Flush (250 mL) 15 ML IV (08:09)
[2020-05-13] MEDS: MethylPREDNISolone 125 MG/2 ML Vial 100 MG IV (08:09)
[2020-05-13] MEDS: DiphenhydrAMINE 50 MG/ML Syringe IV (08:12)
[2020-05-13] MEDS: 0.9% NaCl Peripheral Flush Adult/Peds IV (08:14)
[2020-05-13 08:15] VITALS: BP 133/77; PULSE 78; RESP 18; TEMP 36.6; O2SAT 97; BMI 32.1
[2020-05-13] MEDS: Ocrelizumab 600mg Infusion 40 MG IV (08:54)
[2020-05-13 13:55] VITALS: BP 118/66; PULSE 92; RESP 16; TEMP 36.6; O2SAT 96
== END | disposition home or self-care (01) ==
PROVIDERS: PCP Family Medicine Geriatric Medicine; Referring Provider Family Medicine Geriatric Medicine; Visit Provider Nurse Practitioner Acute Care
DX: G35 Multiple sclerosis (principal)
CPT/HCPCS: 96365; 96366; 96375; J7040; J7050; A4216; J2350

== ENCOUNTER → 2020-09-01 10:56 | Outpatient (CLI) | payer MEDICARE, MEDICAID, SELFPAY ==
[2020-05-13 08:15] VITALS: BMI 32.1
--- NOTE | 2020-09-01 11:04 | MRI_ITS ---
STUDY: MRI BRAIN WITH AND WITHOUT CONTRAST REASON FOR EXAM: Female, 60 years old. makenna, hx ms, no new complaints TECHNIQUE: Standardized multiplanar fat and water weighted pulse sequences were obtained. IV dotarem 19cc was administered for the contrast portion of the examination. COMPARISON: 07/07/2018 FINDINGS: There is moderate cerebral atrophy with widening of the extra-axial spaces and ventricular dilatation. There are multiple white matter hyperintensities, distributed throughout the deep white matter tracts of the cerebral hemispheres, consistent with moderate chronic white matter ischemic changes. There is no change in the hyperintensities of the pericallosal and periventricular white matter consistent with known demyelinating disease (multiple sclerosis). No contrast-enhancing plaque. The There is no evidence for recent intracranial ischemia or other cause of cytotoxic edema on diffusion weighted imaging (DWI). Normal T2* images of the brain without demonstrated susceptibility artifact. There is no demonstrated hemosiderin stain. Normal bilateral basal ganglia. Normal thalami. There is no extra-axial fluid accumulation. Normal flow voids within the major intracranial circulation suggesting patency by spin echo criteria. Normal venous enhancement. There is no enhancing intra-axial or extra-axial abnormality. Normal sella turcica, pituitary gland, infundibular stalk, optic chiasm and hypothalamus. Normal tectal plate and pineal gland. Normal midbrain, juan and medulla. Normal cerebellum. Normal basal cisterns. Normal bilateral temporal bones. Normal bilateral internal auditory canals. There are bilateral ocular lens implants with otherwise normal intraorbital contents. Normal visualized paranasal sinuses. Normal calvarium and skull base. Normal visualized soft tissue structures. Normal visualized upper cervical spine. MRI/Brain W/WO Contrast IMPRESSION: No change from 07/07/2018. No contrast-enhancing plaque. Electronically Signed: Jose Mei MD at 13:14 EST Tel , Service support ,
== END ==
PROVIDERS: PCP Family Medicine; Referring Provider Psychiatry & Neurology Neurology; Visit Provider Psychiatry & Neurology Neurology
DX: G47.33 Obstructive sleep apnea (adult) (pediatric) (principal)
CPT/HCPCS: 70553; A9575

== ENCOUNTER → 2020-09-16 09:29 | Outpatient (CLI) | payer MEDICARE, MEDICAID, SELFPAY ==
[2020-05-13 08:15] VITALS: BMI 32.1
[2020-09-16 11:04] LABS: Absolute Lymphocyte Count 2.53 X10^3/uL (0.83-4.51); Absolute Neutrophil Count 3.3 X10^3/uL (2.0-7.7); Basophil# 0.06 X10^3/uL; Basophil% 0.9 % (0-1); Eosinophil# 0.13 X10^3/uL; Hematocrit 40.7 % (37-47); Hemoglobin 13.6 g/dL (12.0-15.0); Lymphocyte # 2.53 X10^3/ul (4.0); Lymphocyte % 38.2 % (19-41); Mean Corp Hgb Conc 33.4 g/dL (32-36); Mean Corpuscular Hgb 28.9 pg (27.0-32.0); Mean Corpuscular Volume 86.6 fL (81-99); Mean Platelet Vol. 12.3 fl (6.2-12.0); Monocyte# 0.59 X10^3/uL; Monocyte% 8.9 % (0-10); NRBC Flagged by Analyzer 0 % (0-5); Neutrophil % 49.7 % (47-70); Platelet Count 300 K/mm3 (150-450); RBC Distribution Width CV 12.3 % (11.6-14.6); RBC Distribution Width SD 38.9 fl (35.1-43.9); White Blood Count 6.6 K/mm3 (4.4-11.0)
[2020-09-16 11:25] LABS: ALB/GLOB Ratio 0.9 RATIO (0.9-2.4); AST(SGOT) 19 U/L (15-37); Alanine Aminotransfer ALT/SGPT 35 U/L (13-56); Albumin, Serum 3.7 g/dL (3.2-5.0); Alkaline Phosphatase 86 U/L (45-117); Anion Gap 8 (5-15); BUN 13 mg/dL (7-18); BUN/Creat Ratio 14.3 RATIO (10-20); Calcium,Total 8.6 mg/dL (8.5-10.1); Chloride 98 mmol/L (98-107); Creatinine, Serum 0.91 mg/dL (0.55-1.02); EST Glomerular Filtration Rate 67 mL/min (>60); Est Glom Filt Rate - Afr Amer 81 mL/min (>60); Glucose 302 mg/dL (74-106); Potassium 3.1 mmol/L (3.5-5.1); Protein, Total 7.7 g/dL (6.4-8.2); Sodium Level 138 mmol/L (136-145); Thyroid Stim Hormone (TSH) 2.53 uIU/mL (0.358-3.74)
== END ==
PROVIDERS: PCP Family Medicine; Visit Provider Family Medicine Geriatric Medicine
DX: E11.65 Type 2 diabetes mellitus with hyperglycemia (principal); I10 Essential (primary) hypertension
CPT/HCPCS: 36415; 80053; 84443; 85025

== ENCOUNTER → 2020-10-28 11:33 | Outpatient (CLI) | payer MEDICARE, MEDICAID, SELFPAY ==
[2020-05-13 08:15] VITALS: BMI 32.1
[2020-10-28 11:58] LABS: Absolute Lymphocyte Count 2.69 X10^3/uL (0.83-4.51); Basophil# 0.07 X10^3/uL; Basophil% 0.7 % (0-1); Eosinophil# 0.13 X10^3/uL; Eosinophils% 1.4 % (0-5); Hemoglobin 13.7 g/dL (12.0-15.0); Lymphocyte # 2.69 X10^3/ul (4.0); Lymphocyte % 28.2 % (19-41); Mean Corp Hgb Conc 33.4 g/dL (32-36); Mean Corpuscular Hgb 28.7 pg (27.0-32.0); Mean Corpuscular Volume 85.8 fL (81-99); Mean Platelet Vol. 11.7 fl (6.2-12.0); Monocyte# 0.65 X10^3/uL; Monocyte% 6.8 % (0-10); NRBC Flagged by Analyzer 0 % (0-5); Neutrophil # 5.96 X10^3/uL (2.7-7.7); Neutrophil % 62.6 % (47-70); Platelet Count 356 K/mm3 (150-450); RBC Distribution Width CV 12.8 % (11.6-14.6); RBC Distribution Width SD 40.1 fl (35.1-43.9); Red Blood Count 4.78 M/mm3 (4.2-5.4); White Blood Count 9.5 K/mm3 (4.4-11.0)
[2020-10-28 12:24] LABS: AST(SGOT) 19 U/L (15-37); Alanine Aminotransfer ALT/SGPT 36 U/L (13-56); Albumin, Serum 3.7 g/dL (3.2-5.0); Alkaline Phosphatase 82 U/L (45-117); Anion Gap 5 (5-15); BUN 11 mg/dL (7-18); BUN/Creat Ratio 11.9 RATIO (10-20); Calcium,Total 9.1 mg/dL (8.5-10.1); Chloride 104 mmol/L (98-107); Creatinine, Serum 0.92 mg/dL (0.55-1.02); EST Glomerular Filtration Rate 66 mL/min (>60); Est Glom Filt Rate - Afr Amer 79 mL/min (>60); Globulin 3.8 g/dL (2.2-4.2); Glucose 313 mg/dL (74-106); Potassium 3.6 mmol/L (3.5-5.1); Protein, Total 7.5 g/dL (6.4-8.2); Sodium Level 139 mmol/L (136-145)
[2020-10-29 05:07] LABS: Immunoglobulin A 196 mg/dL (87-352); Immunoglobulin G 993 mg/dL (586-1602)
[2020-10-29 07:59] LABS: Immunoglobulin M 51 mg/dL (26-217)
== END ==
PROVIDERS: PCP Family Medicine Geriatric Medicine; Referring Provider Psychiatry & Neurology Neurology; Visit Provider Psychiatry & Neurology Neurology
DX: G35 Multiple sclerosis (principal)
CPT/HCPCS: 36415; 80053; 82784; 85025

== ENCOUNTER → 2020-11-10 07:54 | Outpatient (CLI) | payer MEDICARE, MEDICAID, SELFPAY ==
[2019-11-03 08:31] VITALS: BMI 32.1
[2020-05-13 08:15] VITALS: BMI 32.1
[2020-11-10 08:06] VITALS: BP 141/74; PULSE 80; RESP 16; TEMP 35.5; O2SAT 100
[2020-11-10] MEDS: 0.9% NaCl Peripheral Flush Adult/Peds IV (08:19)
[2020-11-10] MEDS: 0.9% NaCl IVPB Med Flush (250 mL) 15 ML IV (08:19)
[2020-11-10] MEDS: MethylPREDNISolone 125 MG/2 ML Vial 100 MG IV (08:20)
[2020-11-10] MEDS: DiphenhydrAMINE 50 MG/ML Syringe IV (08:24)
[2020-11-10] MEDS: Ocrelizumab 600mg Infusion 40 MG IV (09:02)
[2020-11-10 13:59] VITALS: BP 124/73; PULSE 93; RESP 16; O2SAT 99
== END ==
PROVIDERS: PCP Family Medicine Geriatric Medicine; Referring Provider Psychiatry & Neurology Neurology; Visit Provider Psychiatry & Neurology Neurology
DX: G35 Multiple sclerosis (principal)
CPT/HCPCS: 96365; 96366; 96375; J7040; J7050; A4216; J2350

== ENCOUNTER → 2020-12-12 14:12 | Outpatient (CLI) | payer MEDICARE, MEDICAID, SELFPAY ==
[2020-05-13 08:15] VITALS: BMI 32.1
[2020-12-12 16:20] LABS: Absolute Lymphocyte Count 2.88 X10^3/uL (0.83-4.51); Absolute Neutrophil Count 7.1 X10^3/uL (2.0-7.7); Basophil# 0.07 X10^3/uL; Basophil% 0.6 % (0-1); Eosinophil# 0.19 X10^3/uL; Eosinophils% 1.7 % (0-5); Hematocrit 39.6 % (37-47); Hemoglobin 12.7 g/dL (12.0-15.0); Lymphocyte # 2.88 X10^3/ul (4.0); Lymphocyte % 26.2 % (19-41); Mean Corp Hgb Conc 32.1 g/dL (32-36); Mean Corpuscular Volume 87.2 fL (81-99); Mean Platelet Vol. 12.5 fl (6.2-12.0); Monocyte# 0.68 X10^3/uL; Monocyte% 6.2 % (0-10); NRBC Flagged by Analyzer 0 % (0-5); Neutrophil # 7.14 X10^3/uL (2.7-7.7); Neutrophil % 64.8 % (47-70); Platelet Count 309 K/mm3 (150-450); RBC Distribution Width SD 41.6 fl (35.1-43.9); Red Blood Count 4.54 M/mm3 (4.2-5.4)
[2020-12-12 16:49] LABS: AST(SGOT) 15 U/L (15-37); Alanine Aminotransfer ALT/SGPT 32 U/L (13-56); Albumin, Serum 3.6 g/dL (3.2-5.0); Alkaline Phosphatase 72 U/L (45-117); Anion Gap 10 (5-15); BUN 14 mg/dL (7-18); BUN/Creat Ratio 12.1 RATIO (10-20); Calcium,Total 8.8 mg/dL (8.5-10.1); Chloride 99 mmol/L (98-107); Creatinine, Serum 1.16 mg/dL (0.55-1.02); EST Glomerular Filtration Rate 51 mL/min (>60); Est Glom Filt Rate - Afr Amer 61 mL/min (>60); Globulin 3.6 g/dL (2.2-4.2); Glucose 322 mg/dL (74-106); Potassium 3.5 mmol/L (3.5-5.1); Protein, Total 7.2 g/dL (6.4-8.2); Sodium Level 140 mmol/L (136-145); Thyroid Stim Hormone (TSH) 1.91 uIU/mL (0.358-3.74)
== END ==
PROVIDERS: PCP Family Medicine Geriatric Medicine; Visit Provider Family Medicine Geriatric Medicine
DX: E11.65 Type 2 diabetes mellitus with hyperglycemia (principal); I10 Essential (primary) hypertension
CPT/HCPCS: 36415; 80053; 84443; 85025

== ENCOUNTER 2020-12-24 12:06 | Outpatient (RCR) | payer MEDICARE, SELFPAY ==
[2020-05-13 08:15] VITALS: BMI 32.1
[2020-12-22] MEDS: COVID-19 VACC, MRNA(PFIZER)/PF 30 MCG/0.3 ML SYRINGE IM (08:17)
[2021-01-12] MEDS: COVID-19 VACC, MRNA(PFIZER)/PF 30 MCG/0.3 ML SYRINGE IM (08:07)
== END 2021-03-21 23:59 ==
LOC: IMMUN 12:06
PROVIDERS: PCP Family Medicine Geriatric Medicine; Visit Provider Family Medicine
DX: Z23 Encounter for immunization (principal)
CPT/HCPCS: 0001A; 0002A; 91300

== ENCOUNTER → 2021-03-29 07:39 | Outpatient (CLI) | payer MEDICARE, SELFPAY ==
[2020-05-13 08:15] VITALS: BMI 32.1
[2021-03-29 08:06] LABS: Hematocrit 39.2 % (37-47); Hemoglobin 12.6 g/dL (12.0-15.0); Mean Corp Hgb Conc 32.1 g/dL (32-36); Mean Corpuscular Hgb 28.4 pg (27.0-32.0); Mean Corpuscular Volume 88.3 fL (81-99); Mean Platelet Vol. 11.9 fl (6.2-12.0); Platelet Count 320 K/mm3 (150-450); RBC Distribution Width CV 13.2 % (11.6-14.6); RBC Distribution Width SD 42.6 fl (35.1-43.9); Red Blood Count 4.44 M/mm3 (4.2-5.4)
[2021-03-29 08:31] LABS: AST(SGOT) 17 U/L (15-37); Alanine Aminotransfer ALT/SGPT 34 U/L (13-56); Albumin, Serum 3.7 g/dL (3.2-5.0); Alkaline Phosphatase 92 U/L (45-117); Anion Gap 5 (5-15); BUN 22 mg/dL (7-18); BUN/Creat Ratio 18.8 RATIO (10-20); Calcium,Total 9.2 mg/dL (8.5-10.1); Chloride 103 mmol/L (98-107); Creatinine, Serum 1.17 mg/dL (0.55-1.02); EST Glomerular Filtration Rate 50 mL/min (>60); Est Glom Filt Rate - Afr Amer 61 mL/min (>60); Globulin 3.6 g/dL (2.2-4.2); Glucose 283 mg/dL (74-106); Potassium 3.3 mmol/L (3.5-5.1); Protein, Total 7.3 g/dL (6.4-8.2); Sodium Level 140 mmol/L (136-145)
[2021-03-30 05:07] LABS: Immunoglobulin A 186 mg/dL (87-352); Immunoglobulin G 1015 mg/dL (586-1602)
[2021-03-30 10:20] LABS: Immunoglobulin M 51 mg/dL (26-217)
== END ==
PROVIDERS: PCP Family Medicine Geriatric Medicine; Referring Provider Psychiatry & Neurology Neurology; Visit Provider Psychiatry & Neurology Neurology
DX: G35 Multiple sclerosis (principal)
CPT/HCPCS: 36415; 80053; 82784; 85027

== ENCOUNTER → 2021-05-11 08:59 | Outpatient (CLI) | payer MEDICARE, MEDICAID, SELFPAY ==
[2020-05-13 08:15] VITALS: BMI 32.1
[2021-05-11 09:20] VITALS: BP 144/68; PULSE 75; RESP 16; TEMP 35.8; O2SAT 97; BMI 30.4
[2021-05-11] MEDS: 0.9% NaCl IVPB Med Flush (250 mL) 15 ML IV (09:40)
[2021-05-11] MEDS: 0.9% NaCl Peripheral Flush Adult/Peds IV (09:40)
[2021-05-11] MEDS: MethylPREDNISolone 125 MG/2 ML Vial 100 MG IV (09:48)
[2021-05-11] MEDS: DiphenhydrAMINE 50 MG/ML Syringe IV (09:50)
[2021-05-11] MEDS: Ocrelizumab 600mg Infusion 40 MG IV (10:23)
[2021-05-11 15:21] VITALS: BP 105/63; PULSE 76; RESP 16; TEMP 35.7; O2SAT 95
== END ==
PROVIDERS: PCP Family Medicine Geriatric Medicine; Referring Provider Psychiatry & Neurology Neurology; Visit Provider Psychiatry & Neurology Neurology
DX: G35 Multiple sclerosis (principal)
CPT/HCPCS: 96365; 96366; 96375; J7040; J7050; A4216; J2350

== ENCOUNTER 2021-10-26 08:04 | Outpatient (CLI) | payer MEDICARE, SELFPAY ==
[2021-10-26 08:34] LABS: Absolute Lymphocyte Count 3.48 X10^3/uL (0.83-4.51); Absolute Neutrophil Count 4.4 X10^3/uL (2.0-7.7); Basophil# 0.07 X10^3/uL; Basophil% 0.8 % (0-1); Eosinophil# 0.23 X10^3/uL; Eosinophils% 2.6 % (0-5); Hematocrit 39.2 % (37-47); Hemoglobin 13.2 g/dL (12.0-15.0); Lymphocyte # 3.48 X10^3/ul (0.83-4.51); Lymphocyte % 39.5 % (19-41); Mean Corp Hgb Conc 33.7 g/dL (32-36); Mean Corpuscular Hgb 28.4 pg (27.0-32.0); Mean Corpuscular Volume 84.3 fL (81-99); Mean Platelet Vol. 12.2 fl (6.2-12.0); Monocyte# 0.66 X10^3/uL; Monocyte% 7.5 % (0-10); NRBC Flagged by Analyzer 0 % (0-5); Neutrophil # 4.36 X10^3/uL (2.7-7.7); Neutrophil % 49.4 % (47-70); Platelet Count 288 K/mm3 (150-450); RBC Distribution Width CV 12.8 % (11.6-14.6); RBC Distribution Width SD 39.1 fl (35.1-43.9); Red Blood Count 4.65 M/mm3 (4.2-5.4); White Blood Count 8.8 K/mm3 (4.4-11.0)
[2021-10-26 09:08] LABS: ALB/GLOB Ratio 0.9 RATIO (0.9-2.4); AST(SGOT) 12 U/L (15-37); Alanine Aminotransfer ALT/SGPT 29 U/L (13-56); Albumin, Serum 3.5 g/dL (3.2-5.0); Alkaline Phosphatase 114 U/L (45-117); Anion Gap 9 (5-15); BUN 10 mg/dL (7-18); BUN/Creat Ratio 11.7 RATIO (10-20); Calcium,Total 8.9 mg/dL (8.5-10.1); Chloride 99 mmol/L (98-107); Creatinine, Serum 0.85 mg/dL (0.55-1.02); EST Glomerular Filtration Rate 72 mL/min (>60); Est Glom Filt Rate - Afr Amer 87 mL/min (>60); Globulin 3.9 g/dL (2.2-4.2); Glucose 338 mg/dL (74-106); Potassium 3.7 mmol/L (3.5-5.1); Protein, Total 7.4 g/dL (6.4-8.2); Sodium Level 139 mmol/L (136-145)
[2021-10-27 15:11] LABS: Immunoglobulin A 237 mg/dL (87-352); Immunoglobulin G 1023 mg/dL (586-1602)
[2021-10-28 15:52] LABS: Immunoglobulin M 54 mg/dL (26-217)
== END 2021-10-26 23:59 | disposition short-term general hospital (02) ==
LOC: LAB 08:08
PROVIDERS: PCP Family Medicine Geriatric Medicine; Referring Provider Family Medicine Geriatric Medicine; Visit Provider Psychiatry & Neurology Neurology
DX: G35 Multiple sclerosis (principal)
CPT/HCPCS: 36415; 80053; 82784; 85025

== ENCOUNTER 2021-11-09 09:39 | Outpatient (CLI) | payer MEDICARE, SELFPAY ==
[2021-11-09 12:21] LABS: Absolute Lymphocyte Count 3.59 X10^3/uL (0.83-4.51); Absolute Neutrophil Count 4.9 X10^3/uL (2.0-7.7); Basophil# 0.09 X10^3/uL; Basophil% 0.9 % (0-1); Eosinophils% 2.1 % (0-5); Hematocrit 39.5 % (37-47); Lymphocyte # 3.59 X10^3/ul (0.83-4.51); Lymphocyte % 37.4 % (19-41); Mean Corp Hgb Conc 32.9 g/dL (32-36); Mean Corpuscular Hgb 28.1 pg (27.0-32.0); Mean Corpuscular Volume 85.5 fL (81-99); Mean Platelet Vol. 12.7 fl (6.2-12.0); Monocyte# 0.76 X10^3/uL; Monocyte% 7.9 % (0-10); NRBC Flagged by Analyzer 0 % (0-5); Neutrophil # 4.93 X10^3/uL (2.7-7.7); Neutrophil % 51.5 % (47-70); Platelet Count 329 K/mm3 (150-450); RBC Distribution Width SD 40.3 fl (35.1-43.9); Red Blood Count 4.62 M/mm3 (4.2-5.4); White Blood Count 9.6 K/mm3 (4.4-11.0)
[2021-11-09 14:01] LABS: ALB/GLOB Ratio 0.9 RATIO (0.9-2.4); AST(SGOT) 13 U/L (15-37); Alanine Aminotransfer ALT/SGPT 27 U/L (13-56); Albumin, Serum 3.5 g/dL (3.2-5.0); Alkaline Phosphatase 88 U/L (45-117); Anion Gap 10 (5-15); BUN 15 mg/dL (7-18); BUN/Creat Ratio 14.6 RATIO (10-20); Calcium,Total 8.9 mg/dL (8.5-10.1); Chloride 101 mmol/L (98-107); Creatinine, Serum 1.03 mg/dL (0.55-1.02); EST Glomerular Filtration Rate 58 mL/min (>60); Est Glom Filt Rate - Afr Amer 70 mL/min (>60); Globulin 4.1 g/dL (2.2-4.2); Glucose 167 mg/dL (74-106); Potassium 3.1 mmol/L (3.5-5.1); Protein, Total 7.6 g/dL (6.4-8.2); Sodium Level 139 mmol/L (136-145)
== END 2021-11-09 23:59 | disposition short-term general hospital (02) ==
LOC: POLAB3 09:40
PROVIDERS: PCP Family Medicine Geriatric Medicine; Visit Provider Family Medicine Geriatric Medicine
DX: E11.65 Type 2 diabetes mellitus with hyperglycemia (principal); E55.9 Vitamin D deficiency, unspecified; I10 Essential (primary) hypertension
CPT/HCPCS: 36415; 80053; 82306; 84443; 85025

== ENCOUNTER → 2021-11-27 08:27 | Outpatient (CLI) | payer MEDICARE, MEDICAID, SELFPAY ==
[2020-05-13 08:15] VITALS: BMI 32.1
[2021-11-27 08:34] VITALS: BP 145/70; PULSE 71; RESP 16; TEMP 35.6; O2SAT 99; BMI 31.1
[2021-11-27] MEDS: 0.9% NaCl Peripheral Flush Adult/Peds IV (08:40)
[2021-11-27] MEDS: DiphenhydrAMINE 25 MG Capsule PO (08:45)
[2021-11-27] MEDS: Acetaminophen 500 MG Tablet 1000 MG PO (08:45)
[2021-11-27] MEDS: Famotidine 20 MG Tablet PO (08:46)
[2021-11-27] MEDS: 0.9% NaCl IVPB Med Flush (250 mL) 15 ML IV (08:49)
[2021-11-27] MEDS: MethylPREDNISolone 125 MG/2 ML Vial IV (08:49)
[2021-11-27] MEDS: Ocrelizumab 600mg Infusion 40 MG IV (09:19)
== END ==
PROVIDERS: PCP Family Medicine Geriatric Medicine; Visit Provider Nurse Practitioner Acute Care
DX: G35 Multiple sclerosis (principal)
CPT/HCPCS: 96365; 96375; 96366; J7040; J7050; A4216; J2350

== ENCOUNTER 2021-11-29 07:58 | Outpatient (CLI) | payer MEDICARE, SELFPAY ==
[2021-11-29 08:59] LABS: Anion Gap 5 (5-15); BUN 19 mg/dL (7-18); BUN/Creat Ratio 19.8 RATIO (10-20); Calcium,Total 8.7 mg/dL (8.5-10.1); Chloride 101 mmol/L (98-107); Creatinine, Serum 0.96 mg/dL (0.55-1.02); EST Glomerular Filtration Rate 63 mL/min (>60); Est Glom Filt Rate - Afr Amer 76 mL/min (>60); Glucose 299 mg/dL (74-106); Potassium 3.4 mmol/L (3.5-5.1); Sodium Level 138 mmol/L (136-145)
== END 2021-11-29 23:59 | disposition home or self-care (01) ==
LOC: LAB 08:01
PROVIDERS: PCP Family Medicine Geriatric Medicine; Referring Provider Family Medicine Geriatric Medicine; Visit Provider Family Medicine Geriatric Medicine
DX: E87.6 Hypokalemia (principal)
CPT/HCPCS: 36415; 80048

== ENCOUNTER 2021-12-04 15:49 | Outpatient (CLI) | payer MEDICARE, SELFPAY ==
[2021-12-04 16:58] LABS: Anion Gap 4 (5-15); BUN 17 mg/dL (7-18); BUN/Creat Ratio 18.9 RATIO (10-20); Calcium,Total 9.4 mg/dL (8.5-10.1); Chloride 101 mmol/L (98-107); EST Glomerular Filtration Rate 68 mL/min (>60); Est Glom Filt Rate - Afr Amer 82 mL/min (>60); Glucose 288 mg/dL (74-106); Potassium 4.1 mmol/L (3.5-5.1); Sodium Level 136 mmol/L (136-145)
== END 2021-12-04 23:59 | disposition home or self-care (01) ==
LOC: POLAB3 15:50
PROVIDERS: PCP Family Medicine Geriatric Medicine; Visit Provider Family Medicine Geriatric Medicine
DX: E87.6 Hypokalemia (principal)
CPT/HCPCS: 36415; 80048

== ENCOUNTER 2021-12-22 14:37 | Outpatient (CLI) | payer MEDICARE, SELFPAY ==
--- NOTE | 2021-12-22 14:51 | BI_ITS ---
MAMMOGRAPHY - BILATERAL SCREENING 3-D TOMOSYNTHESIS REASON FOR EXAM: Female, 61 years old. SCREENING PERTINENT HISTORY: No significant family history. TECHNIQUE: 2-D mammograms and 3-D Tomosynthesis of the breast (s) were performed. CAD was performed. COMPARISON: 12/19/2016 FINDINGS: The breast composition is composed of scattered fibroglandular density. Scattered benign calcifications are seen. No dense spiculated masses or suspicious microcalcifications are identified. No architectural distortion is identified. There is no skin thickening or retraction. There has been no significant change since the prior study. BI/SCRN MAMM (CAD)W/VALERIE BILAT IMPRESSION: No mammographic signs of malignancy. Routine yearly mammograms recommended. ASSESSMENT CATEGORY: BIRADS Category 1: Negative. A letter regarding these results will be sent to the patient by the facility within 30 days. FOLLOW UP RECOMMENDATION: Yearly follow up mammogram recommended. (A) Approximately 10% of breast cancers are not detected by mammography. A normal mammogram should not delay biopsy of a clinically suspicious abnormality. Electronically Signed: Jose Mei MD at 11:46 EDT ,
== END 2021-12-22 23:59 | disposition home or self-care (01) ==
LOC: OPBI 14:50
PROVIDERS: PCP Family Medicine Geriatric Medicine; Referring Provider Family Medicine Geriatric Medicine; Visit Provider Family Medicine Geriatric Medicine
DX: Z12.31 Encounter for screening mammogram for malignant neoplasm of breast (principal)
CPT/HCPCS: 77063; 77067

== ENCOUNTER 2021-12-27 08:04 | Outpatient (CLI) | payer MEDICARE, SELFPAY ==
[2021-12-27 09:04] LABS: Thyroid Stim Hormone (TSH) 1.41 uIU/mL (0.358-3.74)
== END 2021-12-27 23:59 | disposition home or self-care (01) ==
LOC: LAB 08:05
PROVIDERS: PCP Family Medicine Geriatric Medicine; Referring Provider Family Medicine Geriatric Medicine; Visit Provider Family Medicine Geriatric Medicine
DX: E03.9 Hypothyroidism, unspecified (principal)
CPT/HCPCS: 36415; 84443

== ENCOUNTER → 2022-02-08 | Outpatient (CLI) | payer MEDICARE, SELFPAY ==
--- NOTE | 2022-02-08 12:06 | RAD_ITS ---
STUDY: X-RAY - LUMBAR SPINE REASON FOR EXAM: Female, 61 years old. LOW BACK PAIN LOW BACK PAIN TECHNIQUE: XR Spine Lumbar 2 or 3 Views COMPARISON: None FINDINGS: Normal lumbar lordosis. There is no substantial scoliosis. There is a normal alignment of the vertebrae. There is multilevel endplate spondylosis of the lumbar vertebrae. There are bilateral tubal ligation clips. Normal disc space heights. There is atherosclerotic calcification of the abdominal aorta without a demonstrated aneurysm. RAD/Lumbar Spine 2 or 3 Views IMPRESSION: Degenerative changes of the spine, as detailed above. Electronically Signed: Austin Rivera MD at 15:24 EDT ,
--- NOTE | 2022-02-08 12:06 | RAD_ITS ---
STUDY: X-RAY - THORACIC SPINE REASON FOR EXAM: Female, 61 years old. History, Signs T Symptoms THORACIC BACK PAIN TECHNIQUE: 3 view(s) of the thoracic spine were obtained. COMPARISON: None. FINDINGS: Normal kyphosis of the thoracic spine. There is no substantial scoliosis. There is multilevel endplate spondylosis of the thoracic vertebrae. There is multilevel disc space narrowing of the thoracic spine. The gallbladder is surgically absent. RAD/Thoracic Spine 2 Views IMPRESSION: There are degenerative changes as noted above. Electronically Signed: Austin Rivera MD at 15:23 EDT Reading Location ID and State: [facility] / [place] , Service support ,
[2022-02-08 12:15] LABS: Absolute Lymphocyte Count 2.83 X10^3/uL (0.83-4.51); Absolute Neutrophil Count 3.8 X10^3/uL (2.0-7.7); Basophil# 0.07 X10^3/uL; Basophil% 0.9 % (0-1); Eosinophil# 0.12 X10^3/uL; Eosinophils% 1.6 % (0-5); Hematocrit 39.2 % (37-47); Hemoglobin 12.7 g/dL (12.0-15.0); Lymphocyte # 2.83 X10^3/ul (0.83-4.51); Lymphocyte % 38.2 % (19-41); Mean Corp Hgb Conc 32.4 g/dL (32-36); Mean Corpuscular Hgb 28.3 pg (27.0-32.0); Mean Corpuscular Volume 87.5 fL (81-99); Monocyte# 0.53 X10^3/uL; Monocyte% 7.2 % (0-10); NRBC Flagged by Analyzer 0 % (0-5); Neutrophil # 3.82 X10^3/uL (2.7-7.7); Neutrophil % 51.7 % (47-70); Platelet Count 306 K/mm3 (150-450); RBC Distribution Width CV 13.4 % (11.6-14.6); Red Blood Count 4.48 M/mm3 (4.2-5.4); White Blood Count 7.4 K/mm3 (4.4-11.0)
[2022-02-08 12:32] LABS: Vitamin D,25 Hydroxy 23.6 ng/mL
[2022-02-08 12:35] LABS: ALB/GLOB Ratio 0.8 RATIO (0.9-2.4); AST(SGOT) 16 U/L (15-37); Alanine Aminotransfer ALT/SGPT 27 U/L (13-56); Albumin, Serum 3.3 g/dL (3.2-5.0); Alkaline Phosphatase 67 U/L (45-117); Anion Gap 4 (5-15); BUN 13 mg/dL (7-18); BUN/Creat Ratio 15.3 RATIO (10-20); Calcium,Total 8.9 mg/dL (8.5-10.1); Chloride 109 mmol/L (98-107); Creatinine, Serum 0.85 mg/dL (0.55-1.02); EST Glomerular Filtration Rate 72 mL/min (>60); Est Glom Filt Rate - Afr Amer 87 mL/min (>60); Globulin 3.9 g/dL (2.2-4.2); Glucose 66 mg/dL (74-106); Potassium 3.5 mmol/L (3.5-5.1); Protein, Total 7.2 g/dL (6.4-8.2); Sodium Level 143 mmol/L (136-145); Thyroid Stim Hormone (TSH) 1.54 uIU/mL (0.358-3.74)
== END | disposition home or self-care (01) ==
PROVIDERS: PCP Family Medicine Geriatric Medicine; Referring Provider Family Medicine Geriatric Medicine; Visit Provider Family Medicine Geriatric Medicine
DX: E11.65 Type 2 diabetes mellitus with hyperglycemia (principal); E55.9 Vitamin D deficiency, unspecified; I10 Essential (primary) hypertension; M54.6 Pain in thoracic spine; M54.50 Low back pain, unspecified
CPT/HCPCS: 36415; 72070; 72100; 80053; 82306; 84443; 85025

== ENCOUNTER → 2022-02-15 | Outpatient (CLI) | payer MEDICARE, SELFPAY | END | disposition home or self-care (01) | LOC: LAB 14:01 | PROVIDERS: PCP Family Medicine Geriatric Medicine; Visit Provider Family Medicine Geriatric Medicine | DX: E24.9 Cushing's syndrome, unspecified (principal) | CPT/HCPCS: 36415; 82533 ==

== ENCOUNTER → 2022-05-22 | Outpatient (CLI) | payer MEDICARE, MEDICAID, SELFPAY ==
[2022-05-22 08:29] LABS: Absolute Lymphocyte Count 2.94 X10^3/uL (0.83-4.51); Absolute Neutrophil Count 4.5 X10^3/uL (2.0-7.7); Basophil# 0.08 X10^3/uL; Eosinophil# 0.14 X10^3/uL; Eosinophils% 1.7 % (0-5); Hematocrit 39.1 % (37-47); Hemoglobin 13.3 g/dL (12.0-15.0); Lymphocyte # 2.94 X10^3/ul (0.83-4.51); Lymphocyte % 35.3 % (19-41); Mean Corpuscular Hgb 28.9 pg (27.0-32.0); Mean Platelet Vol. 12.4 fl (6.2-12.0); Monocyte# 0.64 X10^3/uL; Monocyte% 7.7 % (0-10); NRBC Flagged by Analyzer 0 % (0-5); Neutrophil # 4.48 X10^3/uL (2.7-7.7); Neutrophil % 53.8 % (47-70); Platelet Count 286 K/mm3 (150-450); RBC Distribution Width CV 13.2 % (11.6-14.6); RBC Distribution Width SD 40.7 fl (35.1-43.9); White Blood Count 8.3 K/mm3 (4.4-11.0)
[2022-05-22 09:01] LABS: ALB/GLOB Ratio 0.9 RATIO (0.9-2.4); AST(SGOT) 16 U/L (15-37); Alanine Aminotransfer ALT/SGPT 26 U/L (13-56); Albumin, Serum 3.4 g/dL (3.2-5.0); Alkaline Phosphatase 99 U/L (45-117); Anion Gap 7 (5-15); BUN 15 mg/dL (7-18); BUN/Creat Ratio 12.6 RATIO (10-20); Calcium,Total 8.9 mg/dL (8.5-10.1); Chloride 102 mmol/L (98-107); Creatinine, Serum 1.19 mg/dL (0.55-1.02); EST Glomerular Filtration Rate 49 mL/min (>60); Est Glom Filt Rate - Afr Amer 59 mL/min (>60); Globulin 3.9 g/dL (2.2-4.2); Glucose 389 mg/dL (74-106); Potassium 3.8 mmol/L (3.5-5.1); Protein, Total 7.3 g/dL (6.4-8.2); Sodium Level 139 mmol/L (136-145)
[2022-05-23 11:09] LABS: Immunoglobulin A 217 mg/dL (87-352); Immunoglobulin G 960 mg/dL (586-1602)
[2022-05-23 14:10] LABS: Immunoglobulin M 58 mg/dL (26-217)
== END | disposition home or self-care (01) ==
LOC: LAB.FUTURE 07:36 → LAB 07:37
PROVIDERS: PCP Family Medicine Geriatric Medicine; Visit Provider Psychiatry & Neurology Neurology
DX: G35 Multiple sclerosis (principal)
CPT/HCPCS: 36415; 80053; 82784; 85025

== ENCOUNTER → 2022-06-01 | Outpatient (CLI) | payer MEDICARE, MEDICAID, SELFPAY ==
[2022-06-01 08:27] VITALS: BP 167/93; PULSE 82; RESP 16; TEMP 35.8; O2SAT 97
[2022-06-01] MEDS: 0.9% NaCl Peripheral Flush Adult/Peds IV (08:34)
[2022-06-01] MEDS: 0.9% NaCl IVPB Med Flush (250 mL) 15 ML IV (08:45)
[2022-06-01] MEDS: Acetaminophen 500 MG Tablet 1000 MG PO (08:45)
[2022-06-01] MEDS: DiphenhydrAMINE 25 MG Capsule PO (08:45)
[2022-06-01] MEDS: Famotidine 20 MG Tablet PO (08:45)
[2022-06-01] MEDS: MethylPREDNISolone 125 MG/2 ML Vial IV (08:46)
[2022-06-01] MEDS: Ocrelizumab 600mg Infusion 40 MG IV (09:18)
[2022-06-01 14:26] VITALS: BP 155/73; PULSE 80; RESP 16; TEMP 36.3; O2SAT 98
== END | disposition home or self-care (01) ==
PROVIDERS: PCP Family Medicine Geriatric Medicine; Visit Provider Nurse Practitioner Acute Care
DX: G35 Multiple sclerosis (principal)
CPT/HCPCS: 96375; 96413; 96415; J7040; J7050; A4216; J2350

== ENCOUNTER → 2022-06-27 | Outpatient (CLI) | payer MEDICARE, MEDICAID, SELFPAY ==
[2022-06-27 15:13] LABS: Anion Gap 6 (5-15); BUN 19 mg/dL (7-18); BUN/Creat Ratio 18.6 RATIO (10-20); Calcium,Total 9.2 mg/dL (8.5-10.1); Chloride 107 mmol/L (98-107); Creatinine, Serum 1.02 mg/dL (0.55-1.02); EST Glomerular Filtration Rate 58 mL/min (>60); Est Glom Filt Rate - Afr Amer 71 mL/min (>60); Glucose 103 mg/dL (74-106); Potassium 3.6 mmol/L (3.5-5.1); Sodium Level 143 mmol/L (136-145)
[2022-06-27 15:20] LABS: Hemoglobin A1c 10.6 % (3.8-5.6)
[2022-06-27 15:52] LABS: Microalbumin:Creatinine Ratio 306.2 mg/g CRE (<30 mg/g CRE)
== END | disposition home or self-care (01) ==
LOC: BIMLAB 11:54
PROVIDERS: PCP Internal Medicine; Referring Provider Internal Medicine; Visit Provider Internal Medicine
DX: E11.65 Type 2 diabetes mellitus with hyperglycemia (principal)
CPT/HCPCS: 36415; 80048; 82043; 82570; 83036

== ENCOUNTER 2022-11-03 17:27 | Inpatient (IN) | payer MEDICARE, MEDICAID, SELFPAY ==
[2022-11-03] VITALS (10 sets, daily range): BP systolic 158–203; BP diastolic 72–147; PULSE 71–97; RESP 16–28; TEMP 36–37.2; O2SAT 94–96; BMI 39.7; BMI 38.7
--- NOTE | 2022-11-03 17:49 | EKG12_ITS ---
Test Reason : SOB Blood Pressure : / mmHG Vent. Rate : 077 BPM Atrial Rate : 077 BPM P-R Int : 152 ms QRS Dur : 158 ms QT Int : 446 ms P-R-T Axes : 044 -22 128 degrees QTc Int : 504 ms Normal sinus rhythm Left bundle branch block Abnormal ECG Confirmed by JE COLBERT, RAAD ([id number]), metropolitan editor YANDEL JACINTO ([id number]) on 11/05/2022 10:47:44 AM Referred By: MARIBEL Confirmed By:RAAD WOOTEN MD
--- NOTE | 2022-11-03 17:50 | ED.VIS.DYS ---
HPI History of Present Illness Chief Complaint: Shortness of Breath Informant: patient and family Onset/Context/Timing Onset: Weeks Context: gradual Timing: Intermittent Quality: Positive for Orthopnea; Negative for Dyspnea on exertion or Wheezing Current Severity: Mild Maximum Severity: Mild Worsened by: Lying flat Relieved by: other (Sitting upright.) Associated Symptoms cough; Negative for clear sputum, white sputum, yellow sputum or green sputum Chest Pain: Positive for None Narrative Narrative: 62-year-old female history of insulin-dependent diabetes, hypertension and blindness. 3 weeks ago or so the entire family had influenza. 1 member the family was tested positive though there is assume he had influenza also. That she was sick for about a week got better. The last 2 weeks she has had orthopnea to the point where she cannot lie flat to sleep she now has to sit upright to sleep. No prior history of that. She has chronic leg swelling which remains present. No history of DVT or PE. No chest pain or hemoptysis. Fevers have resolved. Nonproductive cough. No cardiac history. PE Risk Factors: Negative for Cancer, OCP + Smoking + > 35, Prior DVT or PE, Recent immobilization, Recent surgery or Recent travel Prior similar symptoms: No Recent Illness/Hospitalization: No PFSH PFSH Medical History Anxiety and depression Bilateral lower extremity edema History of back problems Hx of carpal tunnel syndrome Hx of emotional problems Hx of essential hypertension Hx of multiple sclerosis Hx: UTI (urinary tract infection) Insulin dependent diabetes mellitus Type 2 diabetes mellitus Urinary and bowel incontinence Wears glasses Home Medications aspirin 81 mg chewable tablet 81 mg PO DAILY@0800 heart [facility] 11/09/13 [History Last Taken 07/10/18] acetaminophen 325 mg tablet (Tylenol) 650 mg PO Q6H PRN PRN Pain 07/10/18 [Rx Last Taken 07/07/18] bupropion HCl 300 mg 24 hr tablet, extended release 300 mg PO QAM 06/27/22 [History Last Taken Unknown] metformin 1,000 mg tablet 1,000 mg PO BID 06/27/22 [History Last Taken Unknown] multivitamin 1 tab PO DAILY 06/27/22 [History Last Taken Unknown] pioglitazone 30 mg tablet 30 mg PO DAILY 06/27/22 [History Last Taken Unknown] potassium chloride 20 mEq tablet,extended release 20 meq PO DAILY 06/27/22 [History Last Taken Unknown] valsartan 320 mg tablet 320 mg PO DAILY 06/27/22 [History Last Taken Unknown] flash glucose scanning reader (SparkStyle Sunshine 2 [place]) #1 ea 07/26/22 [Rx Last Taken Unknown] cholecalciferol (vitamin D3) 125 mcg (5,000 unit) capsule 125 mcg PO DAILY #90 caps 08/16/22 [Rx Last Taken Unknown] oxybutynin chloride 5 mg tablet,extended release 24 hr See Rx Instructions .Route .COMPLEX #90 tabs 10/01/22 [Rx Last Taken Unknown] sertraline 50 mg tablet See Rx Instructions .Route .COMPLEX #90 tabs 10/01/22 [Rx Last Taken Unknown] blood-glucose meter,continuous (Dexcom G6 Pepper Cutter) #1 ea 10/03/22 [Rx Last Taken Unknown] blood-glucose sensor (Dexcom G6 Sensor device) #3 ea 10/03/22 [Rx Last Taken Unknown] blood-glucose transmitter (Dexcom G6 Transmitter device) #1 ea 10/03/22 [Rx Last Taken Unknown] atorvastatin 40 mg tablet 40 mg PO QHS #60 TABLETS 10/25/22 [Rx Last Taken Unknown] flash glucose sensor (FreeStyle Sunshine 2 Sensor kit) #1 ea 10/25/22 [Rx Last Taken Unknown] insulin glargine 100 unit-lixisenatide 33 mcg/mL subcutaneous pen (Soliqua 100/33) 50 unit (0.5 mL) subcut QAM #15 mL 10/25/22 [Rx Last Taken Unknown] levothyroxine 25 mcg tablet 25 mcg PO DAILY #90 tabs 10/25/22 [Rx Last Taken Unknown] metoprolol tartrate 100 mg tablet 100 mg PO BID 1 month #60 tabs 10/25/22 [Rx Last Taken Unknown] Allergy/AdvReac Type Severity Reaction Status Date / Time BEES Allergy Severe Anaphylaxis Uncoded 08/30/22 13:18 Family History Mother Anxiety Depression Blood clot in eye Hypertension Father Lung cancer Brain cancer Spinal cord cancer Cancer Heart disease Grandmother Alcoholism Breast cancer Diabetes Hypertension Sister Diabetes CVA (cerebral vascular accident) Surgical History Hx of adenoidectomy Hx of bilateral cataract extraction Hx of cholecystectomy Hx of hysterectomy Hx of tonsillectomy Social History household members: other details: SISTER housing: other details: Trailer current occupational status: disabled sexually active: No Smoking Status: Never smoker alcohol intake: current alcohol intake frequency: holidays/special occasions only substance use type: does not use what type of physical activity do you participate in: none seatbelt use: always do you feel safe at home: Yes ROS ROS ED ROS Narrative Orthopnea. Chronic leg swelling. Nonproductive cough. Review of Systems ROS Unobtainable: Denies due to encephalopathy Constitutional Constitutional ED: Reports chills and fever(s) Eyes Eyes: Denies blurry vision ENT ENT ED: Denies ear pain Cardiovascular Cardiovascular: Reports orthopnea; Denies chest pain, palpitations or racing heartbeat Respiratory/Chest Respiratory/Chest: Reports cough, dyspnea and orthopnea; Denies dyspnea on exertion or sputum Gastrointestinal Gastrointestinal: Denies abdominal pain or constipation Genitourinary Genitourinary ED: Denies dysuria or hematuria Musculoskeletal Musculoskeletal: Denies arthralgias Integumentary Denies abscess Neurologic Neurologic: Denies headache(s) Psychiatric Psychiatric: Denies anxiety Endocrine Endocrinology: Denies cold intolerance Hematologic/Lymphatic Hematologic/Lymphatic: Denies easy bleeding Allergic/Immunologic Allergic/Immunologic ED: Denies mouth swelling or tongue swelling EXAM Physical Exam Narrative Exam Narrative: 62-year-old female vital signs are stable blood pressure elevated 203/110. Pulse ox 95% on room air no signs hypoxia. Afebrile. Sitting upright she is in no distress. H EENT exam unremarkable. Neck nontender. No lymphadenopathy. No JVD. Lungs clear to auscultation bilaterally. Heart regular rate and rhythm rate about 85 no murmur. Chest wall nontender. Abdomen soft nontender. Moving all 4 extremities. Calves are nontender. She has 1+ pitting edema both lower extremities. Equal symmetrical. Neurologically she is awake and alert. Legally blind. No focal motor deficits. Answering questions and following commands. Const Vital Signs: 11/03/22 17:28 11/03/22 17:34 11/03/22 17:49 Temperature 96.8 F L Temperature Source Temporal Pulse Rate 85 Respiratory Rate 20 H Respiratory Effort Short of Breath Respiratory Depth Shallow Respiratory Pattern Normal Blood Pressure 203/110 H Blood Pressure Mean 141 Pulse Ox 95 96 Oxygen Delivery Method Room Air Room Air Room Air Positive well nourished, well developed and obese; Negative for cachectic, contractures or unkempt General Appearance ED: well developed and NAD; Negative for unkempt, cachectic, contractures or pallor Nutritional Appearance: obese; Negative for cachectic HEENT Reports moist mucous membranes; Denies dry mucous membranes atraumatic; Negative for trauma or tenderness Mouth ED: No dry mucous membranes Mouth: No dry mucous membranes Eyes EOMs intact bilaterally; Negative for PERRL General Eye ED: Negative for pale conjunctiva or scleral icterus Neck no lymphadenopathy, supple, no meningeal signs and no JVD General: Negative for tenderness Lymph Lymphatic: Negative for other Chest Wall Chest: Negative for other Resp normal respiratory effort and clear to auscultation bilaterally Effort and Inspection: Negative for pain with movement Auscultation: Negative for rales, rhonchi or wheezes Cardio regular rate, regular rhythm, S1 normal heart sound, S2 normal heart sound and no murmurs Rate: Negative for bradycardia or tachycardic Rhythm: Negative for abnormal rhythm GI non-tender, non-distended and no masses Inspection: Negative for other Auscultation: normoactive bowel sounds Palpation: soft; Negative for tender or guarding Back/Spine no CVA tenderness and normal to inspection General Back: Negative for CVA tenderness or tenderness Extremity normal to inspection General Extremety ED: Negative for edema or tenderness General Extremity: Negative for edema Neuro oriented x3 and CN's II-XII intact bilaterally Sensorium / Orientation: alert, oriented to person, oriented to place and oriented to time; Negative for orientation impaired, confused, lethargic or stuporous Speech: speech normal Motor Exam: strength 5/5 throughout Psych mental status grossly normal Appearance: Negative for unkempt Attitude: No agitated Mood & Affect: Negative for depressed, anxious or tearful Thought Process: No normal thought process Skin no wounds and skin turgor normal General Skin Exam: Negative for jaundice or pallor Lesions: no lesions Rashes: no rashes Trauma: Negative for abrasion or laceration MDM MDM MDM Narrative Medical decision making narrative: 60-year-old female influenza 2 to 3 weeks ago. Since that time has had dyspnea and orthopnea. She has chronic swelling in her lower extremities. Concern would be for as she developed just of heart failure or renal failure. Does she have effusions or pneumonia. Clinically exam is pretty benign lungs seem clear. Heart is regular rhythm. She does have a bundle branch block on her EKG. Clinically and only gets is a PE. Repeat exam unchanged. Patient doing well. Discussed all test results with her and family. My concern is that this is new onset CHF. I do not know if it is related at all to the virus she had 3 weeks ago. Possibly a viral cardiomyopathy versus new onset CHF and be totally unrelated. It appears from history she had leg swelling before that started about a month ago. I think she needs further evaluation this most likely needs an echocardiogram to evaluate the cardiac activity of her heart. She also has a new left bundle branch block but the most recent EKG I have to compare to was 14 years ago in 2007. I will speak to the hospitalist about admission I have them on page. Patient and family are comfortable with the plan. Patient walk to the bathroom off oxygen and pulse ox dropped to 86% on room air. Consistent with exertional hypoxia Lab Data Attestation: I reviewed the patient's lab results. Lab results narrative: CBC unremarkable white count 8.8. H&H 12.6 and 40. Platelets 334. Electrolytes show a gap of 4. Normal BUN of 16 creatinine 0.8. Glucose 177. Troponin 34. Labs: Laboratory Results - last 24 hr 11/03/22 11/03/22 17:10 17:10 WBC 8.8 RBC 4.62 Hgb 12.6 Hct 40.6 MCV 87.9 MCH 27.3 MCHC 31.0 L RDW Std Deviation 43.6 RDW Coeff of Fernando 13.6 Plt Count 334 MPV 11.7 Immature Gran % (Auto) 0.300 Neut % (Auto) 62.0 Lymph % (Auto) 27.8 [place] % (Auto) 7.2 Eos % (Auto) 1.9 Baso % (Auto) 0.8 Absolute Neuts (auto) 5.5 Absolute Lymphs (auto) 2.45 Nucleated RBC % 0 Sodium 140 Potassium 3.7 Chloride 108 H Carbon Dioxide 28.0 Anion Gap 4 L BUN 16 Creatinine 0.86 Estim Creat Clear Calc 68.42 Est GFR (MDRD) Af Amer 86 Est GFR (MDRD) Non-Af 71 BUN/Creatinine Ratio 18.6 Glucose 177 H Calcium 8.5 Troponin I High Sens 34 Radiography Chest X-Ray - ED: 1 View, Read by ED Physician, Mediastinum, Bony Structures, Chronic Changes, Cardiomegaly and CHF Diagnostic Testing: Clinical Impression(s) from Imaging Studies Chest X-Ray 11/03/22 18:00 IMPRESSION: Findings suggest CHF. Electronically Signed: Jeremias Alexander MD at 18:20 EST , Chest x-ray, portable, single view interpreted by myself and radiologist shows borderline cardiomegaly and mild pulmonary edema consistent with CHF. No infiltrate. Normal bony structures. Rhythm Strip Rhythm Strip: Sinus Rhythm Rate: 77 Ectopy: None EKG Initial EKG: Attestation: I personally reviewed and interpreted this EKG as follows: Interpretation: Sinus Rhythm, No Acute Injury Pattern and LBBB Comments: Normal sinus rhythm rate of 77 no signs of acute [place] or ischemia. Left bundle branch block. I do not have an old EKG available at this time. New left bundle branch block but the most recent EKG we have is from February 2008 that was a normal sinus rhythm at that time Prior EKG tracings: available for review and not available for review Prior: Changed Discharge Plan Dx/Rx/DC Orders Clinical Impression: Orthopnea, New onset of congestive heart failure, Left bundle branch block Disposition Disposition: Acute Care [facility]
--- NOTE | 2022-11-03 18:00 | RAD_ITS ---
INDICATION: Chest pain, shortness of breath, dry cough EXAMINATION/TECHNIQUE: X-RAY - XR Chest 1 View COMPARISON: None. FINDINGS: LINES/DEVICES: None. LUNGS: No consolidation, edema or effusion. No pneumothorax. MEDIASTINUM AND CARDIOVASCULAR STRUCTURES: Mildly enlarged heart and pulmonary vessels. RAD/Chest 1 View (Portable) IMPRESSION: Findings suggest CHF. Electronically Signed: Jeremias Alexander MD at 18:20 EST ,
[2022-11-03 18:16] LABS: Absolute Lymphocyte Count 2.45 X10^3/uL (0.83-4.51); Absolute Neutrophil Count 5.5 X10^3/uL (2.0-7.7); Basophil# 0.07 X10^3/uL; Basophil% 0.8 % (0-1); Eosinophil# 0.17 X10^3/uL; Eosinophils% 1.9 % (0-5); Hematocrit 40.6 % (37-47); Hemoglobin 12.6 g/dL (12.0-15.0); Lymphocyte # 2.45 X10^3/ul (0.83-4.51); Lymphocyte % 27.8 % (19-41); Mean Corpuscular Hgb 27.3 pg (27.0-32.0); Mean Corpuscular Volume 87.9 fL (81-99); Mean Platelet Vol. 11.7 fl (6.2-12.0); Monocyte# 0.63 X10^3/uL; Monocyte% 7.2 % (0-10); NRBC Flagged by Analyzer 0 % (0-5); Neutrophil # 5.46 X10^3/uL (2.7-7.7); Platelet Count 334 K/mm3 (150-450); RBC Distribution Width CV 13.6 % (11.6-14.6); RBC Distribution Width SD 43.6 fl (35.1-43.9); Red Blood Count 4.62 M/mm3 (4.2-5.4); White Blood Count 8.8 K/mm3 (4.4-11.0)
[2022-11-03 18:30] LABS: Anion Gap 4 (5-15); BUN 16 mg/dL (7-18); BUN/Creat Ratio 18.6 RATIO (10-20); Calcium,Total 8.5 mg/dL (8.5-10.1); Chloride 108 mmol/L (98-107); Creatinine, Serum 0.86 mg/dL (0.55-1.02); EST Glomerular Filtration Rate 71 mL/min (>60); Est Glom Filt Rate - Afr Amer 86 mL/min (>60); Estimated Creatinine Clearance 68.42 ml/min; Glucose 177 mg/dL (74-106); Potassium 3.7 mmol/L (3.5-5.1); Sodium Level 140 mmol/L (136-145); Troponin-I HS 34 pg/mL (3.0-54.0)
--- NOTE | 2022-11-03 19:42 | HP.PCM.HOS_ITS ---
HPI - General General Date of Admission: 11/03/22 Date of Service: 11/03/22 Chief Complaint: Shortness of breath x2 weeks HPI Narrative BRE GONSALEZ, is a 62 F who presents to the emergency room at [facility] with a chief complaint of shortness of breath for the last 2 weeks, she denies any fever, chills, or cough. She states that a couple of weeks ago, her family members who she lives with got influenza-she actually states that her sister's boyfriend was diagnosed definitely with influenza but her sister was not tested, and the patient then became sick with similar symptoms but she was not tested. Patient states that since that time she has been short of breath. Patient denies any chest pain. Work-up in the emergency room revealed her pulse ox on room air to be 96%, when the patient was walked however her pulse ox dropped to 86%. Chest x-ray indicated CHF, CBC was unremarkable, chemistry profile was remarkable for glucose of 177. Patient's beta nitric peptide is pending at the time of this dictation, patient's troponin was unremarkable, her EKG showed a left bundle branch block-this was new as compared with an EKG several years ago. Patient will be admitted for acute CHF with hypoxia to PCU, she will need a work-up including an echocardiogram. Patient's blood pressure is not under good control in the emergency room, I talked to the patient about her blood pressure control as an outpatient and she stated that it was not under good control from her PCP. I suspect her CHF could be due to uncontrolled hypertension. [facility] Medical History Anxiety and depression Bilateral lower extremity edema History of back problems Hx of carpal tunnel syndrome Hx of emotional problems Hx of essential hypertension Hx of multiple sclerosis Hx: UTI (urinary tract infection) Insulin dependent diabetes mellitus Type 2 diabetes mellitus Urinary and bowel incontinence Wears glasses Home Medications acetaminophen 325 mg tablet (Tylenol) 650 mg PO Q6H PRN PRN Pain 07/10/18 [Rx Last Taken 07/07/18] bupropion HCl 300 mg 24 hr tablet, extended release 300 mg PO QAM 06/27/22 [History Last Taken Unknown] metformin 1,000 mg tablet 1,000 mg PO BID 06/27/22 [History Last Taken Unknown] multivitamin 1 tab PO DAILY 06/27/22 [History Last Taken Unknown] pioglitazone 30 mg tablet 30 mg PO DAILY 06/27/22 [History Last Taken Unknown] potassium chloride 20 mEq tablet,extended release 20 meq PO DAILY 06/27/22 [History Last Taken Unknown] valsartan 320 mg tablet 320 mg PO DAILY 06/27/22 [History Last Taken Unknown] flash glucose scanning reader (De NovoStyle Sunshine 2 [place]) #1 ea 07/26/22 [Rx Last Taken Unknown] cholecalciferol (vitamin D3) 125 mcg (5,000 unit) capsule 125 mcg PO DAILY #90 caps 08/16/22 [Rx Last Taken Unknown] oxybutynin chloride 5 mg tablet,extended release 24 hr See Rx Instructions .Route .COMPLEX #90 tabs 10/01/22 [Rx Last Taken Unknown] sertraline 50 mg tablet See Rx Instructions .Route .COMPLEX #90 tabs 10/01/22 [Rx Last Taken Unknown] blood-glucose meter,continuous (Dexcom G6 Business Services Analyst) #1 ea 10/03/22 [Rx Last Taken Unknown] blood-glucose sensor (Dexcom G6 Sensor device) #3 ea 10/03/22 [Rx Last Taken Unknown] blood-glucose transmitter (Dexcom G6 Transmitter device) #1 ea 10/03/22 [Rx Last Taken Unknown] atorvastatin 40 mg tablet 40 mg PO QHS #60 TABLETS 10/25/22 [Rx Last Taken Unknown] flash glucose sensor (FreeStyle Sunshine 2 Sensor kit) #1 ea 10/25/22 [Rx Last Taken Unknown] insulin glargine 100 unit-lixisenatide 33 mcg/mL subcutaneous pen (Soliqua 100/33) 50 unit (0.5 mL) subcut QAM #15 mL 10/25/22 [Rx Last Taken Unknown] levothyroxine 25 mcg tablet 25 mcg PO DAILY #90 tabs 10/25/22 [Rx Last Taken Unknown] metoprolol tartrate 100 mg tablet 100 mg PO BID 1 month #60 tabs 10/25/22 [Rx Last Taken Unknown] Allergy/AdvReac Type Severity Reaction Status Date / Time BEES Allergy Severe Anaphylaxis Uncoded 08/30/22 13:18 Family History Mother Anxiety Depression Blood clot in eye Hypertension Father Lung cancer Brain cancer Spinal cord cancer Cancer Heart disease Grandmother Alcoholism Breast cancer Diabetes Hypertension Sister Diabetes CVA (cerebral vascular accident) Surgical History Hx of adenoidectomy Hx of bilateral cataract extraction Hx of cholecystectomy Hx of hysterectomy Hx of tonsillectomy Social History household members: other details: SISTER housing: other details: Trailer current occupational status: disabled sexually active: No Smoking Status: Never smoker alcohol intake: current alcohol intake frequency: holidays/special occasions only substance use type: does not use what type of physical activity do you participate in: none seatbelt use: always do you feel safe at home: Yes ROS Constitutional Constitutional: Denies anorexia, change in weight, fever(s), night sweats or weakness Eyes Eyes: Reports other Details: Patient has no vision in her right eye, she is able to see shapes from her left eye, she does not know exactly what is caused her blindness, she said it is partly due to diabetes-she states her eye doctor is never told her exactly why she is blind. ; Denies change in vision, discharge from eye(s) or eye pain Cardiovascular Cardiovascular: Reports dyspnea on exertion and paroxysmal nocturnal dyspnea; Denies chest pain, claudication, edema or palpitations Respiratory/Chest Respiratory/Chest: Reports dyspnea, shortness of breath at rest and shortness of breath with exertion; Denies cough, hemoptysis or productive cough Gastrointestinal Gastrointestinal: Denies abdominal pain, constipation, diarrhea, hematemesis, hematochezia, melena, nausea or vomiting Genitourinary Genitourinary: Denies dysuria, hematuria, urinary frequency, urinary hesitancy, urinary incontinence or urinary urgency Musculoskeletal Musculoskeletal: Denies back pain, joint pain, joint stiffness, joint swelling, myalgias or neck pain Neurologic Neurologic: Denies abnormal gait, abnormal speech, dizziness, focal weakness, headache(s), loss of vision, numbness, other visual disturbances, paresthesias, syncope or tingling Psychiatric Psychiatric: Denies anxiety, cognitive impairment, depression, irritability, mood swings or suicidal ideation Endocrine Endocrinology: Denies change in body appearance, cold intolerance, excessive sweating, heat intolerance, polydipsia or polyuria Hematologic/Lymphatic Hematologic/Lymphatic: Denies none, anemia, easy bleeding, easy bruising or lymphadenopathy Allergic/Immunologic Allergic/Immunologic: Denies rhinitis, urticaria, eczemia or asthma Vital Signs Vital Signs Vital Signs: 11/03/22 17:28 11/03/22 17:34 11/03/22 17:49 Temperature 96.8 F L Temperature Source Temporal Pulse Rate 85 Respiratory Rate 20 H Respiratory Effort Short of Breath Respiratory Depth Shallow Respiratory Pattern Normal Blood Pressure 203/110 H Blood Pressure Mean 141 Pulse Ox 95 96 Oxygen Delivery Method Room Air Room Air Room Air 11/03/22 19:38 11/03/22 19:38 Temperature 98 F Temperature Source Temporal Pulse Rate 97 97 Respiratory Rate 28 H 28 H Respiratory Effort Respiratory Depth Respiratory Pattern Blood Pressure 167/147 H 167/147 H Blood Pressure Mean 153 153 Pulse Ox 96 96 Oxygen Delivery Method Weight Weight: 118.6 kg Body Mass Index (BMI) 39.7 Physical Exam Const alert, oriented x3 and no apparent distress Constitutional Narrative: Patient appears older than her stated age, she is morbidly obese General Appearance: cooperative, well kempt and well developed Orientation / Consciousness: awake, oriented to person, oriented to place and oriented to time HEENT normocephalic, head/scalp atraumatic, hearing grossly normal bilaterally and moist oral mucous membranes Eyes PERRL, EOMs intact bilaterally and conjunctivae normal Eyes Narrative: Patient is legally blind Neck supple, no JVD, thyroid normal and no carotid bruits General: trachea midline Resp normal respiratory effort, no retractions and no use of accessory muscles Resp Narrative: There are inspiratory rales noted at the right lung base with decreased breath sounds noted at the right lung base Auscultation: Negative for rhonchi or wheezes Cardio regular rate, regular rhythm, S1 normal heart sound, S2 normal heart sound, no murmurs, no rub, no gallops and no clicks GI normal to inspection, nondistended, normoactive bowel sounds, soft to palpation, non-tender and non-distended Extremity no clubbing, cyanosis or edema Skin no rashes or lesions noted General Skin Exam: no breakdown Neuro oriented x3, CN's II-XII intact bilaterally, no focal motor deficits and no sensory deficits noted Sensorium / Orientation: awake and alert Speech: speech normal Psych affect normal Results Lab / Micro Data Result Diagrams: 11/03/22 17:10 11/03/22 17:10 Labs: Laboratory Results - last 24 hr 11/03/22 17:10: WBC 8.8, RBC 4.62, Hgb 12.6, Hct 40.6, MCV 87.9, MCH 27.3, MCHC 31.0 L, RDW Std Deviation 43.6, RDW Coeff of Fernando 13.6, Plt Count 334, MPV 11.7, Immature Gran % (Auto) 0.300, Neut % (Auto) 62.0, Lymph % (Auto) 27.8, Stone % (Auto) 7.2, Eos % (Auto) 1.9, Baso % (Auto) 0.8, Absolute Neuts (auto) 5.5, Absolute Lymphs (auto) 2.45, Nucleated RBC % 0 11/03/22 17:10: Sodium 140, Potassium 3.7, Chloride 108 H, Carbon Dioxide 28.0, Anion Gap 4 L, BUN 16, Creatinine 0.86, Estim Creat Clear Calc 68.42, Est GFR (MDRD) Af Amer 86, Est GFR (MDRD) Non-Af 71, BUN/Creatinine Ratio 18.6, Glucose 177 H, Calcium 8.5, Troponin I High Sens 34 Rhythm Strip Rhythm Strip: Sinus Rhythm Rate: 77 Ectopy: None Radiology Impression Chest X-Ray 11/03/22 18:00 IMPRESSION: Findings suggest CHF. Electronically Signed: Jeremias Alexander MD at 18:20 EST , Assessment & Plan Assessment/Plan (1) Congestive heart failure: PLAN: Plan 1. New onset congestive heart failure-type unknown at this time, I think his heart failure could be related to uncontrolled hypertension, patient will be admitted to PCU, she will be monitored on telemetry, she will need an echocardiogram performed, I will place her on IV Lasix and adjust her blood pressure medications if needed. #2 hypoxia secondary to #1-this is only on exertion at this time, pulse ox will be monitored #3 type 2 diabetes-I suspect this type 2 diabetes is under poor control, patient's last hemoglobin A1c in June of last year was 10.6, blood sugars will be monitored, sliding scale insulin will be used #4 essential hypertension-patient's blood pressure medications will probably need adjusted during her hospitalization #5 chronic depression-patient is on Zoloft, she will remain on this medication #6 hypothyroidism-patient is on Synthroid #7 chronic blindness-in part probably due to uncontrolled type 2 diabetes, patient also states that she was wearing glasses since she was 18 months old. Complicates care, recovery, management, and prognosis #8 morbid obesity-complicates care, recovery, management, and prognosis Total clinical time spent by myself addressing the patient's medical issues, reviewing the medical data, and collaborating with patient's care team: 75- minutes Charges/Coding Visit Charges Inpatient E&M: 73906 Init Hosp L3
[2022-11-03 20:00] LABS: BNP,B-Type NATRIURETIC PEPTIDE 259.7 pg/mL (0-100)
--- NOTE | 2022-11-03 20:12 | ECHOCS_ITS ---
Reason For Study: CHF Procedure This was a 2D Doppler, Color Flow transthoracic echocardiogram. The study was technically difficult. Contrast injection was performed. Exam performed portable in patient room. Left Ventricle Normal LV size. Left ventricular systolic function is normal. The estimated ejection fraction is 55 %. Stage 1 diastolic dysfunction. Segmental dysfunction with preserved ejection fraction (see wall motion). Infero-Basal: Hypokinetic. Basal inferoseptal: Hypokinetic. Mid-Posterior: Hypokinetic. Right Ventricle Normal RV size. Normal systolic function. Atria Normal left atrium. Normal right atrium. Mitral Valve Normal mitral valve. Mild-Moderate (1-2+) eccentric mitral valve insufficiency. Tricuspid Valve Normal tricuspid valve. Aortic Valve Normal aortic valve. Pulmonic Valve Normal pulmonic valve. Great Vessels Normal aortic root. The pulmonary artery is normal size. Normal inferior vena cava. Pericardium/Pleural No pericardial effusion. Medication Diluted definity 1ml given slow IV push to enhance endocardial definition. MMode/2D Measurements & Calculations LVIDd: 5.0 cm IVSd: 2.0 cm Ao root diam: 3.2 cm LVIDs: 3.7 cm LVPWd: 1.4 cm RVDd: 4.1 cm FS: 25.6 % LAV(MOD-bp): 60.8 ml LVAd ap4: 43.3 cm2 SV(MOD-sp4): 91.4 ml LAV(MOD-bp) Indexed: 26.6 ml/m2 LVLd ap4: 9.4 cm LAV(MOD-sp2): 67.3 ml EDV(MOD-sp4): 162.1 ml LAV(MOD-sp4): 47.2 ml EDV(sp4-el): 169.2 ml LVAs ap4: 25.8 cm2 LVLs ap4: 7.7 cm ESV(MOD-sp4): 70.7 ml ESV(sp4-el): 73.8 ml EF(MOD-sp4): 56.4 % EF(sp4-el): 56.4 % SV(sp4-el): 95.4 ml LA A4 area: 17.2 cm2 LA dimension(2D): 4.2 cm RA A4 area: 13.0 cm2 Time Measurements MV dec time: 0.22 sec Doppler Measurements & Calculations MV E max robin: 109.5 cm/sec Lat Peak E' Robin: 6.4 cm/sec Med Peak E' Robin: 6.0 cm/sec MV A max robin: 113.7 cm/sec E/E' lat: 17.1 E/E' med: 18.4 MV E/A: 0.96 MV V2 max: 116.1 cm/sec MV dec slope: 495.0 cm/sec2 Ao V2 max: 162.0 cm/sec MV max P.4 mmHg Ao max P.5 mmHg MV V2 mean: 83.8 cm/sec Ao V2 mean: 113.2 cm/sec MV mean P.0 mmHg Ao mean P.9 mmHg MV V2 VTI: 40.0 cm Ao V2 VTI: 37.8 cm AV (velocity ratio): 0.78 LV V1 max: 131.3 cm/sec MR max robin: 564.2 cm/sec PA V2 max: 110.4 cm/sec LV V1 max P.9 mmHg MR max P.3 mmHg PA V2 mean: 72.7 cm/sec LV V1 mean P.3 mmHg MR mean robin: 420.8 cm/sec LV V1 mean: 99.0 cm/sec MR mean P.9 mmHg LV V1 VTI: 29.6 cm MR VTI: 222.1 cm TR max robin: 226.6 cm/sec TR max P.5 mmHg ECHO/Echo Complete W/ Contrast Interpretation Summary Normal LV size. Left ventricular systolic function is normal. The estimated ejection fraction is 55 %. Stage 1 diastolic dysfunction. Segmental dysfunction with preserved ejection fraction (see wall motion). Ordering Physician: Iker Hinojosa Referring Physician: Flaquito White Performed By: Anh Kirby RCS
[2022-11-03] MEDS: Heparin Injection (Vial) 5,000 UNIT/ML VIAL 5000 UNIT SC (21:24)
[2022-11-03] MEDS: Furosemide 20 MG/2 ML VIAL IV (21:24)
[2022-11-03] MEDS: 0.9% Saline Lock 10 ML Syringe IV (21:24)
[2022-11-03] MEDS: Insulin Glargine-YFGN 100 UNIT/ML Pen 25 UNIT SC (21:26)
[2022-11-03] MEDS: Metoprolol Tartrate 100 MG Tablet PO (21:27)
[2022-11-03] MEDS: Atorvastatin Calcium 40 MG Tablet PO (21:27)
[2022-11-03 22:18] LABS: Free T3 2.2 pg/mL (2.18-3.98)
[2022-11-03 23:26] LABS: Bedside Glucose 188 mg/dL (74-106)
[2022-11-04] VITALS (7 sets, daily range): BP systolic 139–169; BP diastolic 67–95; PULSE 62–71; RESP 16–18; TEMP 36.6–37.1; O2SAT 94–100
[2022-11-04] MEDS: Acetaminophen 325 MG Tablet 650 MG PO (03:49)
[2022-11-04] MEDS: Furosemide 20 MG/2 ML VIAL IV ×3 (05:58→21:05)
[2022-11-04] MEDS: Levothyroxine 25 MCG TABLET PO (05:58)
[2022-11-04] MEDS: 0.9% Saline Lock 10 ML Syringe IV (05:58)
[2022-11-04 06:50] LABS: Bedside Glucose 124 mg/dL (74-106)
[2022-11-04 07:47] LABS: Hemoglobin A1c 6.1 % (3.8-5.6)
[2022-11-04 07:48] LABS: Anion Gap 4 (5-15); BUN 14 mg/dL (7-18); BUN/Creat Ratio 16.2 RATIO (10-20); Calcium,Total 8.6 mg/dL (8.5-10.1); Chloride 107 mmol/L (98-107); Creatinine, Serum 0.86 mg/dL (0.55-1.02); EST Glomerular Filtration Rate 71 mL/min (>60); Est Glom Filt Rate - Afr Amer 86 mL/min (>60); Estimated Creatinine Clearance 65.96 ml/min; Glucose 130 mg/dL (74-106); Potassium 3.4 mmol/L (3.5-5.1); Sodium Level 142 mmol/L (136-145)
[2022-11-04] MEDS: Potassium Chloride Oral Tablet 20 MEQ PO (08:48)
[2022-11-04] MEDS: Pioglitazone Hydrochloride 30 MG Tablet PO (08:49)
[2022-11-04] MEDS: Sertraline 50 MG Tablet PO (08:49)
[2022-11-04] MEDS: buPROPion (XL) 300 MG TABLET.XL PO (08:49)
[2022-11-04] MEDS: Tolterodine Tartrate 2 MG CAP.SA PO (08:49)
[2022-11-04] MEDS: Metoprolol Tartrate 100 MG Tablet PO ×2 (08:49→21:04)
[2022-11-04] MEDS: Losartan Potassium 100 MG Tablet PO (08:49)
[2022-11-04] MEDS: metFORMIN HCl 1,000 MG Tablet 1000 MG PO ×2 (08:50→16:25)
[2022-11-04] MEDS: Heparin Injection (Vial) 5,000 UNIT/ML VIAL 5000 UNIT SC ×2 (08:50→21:04)
[2022-11-04] MEDS: Spironolactone 50 MG Tablet PO (08:50)
--- NOTE | 2022-11-04 09:26 | PN.HOSP_ITS ---
Subjective Subjective Breathing well. Does have ALFREDO, but does not use a CPAP because the mask bothers her. Objective Data Objective Data Vital Signs: Vital Signs Temp Pulse Resp BP Pulse Ox O2 Del Method 36.7 C 65 18 169/74 H 96 Room Air 11/04/22 05:56 11/04/22 08:49 11/04/22 05:56 11/04/22 08:49 11/04/22 05:56 11/04/22 06:48 Oxygen Delivery Method Room Air Weight: 112.1 kg Body Mass Index (BMI) 38.7 Intake & Output: Intake and Output for Last 24 Hours 11/02/22 11/03/22 11/04/22 23:59 23:59 23:59 Intake Total 125 / 125 120 / 120 Output Total 275 / 275 250 / 250 Balance -150 / -150 -130 / -130 Lab / Micro Data Result Diagrams: 11/03/22 17:10 11/04/22 06:45 Labs: Laboratory Results - last 24 hr 11/03/22 17:10: WBC 8.8, RBC 4.62, Hgb 12.6, Hct 40.6, MCV 87.9, MCH 27.3, MCHC 31.0 L, RDW Std Deviation 43.6, RDW Coeff of Fernando 13.6, Plt Count 334, MPV 11.7, Immature Gran % (Auto) 0.300, Neut % (Auto) 62.0, Lymph % (Auto) 27.8, Mccone % (Auto) 7.2, Eos % (Auto) 1.9, Baso % (Auto) 0.8, Absolute Neuts (auto) 5.5, Absolute Lymphs (auto) 2.45, Nucleated RBC % 0 11/03/22 17:10: Sodium 140, Potassium 3.7, Chloride 108 H, Carbon Dioxide 28.0, Anion Gap 4 L, BUN 16, Creatinine 0.86, Estim Creat Clear Calc 68.42, Est GFR (MDRD) Af Amer 86, Est GFR (MDRD) Non-Af 71, BUN/Creatinine Ratio 18.6, Glucose 177 H, Calcium 8.5, Troponin I High Sens 34 11/03/22 17:10: B-Natriuretic Peptide 259.7 H 11/03/22 17:10: Thyroxine (T4) 8.0, Free T3 pg/dL 2.2 11/03/22 21:22: POC Glucose 188 H 11/04/22 06:20: POC Glucose 124 H 11/04/22 06:45: Hemoglobin A1c 6.1 H 11/04/22 06:45: Sodium 142, Potassium 3.4 L, Chloride 107, Carbon Dioxide 31.0, Anion Gap 4 L, BUN 14, Creatinine 0.86, Estim Creat Clear Calc 65.96, Est GFR (MDRD) Af Amer 86, Est GFR (MDRD) Non-Af 71, BUN/Creatinine Ratio 16.2, Glucose 130 H, Calcium 8.6, TSH 1.10 Radiography Diagnostic Testing: Radiology Impression Chest X-Ray 11/03/22 18:00 IMPRESSION: Findings suggest CHF. Electronically Signed: Jeremias Alexander MD at 18:20 EST , Rhythm Strip Rhythm Strip: Sinus Rhythm Rate: 77 Ectopy: None Physical Exam Const alert and no apparent distress Resp normal respiratory effort, no retractions, no use of accessory muscles and clear to auscultation bilaterally Cardio regular rate, regular rhythm, S1 normal heart sound and S2 normal heart sound GI normal to inspection, nondistended, normoactive bowel sounds Assessment & Plan Assessment/Plan (1) Congestive heart failure: QUALIFIERS: Heart failure chronicity: acute Heart failure type: unspecified Qualified Code(s): I50.9 - Heart failure, unspecified PLAN: New onset Unclear type Furosemide Echo (2) Hypoxia: PLAN: Resolved Noted her pulse ox dropped to 86% w ambulation Wean Oxygen as able Check home oxygen eval prior to DC ABG 7.45 pCO2 39, therefore, will no qualify for Bilevel on discharge (though it is unlikely she would even tolerate it given her prior experience of intolerance with CPAP. (3) Hypokalemia: PLAN: replace monitor PLAN: Plan Chronic conditions: * type 2 diabetes-fair control, patient's last hemoglobin A1c in June of last year was 10.6, blood sugars will be monitored, sliding scale insulin will be used. On glarine 25 BID here (50 QAM at home). Pioglitozone * essential hypertension-patient's blood pressure medications will probably need adjusted during her hospitalization * chronic depression-patient is on Zoloft, she will remain on this medication * hypothyroidism-patient is on Synthroid * chronic blindness-in part probably due to uncontrolled type 2 diabetes, patient also states that she was wearing glasses since she was 18 months old. Complicates care, recovery, management, and prognosis * morbid obesity-complicates care, recovery, management, and prognosis. * ALFREDO: not on CPAP VTE prophylaxis: SQ heparin Disposition: pending echo. Hopefully home the . Charges/Coding Visit Charges Inpatient E&M: 04312 Subs Hosp L2
[2022-11-04 11:35] LABS: Base Excess 3 mmol/L (-2 to +2); Bicarbonate 27.2 mmol/L (22-26); Blood Gas Specimen Type ART; PO2 87 mmHG (75-100); SITE R Radial; SO2 97 % (95-99); Total Carbon Dioxide 28 mmol/L; pH 7.45 (7.35-7.45)
[2022-11-04] MEDS: Insulin Lispro 100 UNIT/ML INSULN.PEN SC ×2 (11:38→16:25)
[2022-11-04] MEDS: Insulin Glargine-YFGN 100 UNIT/ML Pen 25 UNIT SC ×2 (11:38→21:04)
[2022-11-04 12:05] LABS: Bedside Glucose 150 mg/dL (74-106)
[2022-11-04] MEDS: Potassium Chloride Oral Tablet 20 MEQ 40 MEQ PO (15:36)
[2022-11-04 16:50] LABS: Bedside Glucose 193 mg/dL (74-106)
[2022-11-04] MEDS: Atorvastatin Calcium 40 MG Tablet PO (21:04)
[2022-11-04 21:25] LABS: Bedside Glucose 149 mg/dL (74-106)
[2022-11-04] MEDS: MELATONIN 3 MG TABLET 6 MG PO (22:07)
[2022-11-05 03:15] VITALS: BP 150/77; PULSE 58; RESP 16; TEMP 36.7; O2SAT 94
[2022-11-05 06:14] LABS: Anion Gap 5 (5-15); BUN 22 mg/dL (7-18); Calcium,Total 8.6 mg/dL (8.5-10.1); Chloride 105 mmol/L (98-107); Creatinine, Serum 1.05 mg/dL (0.55-1.02); EST Glomerular Filtration Rate 56 mL/min (>60); Est Glom Filt Rate - Afr Amer 68 mL/min (>60); Estimated Creatinine Clearance 54.02 ml/min; Glucose 83 mg/dL (74-106); Potassium 3.9 mmol/L (3.5-5.1); Sodium Level 141 mmol/L (136-145)
[2022-11-05] MEDS: Furosemide 20 MG/2 ML VIAL IV (06:24)
[2022-11-05] MEDS: Levothyroxine 25 MCG TABLET PO (06:25)
[2022-11-05 06:45] LABS: Bedside Glucose 95 mg/dL (74-106)
[2022-11-05 07:33] VITALS: O2SAT 94
[2022-11-05 08:45] VITALS: BP 154/65; PULSE 64; RESP 17; TEMP 36.6; O2SAT 97
[2022-11-05 08:49] VITALS: PULSE 64
[2022-11-05] MEDS: Spironolactone 50 MG Tablet PO (08:49)
[2022-11-05] MEDS: Metoprolol Tartrate 100 MG Tablet PO (08:49)
[2022-11-05] MEDS: Potassium Chloride Oral Tablet 20 MEQ PO (08:49)
[2022-11-05] MEDS: Tolterodine Tartrate 2 MG CAP.SA PO (08:50)
[2022-11-05] MEDS: metFORMIN HCl 1,000 MG Tablet 1000 MG PO (08:50)
[2022-11-05] MEDS: buPROPion (XL) 300 MG TABLET.XL PO (08:50)
[2022-11-05] MEDS: Losartan Potassium 100 MG Tablet PO (08:50)
[2022-11-05] MEDS: Sertraline 50 MG Tablet PO (08:50)
[2022-11-05] MEDS: Pioglitazone Hydrochloride 30 MG Tablet PO (08:50)
[2022-11-05] MEDS: Heparin Injection (Vial) 5,000 UNIT/ML VIAL 5000 UNIT SC (08:51)
[2022-11-05] MEDS: Insulin Glargine-YFGN 100 UNIT/ML Pen 25 UNIT SC (08:53)
--- NOTE | 2022-11-05 10:20 | CASEMGMT ---
RUDY received a phone call from Alvin with [facility]. She is patient's disease case manager. Patient gets home delivered meals 14 every other week. She also goes to [facility] [facility] 5 days a week. RUDY will notify Alvin when patient is discharged and RUDY will send her d/c instructions. Shaneka CURTIS
--- NOTE | 2022-11-05 10:44 | DCINST_ITS ---
Discharge Instructions Diet Discharge Diet: Low fat / Low cholesterol, 1800 Calorie Control Diet and 2000 mg Sodium Diet Activity Discharge Activity: Return to Normal Activity Weight Bearing Status: Weight bearing as tolerated Dressing / Incision Call your doctor if you observe: Fever of 101 or Higher, Coldness, Increased Pain, Numbness or Tingling, Change in Color, Inability to urinate, Inability to have a bowel movement, Using more than 1 pad per hour, Shortness of breath, Dizziness, Fainting spells, Swelling in the ankles, Chest pain, Prolonged hiccupping, Increased palpitations (irregular heartbeat) and Calf discomfort Follow Up Care When: IN 2 WEEKS Test Results: Test results from this visit will be discussed in further detail at your follow- up appointment, if applicable. Discharge Plan Admission Admit Date/Time: 11/03/22 19:54 Primary Reason for Your Visit: Heart failure exacerbation Attending Provider: Armond Marie Primary Care Provider: Flaquito White Consulting Providers: Iker Hinojosa ; Carlos Eduardo Grayson Discharge Orders/Prescriptions Prescriptions: New spironolactone 50 mg Tablet 50 mg PO DAILYCM Qty: 30 1RF furosemide [Lasix] 40 mg tablet 40 mg PO BID Qty: 60 1RF Continued valsartan 320 mg tablet 320 mg PO DAILY bupropion HCl 300 mg tablet extended release 24 hr 300 mg PO QAM pioglitazone 30 mg tablet 30 mg PO DAILY multivitamin Tablet 1 tab PO DAILY potassium chloride 20 mEq tablet extended release 20 meq PO DAILY metformin 1,000 mg tablet 1,000 mg PO BID cholecalciferol (vitamin D3) 125 mcg (5,000 unit) capsule 125 mcg PO DAILY Qty: 90 1RF acetaminophen [Tylenol] 325 MG tablet 650 mg PO Q6H PRN PRN (Reason: Pain) 0RF (DME) FreeStyle Sunshine 2 [place] Misc See Rx Instructions .Route Qty: 1 3RF Rx Instructions: As directed oxybutynin chloride 5 mg tablet extended release 24hr See Rx Instructions .ROUTE .COMPLEX Qty: 90 3RF Dose Instruction: TAKE 1 TABLET BY MOUTH DAILY Rx Instructions: TAKE 1 TABLET BY MOUTH DAILY sertraline 50 mg tablet See Rx Instructions .ROUTE .COMPLEX Qty: 90 3RF Dose Instruction: TAKE 1 TABLET BY MOUTH DAILY Rx Instructions: TAKE 1 TABLET BY MOUTH DAILY (DME) Dexcom G6 Linking Machine Operator Misc See Rx Instructions .Route Qty: 1 3RF Rx Instructions: As directed (DME) Dexcom G6 Sensor Device See Rx Instructions .Route Qty: 3 3RF Rx Instructions: As directed (DME) Dexcom G6 Transmitter Device See Rx Instructions .Route Qty: 1 3RF Rx Instructions: As directed atorvastatin 40 mg tablet 40 mg PO QHS Qty: 60 0RF (DME) FreeStyle Sunshine 2 Sensor Kit See Rx Instructions .Route Qty: 1 3RF Rx Instructions: As directed Soliqua 100/33 100 unit-33 mcg/mL insulin pen 50 unit subcut QAM Qty: 15 1RF levothyroxine 25 mcg tablet 25 mcg PO DAILY Qty: 90 1RF metoprolol tartrate 100 mg tablet 100 mg PO BID 30 Days Qty: 60 2RF Referrals / Follow Up: Anuel Marinelli MD [Med Staff - Active Staff] - Within 2 Weeks Ortiz Beard MD [Med Staff - Active Staff] - Within 2 Weeks Flaquito White MD [Primary Care Provider] - Disposition Disposition (needs filled in before D/C Order can be placed): Home, Self Care
--- NOTE | 2022-11-05 11:00 | CASEMGMT ---
RN CM DUST COLLECTOR OPERATOR CM to room to meet with patient for initial transition planning/care coordination assessment. RN JAYE introduced self and role at [facility]. Pt voices understanding and consents to assessment at this time. Pt resting in bed in no distress at this time. Pt is A/O at this time and answers all questions appropriately. Care providers, pharmacy, and demographics verified/updated at this time. PCP: Dr White Specialists: Dr Melchor-neurology Preferred Pharmacy: [place] [facility] Insurance: [facility] Dual Prescription Benefit: Yes LNOK: 2 children. Dtr, Fernanda Living Arrangements: Lives w/her sister and sister's boyfriend, Kalen, in one-story home w/3 steps to enter. Pt is legally blind. Pt states she goes to [facility]. They assist her w/ADL's there and w/her medications. On the weekends, she sponge-bath's and her family assist w/meals and medications, as needed. Pt states she does her own laundry. Pt has CMAlvin, through [facility] and received home delivered meals. Transportation: [employer] DME: [facility] has the following DME: Sunshine glucometer system, rollator, pulse ox HHC/SNF: No hx of either. Pt wishes to return home and [facility] concerns with going home at time of discharge. CM to follow for any discharge planning/needs. Pt voices no further concerns/needs at this time. Advised pt to ask for CM if any further questions/concerns/needs arise. Voices understanding. PLAN: Home w/family support and discharge plans in place and Pt Link referral. Tejinder PUENTE RN, CM
[2022-11-05] MEDS: Insulin Lispro 100 UNIT/ML INSULN.PEN SC (11:51)
[2022-11-05 12:10] LABS: Bedside Glucose 168 mg/dL (74-106)
--- NOTE | 2022-11-05 12:29 | PCM.DC.SUM ---
Providers Date of Admission: 11/03/22 Date of Discharge: 11/05/22 Primary Care Physician: Dr. Flaquito White MD Reason For Visit: ACUTE CONGESTIVE HEART FAILURE, UNCONTROLLED HYPER Diagnosis Discharge Diagnosis (1) Congestive heart failure: Status: Acute Code(s): I50.9 - Heart failure, unspecified Qualifiers: Heart failure chronicity: acute Heart failure type: unspecified Qualified Code(s): I50.9 - Heart failure, unspecified (2) Hypoxia: Status: Acute Code(s): R09.02 - Hypoxemia (3) Hypokalemia: Status: Acute Code(s): E87.6 - Hypokalemia Medications at Discharge Home Medications acetaminophen 325 mg tablet (Tylenol) 650 mg PO Q6H PRN PRN Pain 07/10/18 bupropion HCl 300 mg 24 hr tablet, extended release 300 mg PO QAM 06/27/22 metformin 1,000 mg tablet 1,000 mg PO BID 06/27/22 multivitamin 1 tab PO DAILY 06/27/22 pioglitazone 30 mg tablet 30 mg PO DAILY 06/27/22 potassium chloride 20 mEq tablet,extended release 20 meq PO DAILY 06/27/22 valsartan 320 mg tablet 320 mg PO DAILY 06/27/22 flash glucose scanning reader ([employer]ion Windows[employer] Sunshine 2 [place]) #1 ea 07/26/22 cholecalciferol (vitamin D3) 125 mcg (5,000 unit) capsule 125 mcg PO DAILY #90 caps 08/16/22 oxybutynin chloride 5 mg tablet,extended release 24 hr See Rx Instructions .Route .COMPLEX #90 tabs 10/01/22 sertraline 50 mg tablet See Rx Instructions .Route .COMPLEX #90 tabs 10/01/22 blood-glucose meter,continuous (Dexcom G6 Legal Operations Manager) #1 ea 10/03/22 blood-glucose sensor (Dexcom G6 Sensor device) #3 ea 10/03/22 blood-glucose transmitter (Dexcom G6 Transmitter device) #1 ea 10/03/22 atorvastatin 40 mg tablet 40 mg PO QHS #60 TABLETS 10/25/22 flash glucose sensor ([employer] WindowsStyle Sunshine 2 Sensor kit) #1 ea 10/25/22 insulin glargine 100 unit-lixisenatide 33 mcg/mL subcutaneous pen (Soliqua 100/33) 50 unit (0.5 mL) subcut QAM #15 mL 10/25/22 levothyroxine 25 mcg tablet 25 mcg PO DAILY #90 tabs 10/25/22 metoprolol tartrate 100 mg tablet 100 mg PO BID 1 month #60 tabs 10/25/22 furosemide 40 mg tablet (Lasix) 40 mg PO BID #60 tabs 11/05/22 spironolactone 50 mg tablet 50 mg PO DAILYCM #30 tabs 11/05/22 Hospital Course Summary of Care Provided Hospital Course: The patient was admitted with a diagnosis of new onset acute heart failure: 1. New onset acute heart failure, type and class unclear: Admitted in PCU. Patient had mild hypoxia on ABG 7.45/PCO2 39. Patient is discharged on furosemide, spironolactone , Metoprolol and losartan along with heart failure core 2D echo was done and reviewed. EF 55%. Interpretation Summary Normal LV size. Left ventricular systolic function is normal. The estimated ejection fraction is 55 %. Stage 1 diastolic dysfunction. Segmental dysfunction with preserved ejection fraction (see wall motion). ? 2. Hypokalemia: Replaced and resolved. Patient discharged on spironolactone therefore oral potassium supplement discontinued. 3. Multiple other chronic conditions: type 2 diabetes melitis: Patient has fair control. Last hemoglobin A1c in June of last year was 10.6, on Accu-Chek before meals and at bedtime and covered with sliding scale insulin. On glarine 25 BID here (50 QAM at home). Pioglitozone and metformin. Essential hypertension-BP is controlled. On valsartan at home continued. chronic depression-patient is on Zoloft, continued hypothyroidism-patient is on Synthroid chronic blindness-in part probably due to uncontrolled type 2 diabetes, patient also states that she was wearing glasses since she was 18 months old.? Complicates care, recovery, management, and prognosis morbid obesity-complicates care, recovery, management, and prognosis. ALFREDO: not on CPAP. Advised follow-up with pulmonary clinic. VTE prophylaxis: SQ heparin Discharge medication reconciliation done. Discharge follow-up instructions completed. Discharge process discussed with the patient and all questions were answered to patient's satisfaction. Total time spent, exact 35 minutes on discharge meds reconciliation, examination, coordination of care with nurses and ancillary staff, review of imaging and blood test and discussion with the patient on follow-up instructions. Weight / BMI Weight Weight: 247 lb 2.211 oz Body Mass Index (BMI) 38.7 ABG / Lab / Microbiology Data Result Diagrams: 11/03/22 17:10 11/05/22 05:07 Laboratory: Laboratory Results - last 24 hr 11/04/22 16:24: POC Glucose 193 H 11/04/22 21:02: POC Glucose 149 H 11/05/22 05:07: Sodium 141, Potassium 3.9, Chloride 105, Carbon Dioxide 31.0, Anion Gap 5, BUN 22 H, Creatinine 1.05 H, Estim Creat Clear Calc 54.02, Est GFR (MDRD) Af Amer 68, Est GFR (MDRD) Non-Af 56 L, BUN/Creatinine Ratio 21.0 H, Glucose 83, Calcium 8.6 11/05/22 06:23: POC Glucose 95 11/05/22 11:49: POC Glucose 168 H D/C Instructions Discharge Diet: Low fat / Low cholesterol, 1800 Calorie Control Diet and 2000 mg Sodium Diet Weight Bearing Status: Weight bearing as tolerated Call your doctor if you observe: Fever of 101 or Higher, Coldness, Increased Pain, Numbness or Tingling, Change in Color, Inability to urinate, Inability to have a bowel movement, Using more than 1 pad per hour, Shortness of breath, Dizziness, Fainting spells, Swelling in the ankles, Chest pain, Prolonged hiccupping, Increased palpitations (irregular heartbeat) and Calf discomfort When: IN 2 WEEKS Meaningful Use Info Meaningful Use Diagnoses (Choose all that apply): CHF CHF SNEHA/ARB ordered at discharge?: Yes Documented LVEF (%): 55 Discharge Plan Admission Admit Date/Time: 11/03/22 19:54 Primary Reason for Your Visit: Heart failure exacerbation Attending Provider: Armond Marie Primary Care Provider: Flaquito White Consulting Providers: Iker Hinojosa ; Carlos Eduardo Grayson Discharge Orders/Prescriptions Prescriptions: New spironolactone 50 mg Tablet 50 mg PO DAILYCM Qty: 30 1RF furosemide [Lasix] 40 mg tablet 40 mg PO BID Qty: 60 1RF Continued valsartan 320 mg tablet 320 mg PO DAILY bupropion HCl 300 mg tablet extended release 24 hr 300 mg PO QAM pioglitazone 30 mg tablet 30 mg PO DAILY multivitamin Tablet 1 tab PO DAILY potassium chloride 20 mEq tablet extended release 20 meq PO DAILY metformin 1,000 mg tablet 1,000 mg PO BID cholecalciferol (vitamin D3) 125 mcg (5,000 unit) capsule 125 mcg PO DAILY Qty: 90 1RF acetaminophen [Tylenol] 325 MG tablet 650 mg PO Q6H PRN PRN (Reason: Pain) 0RF (DME) FreeStyle Sunshine 2 [place] Misc See Rx Instructions .Route Qty: 1 3RF Rx Instructions: As directed oxybutynin chloride 5 mg tablet extended release 24hr See Rx Instructions .ROUTE .COMPLEX Qty: 90 3RF Dose Instruction: TAKE 1 TABLET BY MOUTH DAILY Rx Instructions: TAKE 1 TABLET BY MOUTH DAILY sertraline 50 mg tablet See Rx Instructions .ROUTE .COMPLEX Qty: 90 3RF Dose Instruction: TAKE 1 TABLET BY MOUTH DAILY Rx Instructions: TAKE 1 TABLET BY MOUTH DAILY (DME) Dexcom G6 Legal Operations Manager Misc See Rx Instructions .Route Qty: 1 3RF Rx Instructions: As directed (DME) Dexcom G6 Sensor Device See Rx Instructions .Route Qty: 3 3RF Rx Instructions: As directed (DME) Dexcom G6 Transmitter Device See Rx Instructions .Route Qty: 1 3RF Rx Instructions: As directed atorvastatin 40 mg tablet 40 mg PO QHS Qty: 60 0RF (DME) FreeStyle Sunshine 2 Sensor Kit See Rx Instructions .Route Qty: 1 3RF Rx Instructions: As directed Soliqua 100/33 100 unit-33 mcg/mL insulin pen 50 unit subcut QAM Qty: 15 1RF levothyroxine 25 mcg tablet 25 mcg PO DAILY Qty: 90 1RF metoprolol tartrate 100 mg tablet 100 mg PO BID 30 Days Qty: 60 2RF Referrals / Follow Up: Anuel Marinelli MD [Med Staff - Active Staff] - Within 2 Weeks Ortiz Beard MD [Med Staff - Active Staff] - Within 2 Weeks Amado Serrano DO [Med Staff - Active Staff] - Within 1 Month (For PFT and sleep studies. Patient has ALFREDO) Flaquito White MD [Primary Care Provider] - Disposition Disposition (needs filled in before D/C Order can be placed): Home, Self Care Charges/Coding Visit Charges Inpatient E&M: 62993 Disch Hosp >30min
--- NOTE | 2022-11-05 13:33 | CASEMGMT ---
RUDY faxed patient's d/c instructions to Alvin at [facility]. Shaneka Gomez TRACK ANNOUNCER KIRSTEN
--- NOTE | 2022-11-05 14:55 | PHA.DC.MC ---
Pharmacy Service has performed discharge medication reconciliation and counseling for this patient. The patient was counseled on the following discharge medications and changes in medications for homegoing were reviewed. 1. LASIX 2. SPIRONOLACTONE The Reason for Use, instructions for use, and potential side effects were reviewed for all new medications. The patient's questions regarding all of their medications were answered. The patient was able to verbally demonstrate an understanding of their discharge medications. Home Medications acetaminophen 325 mg tablet (Tylenol) 650 mg PO Q6H PRN PRN Pain 07/10/18 bupropion HCl 300 mg 24 hr tablet, extended release 300 mg PO QAM 06/27/22 metformin 1,000 mg tablet 1,000 mg PO BID 06/27/22 multivitamin 1 tab PO DAILY 06/27/22 pioglitazone 30 mg tablet 30 mg PO DAILY 06/27/22 potassium chloride 20 mEq tablet,extended release 20 meq PO DAILY 06/27/22 valsartan 320 mg tablet 320 mg PO DAILY 06/27/22 flash glucose scanning reader (H[employer]D WirelessStyle Sunshine 2 [place]) #1 ea 07/26/22 cholecalciferol (vitamin D3) 125 mcg (5,000 unit) capsule 125 mcg PO DAILY #90 caps 08/16/22 oxybutynin chloride 5 mg tablet,extended release 24 hr See Rx Instructions .Route .COMPLEX #90 tabs 10/01/22 sertraline 50 mg tablet See Rx Instructions .Route .COMPLEX #90 tabs 10/01/22 blood-glucose meter,continuous (Dexcom G6 Doctor Of Naturopathic Medicine) #1 ea 10/03/22 blood-glucose sensor (Dexcom G6 Sensor device) #3 ea 10/03/22 blood-glucose transmitter (Dexcom G6 Transmitter device) #1 ea 10/03/22 atorvastatin 40 mg tablet 40 mg PO QHS #60 TABLETS 10/25/22 flash glucose sensor (FreeStyle Sunshine 2 Sensor kit) #1 ea 10/25/22 insulin glargine 100 unit-lixisenatide 33 mcg/mL subcutaneous pen (Soliqua 100/33) 50 unit (0.5 mL) subcut QAM #15 mL 10/25/22 levothyroxine 25 mcg tablet 25 mcg PO DAILY #90 tabs 10/25/22 metoprolol tartrate 100 mg tablet 100 mg PO BID 1 month #60 tabs 10/25/22 furosemide 40 mg tablet (Lasix) 40 mg PO BID #60 tabs 11/05/22 spironolactone 50 mg tablet 50 mg PO DAILYCM #30 tabs 11/05/22 The patient's discharge medication list was reviewed for discrepancies and discrepancies were resolved.
[2022-11-05 15:00] VITALS: BP 149/62; PULSE 61; RESP 17; TEMP 36.7; O2SAT 97
== END 2022-11-05 15:29 | disposition home or self-care (01) | DRG 291 ==
LOC: ED 19:29 → PCU 19:45
PROVIDERS: Admitting Provider Internal Medicine; Emergency Provider Emergency Medicine; PCP Internal Medicine; Visit Provider Internal Medicine
DX: I11.0 Hypertensive heart disease with heart failure (principal); I50.31 Acute diastolic (congestive) heart failure; E03.9 Hypothyroidism, unspecified; E11.65 Type 2 diabetes mellitus with hyperglycemia; Z79.4 Long term (current) use of insulin; E66.01 Morbid (severe) obesity due to excess calories; E87.6 Hypokalemia; G47.33 Obstructive sleep apnea (adult) (pediatric); H54.7 Unspecified visual loss; R09.02 Hypoxemia; Z68.39 Body mass index [BMI] 39.0-39.9, adult; F32.A Depression, unspecified; Z79.82 Long term (current) use of aspirin; Z79.890 Hormone replacement therapy; Z79.899 Other long term (current) drug therapy
CPT/HCPCS: 36415; 36600; 71045; 80048; 82803; 82962; 83036; 83880; 84436; 84443; 84481; 84484; 85025; 93005; 93306; 97802; 99285; Q9957; A4216; C8929; J1940

== ENCOUNTER → 2022-11-09 | Outpatient (CLI) | payer MEDICARE, MEDICAID, SELFPAY ==
[2022-11-09 12:23] LABS: Anion Gap 9 (5-15); BUN 26 mg/dL (7-18); BUN/Creat Ratio 19.1 RATIO (10-20); Calcium,Total 9.1 mg/dL (8.5-10.1); Chloride 102 mmol/L (98-107); Creatinine, Serum 1.36 mg/dL (0.55-1.02); EST Glomerular Filtration Rate 42 mL/min (>60); Est Glom Filt Rate - Afr Amer 51 mL/min (>60); Glucose 164 mg/dL (74-106); Potassium 4.1 mmol/L (3.5-5.1); Sodium Level 143 mmol/L (136-145)
== END | disposition home or self-care (01) ==
LOC: BIMLAB 09:14
PROVIDERS: PCP Internal Medicine; Referring Provider Internal Medicine; Visit Provider Internal Medicine
DX: I10 Essential (primary) hypertension (principal)
CPT/HCPCS: 36415; 80048

== ENCOUNTER → 2022-11-28 | Outpatient (CLI) | payer MEDICARE, MEDICAID, SELFPAY ==
[2022-11-28 08:28] LABS: Absolute Lymphocyte Count 2.84 X10^3/uL (0.83-4.51); Basophil# 0.06 X10^3/uL; Basophil% 0.6 % (0-1); Eosinophil# 0.19 X10^3/uL; Eosinophils% 1.9 % (0-5); Hematocrit 39.8 % (37-47); Hemoglobin 12.7 g/dL (12.0-15.0); Lymphocyte # 2.84 X10^3/ul (0.83-4.51); Lymphocyte % 28.5 % (19-41); Mean Corp Hgb Conc 31.9 g/dL (32-36); Mean Corpuscular Hgb 27.1 pg (27.0-32.0); Mean Platelet Vol. 11.2 fl (6.2-12.0); NRBC Flagged by Analyzer 0 % (0-5); Neutrophil # 6.01 X10^3/uL (2.7-7.7); Neutrophil % 60.5 % (47-70); Platelet Count 322 K/mm3 (150-450); RBC Distribution Width CV 13.6 % (11.6-14.6); RBC Distribution Width SD 42.3 fl (35.1-43.9); Red Blood Count 4.68 M/mm3 (4.2-5.4)
[2022-11-28 09:03] LABS: AST(SGOT) 19 U/L (15-37); Alanine Aminotransfer ALT/SGPT 30 U/L (13-56); Albumin, Serum 3.7 g/dL (3.2-5.0); Alkaline Phosphatase 71 U/L (45-117); Anion Gap 10 (5-15); BUN 20 mg/dL (7-18); BUN/Creat Ratio 18.3 RATIO (10-20); Calcium,Total 9.3 mg/dL (8.5-10.1); Chloride 105 mmol/L (98-107); Creatinine, Serum 1.09 mg/dL (0.55-1.02); EST Glomerular Filtration Rate 54 mL/min (>60); Est Glom Filt Rate - Afr Amer 65 mL/min (>60); Globulin 3.6 g/dL (2.2-4.2); Glucose 118 mg/dL (74-106); Potassium 4.2 mmol/L (3.5-5.1); Protein, Total 7.3 g/dL (6.4-8.2); Sodium Level 142 mmol/L (136-145)
[2022-11-29 05:07] LABS: Immunoglobulin A 195 mg/dL (87-352); Immunoglobulin G 1139 mg/dL (586-1602)
[2022-11-30 18:54] LABS: Immunoglobulin M 52 mg/dL (26-217)
== END | disposition home or self-care (01) ==
PROVIDERS: PCP Internal Medicine; Referring Provider Psychiatry & Neurology Neurology; Visit Provider Psychiatry & Neurology Neurology
DX: G35 Multiple sclerosis (principal)
CPT/HCPCS: 36415; 80053; 82784; 85025

== ENCOUNTER → 2022-11-30 | Outpatient (CLI) | payer MEDICARE, MEDICAID, SELFPAY ==
[2022-11-30 08:17] VITALS: BP 154/58; PULSE 74; RESP 16; TEMP 35.7; O2SAT 99; BMI 32.8
[2022-11-30] MEDS: DiphenhydrAMINE 25 MG Capsule PO (08:22)
[2022-11-30] MEDS: Famotidine 20 MG Tablet PO (08:22)
[2022-11-30] MEDS: Acetaminophen 500 MG Tablet 1000 MG PO (08:22)
[2022-11-30] MEDS: 0.9% NaCl IVPB Med Flush (250 mL) 15 ML IV (08:23)
[2022-11-30] MEDS: 0.9% NaCl Peripheral Flush Adult/Peds IV (08:23)
[2022-11-30] MEDS: MethylPREDNISolone 125 MG/2 ML Vial IV (08:30)
[2022-11-30] MEDS: Ocrelizumab 600mg Infusion 40 MG IV (08:58)
[2022-11-30 13:22] VITALS: BP 178/78; PULSE 72; RESP 16; O2SAT 97
[2022-11-30 14:19] VITALS: BP 176/68; PULSE 74; RESP 16; TEMP 35.8; O2SAT 97
== END | disposition home or self-care (01) ==
PROVIDERS: PCP Internal Medicine; Visit Provider Nurse Practitioner Acute Care
DX: G35 Multiple sclerosis (principal)
CPT/HCPCS: 96365; 96366; 96375; J7040; J7050; A4216; J2350

== ENCOUNTER → 2022-12-31 | Outpatient (CLI) | payer MEDICARE, MEDICAID, SELFPAY ==
[2022-12-31 12:47] LABS: ALB/GLOB Ratio 0.9 RATIO (0.9-2.4); AST(SGOT) 25 U/L (15-37); Alanine Aminotransfer ALT/SGPT 37 U/L (13-56); Albumin, Serum 3.4 g/dL (3.2-5.0); Alkaline Phosphatase 73 U/L (45-117); Anion Gap 6 (5-15); BUN 27 mg/dL (7-18); BUN/Creat Ratio 24.1 RATIO (10-20); Chloride 107 mmol/L (98-107); Creatinine, Serum 1.12 mg/dL (0.55-1.02); EST Glomerular Filtration Rate 52 mL/min (>60); Est Glom Filt Rate - Afr Amer 63 mL/min (>60); Globulin 3.8 g/dL (2.2-4.2); Glucose 162 mg/dL (74-106); Potassium 4.5 mmol/L (3.5-5.1); Protein, Total 7.2 g/dL (6.4-8.2); Sodium Level 140 mmol/L (136-145)
== END | disposition home or self-care (01) ==
LOC: BIMLAB 08:45
PROVIDERS: PCP Internal Medicine; Referring Provider Internal Medicine; Visit Provider Internal Medicine
DX: I11.0 Hypertensive heart disease with heart failure (principal); I50.9 Heart failure, unspecified
CPT/HCPCS: 36415; 80053; 83880

== ENCOUNTER 2023-01-08 12:53 | Emergency (ER) | payer MEDICARE, MEDICAID, SELFPAY ==
[2023-01-08 12:54] VITALS: BP 179/77; PULSE 71; RESP 18; TEMP 35.8; O2SAT 94; BMI 41.3
--- NOTE | 2023-01-08 13:17 | EDS_ITS ---
HPI History of Present Illness Chief Complaint: Hypoglycemia Informant: patient Onset/Context/Timing Onset: Today Context: Gradual Onset Current Severity: Mild Maximum Severity: Mild Narrative Narrative: 62-year-old female history of insulin-dependent diabetes and hypertension. She ate breakfast this morning. Took her insulin. Had not eaten lunch yet. Today she was an adult daycare and had decreased mental status. They checked her blood sugar it was low gave her a snack blood sugars now improved in the 80s and she is feeling better. She denies any recent illness. She denies any vomiting or diarrhea. No fever or dysuria. Denies any headache or chest pain. No abdominal pain or shortness of breath. Prior similar symptoms: Yes Recent Illness/Hospitalization: No PFSH PFSH Medical History Anxiety and depression Balance problem Bilateral lower extremity edema CHF (congestive heart failure) History of back problems Hx of carpal tunnel syndrome Hx of emotional problems Hx of essential hypertension Hx of multiple sclerosis Hx: UTI (urinary tract infection) Insulin dependent diabetes mellitus Left bundle branch block New onset of congestive heart failure Type 2 diabetes mellitus Urinary and bowel incontinence Wears glasses Home Medications acetaminophen 325 mg tablet (Tylenol) 650 mg PO Q6H PRN PRN Pain 07/10/18 [Rx Last Taken 07/07/18] bupropion HCl 300 mg 24 hr tablet, extended release 300 mg PO QAM 06/27/22 [History Last Taken Unknown] multivitamin 1 tab PO DAILY 06/27/22 [History Last Taken Unknown] valsartan 320 mg tablet 320 mg PO DAILY 06/27/22 [History Last Taken Unknown] flash glucose scanning reader (Free[employer] Sunshine 2 [place]) #1 ea 07/26/22 [Rx Last Taken Unknown] cholecalciferol (vitamin D3) 125 mcg (5,000 unit) capsule 125 mcg PO DAILY #90 caps 08/16/22 [Rx Last Taken Unknown] oxybutynin chloride 5 mg tablet,extended release 24 hr See Rx Instructions .Route .COMPLEX #90 tabs 10/01/22 [Rx Last Taken Unknown] sertraline 50 mg tablet See Rx Instructions .Route .COMPLEX #90 tabs 10/01/22 [Rx Last Taken Unknown] blood-glucose meter,continuous (Dexcom G6 Senior Hardware Engineer) #1 ea 10/03/22 [Rx Last Taken Unknown] blood-glucose sensor (Dexcom G6 Sensor device) #3 ea 10/03/22 [Rx Last Taken Unknown] blood-glucose transmitter (Dexcom G6 Transmitter device) #1 ea 10/03/22 [Rx Last Taken Unknown] atorvastatin 40 mg tablet 40 mg PO QHS #60 TABLETS 10/25/22 [Rx Last Taken Unknown] flash glucose sensor (FreeStyle Sunshine 2 Sensor kit) #1 ea 10/25/22 [Rx Last Taken Unknown] levothyroxine 25 mcg tablet 25 mcg PO DAILY #90 tabs 10/25/22 [Rx Last Taken Unknown] metoprolol tartrate 100 mg tablet 100 mg PO BID 1 month #60 tabs 10/25/22 [Rx Last Taken Unknown] furosemide 40 mg tablet (Lasix) 40 mg PO BID #60 tabs 11/05/22 [Rx Last Taken Unknown] spironolactone 50 mg tablet 50 mg PO DAILYCM #30 tabs 11/05/22 [Rx Last Taken Unknown] potassium chloride 20 mEq tablet,extended release 20 meq PO DAILY #90 tabs 11/23/22 [Rx Last Taken Unknown] pen needle, diabetic 31 gauge x 5/16 (Easy Comfort Pen [place]) #50 ea 11/29/22 [Rx Last Taken Unknown] insulin glargine 100 unit-lixisenatide 33 mcg/mL subcutaneous pen (Soliqua 100/33) 50 unit (0.5 mL) subcut QAM #15 mL 12/19/22 [Rx Last Taken Unknown] metformin 1,000 mg tablet 1,000 mg PO BID #180 tabs 12/19/22 [Rx Last Taken Unknown] pioglitazone 30 mg tablet 30 mg PO DAILY #90 tabs 12/19/22 [Rx Last Taken Unknown] Allergy/AdvReac Type Severity Reaction Status Date / Time bee venom protein (honey bee) Allergy Anaphylaxis Verified 12/31/22 08:13 Family History Mother Anxiety Depression Blood clot in eye Hypertension Father Lung cancer Brain cancer Spinal cord cancer Cancer Heart disease Grandmother Alcoholism Breast cancer Diabetes Hypertension Sister Diabetes CVA (cerebral vascular accident) Surgical History Hx of adenoidectomy Hx of bilateral cataract extraction Hx of cholecystectomy Hx of hysterectomy Hx of tonsillectomy Social History household members: other details: SISTER housing: other details: Trailer current occupational status: disabled sexually active: No Smoking Status: Never smoker alcohol intake: current alcohol intake frequency: holidays/special occasions only substance use type: does not use what type of physical activity do you participate in: none seatbelt use: always do you feel safe at home: Yes ROS ROS ED ROS Narrative Denies recent illness. Review of Systems ROS Unobtainable: Denies due to encephalopathy Constitutional Constitutional ED: Denies chills or fever(s) Eyes Eyes: Denies blurry vision ENT ENT ED: Denies ear pain Cardiovascular Cardiovascular: Denies chest pain Respiratory/Chest Respiratory/Chest: Denies cough or dyspnea Gastrointestinal Gastrointestinal: Denies abdominal pain Genitourinary Genitourinary ED: Denies dysuria or hematuria Musculoskeletal Musculoskeletal: Denies arthralgias Integumentary Denies abscess or Abrasions Neurologic Neurologic: Denies headache(s) Psychiatric Psychiatric: Denies anxiety Endocrine Endocrinology: Denies cold intolerance Hematologic/Lymphatic Hematologic/Lymphatic: Reports none Allergic/Immunologic Allergic/Immunologic ED: Denies mouth swelling or tongue swelling EXAM Physical Exam Narrative Exam Narrative: 62-year-old female no acute distress. Vital signs stable afebrile. Pulse ox 94% on room air no hypoxia. H EENT exam unremarkable atraumatic. Pupils round reactive light. Neck nontender. Lungs clear to auscultation bilaterally. Heart regular rhythm rate about 70 no murmur. Abdomen soft nontender normal bowel sounds no peritoneal signs. Moving all 4 extremities. Calves are nontender without edema or cords. Neurologically patient is awake and alert with no focal motor deficits. Answering questions following commands. She knows where she is at the year and president night states. Const Vital Signs: 01/08/23 12:54 01/08/23 12:58 Temperature 96.5 F L Temperature Source Temporal Pulse Rate 71 Respiratory Rate 18 Respiratory Effort Normal Non-Labored Blood Pressure 179/77 H Blood Pressure Mean 111 Pulse Ox 94 Oxygen Delivery Method Room Air Positive well nourished, well developed and obese; Negative for cachectic, contractures or unkempt General Appearance ED: well developed and NAD; Negative for unkempt, cachectic, contractures, cyanotic, diaphoretic or pallor Nutritional Appearance: obese; Negative for cachectic HEENT Reports moist mucous membranes; Denies dry mucous membranes Negative for trauma or tenderness Mouth ED: No dry mucous membranes Mouth: No dry mucous membranes Eyes PERRL and EOMs intact bilaterally General Eye ED: Negative for pale conjunctiva or scleral icterus Neck no lymphadenopathy, supple and no JVD General: Negative for tenderness Lymph Lymphatic: Negative for other Chest Wall inspection of chest normal and palpation of chest normal Chest: Negative for other Resp normal respiratory effort and clear to auscultation bilaterally Effort and Inspection: Negative for retractions Auscultation: Negative for rales, rhonchi or wheezes Cardio regular rate, regular rhythm, S1 normal heart sound, S2 normal heart sound and no murmurs Palpation: Negative for palpable S3 Rate: Negative for bradycardia Rhythm: Negative for abnormal rhythm GI normal to inspection, nondistended, normoactive bowel sounds, non-tender, non- distended and no masses Inspection: Negative for abdominal distention Auscultation: normoactive bowel sounds Palpation: soft; Negative for tender or guarding Back/Spine no CVA tenderness General Back: Negative for CVA tenderness Cervical Spine: Negative for cervical spine tenderness Thoracic Spine / Upper Back: Negative for thoracic spinal tenderness or paraspinal muscle tenderness Lumbar Spine / Lower Back: Negative for lumbar spinal tenderness Extremity normal to inspection General Extremety ED: Negative for edema or tenderness General Extremity: Negative for edema Neuro oriented x3 Sensorium / Orientation: alert; Negative for orientation impaired, lethargic or stuporous Motor Exam: strength 5/5 throughout Psych mental status grossly normal Appearance: Negative for unkempt Attitude: No agitated Mood & Affect: Negative for depressed, anxious or tearful Skin no rashes or lesions noted and no wounds General Skin Exam: Negative for jaundice or pallor Lesions: No lesion noted Rashes: No rashes noted Trauma: Negative for abrasion Wounds: Negative for wounds noted MDM MDM MDM Narrative Medical decision making narrative: [id number] female with a transient hypoglycemic reaction. She is a known insulin-dependent diabetic. I will check a chemistry panel. Her exam otherwise is unremarkable. She has no recent illness or any history of any infectious etiology. Patient is doing well at 2:19 PM. Her blood sugar did drop a second time is in the 40s and 50s. She is eating peanut butter crackers. Were getting her meal tray. We will recheck another blood sugar prior to any disposition. Patient is doing well at 3:10 PM. She is eating a regular diet tray. She is awake and alert. Clinically looks well. When she is done eating I will have them recheck a blood sugar 1 hour later if her blood sugars are running well she and I are comfortable with her being discharged home. She will watch her blood sugars closely tonight. I told her I prefer her runs a little high than low and to definitely check it before she goes to sleep tonight. History & Record Review Discussion w/independent historian: Patient Lab Data Attestation: I reviewed the patient's lab results. Lab results narrative: BMP shows normal anion gap of 5 BUN of 19 creatinine 0.8. Glucose was low again at 47. Consistent with the nurse checking it because the patient felt like it was getting low again I am in the nurse to the BG T was around 56. We are waiting for the diet tray. The patient is eating peanut butter and crackers. Labs: Laboratory Results - last 24 hr 01/08/23 01/08/23 13:25 14:10 Sodium 142 Potassium 3.5 Chloride 109 H Carbon Dioxide 28.0 Anion Gap 5 BUN 19 H Creatinine 0.82 Estim Creat Clear Calc 69.17 Est GFR (MDRD) Af Amer 91 Est GFR (MDRD) Non-Af 75 BUN/Creatinine Ratio 23.1 H Glucose 47 L Calcium 9.0 POC Glucose 52 L Discharge Plan Triage Chief Complaint: Hypoglycemia ED Provider: Shahriar De Jesus Dx/Rx/DC Orders Clinical Impression: Diabetic hypoglycemia, HTN (hypertension) Instructions: Hypoglycemia (Low Blood Sugar) Prescriptions: No Action valsartan 320 mg tablet 320 mg PO DAILY bupropion HCl 300 mg tablet extended release 24 hr 300 mg PO QAM multivitamin Tablet 1 tab PO DAILY cholecalciferol (vitamin D3) 125 mcg (5,000 unit) capsule 125 mcg PO DAILY Qty: 90 1RF acetaminophen [Tylenol] 325 MG tablet 650 mg PO Q6H PRN PRN (Reason: Pain) 0RF spironolactone 50 mg Tablet 50 mg PO DAILYCM Qty: 30 1RF furosemide [Lasix] 40 mg tablet 40 mg PO BID Qty: 60 1RF (DME) FreeStyle Sunshine 2 [place] Misc See Rx Instructions .Route Qty: 1 3RF Rx Instructions: As directed oxybutynin chloride 5 mg tablet extended release 24hr See Rx Instructions .ROUTE .COMPLEX Qty: 90 3RF Dose Instruction: TAKE 1 TABLET BY MOUTH DAILY Rx Instructions: TAKE 1 TABLET BY MOUTH DAILY sertraline 50 mg tablet See Rx Instructions .ROUTE .COMPLEX Qty: 90 3RF Dose Instruction: TAKE 1 TABLET BY MOUTH DAILY Rx Instructions: TAKE 1 TABLET BY MOUTH DAILY (DME) Dexcom G6 Senior Hardware Engineer Misc See Rx Instructions .Route Qty: 1 3RF Rx Instructions: As directed (DME) Dexcom G6 Sensor Device See Rx Instructions .Route Qty: 3 3RF Rx Instructions: As directed (DME) Dexcom G6 Transmitter Device See Rx Instructions .Route Qty: 1 3RF Rx Instructions: As directed atorvastatin 40 mg tablet 40 mg PO QHS Qty: 60 0RF (DME) FreeStyle Sunshine 2 Sensor Kit See Rx Instructions .Route Qty: 1 3RF Rx Instructions: As directed levothyroxine 25 mcg tablet 25 mcg PO DAILY Qty: 90 1RF metoprolol tartrate 100 mg tablet 100 mg PO BID 30 Days Qty: 60 2RF potassium chloride 20 mEq tablet extended release 20 meq PO DAILY Qty: 90 1RF (DME) pen needle, diabetic [Easy Comfort Pen [place]] 31 gauge x 5/16 needle See Rx Instructions .Route Qty: 50 0RF Rx Instructions: As directed Soliqua 100/33 100 unit-33 mcg/mL insulin pen 50 unit subcut QAM Qty: 15 1RF metformin 1,000 mg tablet 1,000 mg PO BID Qty: 180 1RF pioglitazone 30 mg tablet 30 mg PO DAILY Qty: 90 1RF Primary Care Provider: Flaquito White Referrals: Flaquito White MD [Primary Care Provider] - 3-5 Days if not improving Activity Restrictions/Additional Instructions: Your blood sugar is running a little today. Today watch cautiously throughout the next several days. I prefer that it runs a little high than low over the next 24 hours. Make sure you check it before you go to bed tonight. Eat a snack before you go to sleep Follow-up with your doctor if you are not not feeling well return if you are feeling worse.. Disposition Disposition: Home, Self Care
[2023-01-08 13:49] LABS: Anion Gap 5 (5-15); BUN 19 mg/dL (7-18); BUN/Creat Ratio 23.1 RATIO (10-20); Chloride 109 mmol/L (98-107); Creatinine, Serum 0.82 mg/dL (0.55-1.02); EST Glomerular Filtration Rate 75 mL/min (>60); Est Glom Filt Rate - Afr Amer 91 mL/min (>60); Estimated Creatinine Clearance 69.17 ml/min; Glucose 47 mg/dL (74-106); Potassium 3.5 mmol/L (3.5-5.1); Sodium Level 142 mmol/L (136-145)
[2023-01-08 14:30] LABS: Bedside Glucose 52 mg/dL (74-106)
[2023-01-08 15:21] LABS: Bedside Glucose 68 mg/dL (74-106)
[2023-01-08 16:25] VITALS: BP 192/100; PULSE 81; RESP 16; O2SAT 95
[2023-01-08 16:35] LABS: Bedside Glucose 126 mg/dL (74-106)
== END 2023-01-08 16:30 | disposition home or self-care (01) ==
PROVIDERS: Emergency Provider Emergency Medicine; PCP Internal Medicine; Visit Provider Emergency Medicine
DX: E11.649 Type 2 diabetes mellitus with hypoglycemia without coma (principal); I11.0 Hypertensive heart disease with heart failure; I50.9 Heart failure, unspecified; Z79.4 Long term (current) use of insulin; E66.9 Obesity, unspecified
CPT/HCPCS: 80048; 82962; 99283; A4216

== ENCOUNTER 2023-02-04 15:34 | Emergency (ER) | payer MEDICARE, MEDICAID, SELFPAY ==
[2023-02-04 15:35] VITALS: BP 167/81; PULSE 115; RESP 14; TEMP 36.3; O2SAT 94
[2023-02-04 17:34] VITALS: BP 155/75; PULSE 90; RESP 25; O2SAT 99
[2023-02-04 17:52] VITALS: BMI 25.0
--- NOTE | 2023-02-04 17:54 | EX.ED.DYSGE1 ---
HPI History of Present Illness Chief Complaint: General Illness Detail of Chief Complaint: I do not feel well Informant: patient Onset/Context/Timing Onset: Today Context: Sudden Onset Timing: Continuous Quality: General sense of unwellness Location: Vague general and GI Current Severity: Mild Maximum Severity: Moderate Worsened by: Nothing Relieved by: Nothing Associated Symptoms Associated Symptoms: Nausea and vomiting x3 Narrative Narrative: Patient is a obese woman with poor hygiene who presents with sense of unwellness with nausea and vomiting x3. This started today. She denies headache. She states she had trouble with her vision for 1 year. She has seen ophthalmology and they states there is nothing that can be done since this is due to macular degenerative disease. She denies headache. Denies ringing or ears. Denies rhinorrhea, congestion postnasal drainage sore throat. She denies cough or shortness of breath. Denies history of smoking. She denies chest discomfort. She denies hematemesis. Denies black or maroon-colored stool. She denies abdominal pain. She denies dysuria, frequency, urgency or hematuria. Patient denies skin lesions. Patient denies dyspnea on exertion, orthopnea or PND. Prior similar symptoms: Yes (Visual) Recent Illness/Hospitalization: No PFSH PFSH Medical History Anxiety and depression Balance problem Bilateral lower extremity edema CHF (congestive heart failure) History of back problems Hx of carpal tunnel syndrome Hx of emotional problems Hx of essential hypertension Hx of multiple sclerosis Hx: UTI (urinary tract infection) Insulin dependent diabetes mellitus Left bundle branch block New onset of congestive heart failure Type 2 diabetes mellitus Urinary and bowel incontinence Wears glasses Home Medications flash glucose scanning reader (FreeStyle Sunshine 2 [place]) #1 ea 07/26/22 [Rx Last Taken Unknown] flash glucose sensor (FreeStyle Sunshine 2 Sensor kit) #1 ea 10/25/22 [Rx Last Taken Unknown] levothyroxine 25 mcg tablet 25 mcg PO DAILY #90 tabs 10/25/22 [Rx Last Taken Unknown] potassium chloride 20 mEq tablet,extended release 20 meq PO DAILY #90 tabs 11/23/22 [Rx Last Taken Unknown] metformin 1,000 mg tablet 1,000 mg PO BID #180 tabs 12/19/22 [Rx Last Taken Unknown] pen needle, diabetic 31 gauge x 02/26 (UltiCare Pen Needle) #100 ea 01/14/23 [Rx Last Taken Unknown] atorvastatin 40 mg tablet 40 mg PO QHS #60 TABLETS 01/17/23 [Rx Last Taken Unknown] cholecalciferol (vitamin D3) 125 mcg (5,000 unit) capsule 125 mcg PO DAILY #90 caps 01/17/23 [Rx Last Taken Unknown] metoprolol tartrate 100 mg tablet 100 mg PO BID 1 month #60 tabs 01/17/23 [Rx Last Taken Unknown] cephalexin 500 mg capsule 500 mg PO Q6 #28 CAPSULES 02/04/23 [Rx Last Taken Unknown] oxybutynin chloride 5 mg tablet,extended release 24 hr 5 mg PO DAILY 02/04/23 [History Last Taken Unknown] sertraline 50 mg tablet 50 mg PO DAILY 02/04/23 [History Last Taken Unknown] Allergy/AdvReac Type Severity Reaction Status Date / Time bee venom protein (honey bee) Allergy Anaphylaxis Verified 02/04/23 15:35 Family History Mother Anxiety Depression Blood clot in eye Hypertension Father Lung cancer Brain cancer Spinal cord cancer Cancer Heart disease Grandmother Alcoholism Breast cancer Diabetes Hypertension Sister Diabetes CVA (cerebral vascular accident) Surgical History Hx of adenoidectomy Hx of bilateral cataract extraction Hx of cholecystectomy Hx of hysterectomy Hx of tonsillectomy Social History household members: other details: SISTER housing: other details: Trailer current occupational status: disabled sexually active: No Smoking Status: Never smoker alcohol intake: current alcohol intake frequency: holidays/special occasions only substance use type: does not use what type of physical activity do you participate in: none seatbelt use: always do you feel safe at home: Yes ROS ROS ED Constitutional Constitutional ED: Denies chills, fever(s), subjective, sweats or weight loss Eyes Eyes: Reports change in vision bilateral (Documented in the HPI narrative); Denies blurry vision or diplopia ENT ENT ED: Denies ear pain, rhinorrhea or sore throat Cardiovascular Cardiovascular: Denies chest pain, orthopnea, palpitations, paroxysmal nocturnal dyspnea or racing heartbeat Respiratory/Chest Respiratory/Chest: Denies cough, dyspnea, dyspnea on exertion, orthopnea or paroxysmal nocturnal dyspnea Gastrointestinal Gastrointestinal: Reports nausea and vomiting; Denies abdominal pain, constipation, diarrhea or melena Genitourinary Genitourinary ED: Denies dysuria, hematuria or urinary frequency Musculoskeletal Musculoskeletal: Denies arthralgias, back pain, myalgias or neck pain Integumentary Denies abscess, Abrasions or rash Neurologic Neurologic: Reports weakness; Denies headache(s) or paresthesias Psychiatric Psychiatric: Reports anxiety and depression Endocrine Endocrinology: Denies cold intolerance or heat intolerance Hematologic/Lymphatic Hematologic/Lymphatic: Reports as per HPI EXAM Physical Exam Const Vital Signs: 02/04/23 15:35 02/04/23 17:34 02/04/23 19:42 Temperature 97.3 F L Temperature Source Temporal Pulse Rate 115 H 90 93 Respiratory Rate 14 25 H Blood Pressure 167/81 H 155/75 H 155/75 H Blood Pressure Mean 109 101 101 Pulse Ox 94 99 Oxygen Delivery Method Room Air Room Air 02/04/23 21:30 Temperature Temperature Source Pulse Rate 87 Respiratory Rate Blood Pressure 152/82 H Blood Pressure Mean 105 Pulse Ox 95 Oxygen Delivery Method Room Air Positive well nourished, well developed, obese and unkempt General Appearance ED: unkempt, well developed, NAD and pallor; Negative for cyanotic or diaphoretic Nutritional Appearance: obese HEENT Reports dry mucous membranes HEENT Narrative: Atraumatic normocephalic. Ears normal. Nares patent. Mucosa dry. Uvula midline. No deviation tongue or protrusion. Posterior pharynx out erythema or exudate. Mouth ED: Yes dry mucous membranes Mouth: dry mucous membranes Eyes PERRL and EOMs intact bilaterally Eyes Narrative: Patient does have evidence of cataracts and unable to perform adequate funduscopic exam. General Eye ED: Negative for pale conjunctiva or scleral icterus Neck no lymphadenopathy, supple and no JVD Chest Wall inspection of chest normal and palpation of chest normal Resp normal respiratory effort and clear to auscultation bilaterally Cardio regular rate, regular rhythm, S1 normal heart sound, S2 normal heart sound and no murmurs GI normal to inspection, nondistended, normoactive bowel sounds, non-tender, non-distended and no masses; Negative for hepatosplenomegaly Back/Spine General Back: CVA tenderness Thoracic Spine / Upper Back: Negative for thoracic spinal tenderness Lumbar Spine / Lower Back: Negative for lumbar spinal tenderness Extremity normal to inspection Extremity Narrative: Distal pulses upper and lower extremity 2+ and symmetric Neuro oriented x3, CN's II-XII intact bilaterally and no sensory deficits noted Sensorium / Orientation: alert Motor Exam: strength 5/5 throughout Psych Appearance: unkempt Mood & Affect: depressed Skin no rashes or lesions noted, no wounds and skin turgor normal General Skin Exam: pallor; Negative for jaundice MDM MDM MDM Narrative Medical decision making narrative: Patient with vague symptoms. Since she is diabetic we will obtain basic metabolic panel to assess glucose anion gap and renal function. Clinically she is dehydrated 1 L of normal saline was ordered. CBC was obtained since she is pale and complains of weakness to rule out anemia. History & Record Review Discussion w/independent historian: EMS personnel Additional record(s) reviewed:: Prior inpatient record (Admitted for congestive heart failure), Prior outpatient record (Dr. Griffin's office visit for chronic problems with balance), Prior ED visit and Prior labs Lab Data Attestation: I reviewed the patient's lab results. Lab results narrative: White count is elevated 22.6 thousand with shift. There is no bandemia. H&H is 11.9 and 6.8. Renal function is normal. Glucose is slight elevated 124 with a normal CO2 and anion gap. Urine reveals nitrites and rare bacteria. Culture was sent. Patient received dose of Rocephin in the emergency department. She was discharged with prescription for cephalexin. Labs: Laboratory Results - last 24 hr 02/04/23 02/04/23 02/04/23 18:30 18:30 19:35 WBC 22.6 H RBC 4.30 Hgb 11.9 L Hct 36.8 L MCV 85.6 MCH 27.7 MCHC 32.3 RDW Std Deviation 44.6 H RDW Coeff of Fernando 14.6 Plt Count 272 MPV 11.5 Immature Gran % (Auto) 0.900 Neut % (Auto) 87.0 H Lymph % (Auto) 4.0 L [place] % (Auto) 7.7 Eos % (Auto) 0.0 Baso % (Auto) 0.4 Absolute Neuts (auto) 19.7 H Absolute Lymphs (auto) 0.91 Nucleated RBC % 0 Differential Comment SCANNED Diff Path Review May foll Sodium 138 Potassium 3.3 L Chloride 104 Carbon Dioxide 28.0 Anion Gap 6 BUN 13 Creatinine 1.01 Estim Creat Clear Calc 56.16 Est GFR (MDRD) Af Amer 71 Est GFR (MDRD) Non-Af 59 L BUN/Creatinine Ratio 12.9 Glucose 124 H Calcium 8.9 Urine Color Yellow Urine Clarity Sl. Cloudy Urine pH 6.0 Ur Specific [place] 1.015 Urine Protein 100 H Urine Glucose (UA) Normal Urine Ketones 15 H Urine Occult Blood 25 H Urine Nitrite Positive H Urine Bilirubin Negative Urine Urobilinogen Normal Ur Leukocyte Esterase 25 H Urine RBC 0-5 SEEN Urine WBC 0-5 SEEN Ur Squamous Epith Cells 0-5 SEEN Urine Bacteria RARE Urine Mucus 0 SEEN Discharge Plan Triage Chief Complaint: General Illness Other Complaint: Nausea/Vomiting ED Provider: Tom Drake Dx/Rx/DC Orders Clinical Impression: Leukocytosis, Hx of multiple sclerosis, Type 2 diabetes mellitus, HTN (hypertension), Bacteriuria Instructions: ED Cystitis Female Adult Prescriptions: New cephalexin [cephalexin] 500 mg capsule 500 mg PO Q6 Qty: 28 0RF No Action oxybutynin chloride 5 mg tablet extended release 24hr 5 mg PO DAILY sertraline 50 mg tablet 50 mg PO DAILY (DME) FreeStyle Sunshine 2 [place] Misc See Rx Instructions .Route Qty: 1 3RF Rx Instructions: As directed (DME) FreeStyle Sunshine 2 Sensor Kit See Rx Instructions .Route Qty: 1 3RF Rx Instructions: As directed levothyroxine 25 mcg tablet 25 mcg PO DAILY Qty: 90 1RF potassium chloride 20 mEq tablet extended release 20 meq PO DAILY Qty: 90 1RF metformin 1,000 mg tablet 1,000 mg PO BID Qty: 180 1RF (DME) pen needle, diabetic [UltiCare Pen Needle] 31 gauge x 5/16 needle See Rx Instructions .ROUTE .COMPLEX Qty: 100 3RF Dose Instruction: USE TO INJECT INSULIN DAILY DIRECTED Rx Instructions: USE TO INJECT INSULIN DAILY DIRECTED atorvastatin 40 mg tablet 40 mg PO QHS Qty: 60 0RF cholecalciferol (vitamin D3) 125 mcg (5,000 unit) capsule 125 mcg PO DAILY Qty: 90 1RF metoprolol tartrate 100 mg tablet 100 mg PO BID 30 Days Qty: 60 2RF Primary Care Provider: Flaquito White Referrals: Flaquito White MD [Primary Care Provider] - 3-5 Days Disposition Disposition: Home, Self Care
[2023-02-04] MEDS: Ondansetron 4 MG/2 ML Vial IV (18:28)
[2023-02-04] MEDS: 0.9% Normal Saline 1,000 ML 1000 ML IV (18:28)
[2023-02-04 18:45] LABS: Absolute Lymphocyte Count 0.91 X10^3/uL (0.83-4.51); Absolute Neutrophil Count 19.7 X10^3/uL (2.0-7.7); Basophil# 0.08 X10^3/uL; Basophil% 0.4 % (0-1); Hematocrit 36.8 % (37-47); Hemoglobin 11.9 g/dL (12.0-15.0); Lymphocyte # 0.91 X10^3/ul (0.83-4.51); Mean Corp Hgb Conc 32.3 g/dL (32-36); Mean Corpuscular Hgb 27.7 pg (27.0-32.0); Mean Corpuscular Volume 85.6 fL (81-99); Mean Platelet Vol. 11.5 fl (6.2-12.0); Monocyte# 1.74 X10^3/uL; Monocyte% 7.7 % (0-10); NRBC Flagged by Analyzer 0 % (0-5); POSITIVE DIFFERENTIAL YES; Platelet Count 272 K/mm3 (150-450); RBC Distribution Width CV 14.6 % (11.6-14.6); RBC Distribution Width SD 44.6 fl (35.1-43.9); White Blood Count 22.6 K/mm3 (4.4-11.0)
[2023-02-04 18:47] LABS: Differential Indicated SCAN CRITERIA MET
[2023-02-04 19:00] LABS: Anion Gap 6 (5-15); BUN 13 mg/dL (7-18); BUN/Creat Ratio 12.9 RATIO (10-20); Calcium,Total 8.9 mg/dL (8.5-10.1); Chloride 104 mmol/L (98-107); Creatinine, Serum 1.01 mg/dL (0.55-1.02); EST Glomerular Filtration Rate 59 mL/min (>60); Est Glom Filt Rate - Afr Amer 71 mL/min (>60); Estimated Creatinine Clearance 56.16 ml/min; Glucose 124 mg/dL (74-106); Potassium 3.3 mmol/L (3.5-5.1); Sodium Level 138 mmol/L (136-145)
[2023-02-04 19:12] LABS: Differential Comment SCANNED
[2023-02-04 19:42] VITALS: BP 155/75; PULSE 93
[2023-02-04 19:44] LABS: Mucous, Urine 0 SEEN /hpf (<or=2+)
[2023-02-04 20:19] LABS: Color, Urine Yellow (Yellow); Glucose, Dipstick Normal (Normal); Ketone-Dipstick 15 mg/dl (Negative); Leukocyte Esterase-Dipstick 25 /ul (Negative); Nitrite-Dipstick Positive (Negative); Occult Blood-Urine 25 /ul (Negative); Protein-Dipstick 100 mg/dl (Negative); Specific Gravity, Urine 1.015 (1.002-1.030); Urine Bilirubin Dipstick Negative (Negative); Urine Clarity Sl. Cloudy (Clear); Urine Urobilinogen Normal (Normal)
[2023-02-04 20:52] LABS: Bacteria RARE /hpf (None Seen); Red Blood Cells-Urine 0-5 SEEN /hpf (0-5); Squamous Epithelial Cells - UA 0-5 SEEN /hpf (5-10); White Blood Cells 0-5 SEEN /hpf (0-5)
[2023-02-04 21:30] VITALS: BP 152/82; PULSE 87; O2SAT 95
[2023-02-04] MEDS: Ceftriaxone 1 GM/50 ML BAG IV (22:20)
[2023-02-04 23:05] VITALS: BP 152/68; RESP 18
[2023-02-06 13:09] LABS: Pathologist Review Reviewed
== END 2023-02-04 23:12 | disposition home or self-care (01) ==
PROVIDERS: Emergency Provider Emergency Medicine; PCP Internal Medicine; Visit Provider Emergency Medicine
DX: D72.829 Elevated white blood cell count, unspecified (principal); I11.0 Hypertensive heart disease with heart failure; I50.9 Heart failure, unspecified; E11.9 Type 2 diabetes mellitus without complications; E66.9 Obesity, unspecified; R53.1 Weakness; R11.2 Nausea with vomiting, unspecified; H35.30 Unspecified macular degeneration; R82.71 Bacteriuria
CPT/HCPCS: 80048; 81001; 85025; 87040; 87077; 87086; 87088; 87186; 96361; 96365; 96374; 99284; J7030; A4216; J2405

== ENCOUNTER 2023-05-31 08:29 | Outpatient (CLI) | payer MEDICARE, MEDICAID, SELFPAY ==
[2023-05-31 08:34] VITALS: BP 198/76; PULSE 74; RESP 16; TEMP 36.4; O2SAT 99; BMI 33.6
[2023-05-31] MEDS: 0.9% NaCl Peripheral Flush Adult/Peds IV (08:54)
[2023-05-31] MEDS: Famotidine 20 MG Tablet PO (08:55)
[2023-05-31] MEDS: DiphenhydrAMINE 25 MG Capsule PO (08:55)
[2023-05-31] MEDS: Acetaminophen 500 MG Tablet 1000 MG PO (08:55)
[2023-05-31] MEDS: MethylPREDNISolone 125 MG/2 ML Vial IV (08:57)
[2023-05-31] MEDS: 0.9% NaCl IVPB Med Flush (250 mL) 15 ML IV (08:57)
[2023-05-31] MEDS: Ocrelizumab 600mg Infusion 40 MG IV (09:30)
[2023-05-31 14:41] VITALS: BP 187/85; PULSE 71; RESP 16; TEMP 36.6; O2SAT 97
== END 2023-05-31 08:30 | disposition home or self-care (01) ==
LOC: MEDOUTP 08:29
PROVIDERS: PCP Internal Medicine; Referring Provider Nurse Practitioner Acute Care; Visit Provider Nurse Practitioner Acute Care
DX: G35 Multiple sclerosis (principal)
CPT/HCPCS: 96365; 96375; 96366; J7040; J7050; A4216; J2350

== ENCOUNTER → 2023-07-22 | Outpatient (CLI) | payer MEDICARE, MEDICAID, SELFPAY ==
[2023-07-22 15:17] LABS: Absolute Lymphocyte Count 2.37 X10^3/uL (0.83-4.51); Absolute Neutrophil Count 4.9 X10^3/uL (2.0-7.7); Basophil# 0.05 X10^3/uL; Basophil% 0.6 % (0-1); Eosinophil# 0.14 X10^3/uL; Eosinophils% 1.7 % (0-5); Hematocrit 36.2 % (37-47); Hemoglobin 11.3 g/dL (12.0-15.0); Lymphocyte # 2.37 X10^3/ul (0.83-4.51); Lymphocyte % 28.6 % (19-41); Mean Corp Hgb Conc 31.2 g/dL (32-36); Mean Corpuscular Volume 89.6 fL (81-99); Mean Platelet Vol. 11.9 fl (6.2-12.0); Monocyte# 0.78 X10^3/uL; Monocyte% 9.4 % (0-10); NRBC Flagged by Analyzer 0 % (0-5); Neutrophil # 4.91 X10^3/uL (2.7-7.7); Neutrophil % 59.2 % (47-70); Platelet Count 240 K/mm3 (150-450); RBC Distribution Width CV 13.6 % (11.6-14.6); RBC Distribution Width SD 44.5 fl (35.1-43.9); Red Blood Count 4.04 M/mm3 (4.2-5.4); White Blood Count 8.3 K/mm3 (4.4-11.0)
[2023-07-22 15:42] LABS: BNP,B-Type NATRIURETIC PEPTIDE 83.3 pg/mL (0-100)
[2023-07-22 15:47] LABS: ALB/GLOB Ratio 0.8 RATIO (0.9-2.4); AST(SGOT) 13 U/L (15-37); Alanine Aminotransfer ALT/SGPT 31 U/L (13-56); Albumin, Serum 3.2 g/dL (3.2-5.0); Alkaline Phosphatase 93 U/L (45-117); Anion Gap 5 (5-15); BUN 21 mg/dL (7-18); BUN/Creat Ratio 17.8 RATIO (10-20); Chloride 106 mmol/L (98-107); Creatinine, Serum 1.18 mg/dL (0.55-1.02); EST Glomerular Filtration Rate 49 mL/min (>60); Est Glom Filt Rate - Afr Amer 59 mL/min (>60); Globulin 3.9 g/dL (2.2-4.2); Glucose 221 mg/dL (74-106); Potassium 4.1 mmol/L (3.5-5.1); Protein, Total 7.1 g/dL (6.4-8.2); Sodium Level 139 mmol/L (136-145)
== END | disposition home or self-care (01) ==
LOC: BIMLAB 11:59
PROVIDERS: PCP Internal Medicine; Referring Provider Internal Medicine; Visit Provider Internal Medicine
DX: D72.829 Elevated white blood cell count, unspecified (principal); I50.9 Heart failure, unspecified; E11.9 Type 2 diabetes mellitus without complications
CPT/HCPCS: 36415; 80053; 83880; 85025

== ENCOUNTER → 2023-11-15 | Outpatient (CLI) | payer MEDICARE, MEDICAID, SELFPAY ==
[2023-11-15 13:12] LABS: AST(SGOT) 16 U/L (15-37); Alanine Aminotransfer ALT/SGPT 22 U/L (13-56); Albumin, Serum 3.2 g/dL (3.2-5.0); Alkaline Phosphatase 76 U/L (45-117); Anion Gap 3 (5-15); BUN 18 mg/dL (7-18); BUN/Creat Ratio 14.3 RATIO (10-20); Chloride 107 mmol/L (98-107); Creatinine, Serum 1.26 mg/dL (0.55-1.02); EST Glomerular Filtration Rate 46 mL/min (>60); Est Glom Filt Rate - Afr Amer 55 mL/min (>60); Globulin 3.3 g/dL (2.2-4.2); Glucose 230 mg/dL (74-106); Potassium 4.5 mmol/L (3.5-5.1); Protein, Total 6.5 g/dL (6.4-8.2); Sodium Level 138 mmol/L (136-145); Thyroid Stim Hormone (TSH) 1.78 uIU/mL (0.358-3.74)
== END | disposition home or self-care (01) ==
LOC: BIMLAB 10:38
PROVIDERS: PCP Internal Medicine; Referring Provider Internal Medicine; Visit Provider Internal Medicine
DX: E03.9 Hypothyroidism, unspecified (principal); E11.9 Type 2 diabetes mellitus without complications
CPT/HCPCS: 36415; 80053; 84443

== ENCOUNTER → 2023-12-31 | Outpatient (CLI) | payer MEDICARE, MEDICAID, SELFPAY ==
--- NOTE | 2023-12-31 13:44 | MRI_ITS ---
HISTORY: MS. TECHNIQUE: Multiplanar and multisequence MR images of the brain were obtained without contrast. 309 images. COMPARISON: 09/01/2020, 07/07/2018. FINDINGS: BRAIN PARENCHYMA: Moderate chronic white matter changes in the bilateral cerebral white matter involving the callosal septal interface, similar to prior. No abnormal focus of restricted diffusion. No acute intracranial hemorrhage identified. CSF SPACES: Chronic moderate volume loss. No significant midline shift or other mass effect.No extra-axial fluid collection. VASCULAR SYSTEM: Major intracranial flow voids are maintained. PARANASAL SINUSES AND MASTOID AIR CELLS: No significant air fluid levels. ORBITS: Right retinal detachment with mild intraocular hemorrhage. Bilateral lens resections.. MRI/Brain without Contrast IMPRESSION: Moderate chronic involutional and white matter changes, similar to prior and compatible with nonacute demyelinating disease in a patient with a history multiple sclerosis. Right retinal detachment. Electronically Signed: Kathy Haynes MD at 13:37 EDT ,
== END | disposition home or self-care (01) ==
PROVIDERS: PCP Internal Medicine; Referring Provider Psychiatry & Neurology Neurology; Visit Provider Psychiatry & Neurology Neurology
DX: G35 Multiple sclerosis (principal)
CPT/HCPCS: 70551

== ENCOUNTER → 2024-02-14 | Outpatient (CLI) | payer MEDICARE, MEDICAID, SELFPAY ==
[2024-02-14 12:48] LABS: Anion Gap 6 (5-15); BUN 16 mg/dL (7-18); BUN/Creat Ratio 14.4 RATIO (10-20); Calcium,Total 8.6 mg/dL (8.5-10.1); Chloride 109 mmol/L (98-107); Creatinine, Serum 1.11 mg/dL (0.55-1.02); EST Glomerular Filtration Rate 53 mL/min (>60); Est Glom Filt Rate - Afr Amer 64 mL/min (>60); Glucose 165 mg/dL (74-106); Potassium 4.2 mmol/L (3.5-5.1); Sodium Level 144 mmol/L (136-145)
[2024-02-14 13:30] LABS: Microalbumin:Creatinine Ratio 277.2 mg/g CRE (<30 mg/g CRE)
== END | disposition home or self-care (01) ==
LOC: BIMLAB 09:02
PROVIDERS: PCP Internal Medicine; Visit Provider Internal Medicine
DX: I10 Essential (primary) hypertension (principal); E11.9 Type 2 diabetes mellitus without complications
CPT/HCPCS: 36415; 80048; 82043; 82570

== ENCOUNTER → 2024-05-20 | Outpatient (CLI) | payer MEDICARE, MEDICAID, SELFPAY ==
[2024-05-20 12:17] LABS: Absolute Lymphocyte Count 2.64 X10^3/uL (0.83-4.51); Absolute Neutrophil Count 4.1 X10^3/uL (2.0-7.7); Basophil# 0.05 X10^3/uL; Basophil% 0.7 % (0-1); Eosinophil# 0.15 X10^3/uL; Hematocrit 40.1 % (37-47); Hemoglobin 12.5 g/dL (12.0-15.0); Lymphocyte # 2.64 X10^3/ul (0.83-4.51); Lymphocyte % 35.3 % (19-41); Mean Corp Hgb Conc 31.2 g/dL (32-36); Mean Corpuscular Hgb 27.2 pg (27.0-32.0); Mean Corpuscular Volume 87.2 fL (81-99); Mean Platelet Vol. 12.8 fl (6.2-12.0); Monocyte# 0.58 X10^3/uL; Monocyte% 7.8 % (0-10); NRBC Flagged by Analyzer 0 % (0-5); Neutrophil # 4.05 X10^3/uL (2.7-7.7); Neutrophil % 54.1 % (47-70); Platelet Count 237 K/mm3 (150-450); RBC Distribution Width CV 14.9 % (11.6-14.6); RBC Distribution Width SD 47.8 fl (35.1-43.9); White Blood Count 7.5 K/mm3 (4.4-11.0)
[2024-05-20 12:58] LABS: Anion Gap 6 (5-15); BUN 18 mg/dL (7-18); BUN/Creat Ratio 15.9 RATIO (10-20); Calcium,Total 8.6 mg/dL (8.5-10.1); Chloride 110 mmol/L (98-107); Creatinine, Serum 1.13 mg/dL (0.55-1.02); EST Glomerular Filtration Rate 52 mL/min (>60); Est Glom Filt Rate - Afr Amer 62 mL/min (>60); Glucose 267 mg/dL (74-106); Sodium Level 142 mmol/L (136-145); Thyroid Stim Hormone (TSH) 1.63 uIU/mL (0.358-3.74)
== END | disposition home or self-care (01) ==
LOC: BIMLAB 10:37
PROVIDERS: PCP Internal Medicine; Referring Provider Internal Medicine; Visit Provider Internal Medicine
DX: E11.69 Type 2 diabetes mellitus with other specified complication (principal); Z79.4 Long term (current) use of insulin; E03.9 Hypothyroidism, unspecified
CPT/HCPCS: 36415; 80048; 84443; 85025

== ENCOUNTER → 2024-11-27 | Outpatient (CLI) | payer MEDICARE, MEDICAID, SELFPAY ==
[2024-11-27 13:46] LABS: ALB/GLOB Ratio 0.9 RATIO (0.9-2.4); AST(SGOT) 19 U/L (15-37); Alanine Aminotransfer ALT/SGPT 27 U/L (13-56); Albumin, Serum 3.3 g/dL (3.2-5.0); Alkaline Phosphatase 112 U/L (45-117); Anion Gap 7 (5-15); BUN 18 mg/dL (7-18); BUN/Creat Ratio 14.1 RATIO (10-20); Calcium,Total 8.9 mg/dL (8.5-10.1); Chloride 109 mmol/L (98-107); Creatinine, Serum 1.28 mg/dL (0.55-1.02); EST Glomerular Filtration Rate 45 mL/min (>60); Est Glom Filt Rate - Afr Amer 54 mL/min (>60); Globulin 3.7 g/dL (2.2-4.2); Glucose 250 mg/dL (74-106); Potassium 4.3 mmol/L (3.5-5.1); Sodium Level 142 mmol/L (136-145)
[2024-11-27 14:35] LABS: Cholesterol 127 mg/dL (200); High Density Lipoprotein 66 mg/dL; Triglycerides 154 mg/dL; Very Low Density Lipoprotein 31 mg/dL (5-40)
[2024-11-27 15:32] LABS: Microalbumin:Creatinine Ratio 328.5 mg/g CRE (<30 mg/g CRE)
== END | disposition home or self-care (01) ==
LOC: BIMLAB 11:08
PROVIDERS: PCP Internal Medicine; Referring Provider Internal Medicine; Visit Provider Internal Medicine
DX: I10 Essential (primary) hypertension (principal); E11.69 Type 2 diabetes mellitus with other specified complication; Z79.4 Long term (current) use of insulin; E03.9 Hypothyroidism, unspecified
CPT/HCPCS: 36415; 80053; 80061; 82043; 82570; 84443

== ENCOUNTER → 2025-05-03 | Outpatient (CLI) | payer MEDICARE, MEDICAID, SELFPAY ==
[2025-05-03 12:40] LABS: Hematocrit 41.7 % (37-47); Hemoglobin 13.2 g/dL (12.0-15.0); Immature Granulocytes Count 0.010 X10^3/uL (0.0-0.0); Mean Corp Hgb Conc 31.7 g/dL (32-36); Mean Corpuscular Volume 89.9 fL (81-99); Mean Platelet Vol. 12.9 fl (6.2-12.0); NRBC Flagged by Analyzer 0 % (0-5); Platelet Count 237 K/mm3 (150-450); RBC Distribution Width CV 14.0 % (11.6-14.6); RBC Distribution Width SD 46.0 fl (35.1-43.9); Red Blood Count 4.64 M/mm3 (4.2-5.4); White Blood Count 7.6 K/mm3 (4.4-11.0)
[2025-05-03 13:14] LABS: AST(SGOT) 25 U/L (<=31); Alanine Aminotransfer ALT/SGPT 22 U/L (<=34); Albumin, Serum 4.0 g/dL (3.4-4.8); Alkaline Phosphatase 99 U/L (35-104); Anion Gap 11 (5-15); BUN 14 mg/dL (4-19); BUN/Creat Ratio 13.7 RATIO (10-20); Calcium,Total 9.1 mg/dL (7.6-11.0); Carbon Dioxide 26.3 mmol/L (21.0-32.0); Chloride 104 mmol/L (98-108); Globulin 2.9 g/dL (2.2-4.2); Glucose 275 mg/dL (70-99); Potassium 4.0 mmol/L (3.3-5.1)
== END | disposition home or self-care (01) ==
LOC: BIMLAB 09:53
PROVIDERS: PCP Internal Medicine; Referring Provider Internal Medicine; Visit Provider Internal Medicine
DX: I10 Essential (primary) hypertension (principal); E03.9 Hypothyroidism, unspecified; F41.9 Anxiety disorder, unspecified; F32.A Depression, unspecified
CPT/HCPCS: 36415; 80053; 84443; 85025

== ENCOUNTER → 2025-06-03 | Outpatient (CLI) | payer MEDICARE, MEDICAID, SELFPAY ==
--- NOTE | 2025-06-03 08:00 | BI_ITS ---
EXAM: SCRN MAMM (CAD)W/VALERIE BILAT DATE: 06/03/2025 CLINICAL HISTORY: F, Age 65 y/o , BREAST CANCER SCREENING No family history. TECHNIQUE: SCRN MAMM (CAD)W/VALERIE BILAT COMPARISON: Prior exam(s) dated December 22, 2021.. FINDINGS: TISSUE DENSITY: There are scattered areas of fibroglandular density. Bilateral Breast Mammographic Findings: No significant masses, calcifications or other abnormalities are identified. No suspicious masses, areas of developing architectural distortion, or suspicious calcifications. There has been no significant interval change. BI/SCRN MAMM (CAD)W/VALERIE BILAT IMPRESSION: Stable examination. OVERALL FINAL ASSESSMENT BI-RADS 1: NEGATIVE. RECOMMENDATION: Routine annual follow-up in 1 Year A letter with findings and recommendations will be mailed to the patient. Reading Location: [id number]
== END | disposition home or self-care (01) ==
LOC: OPBI 07:41
PROVIDERS: PCP Internal Medicine; Referring Provider Internal Medicine; Visit Provider Internal Medicine
DX: Z12.31 Encounter for screening mammogram for malignant neoplasm of breast (principal)
CPT/HCPCS: 77063; 77067